=== PATIENT | female | born 2000 | race Caucasian/White ===

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

== ENCOUNTER 2018-02-09 18:39 | Emergency (ER) | payer OTHER, MEDICAID ==
[2018-02-09 19:04] VITALS: BP 122/72
--- NOTE | 2018-02-09 19:18 | EDM.PDOC ---
ED HPI GENERAL MEDICAL PROBLEM - General Chief Complaint: Gastrointestinal Problem Stated Complaint: 18WKS PRAGNANT AND THROWING UP Time Seen by Provider: 02/09/18 19:18 Source of Information: Reports: Patient History Limitations: Reports: No Limitations - History of Present Illness INITIAL COMMENTS - FREE TEXT/NARRATIVE: HISTORY AND PHYSICAL: History of present illness: 17-year-old female presenting in emergency department with chief complaint of nausea and bladder pain. Patient states that she was recently diagnosed with a urinary tract infection. She has been taking antibiotics since but states that her bladder is bothering her so she came to emergency department. She sees Mackenzie Luther as her PCP for her current . She is currently on Augmentin for the bladder infection. She denies any recent fevers. Review of systems: As per history of present illness and below otherwise all systems reviewed and negative. Past medical history: As per history of present illness and as reviewed below otherwise noncontributory. Surgical history: As per history of present illness and as reviewed below otherwise noncontributory. Social history: No reported history of drug or alcohol abuse. Family history: As per history of present illness and as reviewed below otherwise noncontributory. Physical exam: HEENT: Atraumatic, normocephalic, pupils reactive, negative for conjunctival pallor or scleral icterus, mucous membranes moist, throat clear, neck supple, nontender, trachea midline. Lungs: Clear to auscultation, breath sounds equal bilaterally, chest nontender. Heart: S1S2, regular, negative for clicks, rubs, or JVD. Abdomen: Soft, nondistended, nontender. Negative for masses or hepatosplenomegaly. Negative for costovertebral tenderness. Pelvis: Stable nontender. Genitourinary: Deferred. Rectal: Deferred. Extremities: Atraumatic, negative for cords or calf pain. Neurovascular unremarkable. Neuro: Awake, alert, oriented. Cranial nerves II through XII unremarkable. Cerebellum unremarkable. Motor and sensory unremarkable throughout. Exam nonfocal. Diagnostics: CBC, CMP, UA/UC Therapeutics: 1 L normal saline Impression: [Acute cystitis] Plan: Patient felt significantly better after one bag of fluids as well as a DuoNeb. Instructed her to continue taking her antibiotics for urinary tract infection and follow-up with her primary care provider. Definitive disposition and diagnosis as appropriate pending reevaluation and review of above. - Related Data Allergies Allergy/AdvReac Type Severity Reaction Status Date / Time animal dander Allergy Sneezing Verified 02/09/18 19:04 Influenza Virus Vaccines Allergy Cannot Verified 02/09/18 19:04 Remember Home Meds: Home Meds Albuterol [Ventolin HFA] 1 puff INH ASDIRECTED PRN 02/20/14 [History] Albuterol [Proventil Neb Soln] 1 dose INH ASDIRECTED 06/24/14 [History] Amoxicillin/Clavulanate K [Augmentin 500-125 MG] 1 tab PO Q8H 10 Days #30 tab [Rx] Fluticasone/Vilanterol [Breo Ellipta 200-25 MCG Inhalation Kit] 2 puff INH BID 02/06/18 [History] Past Medical History HEENT History: Reports: None 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: , 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 Psychiatric History: Reports: Anxiety, Bipolar, Depression - Infectious Disease History Infectious Disease History: Reports: Chicken Pox, Mumps - Past Surgical History HEENT Surgical History: Reports: Myringotomy w Tube(s), Tonsillectomy Respiratory Surgical History: Reports: None Social & Family History - Family History Family Medical History: Noncontributory - Tobacco Use Smoking Status *Q: Never Smoker - Caffeine Use Caffeine Use: Reports: Coffee, Tea - Recreational Drug Use Recreational Drug Use: No ED ROS GENERAL - Review of Systems Review Of Systems: ROS reveals no pertinent complaints other than HPI. ED EXAM, GENERAL - Physical Exam Exam: See Below Course - Vital Signs Last Recorded V/S: Last Vital Signs Temp 97.6 F 02/09/18 19:02 Pulse 90 02/09/18 19:02 Resp 12 02/09/18 19:02 BP 122/72 02/09/18 19:02 Pulse Ox 96 02/09/18 19:02 - Orders/Labs/Meds Orders: Active Orders 24 hr Category Date Time Status RT Aerosol Therapy [RC] ASDIRECTED Care 02/09/18 20:15 Active CULTURE URINE [RM] Stat Lab 02/09/18 19:32 Ordered UA W/MICROSCOPIC [URIN] Stat Lab 02/09/18 18:53 Ordered Labs: Laboratory Tests 02/09/18 02/09/18 Range/Units 17:29 17:29 WBC 14.15 H (4.0-11.0) K/uL RBC 4.69 (4.30-5.90) M/uL Hgb 11.9 L (12.0-16.0) g/dL Hct 36.1 (36.0-46.0) % MCV 77.0 L (80.0-98.0) fL MCH 25.4 L (27.0-32.0) pg MCHC 33.0 (31.0-37.0) g/dL RDW Std Deviation 48.6 (28.0-62.0) fl RDW Coeff of Negrita 17 H (11.0-15.0) % Plt Count 214 (150-400) K/uL MPV 10.90 (7.40-12.00) fL Neut % (Auto) 73.5 (48.0-80.0) % Lymph % (Auto) 12.7 L (16.0-40.0) % Overton % (Auto) 5.9 (0.0-15.0) % Eos % (Auto) 7.8 H (0.0-7.0) % Baso % (Auto) 0.1 (0.0-1.5) % Neut # (Auto) 10.4 H (1.4-5.7) K/uL Lymph # (Auto) 1.8 (0.6-2.4) K/uL Overton # (Auto) 0.8 (0.0-0.8) K/uL Eos # (Auto) 1.1 H (0.0-0.7) K/uL Baso # (Auto) 0.0 (0.0-0.1) K/uL Nucleated RBC % 0.0 /100WBC Nucleated RBCs # 0 K/uL Sodium 139 (136-145) mmol/L Potassium 3.9 (3.5-5.1) mmol/L Chloride 106 (98-107) mmol/L Carbon Dioxide 23.1 (21.0-32.0) mmol/L BUN 7 (7.0-18.0) mg/dL Creatinine 0.7 (0.6-1.0) mg/dL Est Cr Clr Drug Dosing 125.70 mL/min Estimated GFR (MDRD) > 60.0 ml/min Glucose 82 (74-106) mg/dL Calcium 8.7 (8.5-10.1) mg/dL Total Bilirubin 0.3 (0.2-1.0) mg/dL AST 12 L (15-37) IU/L ALT 16 (14-63) IU/L Alkaline Phosphatase 64 (46-116) U/L Total Protein 6.8 (6.4-8.2) g/dL Albumin 3.1 L (3.4-5.0) g/dL Globulin 3.7 H (2.0-3.5) g/dL Albumin/Globulin Ratio 0.8 L (1.3-2.8) Meds: Medications Discontinued Medications Generic Name Dose Route Start Last Admin Trade Name Freq PRN Reason Stop Dose Admin Albuterol/Ipratropium 3 ml 02/09/18 20:14 02/09/18 20:24 Duoneb 3.0-0.5 Mg/3 Ml NEB 02/09/18 20:15 3 ml ONETIME ONE Administration Sodium Chloride 1,000 mls @ 999 mls/hr 02/09/18 19:25 02/09/18 19:33 Normal Saline IV 02/09/18 20:25 999 mls/hr STAT ONE Administration Departure - Departure Time of Disposition: 21:23 Disposition: Home, Self-Care 01 Condition: Good Clinical Impression: Acute cystitis Qualifiers: Hematuria presence: without hematuria Qualified Code(s): N30.00 - Acute cystitis without hematuria - Discharge Information Referrals: PCP,None [Primary Care Provider] - Forms: ED Department Discharge - My Orders Last 24 Hours: My Active Orders 02/09/18 19:32 CULTURE URINE [RM] Stat 02/09/18 20:15 RT Aerosol Therapy [RC] ASDIRECTED - Assessment/Plan Last 24 Hours: My Active Orders 02/09/18 19:32 CULTURE URINE [RM] Stat 02/09/18 20:15 RT Aerosol Therapy [RC] ASDIRECTED
[2018-02-09] MEDS ORDERED: Sodium Chloride 0.9% 1,000 ML IV ONE (19:25)
[2018-02-09 20:02] LABS: CHLORIDE,CL 106 mmol/L (98-107); SODIUM,NA 139 mmol/L (136-145)
[2018-02-09] MEDS ORDERED: Albuterol/Ipratropium 3.0-0.5 MG/3 ML Neb Soln NEB ONE (20:14)
== END 2018-02-09 21:35 | disposition home or self-care (01) ==
LOC: MW.ED 18:39
DX: N30.00 Acute cystitis without hematuria (principal); Z91.048 Other nonmedicinal substance allergy status
CPT/HCPCS: 36415; 80053; 81001; 85025; 87086; 94640; 96360; 99284; J7040; 99282; J7620-GY

== ENCOUNTER 2018-02-14 17:24 | Emergency (ER) | payer OTHER, MEDICAID ==
--- NOTE | 2018-02-14 17:46 | EDM.PDOC ---
ED HPI GENERAL MEDICAL PROBLEM - General Chief Complaint: Skin Complaint Stated Complaint: POSSIBLE ALERGIC REATION Time Seen by Provider: 02/14/18 17:33 Source of Information: Reports: Patient History Limitations: Reports: No Limitations - History of Present Illness INITIAL COMMENTS - FREE TEXT/NARRATIVE: HISTORY AND PHYSICAL: History of present illness: Patient is a 17-year-old female who presents to the emergency room today with complaints of labial pain and erythema. Patient is currently 19 weeks . 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 On 2017 she was placed on Augmentin for a bladder infection. Yesterday she noticed pain, redness and irritation to the external labia. She also has some pelvic pain and dysuria. She believes it could possibly be a drug allergy to the Augmentin. She had called Mackenzie Diamond and explained her symptoms, they requested she come to the emergency room for evaluation. She denies any fever, chills, chest pain or shortness of breath. Denies any nausea, vomiting, diarrhea or constipation. Denies any vaginal bleeding or discharge. Review of systems: As per history of present illness and below otherwise all systems reviewed and negative. Past medical history: As per history of present illness and as reviewed below otherwise noncontributory. Surgical history: As per history of present illness and as reviewed below otherwise noncontributory. Social history: No reported history of drug or alcohol abuse. Family history: As per history of present illness and as reviewed below otherwise noncontributory. Physical exam: General: Well-developed and well-nourished 17-year-old female. Alert and oriented. Nontoxic appearing acute distress. HEENT: Atraumatic, normocephalic, pupils equal and reactive bilaterally, negative for conjunctival pallor or scleral icterus, mucous membranes moist, throat clear, neck supple, nontender, trachea midline. No drooling or trismus noted. No meningeal signs Lungs: Fine expiratory wheezing to posterior bases bilaterally, breath sounds equal bilaterally, chest nontender. Heart: S1S2, regular rate and rhythm without overt murmur Abdomen: Soft, nondistended, obese, nontender. Negative for masses or hepatosplenomegaly. Negative for costovertebral tenderness. Pelvis: Stable nontender. Genitourinary: Deferred. Rectal: Deferred. Skin: The external genitalia appears to have errythema on the labia majora bilaterally. Intact, warm, dry. No lesions or rashes noted. Extremities: Atraumatic, negative for cords or calf pain. Neurovascular unremarkable. Neuro: Awake, alert, oriented. Cranial nerves II through XII unremarkable. Cerebellum unremarkable. Motor and sensory unremarkable throughout. Exam nonfocal. Notes: Patient has history of asthma. She requests a breathing treatment while waiting for the swab lab tests to return. Patient denies any new lubricants, use of condoms or exposure to any materials in the vagina area. The errythema appears to be similar to a contact dermatitis. UA does show a UTI. Patient had stopped her Augmentin after 2-3 days as she felt that her symptoms were brought by an allergic reaction. Therefore she did not complete the antibiotic treatment. I will place her on Macrobid twice a day and give her some have the PHARMACY MANAGER as an external barrier cream in case there is any fungal component to this contact dermatitis. She states she will see Mackenzie Diamond tomorrow which I encouraged as I would like her to see the area as described above. She voices understanding and is agreeable to plan of care. Denies any further questions or concerns at this time. Diagnostics: UA, [place] Therapeutics: Charbelo Nina Prescription: Happy Hinnie Macrobid BID Impression: Contact Dermatitis UTI Plan: 1. Please take your antibiotic as directed 2. Apply the barrier cream 3-4 times daily. Please avoid any tight clothing. Allowed to be open to air as able. Avoid any hot showers or baths 3. Follow-up with Mackenzie Diamond tomorrow. Return to the ED as needed and as discussed. Definitive disposition and diagnosis as appropriate pending reevaluation and review of above. Duration: Day(s): Location: Reports: Pelvis - Related Data Allergies Allergy/AdvReac Type Severity Reaction Status Date / Time animal dander Allergy Sneezing Verified 02/09/18 19:04 Influenza Virus Vaccines Allergy Cannot Verified 02/09/18 19:04 Remember Home Meds: Home Meds Albuterol [Ventolin HFA] 1 puff INH ASDIRECTED PRN 02/20/14 [History] Albuterol [Proventil Neb Soln] 1 dose INH ASDIRECTED 06/24/14 [History] Amoxicillin/Clavulanate K [Augmentin 500-125 MG] 1 tab PO Q8H 10 Days #30 tab [Rx] Fluticasone/Vilanterol [Breo Ellipta 200-25 MCG Inhalation Kit] 2 puff INH BID 02/06/18 [History] Past Medical History HEENT History: Reports: None Respiratory History: Reports: Asthma 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 ED EXAM, SKIN/RASH Exam: See Below (See dictation) Course - Vital Signs Last Recorded V/S: Last Vital Signs Temp 98.7 F 02/14/18 17:39 Pulse 109 H 02/14/18 17:39 Resp 16 02/14/18 17:39 BP 118/68 02/14/18 17:39 Pulse Ox 95 02/14/18 17:39 - Orders/Labs/Meds Orders: Active Orders 24 hr Category Date Time Status RT Aerosol Therapy [RC] ASDIRECTED Care 02/14/18 18:57 Ordered UA W/MICROSCOPIC [URIN] Stat Lab 02/14/18 17:50 Ordered Labs: Laboratory Tests 02/14/18 02/14/18 Range/Units 17:45 17:50 Urine Color YELLOW Urine Appearance CLEAR Urine pH 6.0 (5.0-8.0) Ur Specific [place] 1.025 (1.001-1.035) Urine Protein NEGATIVE (NEGATIVE) mg/dL Urine Glucose (UA) NEGATIVE (NEGATIVE) mg/dL Urine Ketones NEGATIVE (NEGATIVE) mg/dL Urine Occult Blood NEGATIVE (NEGATIVE) Urine Nitrite NEGATIVE (NEGATIVE) Urine Bilirubin NEGATIVE (NEGATIVE) Urine Urobilinogen 0.2 (<2.0) EU/dL Ur Leukocyte Esterase TRACE (NEGATIVE) Urine RBC 1-2 (0-2/HPF) Urine WBC 2-4 (0-5/HPF) Ur Epithelial Cells FEW (NONE-FEW) Urine Bacteria FEW (NEGATIVE) Urine Mucus LIGHT (NONE-MOD) Anupama species DNA NEGATIVE (NEGATIVE) Gardnerella DNA Probe NEGATIVE (NEGATIVE) Trichomonas DNA Probe NEGATIVE (NEGATIVE) Meds: Medications Discontinued Medications Generic Name Dose Route Start Last Admin Trade Name Jitendra PRN Reason Stop Dose Admin Albuterol/Ipratropium 3 ml 02/14/18 18:57 02/14/18 19:08 Duoneb 3.0-0.5 Mg/3 Ml NEB 02/14/18 18:58 3 ml ONETIME ONE Administration Departure - Departure Time of Disposition: 19:19 Disposition: Home, Self-Care 01 Clinical Impression: Contact dermatitis Qualifiers: Contact dermatitis type: unspecified Contact dermatitis trigger: unspecified trigger Qualified Code(s): L25.9 - Unspecified contact dermatitis, unspecified cause UTI (urinary tract infection) Qualifiers: Urinary tract infection type: site unspecified Hematuria presence: without hematuria Qualified Code(s): N39.0 - Urinary tract infection, site not specified - Discharge Information Instructions: Urinary Tract Infection, Adult, [id number], Contact Dermatitis , [id number] Referrals: PCP,None [Primary Care Provider] - Forms: ED Department Discharge Additional Instructions: The following information is given to patients seen in the emergency department who are being discharged to home. This information is to outline your options for follow-up care. We provide all patients seen in our emergency department with a follow-up referral. The need for follow-up, as well as the timing and circumstances, are variable depending upon the specifics of your emergency department visit. If you don't have a primary care physician on staff, we will provide you with a referral. We always advise you to contact your personal physician following an emergency department visit to inform them of the circumstance of the visit and for follow-up with them and/or the need for any referrals to a consulting specialist. The emergency department will also refer you to a specialist when appropriate. This referral assures that you have the opportunity for follow-up care with a specialist. All of these measure are taken in an effort to provide you with optimal care, which includes your follow-up. Under all circumstances we always encourage you to contact your private physician who remains a resource for coordinating your care. When calling for follow-up care, please make the office aware that this follow-up is from your recent emergency room visit. If for any reason you are refused follow-up, please contact the [facility] Emergency Department at and asked to speak to the emergency department charge nurse. [facility] [address] [place] [id number] 1. Please take your antibiotic as directed 2. Apply the barrier cream 3-4 times daily. Please avoid any tight clothing. Allowed to be open to air as able. Avoid any hot showers or baths 3. Follow-up with Mackenzie Diamond tomorrow. Return to the ED as needed and as discussed. - My Orders Last 24 Hours: My Active Orders 02/14/18 17:50 UA W/MICROSCOPIC [URIN] Stat 02/14/18 18:57 RT Aerosol Therapy [RC] ASDIRECTED - Assessment/Plan Last 24 Hours: My Active Orders 02/14/18 17:50 UA W/MICROSCOPIC [URIN] Stat 02/14/18 18:57 RT Aerosol Therapy [RC] ASDIRECTED
[2018-02-14] MEDS ORDERED: Albuterol/Ipratropium 3.0-0.5 MG/3 ML Neb Soln NEB ONE (18:57)
[2018-02-14 19:43] VITALS: BP 123/66
== END 2018-02-14 19:40 | disposition home or self-care (01) ==
LOC: MW.ED 17:24
DX: O23.42 Unspecified infection of urinary tract in pregnancy, second trimester (principal); O99.89 Other specified diseases and conditions complicating pregnancy, childbirth and the puerperium; L25.9 Unspecified contact dermatitis, unspecified cause; Z79.899 Other long term (current) drug therapy; Z88.7 Allergy status to serum and vaccine; Z3A.19 19 weeks gestation of pregnancy
CPT/HCPCS: 81001; 87480; 87510; 87660; 94640; 99283-25; J7620-GY

== ENCOUNTER 2018-02-19 17:58 | Emergency (ER) | payer OTHER, MEDICAID ==
[2018-02-19] MEDS ORDERED: Albuterol/Ipratropium 3.0-0.5 MG/3 ML Neb Soln NEB ONE (18:09)
--- NOTE | 2018-02-19 18:17 | EDM.PDOC ---
ED HPI GENERAL MEDICAL PROBLEM - General Chief Complaint: Respiratory Problem Stated Complaint: HAVING TROUBLE BREATHING Time Seen by Provider: 02/19/18 18:01 Source of Information: Reports: Patient History Limitations: Reports: No Limitations - History of Present Illness INITIAL COMMENTS - FREE TEXT/NARRATIVE: HISTORY AND PHYSICAL: History of present illness: Patient is a 17-year-old female who presents to the emergency room with complaints of shortness of breath and wheezing 1 week. Patient does have a history of asthma and does use a rescue inhaler and nebulizer treatments to help alleviate her symptoms. Currently is 19 weeks and follows with Mackenzie Luther at the women's health clinic. She states that she has been evaluated previously for her shortness of breath and "usually goes away on its own within a day". Today she has tried to use her nebulizer without much relief. She denies any fever, chills, abdominal pain/cramping, nausea, vomiting , diarrhea or constipation. Denies any vaginal bleeding or dysuria. Has no current OB concerns. Review of systems: As per history of present illness and below otherwise all systems reviewed and negative. Past medical history: As per history of present illness and as reviewed below otherwise noncontributory. Surgical history: As per history of present illness and as reviewed below otherwise noncontributory. Social history: No reported history of drug or alcohol abuse. Family history: As per history of present illness and as reviewed below otherwise noncontributory. Physical exam: General: Well-developed and well-nourished 17-year-old female. Alert and oriented. Nontoxic appearing and in no acute distress. HEENT: Atraumatic, normocephalic, pupils equal and reactive bilaterally, negative for conjunctival pallor or scleral icterus, mucous membranes moist, throat clear, neck supple, nontender, trachea midline. No drooling or trismus noted. No meningeal signs Lungs: Fine expiratory wheezing to the bilateral lung flaherty, breath sounds equal bilaterally, chest nontender. Heart: S1S2, regular rate and rhythm without overt murmur Abdomen: Soft, nondistended, nontender. Negative for masses or hepatosplenomegaly. Negative for costovertebral tenderness. Pelvis: Stable nontender. Genitourinary: Deferred. Rectal: Deferred. Skin: Intact, warm, dry. No lesions or rashes noted. Extremities: Atraumatic, negative for cords or calf pain. Neurovascular unremarkable. Neuro: Awake, alert, oriented. Cranial nerves II through XII unremarkable. Cerebellum unremarkable. Motor and sensory unremarkable throughout. Exam nonfocal. Notes: 182: Mackenzie Luther was contacted regarding this patient. She is well with the patient receiving IM Rocephin and Solu-Medrol while here in the emergency room. She'll receive a prescription for a Medrol Dosepak. Mackenzie Luther will see the patient in clinic area After the breathing treatment the patient still has some fine expiratory wheezing but this has improved. Her oxygen saturation is 96-98% on room air. I did offer her a second DuoNeb, she declines. Patient's significant other is at the bedside. He states they will return if her symptoms worsen. Denies any further questions or concerns at this time. Diagnostics: None Therapeutics: Duo Neb, Solu-Medrol IM, Rocephin IM Prescription: Medrol Dosepak Impression: Asthma Exacerbation Plan: 1. Take your prescription as directed start 02/20/2018. Continue with your inhaler and nebulizers as directed. 2. Tylenol as needed for pain. 3. Follow up with your OBGYN in the next 1-2 days. Return to the ED as needed and as discussed. Definitive disposition and diagnosis as appropriate pending reevaluation and review of above. Onset: Today Duration: Day(s): Location: Reports: Chest - Related Data Allergies Allergy/AdvReac Type Severity Reaction Status Date / Time animal dander Allergy Sneezing Verified 02/19/18 18:09 Influenza Virus Vaccines Allergy Cannot Verified 02/19/18 18:09 Remember Home Meds: Home Meds Albuterol [Ventolin HFA] 1 puff INH ASDIRECTED PRN 02/20/14 [History] Albuterol [Proventil Neb Soln] 1 dose INH ASDIRECTED 06/24/14 [History] Fluticasone/Vilanterol [Breo Ellipta 200-25 MCG Inhalation Kit] 2 puff INH BID 02/06/18 [History] Past Medical History HEENT History: Reports: None Cardiovascular History: Reports: None Respiratory History: Reports: Asthma Gastrointestinal History: Reports: None Genitourinary History: Reports: None 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: , 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 Musculoskeletal History: Reports: None Neurological History: Reports: None Psychiatric History: Reports: Anxiety, Bipolar, Depression Endocrine/Metabolic History: Reports: None Hematologic History: Reports: None Immunologic History: Reports: None Oncologic (Cancer) History: Reports: None Dermatologic History: Reports: None - Infectious Disease History Infectious Disease History: Reports: Chicken Pox, Mumps - Past Surgical History Head Surgeries/Procedures: Reports: None HEENT Surgical History: Reports: Myringotomy w Tube(s), Tonsillectomy Cardiovascular Surgical History: Reports: None Respiratory Surgical History: Reports: None GI Surgical History: Reports: None Female Surgical History: Reports: None Endocrine Surgical History: Reports: None Neurological Surgical History: Reports: None Musculoskeletal Surgical History: Reports: None Oncologic Surgical History: Reports: None Dermatological Surgical History: Reports: None Social & Family History - Family History Family Medical History: Noncontributory - Tobacco Use Smoking Status *Q: Never Smoker Second Hand Smoke Exposure: Yes - Caffeine Use Caffeine Use: Reports: None - Recreational Drug Use Recreational Drug Use: No ED ROS GENERAL - Review of Systems Review Of Systems: ROS reveals no pertinent complaints other than HPI. ED EXAM, GENERAL - Physical Exam Exam: See Below (See dictation) Course - Vital Signs Last Recorded V/S: Last Vital Signs Temp 96.7 F 02/19/18 18:13 Pulse 120 H 02/19/18 18:13 Resp 20 02/19/18 18:13 BP 130/74 02/19/18 18:13 Pulse Ox 96 02/19/18 18:13 - Orders/Labs/Meds Orders: Active Orders 24 hr Category Date Time Status RT Aerosol Therapy [RC] ASDIRECTED Care 02/19/18 18:10 Active Meds: Medications Discontinued Medications Generic Name Dose Route Start Last Admin Trade Name Jitendra PRN Reason Stop Dose Admin Albuterol/Ipratropium 3 ml 02/19/18 18:09 02/19/18 18:23 Duoneb 3.0-0.5 Mg/3 Ml NEB 02/19/18 18:10 3 ml ONETIME ONE Administration Ceftriaxone Sodium 1,000 mg/ 4 mls @ 4 mls/sec 02/19/18 18:28 02/19/18 18:45 Lidocaine HCl IM 02/19/18 18:29 4 mls/sec ONETIME ONE Administration Methylprednisolone Sodium Succinate 125 mg 02/19/18 18:28 02/19/18 18:44 Solu-Medrol IM 02/19/18 18:29 125 mg ONETIME ONE Administration Departure - Departure Time of Disposition: 19:10 Disposition: Home, Self-Care 01 Clinical Impression: Asthma exacerbation Qualifiers: Asthma severity: mild Asthma persistence: intermittent Qualified Code(s): J45.21 - Mild intermittent asthma with (acute) exacerbation - Discharge Information Forms: ED Department Discharge Additional Instructions: The following information is given to patients seen in the emergency department who are being discharged to home. This information is to outline your options for follow-up care. We provide all patients seen in our emergency department with a follow-up referral. The need for follow-up, as well as the timing and circumstances, are variable depending upon the specifics of your emergency department visit. If you don't have a primary care physician on staff, we will provide you with a referral. We always advise you to contact your personal physician following an emergency department visit to inform them of the circumstance of the visit and for follow-up with them and/or the need for any referrals to a consulting specialist. The emergency department will also refer you to a specialist when appropriate. This referral assures that you have the opportunity for follow-up care with a specialist. All of these measure are taken in an effort to provide you with optimal care, which includes your follow-up. Under all circumstances we always encourage you to contact your private physician who remains a resource for coordinating your care. When calling for follow-up care, please make the office aware that this follow-up is from your recent emergency room visit. If for any reason you are refused follow-up, please contact the [facility] Emergency Department at and asked to speak to the emergency department charge nurse. [facility] [address] [place] [id number] 1. Take your prescription as directed start 02/20/2018. Continue with your inhaler and nebulizers as directed. 2. Tylenol as needed for pain. 3. Follow up with your OBGYN in the next 1-2 days. Return to the ED as needed and as discussed. - My Orders Last 24 Hours: My Active Orders 02/19/18 18:10 RT Aerosol Therapy [RC] ASDIRECTED - Assessment/Plan Last 24 Hours: My Active Orders 02/19/18 18:10 RT Aerosol Therapy [RC] ASDIRECTED
[2018-02-19] MEDS ORDERED: cefTRIAXone 1,000 MG in Lidocaine 1% 4 ML IM ONE (18:28)
[2018-02-19] MEDS ORDERED: methylPREDNISolone Sodium Succinate 125 MG/2 ML SDV IM ONE (18:28)
[2018-02-19 19:24] VITALS: BP 138/82
== END 2018-02-19 19:25 | disposition home or self-care (01) ==
LOC: MW.ED 17:58
DX: O99.512 Diseases of the respiratory system complicating pregnancy, second trimester (principal); J45.21 Mild intermittent asthma with (acute) exacerbation; Z3A.19 19 weeks gestation of pregnancy; Z79.51 Long term (current) use of inhaled steroids
CPT/HCPCS: 94640; 96372; 99284; J0696; J2001; J2930; 99283; J7620-GY

== ENCOUNTER 2018-02-19 22:16 | Inpatient (IN) | payer OTHER, MEDICAID ==
[2018-02-19] MEDS ORDERED: methylPREDNISolone Sodium Succinate 125 MG/2 ML SDV IVPUSH ONE (22:38)
[2018-02-19] MEDS ORDERED: Albuterol/Ipratropium 3.0-0.5 MG/3 ML Neb Soln NEB ONE (22:38)
--- NOTE | 2018-02-19 22:43 | EDM.PDOC ---
ED HPI GENERAL MEDICAL PROBLEM - General Chief Complaint: Respiratory Problem Stated Complaint: SHORTNESS OF BREATH Time Seen by Provider: 02/19/18 22:33 - History of Present Illness INITIAL COMMENTS - FREE TEXT/NARRATIVE: HISTORY AND PHYSICAL: History of present illness: Patient is a 17-year-old female is approximately 20 weeks who presents with concern of shortness of breath and asthmatic exacerbation she states she's had 5 visits over last 2 weeks including one earlier today on arrival patient is [id number] shortness of breath saturation on 2 L is 92% but no fever no abdominal pain no vaginal bleeding discharge or other concerns. Review of systems: As per history of present illness and below otherwise all systems reviewed and negative. Past medical history: As per history of present illness and as reviewed below otherwise noncontributory. Surgical history: As per history of present illness and as reviewed below otherwise noncontributory. Social history: No reported history of drug or alcohol abuse. Family history: As per history of present illness and as reviewed below otherwise noncontributory. Physical exam: HEENT: Atraumatic, normocephalic, pupils reactive, negative for conjunctival pallor or scleral icterus, mucous membranes moist, throat clear, neck supple, nontender, trachea midline. Lungs: Diminished rare end expiratory wheezing, breath sounds equal bilaterally , chest nontender. Heart: S1S2, regular, negative for clicks, rubs, or JVD. Abdomen: Soft, nondistended, nontender. Negative for masses or hepatosplenomegaly. Negative for costovertebral tenderness. Pelvis: Stable nontender. Genitourinary: Deferred. Rectal: Deferred. Extremities: Atraumatic, negative for cords or calf pain. Neurovascular unremarkable. Neuro: Awake, alert, oriented. Cranial nerves II through XII unremarkable. Cerebellum unremarkable. Motor and sensory unremarkable throughout. Exam nonfocal. Diagnostics: CBC CMP continuous pulse oximetry Therapeutics: Albuterol ipratropium nebulizer Solu-Medrol 125 mg IV oxygen 2 L per nasal cannula Impression: #1Acute asthmatic exacerbation #2 second trimester intrauterine Definitive disposition and diagnosis as appropriate pending reevaluation and review of above. Chest Pain Score (Numeric/FACES): 8 - Related Data Allergies Allergy/AdvReac Type Severity Reaction Status Date / Time animal dander Allergy Sneezing Verified 02/19/18 18:09 Influenza Virus Vaccines Allergy Cannot Verified 02/19/18 18:09 Remember Home Meds: Home Meds Albuterol [Ventolin HFA] 1 puff INH ASDIRECTED PRN 02/20/14 [History] Albuterol [Proventil Neb Soln] 1 dose INH ASDIRECTED 06/24/14 [History] Fluticasone/Vilanterol [Breo Ellipta 200-25 MCG Inhalation Kit] 2 puff INH BID 02/06/18 [History] Past Medical History HEENT History: Reports: None Cardiovascular History: Reports: None Respiratory History: Reports: Asthma Gastrointestinal History: Reports: None Genitourinary History: Reports: None [employer]ATING [employer] History: Reports: , Spontaneous Musculoskeletal History: Reports: None Neurological History: Reports: None Psychiatric History: Reports: Anxiety, Bipolar, Depression Endocrine/Metabolic History: Reports: None Hematologic History: Reports: None Immunologic History: Reports: None Oncologic (Cancer) History: Reports: None Dermatologic History: Reports: None - Infectious Disease History Infectious Disease History: Reports: Chicken Pox, Mumps - Past Surgical History Head Surgeries/Procedures: Reports: None HEENT Surgical History: Reports: Myringotomy w Tube(s), Tonsillectomy Cardiovascular Surgical History: Reports: None Respiratory Surgical History: Reports: None GI Surgical History: Reports: None Female Surgical History: Reports: None Endocrine Surgical History: Reports: None Neurological Surgical History: Reports: None Musculoskeletal Surgical History: Reports: None Oncologic Surgical History: Reports: None Dermatological Surgical History: Reports: None Social & Family History - Family History Family Medical History: Noncontributory - Tobacco Use Smoking Status *Q: Current Every Day Smoker Years of Tobacco use: 5 Packs/Tins Daily: 0.5 - Caffeine Use Caffeine Use: Reports: None ED ROS GENERAL - Review of Systems Review Of Systems: ROS reveals no pertinent complaints other than HPI. ED EXAM, GENERAL - Physical Exam Exam: See Below (See dictation) Course - Vital Signs Last Recorded V/S: Last Vital Signs Temp 36.3 C 02/19/18 22:26 Pulse 111 H 02/19/18 22:26 Resp BP 130/81 02/19/18 22:26 Pulse Ox - Orders/Labs/Meds Orders: Active Orders 24 hr Category Date Time Status Patient Status [ADT] Stat ADT 02/19/18 22:39 Ordered RT Aerosol Therapy [RC] ASDIRECTED Care 02/19/18 22:39 Ordered CBC WITH AUTO DIFF [HEME] Stat Lab 02/19/18 22:38 Ordered COMPREHENSIVE METABOLIC PN,CMP [CHEM] Stat Lab 02/19/18 22:38 Ordered Albuterol/Ipratropium [DuoNeb 3.0-0.5 MG/3 ML] Med 02/19/18 22:38 Once 3 ml NEB ONETIME ONE Sodium Chloride 0.9% [Normal Saline] 1,000 ml Med 02/19/18 22:45 Ordered IV STAT methylPREDNISolone Sod Succ [Solu-MEDROL] Med 02/19/18 22:38 Once 125 mg IVPUSH ONETIME ONE Departure - Departure Time of Disposition: 22:43 Disposition: Refer to Observation Condition: Good Clinical Impression: Acute asthma, Second trimester - Discharge Information - My Orders Last 24 Hours: My Active Orders 02/19/18 22:38 CBC WITH AUTO DIFF [HEME] Stat COMPREHENSIVE METABOLIC PN,CMP [CHEM] Stat Albuterol/Ipratropium [DuoNeb 3.0-0.5 MG/3 ML] 3 ml NEB ONETIME ONE methylPREDNISolone Sod Succ [Solu-MEDROL] 125 mg IVPUSH ONETIME ONE 02/19/18 22:39 Patient Status [ADT] Stat RT Aerosol Therapy [RC] ASDIRECTED 02/19/18 22:45 Sodium Chloride 0.9% [Normal Saline] 1,000 ml IV STAT - Assessment/Plan Last 24 Hours: My Active Orders 02/19/18 22:38 CBC WITH AUTO DIFF [HEME] Stat COMPREHENSIVE METABOLIC PN,CMP [CHEM] Stat Albuterol/Ipratropium [DuoNeb 3.0-0.5 MG/3 ML] 3 ml NEB ONETIME ONE methylPREDNISolone Sod Succ [Solu-MEDROL] 125 mg IVPUSH ONETIME ONE 02/19/18 22:39 Patient Status [ADT] Stat RT Aerosol Therapy [RC] ASDIRECTED 02/19/18 22:45 Sodium Chloride 0.9% [Normal Saline] 1,000 ml IV STAT
[2018-02-19] MEDS ORDERED: Sodium Chloride 0.9% 1,000 ML IV SCH (22:45)
[2018-02-19 23:20] LABS: CHLORIDE,CL 105 mmol/L (98-107); SODIUM,NA 137 mmol/L (136-145)
[2018-02-20] MEDS ORDERED: Magnesium Sulfate/Water 2 GM in Premix Bag 1 BAG IV ONE (00:24)
[2018-02-20] MEDS ORDERED: Enoxaparin 40 MG/0.4 ML Syringe SUBCUT SCH ×2 (01:00→09:00)
[2018-02-20] MEDS: Budesonide 0.5 MG/2 ML Neb Susp NEB SCH ×3 (01:12→23:01)
[2018-02-20] MEDS ORDERED: Sodium Chloride 0.9% 2.5 ML Syringe FLUSH PRN (01:53)
[2018-02-20] MEDS ORDERED: Sodium Chloride 0.9% 10 ML Syringe FLUSH PRN (01:53)
[2018-02-20] MEDS ORDERED: cefTRIAXone 1,000 MG in Sodium Chloride 0.9% 50 ML IV SCH (02:00)
[2018-02-20] MEDS: Fluticasone Propionate Nasal Spray 16 GM Bottle NASBOTH SCH ×3 (02:25→21:42)
[2018-02-20] MEDS: Albuterol/Ipratropium 3.0-0.5 MG/3 ML Neb Soln NEB PRN ×6 (03:23→23:01)
[2018-02-20] MEDS: methylPREDNISolone Sodium Succinate 125 MG/2 ML SDV IVPUSH SCH ×4 (05:18→21:41)
[2018-02-20 06:51] LABS: CHLORIDE,CL 106 mmol/L (98-107); SODIUM,NA 136 mmol/L (136-145)
--- NOTE | 2018-02-20 09:40 | PCM.SN ---
- Free Text/Narrative Note: [id number]
[2018-02-20] MEDS: Enoxaparin 40 MG/0.4 ML Syringe SUBCUT SCH (09:54)
--- NOTE | 2018-02-20 12:22 | HP ---
DATE OF : 2000 PRIMARY CARE PHYSICIAN: None PCP HISTORY OF PRESENT ILLNESS: The patient is a 17-year-old female who presented to the emergency room because of wheezing and difficulty breathing. Also, the patient reports coughing yellow phlegm. The patient came into the emergency room today, and she had a nebulizer treatment and a steroid shot .She was feeling better and then was discharged home but after she went home and took a shower her wheezing came back , severe and she came to Er. In ER she was hypoxic with O2 sat in the 90 on 4 L o2 and she was wheezing severely. She was seen in emergency room on Sunday last week because of abdominal pain and was found to have a UTI and was given amoxicillin 500 mg p.o. q.8h three times a day, and she took it for 3 days; and on Sunday, her wheezing was worse and came back to the emergency room, and also she had a yeast infection and she came in because of the discomfort from yeast infection. The patient says that she has always been wheezing for the past few years and for the past 3 days her wheezing became worse.. She could not sleep all night Sunday, and she was up vomiting; she was waking up to get out of bed so as to breathe. She has stuffy nose and denies chest pain. Denies sore throat and denies fever. PAST MEDICAL HISTORY: She has asthma since 7- to 8-month-old, and she is allergic to pet dander and cat; and she has at home, a cat and a dog. She was at home only on rescue nebulizer. ALLERGIES: She is allergic to pet dander and influenza virus vaccines. PAST SURGICAL HISTORY: She had tonsillectomy and an adenoidectomy, tubes in both ears. SOCIAL HISTORY: She does not smoke. No alcohol use. No drug use. FAMILY HISTORY: Her father had severe asthma. She also has asthma from her mom's family. She has an uncle with severe asthma. PHYSICAL EXAMINATION: VITAL SIGNS: Vital signs on admission; temperature 97.3, pulse rate 111, blood pressure 130/81, and oxygen saturation was 92% on 3 L of oxygen. GENERAL APPEARANCE: The patient appears very sick. She is very pale. HEENT: She has a nasal congestion and clear liquid coming from her nose. No throat erythema. Head is atraumatic and normocephalic. Pupils are equally reactive to light. NECK: Supple. No thyromegaly. No lymphadenopathy. LUNGS: Decreased breath sounds. Expiratory wheezing, bilateral, throughout the lungs, decreased air entry ABDOMEN: Soft, nontender, . Positive bowel sounds. HEART: S1 and S2. Regular rhythm and rate. No murmurs. EXTREMITIES: Lower extremities, no edema. LABORATORY DATA: Laboratory data on admission: WBC 20.24, hemoglobin 12.8, hematocrit 38.4, and platelet count 252. ABG; pH of 7.42, pCO2 of 29, and pO2 of 60. Sodium 137, potassium 4, chloride 105, CO2 of 21.7, BUN 7, creatinine 0.7, glucose 126, calcium 9.4, phosphorus 2.3, magnesium 2.1. Bilirubin 0.5, AST 11, ALT 18, and alkaline phosphatase 78. Total protein 7.6, albumin 3.3, globulin 4.3. Urinalysis: Urine color is yellow, appearance is cloudy, pH is 6, urine gravity more than 1.03, protein negative, glucose 250, ketones 15, occult blood negative, nitrite negative, bilirubin negative, urobilinogen 0.2, leukocyte esterase negative, urine rbc's between 0 and 1, wbc's between 0 and 2, occasional epithelial cells, occasional bacteria, few mucus seen. IMAGING: Chest x-ray was negative ASSESSMENT: 1. Acute respiratory failure, secondary to asthma. 2. Bronchitis. 3. Nasal congestion. 4. . 5. Morbid obesity. PLAN: We will admit the patient to ICU, and we will peak flow; and the patient received in the emergency room 1 g of Rocephin and 125 mg of Solu-Medrol IV. We will continue the patient with 125 mg of Solu-Medrol IV q.6 hours, budesonide nebulizer treatment 0.5 q.12 hours, formoterol nebulizer treatments 0.4 q.12 hours, and DuoNeb nebulizer treatment q.4 hours p.r.n. for shortness of breath and wheezing. We will consult AICU and peak flow q.6 hours. For DVT prophylaxis, heparin subcu. Also, we will continue the patient with Rocephin 1 g q.24 hours for bronchitis and we will consult OB. The patient had a testing done last night which was normal. ANTOPET / MODL /[id number] MTDMervat
--- NOTE | 2018-02-20 13:03 | CR ---
EXAM DATE: 02/19/18 PATIENT'S AGE: 17 Patient: GIDEON KEE Facility: [place], [place] Site . Site : 2000 Study: XRay Chest [id number]/22/2018 7:45:41 AM Ordering Physician: Mu Duncan Final Report: HISTORY: Hypoxia. TECHNIQUE: One view of the chest. COMPARISON: 09/12/2017. FINDINGS: The cardiac size and pulmonary vasculature are within normal limits. There is no acute lung infiltrate or pulmonary edema. No pneumothorax or pleural effusion. No acute bony abnormality. IMPRESSION: No acute disease. Dictated by Nicola Hebert MD @ 02/20/2018 8:55:59 AM Dictated by: Nicola Hebert MD @ 02/20/2018 08:56:04 (Electronic Signature) Report Signed by Proxy. [facility]ITALMervat
[2018-02-20] MEDS ORDERED: methylPREDNISolone Sodium Succinate 125 MG/2 ML SDV IVPUSH SCH (18:46)
[2018-02-20] MEDS ORDERED: cefTRIAXone 1 GM in Sodium Chloride 0.9% 50 ML IV SCH (20:00)
[2018-02-20] MEDS ORDERED: cefTRIAXone 1 GM in Premix Bag 1 BAG IV SCH ×2 (20:00→21:00)
[2018-02-21] MEDS: Albuterol/Ipratropium 3.0-0.5 MG/3 ML Neb Soln NEB PRN ×4 (04:05→19:58)
[2018-02-21] MEDS: methylPREDNISolone Sodium Succinate 125 MG/2 ML SDV IVPUSH SCH ×2 (04:08→09:07)
[2018-02-21 06:14] LABS: CHLORIDE,CL 107 mmol/L (98-107); SODIUM,NA 140 mmol/L (136-145)
[2018-02-21] MEDS: Fluticasone Propionate Nasal Spray 16 GM Bottle NASBOTH SCH ×2 (08:21→20:43)
[2018-02-21] MEDS: Enoxaparin 40 MG/0.4 ML Syringe SUBCUT SCH (09:08)
[2018-02-21] MEDS: Budesonide 0.5 MG/2 ML Neb Susp NEB SCH ×2 (10:09→20:01)
[2018-02-21] MEDS ORDERED: methylPREDNISolone Sodium Succinate 40 MG/1 ML SDV IVPUSH SCH (14:15)
[2018-02-21] MEDS ORDERED: guaiFENesin 100 MG/5 ML Soln 5 ML UD Cup PO PRN (15:24)
--- NOTE | 2018-02-21 15:27 | PCM.PN ---
- General Info Date of Service: 02/21/18 Subjective Update: Patient wheezing improved , able to wean her off the O2 . Her peak flow today was 260 before treatment and 360 after treatment , her target is 460, still persisting inspiratory wheezing . Solumedrol was tapered yesterday to 60 mg iv q 6 and today I have tapered it to 40 mg iv q 8 h. She has cough productive of yellow phlegm. Started on Robitussin today - Review of Systems General: Reports: No Symptoms HEENT: Reports: No Symptoms Pulmonary: Reports: No Symptoms, Cough, Sputum, Wheezing Cardiovascular: Reports: No Symptoms Gastrointestinal: Reports: No Symptoms, Other () Genitourinary: Reports: No Symptoms Musculoskeletal: Reports: No Symptoms Skin: Reports: No Symptoms Neurological: Reports: No Symptoms Psychiatric: Reports: No Symptoms - Patient Data Vitals - Most Recent: Last Vital Signs Temp 97.6 F 02/21/18 12:00 Pulse 73 02/21/18 12:00 Resp 20 02/21/18 12:00 BP 111/57 L 02/21/18 12:00 Pulse Ox 94 L 02/21/18 12:00 Weight - Most Recent: 242 lb 15.19 oz I&O - Last 24 Hours: Intake & Output 02/21/18 02/21/18 02/21/18 06:59 14:59 22:59 Intake Total 750 480 Output Total 600 525 Balance 150 -45 Lab Results Last 24 Hours: Laboratory Results - last 24 hr 02/20/18 02/21/18 02/21/18 Range/Units 18:17 04:55 04:55 WBC 33.08 H (4.0-11.0) K/uL RBC 4.31 (4.30-5.90) M/uL Hgb 11.0 L (12.0-16.0) g/dL Hct 33.8 L (36.0-46.0) % MCV 78.4 L (80.0-98.0) fL MCH 25.5 L (27.0-32.0) pg MCHC 32.5 (31.0-37.0) g/dL RDW Std Deviation 49.2 (28.0-62.0) fl RDW Coeff of Negrita 17 H (11.0-15.0) % Plt Count 244 (150-400) K/uL MPV 11.40 (7.40-12.00) fL Add Manual Diff YES Neutrophils % (Manual) 90 H (48.0-80.0) % Band Neutrophils % 4 % Lymphocytes % (Manual) 3 L (16.0-40.0) % Monocytes % (Manual) 2 (0.0-15.0) % Eosinophils % (Manual) 1 (0.0-7.0) % Nucleated RBC % 0.0 /100WBC Absolute Seg Neuts 29.8 H (1.4-5.7) Band Neutrophils # 1.3 Lymphocytes # (Manual) 1.0 (0.6-2.4) Monocytes # (Manual) 0.7 (0.0-0.8) Eosinophils # (Manual) 0.3 (0.0-0.7) Nucleated RBCs # 0 K/uL Sodium 140 (136-145) mmol/L Potassium 3.9 (3.5-5.1) mmol/L Chloride 107 (98-107) mmol/L Carbon Dioxide 23.8 (21.0-32.0) mmol/L BUN 10 (7.0-18.0) mg/dL Creatinine 0.7 (0.6-1.0) mg/dL Est Cr Clr Drug Dosing 125.70 mL/min Estimated GFR (MDRD) > 60.0 ml/min Glucose 164 H (74-106) mg/dL Calcium 9.1 (8.5-10.1) mg/dL Total Bilirubin 0.3 (0.2-1.0) mg/dL AST 7 L (15-37) IU/L ALT 13 L (14-63) IU/L Alkaline Phosphatase 53 (46-116) U/L Total Protein 3.8 L (6.4-8.2) g/dL Albumin 2.7 L (3.4-5.0) g/dL Globulin 1.1 L (2.0-3.5) g/dL Albumin/Globulin Ratio 2.5 (1.3-2.8) Urine Opiates Screen NEGATIVE (NEGATIVE) Ur Oxycodone Screen NEGATIVE (NEGATIVE) Urine Methadone Screen NEGATIVE (NEGATIVE) Ur Barbiturates Screen NEGATIVE (NEGATIVE) Ur Phencyclidine Scrn NEGATIVE (NEGATIVE) Ur Amphetamine Screen NEGATIVE (NEGATIVE) U Methamphetamines Scrn NEGATIVE (NEGATIVE) U Benzodiazepines Scrn NEGATIVE (NEGATIVE) U Cocaine Metab Screen NEGATIVE (NEGATIVE) U Marijuana (THC) Screen NEGATIVE (NEGATIVE) David Results Last 24 Hours: Microbiology 02/20/18 02:05 Urine Culture - Preliminary Urine, Voided NO GROWTH AFTER 1 DAY 02/20/18 02:23 Aerobic Blood Culture - Preliminary Blood - Venous - Lab Draw NO GROWTH AFTER 1 DAY Anaerobic Blood Culture - Preliminary NO GROWTH AFTER 1 DAY 02/20/18 02:16 Aerobic Blood Culture - Preliminary Blood - Venous NO GROWTH AFTER 1 DAY Anaerobic Blood Culture - Preliminary NO GROWTH AFTER 1 DAY Med Orders - Current: Current Medications Albuterol/Ipratropium (Duoneb 3.0-0.5 Mg/3 Ml) 3 ml NEB Q4HRRT PRN PRN Reason: Shortness Of Breath/wheezing Last Admin: 02/21/18 09:56 Dose: 3 ml Budesonide (Pulmicort) 0.5 mg NEB BID [facility] Last Admin: 02/21/18 10:09 Dose: 0.5 mg Enoxaparin Sodium (Lovenox) 40 mg SUBCUT Q24H [facility] Last Admin: 02/21/18 09:08 Dose: 40 mg Fluticasone Propionate (Flonase) 0 gm NASBOTH BID [facility] Last Admin: 02/21/18 08:21 Dose: 1 spray Guaifenesin (Robitussin) 200 mg PO QID PRN PRN Reason: Cough Ceftriaxone Sodium/Dextrose 1 (gm/ Premix) 50 mls @ 100 mls/hr IV Q24H [facility] Last Admin: 02/20/18 21:42 Dose: 100 mls/hr Methylprednisolone Sodium Succinate (Solu-Medrol) 40 mg IVPUSH Q8H [facility] Sodium Chloride (Saline Flush) 10 ml FLUSH ASDIRECTED PRN PRN Reason: Keep Vein Open Sodium Chloride (Saline Flush) 2.5 ml FLUSH ASDIRECTED PRN PRN Reason: Keep Vein Open Discontinued Medications Albuterol/Ipratropium (Duoneb 3.0-0.5 Mg/3 Ml) 3 ml NEB ONETIME ONE Stop: 02/19/18 22:39 Last Admin: 02/19/18 23:01 Dose: 3 ml Budesonide (Pulmicort) 0.5 mg NEB BIDRT [facility] Last Admin: 02/20/18 07:01 Dose: 0.5 mg Enoxaparin Sodium (Lovenox) 40 mg SUBCUT Q24H [facility] Last Admin: 02/20/18 01:12 Dose: Not Given Enoxaparin Sodium (Lovenox) 40 mg SUBCUT DAILY [facility] Sodium Chloride (Normal Saline) 1,000 mls @ 125 mls/hr IV STAT [facility] Last Admin: 02/19/18 22:59 Dose: 125 mls/hr Magnesium Sulfate 2 gm/ Premix 50 mls @ 50 mls/hr IV ONETIME ONE Stop: 02/20/18 01:23 Last Admin: 02/20/18 00:51 Dose: 50 mls/hr Ceftriaxone Sodium/Dextrose (Rocephin In Dextrose,Iso-Osm 1 Gm/50 Ml) 100 mls @ 100 mls/hr IV Q24H [facility] Last Admin: 02/20/18 02:41 Dose: Not Given Ceftriaxone Sodium 1 gm/ (Sodium Chloride) 50 mls @ 100 mls/hr IV Q24H [facility] Last Admin: 02/20/18 20:25 Dose: Not Given Methylprednisolone Sodium Succinate (Solu-Medrol) 125 mg IVPUSH ONETIME ONE Stop: 02/19/18 22:39 Last Admin: 02/19/18 23:00 Dose: 125 mg Methylprednisolone Sodium Succinate (Solu-Medrol) 125 mg IVPUSH Q6H [facility] Last Admin: 02/20/18 16:01 Dose: 125 mg Methylprednisolone Sodium Succinate (Solu-Medrol) 60 mg IVPUSH Q6H [facility] Last Admin: 02/20/18 18:52 Dose: Not Given Methylprednisolone Sodium Succinate (Solu-Medrol) 60 mg IVPUSH Q6H [facility] Last Admin: 02/21/18 09:07 Dose: 60 mg Methylprednisolone Sodium Succinate (Solu-Medrol) 40 mg IVPUSH Q8H [facility] Last Admin: 02/21/18 14:21 Dose: Not Given - Exam General: Alert HEENT: Pupils Equal Neck: Supple Lungs: Decreased Breath Sounds, Rhonchi, Wheezing Cardiovascular: Regular Rate, Regular Rhythm GI/Abdominal Exam: Normal Bowel Sounds, Soft, Non-Tender, No Organomegaly Back Exam: Normal Inspection Extremities: Normal Inspection - Problem List & Annotations (1) Severe asthma with acute exacerbation SNOMED Code(s): 370298350, 105718436 Code(s): J45.901 - UNSPECIFIED ASTHMA WITH (ACUTE) EXACERBATION Status: Acute Current Visit: Yes (2) Respiratory failure with hypoxia SNOMED Code(s): 80914094133067823 Code(s): J96.91 - RESPIRATORY FAILURE, UNSPECIFIED WITH HYPOXIA Status: Acute Current Visit: Yes (3) Obesity (BMI 35.0-39.9 without comorbidity) SNOMED Code(s): 303167574, 858627114 Code(s): E66.9 - OBESITY, UNSPECIFIED Status: Acute Current Visit: Yes (4) SNOMED Code(s): 64924581 Code(s): Z34.90 - ENCNTR FOR SUPRVSN OF NORMAL , UNSP, UNSP TRIMESTER Status: Acute Current Visit: Yes - Problem List Review Problem List Initiated/Reviewed/Updated: Yes - My Orders Last 24 Hours: My Active Orders 02/20/18 18:17 DRUG SCREEN, URINE [URCHEM] Urgent 02/20/18 18:45 Communication Order [RC] ROUTINE 02/20/18 18:46 Incentive Spirometry [RT Incentive Spirometry] [RC] Q2HWA 02/20/18 21:00 Budesonide [Pulmicort] 0.5 mg NEB BID cefTRIAXone [Rocephin in Dextrose,Iso-Osm 1 GM/50 ML] 1 gm Premix Bag 1 bag IV Q24H 02/21/18 11:10 Transfer Patient (Change bed) [ADT] Routine 02/21/18 11:13 Discontinue Telemetry Monitoring [Cardiac Monitoring Discontinue] [RC] Click to Edit 02/21/18 15:24 guaiFENesin [Robitussin] 200 mg PO QID PRN 02/21/18 17:00 methylPREDNISolone Sod Succ [Solu-MEDROL] 40 mg IVPUSH Q8H 02/22/18 05:11 CBC WITH AUTO DIFF [HEME] AM COMPREHENSIVE METABOLIC PN,CMP [CHEM] AM 02/23/18 05:11 CBC WITH AUTO DIFF [HEME] AM COMPREHENSIVE METABOLIC PN,CMP [CHEM] AM 02/24/18 05:11 COMPREHENSIVE METABOLIC PN,CMP [CHEM] AM - Assessment Assessment:: patient downgraded to medical floor Asthma improving - solumedrol 40 mg iv q 8 h , duoneb neb treatment , budesonide 0.5 mg neb q 12 h , bronchitis : rocephine 1 gram iv q 24 h , robitussin 200 mg qid prn for cough - fup OB
[2018-02-21] MEDS: methylPREDNISolone Sodium Succinate 40 MG/1 ML SDV IVPUSH SCH (16:01)
[2018-02-21] MEDS ORDERED: Sodium Chloride 0.9% 50 ML ONE (20:31)
[2018-02-21] MEDS: cefTRIAXone 1 GM in Sodium Chloride 0.9% 50 ML IV SCH (20:43)
[2018-02-22 06:01] LABS: CHLORIDE,CL 106 mmol/L (98-107); SODIUM,NA 139 mmol/L (136-145)
[2018-02-22] MEDS: methylPREDNISolone Sodium Succinate 40 MG/1 ML SDV IVPUSH SCH ×2 (08:28)
[2018-02-22] MEDS: Fluticasone Propionate Nasal Spray 16 GM Bottle NASBOTH SCH (08:28)
[2018-02-22] MEDS: Albuterol/Ipratropium 3.0-0.5 MG/3 ML Neb Soln NEB PRN (09:08)
[2018-02-22] MEDS: Budesonide 0.5 MG/2 ML Neb Susp NEB SCH (09:08)
[2018-02-22] MEDS: Enoxaparin 40 MG/0.4 ML Syringe SUBCUT SCH (09:51)
[2018-02-22] MEDS ORDERED: Ferrous Sulfate 325 MG Tab PO SCH (12:00)
[2018-02-22 12:05] VITALS: BP 117/67
--- NOTE | 2018-02-22 12:32 | PCM.DCSUM1 ---
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.She says she is wheezing all the time but for the past week her wheezing worsened Diagnosis: Stroke: No - Discharge Data Discharge Date: 02/22/18 Discharge Disposition: Home, Self-Care 01 Condition: Stable - Discharge Diagnosis/Problem(s) (1) Severe asthma with acute exacerbation SNOMED Code(s): 912782299, [id number] ICD Code: J45.901 - UNSPECIFIED ASTHMA WITH (ACUTE) EXACERBATION Status: Acute Priority: Low (2) Respiratory failure with hypoxia SNOMED Code(s): 68315847863741650 ICD Code: J96.91 - RESPIRATORY FAILURE, UNSPECIFIED WITH HYPOXIA Status: Acute (3) Obesity (BMI 35.0-39.9 without comorbidity) SNOMED Code(s): 823869328, 850683364 ICD Code: E66.9 - OBESITY, UNSPECIFIED Status: Acute (4) SNOMED Code(s): 29558604 ICD Code: Z34.90 - ENCNTR FOR SUPRVSN OF NORMAL , UNSP, UNSP TRIMESTER Status: Acute - Patient Summary/Data Hospital Course: Patient admitted in the hospital with cough productive of yellow phlegm and nasal congestion and hypoxia to 88 and asthma exacerbation severe , using her accessory muscle , admitted initially to ICU. She was treated with budesonide on 125 mg IV every 6 hours,. first day after admission she requiered 8 L of O2 NC to maintainher O 2 above 90% , and she was asked to take a deep breath and had oxygen improved, her steroids were tapered down to 60 mg IV every 6 hours and then 40 mg IV every 8 hours as her symptoms improved. She was treated in the hospital with fluticasone nasal for nasal congestion and also with Rocephin IV every 24 hours and Robitussin cough syrup for bronchitis Her symptoms improved. And she was stable to be discharged home. She was discharged home with clindamycin 300 mg by mouth 3 times a day for another 3 days and also with Robitussin cough syrup, prednisone 20 mg by mouth twice a day for another 4 days and BRIO. She was advised to avoid chemicals,pet dander, and she was recommended to stay home for another few more days and then to return him to work and avoid exposure to chemicals. She was sent home with diagnosis of bronchitis asthma exacerbation with respiratory failure . Also all during her hospital stay she had diarrhea and CDiff was done and was negative and patient was given Imodium and her diarrhea stopped. - Discharge Plan Prescriptions/Med Rec: Clindamycin HCl [Cleocin HCl] 300 mg PO BID #6 capsule Ferrous Sulfate 325 mg PO TIDMEALS 30 Days #90 tablet Fluticasone Propionate [Flonase] 1 gm NASBOTH BID #1 bottle guaiFENesin [Robitussin] 200 mg PO Q6H PRN #1 cup PRN Reason: Cough predniSONE 20 mg PO BID 5 Days #10 tab Home Medications: Home Meds Albuterol [Ventolin HFA] 1 puff INH ASDIRECTED PRN 02/20/14 [History] Albuterol [Proventil Neb Soln] 1 dose INH ASDIRECTED 06/24/14 [History] Fluticasone/Vilanterol [Breo Ellipta 200-25 MCG Inhalation Kit] 2 puff INH BID 02/06/18 [History] Clindamycin HCl [Cleocin HCl] 300 mg PO BID #6 capsule 02/22/18 [Rx] Ferrous Sulfate 325 mg PO TIDMEALS 30 Days #90 tablet 02/22/18 [Rx] Fluticasone Propionate [Flonase] 1 gm NASBOTH BID #1 bottle 02/22/18 [Rx] guaiFENesin [Robitussin] 200 mg PO Q6H PRN #1 cup 02/22/18 [Rx] predniSONE 20 mg PO BID 5 Days #10 tab 02/22/18 [Rx] Patient Handouts: Clindamycin capsules, Fluticasone nasal spray, Iron tablets, capsules, extended-release tablets, Guaifenesin oral solution and syrup, Asthma , Adult, [id number], Prednisone tablets, Asthma Attack Prevention, Adult Forms: Return to Work/Inpatient MWN Referrals: Mg Croft MD [Physician] - 03/01/18 10:30 am (Please call [facility] to reschedule if you are unable to keep this appointment) Mackenzie Diamond CNM [Mid-] - 02/25/18 (Follow-up with Mackenzie Diamond CNM as previously scheduled) - Discharge Summary/Plan Comment DC Time >30 min.: Yes - General Info Date of Service: 02/22/18 Subjective Update: feeling better - Review of Systems General: Reports: No Symptoms HEENT: Reports: No Symptoms Pulmonary: Reports: Cough, Sputum (white -yellow), Wheezing (mild) Cardiovascular: Reports: No Symptoms Gastrointestinal: Reports: No Symptoms Genitourinary: Reports: No Symptoms Musculoskeletal: Reports: No Symptoms Skin: Reports: No Symptoms Neurological: Reports: No Symptoms Psychiatric: Reports: No Symptoms - Patient Data Vitals - Most Recent: Last Vital Signs Temp 98.4 F 02/22/18 12:04 Pulse 73 02/22/18 12:04 Resp 20 02/22/18 12:04 BP 117/67 02/22/18 12:04 Pulse Ox 93 L 02/22/18 12:04 Weight - Most Recent: 237 lb 7.005 oz I&O - Last 24 hours: Intake & Output 02/21/18 02/22/18 02/22/18 22:59 06:59 14:59 Intake Total 1090 800 690 Output Total 875 244 6050 Balance 190 400 -360 Lab Results - Last 24 hrs: Laboratory Results - last 24 hr 02/22/18 02/22/18 Range/Units 05:14 05:14 WBC 26.12 H (4.0-11.0) K/uL RBC 4.25 L (4.30-5.90) M/uL Hgb 10.7 L (12.0-16.0) g/dL Hct 33.7 L (36.0-46.0) % MCV 79.3 L (80.0-98.0) fL MCH 25.2 L (27.0-32.0) pg MCHC 31.8 (31.0-37.0) g/dL RDW Std Deviation 49.8 (28.0-62.0) fl RDW Coeff of Negrita 18 H (11.0-15.0) % Plt Count 223 (150-400) K/uL MPV 10.90 (7.40-12.00) fL Add Manual Diff YES Neutrophils % (Manual) 93 H (48.0-80.0) % Band Neutrophils % 1 % Lymphocytes % (Manual) 3 L (16.0-40.0) % Monocytes % (Manual) 3 (0.0-15.0) % Nucleated RBC % 0.0 /100WBC Absolute Seg Neuts 24.3 H (1.4-5.7) Band Neutrophils # 0.3 Lymphocytes # (Manual) 0.8 (0.6-2.4) Monocytes # (Manual) 0.8 (0.0-0.8) Nucleated RBCs # 0 K/uL Sodium 139 (136-145) mmol/L Potassium 4.4 (3.5-5.1) mmol/L Chloride 106 (98-107) mmol/L Carbon Dioxide 24.3 (21.0-32.0) mmol/L BUN 10 (7.0-18.0) mg/dL Creatinine 0.7 (0.6-1.0) mg/dL Est Cr Clr Drug Dosing 125.70 mL/min Estimated GFR (MDRD) > 60.0 ml/min Glucose 129 H (74-106) mg/dL Calcium 8.9 (8.5-10.1) mg/dL Total Bilirubin 0.2 (0.2-1.0) mg/dL AST 9 L (15-37) IU/L ALT 17 (14-63) IU/L Alkaline Phosphatase 69 (46-116) U/L Total Protein 6.2 L (6.4-8.2) g/dL Albumin 2.8 L (3.4-5.0) g/dL Globulin 3.4 (2.0-3.5) g/dL Albumin/Globulin Ratio 0.8 L (1.3-2.8) LEO Results - Last 24 hrs: Microbiology 02/21/18 16:42 Campylobacter Antigen Assay - Final Stool / Feces NEGATIVE CAMPYLOBACTER AG - Final NEGATIVE FOR SHIGA TOXIN 1 - Final NEGATIVE FOR SHIGA TOXIN 2 02/20/18 02:05 Urine Culture - Final Urine, Voided No Growth 02/20/18 02:23 Aerobic Blood Culture - Preliminary Blood - Venous - Lab Draw NO GROWTH AFTER 2 DAYS Anaerobic Blood Culture - Preliminary NO GROWTH AFTER 2 DAYS 02/20/18 02:16 Aerobic Blood Culture - Preliminary Blood - Venous NO GROWTH AFTER 2 DAYS Anaerobic Blood Culture - Preliminary NO GROWTH AFTER 2 DAYS 02/21/18 16:42 Clostridium difficile Toxin A & B - Final Stool / Feces Negative for C.Diff Toxin/AG 02/21/18 16:42 Stool for WBCs - Final Stool / Feces NEGATIVE FOR WBC'S Med Orders - Current: Current Medications Albuterol/Ipratropium (Duoneb 3.0-0.5 Mg/3 Ml) 3 ml NEB Q4HRRT PRN PRN Reason: Shortness Of Breath/wheezing Last Admin: 02/22/18 09:08 Dose: 3 ml Budesonide (Pulmicort) 0.5 mg NEB BID [facility] Last Admin: 02/22/18 09:08 Dose: 0.5 mg Enoxaparin Sodium (Lovenox) 40 mg SUBCUT Q24H [facility] Last Admin: 02/22/18 09:51 Dose: 40 mg Ferrous Sulfate (Ferrous Sulfate) 325 mg PO TIDMEALS [facility] Fluticasone Propionate (Flonase) 0 gm NASBOTH BID [facility] Last Admin: 02/22/18 08:28 Dose: 1 spray Guaifenesin (Robitussin) 200 mg PO Q6H PRN PRN Reason: Cough Last Admin: 02/21/18 15:50 Dose: 200 mg Ceftriaxone Sodium 1 gm/ (Sodium Chloride) 50 mls @ 100 mls/hr IV Q24H [facility] Last Admin: 02/21/18 20:43 Dose: 100 mls/hr Methylprednisolone Sodium Succinate (Solu-Medrol) 40 mg IVPUSH Q8H [facility] Last Admin: 02/22/18 08:28 Dose: 40 mg Sodium Chloride (Saline Flush) 10 ml FLUSH ASDIRECTED PRN PRN Reason: Keep Vein Open Sodium Chloride (Saline Flush) 2.5 ml FLUSH ASDIRECTED PRN PRN Reason: Keep Vein Open Discontinued Medications Albuterol/Ipratropium (Duoneb 3.0-0.5 Mg/3 Ml) 3 ml NEB ONETIME ONE Stop: 02/19/18 22:39 Last Admin: 02/19/18 23:01 Dose: 3 ml Budesonide (Pulmicort) 0.5 mg NEB BIDRT [facility] Last Admin: 02/20/18 07:01 Dose: 0.5 mg Enoxaparin Sodium (Lovenox) 40 mg SUBCUT Q24H [facility] Last Admin: 02/20/18 01:12 Dose: Not Given Enoxaparin Sodium (Lovenox) 40 mg SUBCUT DAILY [facility] Sodium Chloride (Normal Saline) 1,000 mls @ 125 mls/hr IV STAT [facility] Last Admin: 02/19/18 22:59 Dose: 125 mls/hr Magnesium Sulfate 2 gm/ Premix 50 mls @ 50 mls/hr IV ONETIME ONE Stop: 02/20/18 01:23 Last Admin: 02/20/18 00:51 Dose: 50 mls/hr Ceftriaxone Sodium/Dextrose (Rocephin In Dextrose,Iso-Osm 1 Gm/50 Ml) 100 mls @ 100 mls/hr IV Q24H [facility] Last Admin: 02/20/18 02:41 Dose: Not Given Ceftriaxone Sodium 1 gm/ (Sodium Chloride) 50 mls @ 100 mls/hr IV Q24H [facility] Last Admin: 02/20/18 20:25 Dose: Not Given Ceftriaxone Sodium/Dextrose 1 (gm/ Premix) 50 mls @ 100 mls/hr IV Q24H [facility] Last Admin: 02/20/18 21:42 Dose: 100 mls/hr Sodium Chloride (Normal Saline) Confirm Administered Dose 50 mls @ as directed .ROUTE .STK-MED ONE Stop: 02/21/18 20:32 Last Admin: 02/22/18 02:06 Dose: Not Given Methylprednisolone Sodium Succinate (Solu-Medrol) 125 mg IVPUSH ONETIME ONE Stop: 02/19/18 22:39 Last Admin: 02/19/18 23:00 Dose: 125 mg Methylprednisolone Sodium Succinate (Solu-Medrol) 125 mg IVPUSH Q6H [facility] Last Admin: 02/20/18 16:01 Dose: 125 mg Methylprednisolone Sodium Succinate (Solu-Medrol) 60 mg IVPUSH Q6H [facility] Last Admin: 02/20/18 18:52 Dose: Not Given Methylprednisolone Sodium Succinate (Solu-Medrol) 60 mg IVPUSH Q6H [facility] Last Admin: 02/21/18 09:07 Dose: 60 mg Methylprednisolone Sodium Succinate (Solu-Medrol) 40 mg IVPUSH Q8H [facility] Last Admin: 02/21/18 14:21 Dose: Not Given - Exam General: Reports: Alert, Oriented HEENT: Reports: Pupils Equal, Pupils Reactive Neck: Reports: Supple, Trachea Midline, No JVD Lungs: Reports: Wheezing (mild) Cardiovascular: Reports: Regular Rate, Regular Rhythm, No Murmurs GI/Abdominal Exam: Normal Bowel Sounds, Soft, Non-Tender, No Organomegaly, No Distention Back Exam: Reports: Normal Inspection Extremities: Normal Inspection Skin: Reports: Warm, Dry Wound/Incisions: Reports: Healing Well Neurological: Reports: No New Focal Deficit Psy/Mental Status: Reports: Alert, Normal Affect
[2018-02-22] MEDS: cefTRIAXone 1 GM in Sodium Chloride 0.9% 50 ML IV SCH (13:09)
== END 2018-02-22 14:35 | disposition home or self-care (01) | DRG 202 ==
LOC: MW.ED 22:16 → MW.ICU 22:39
PROVIDERS: ADMIT Internal Medicine; ATTEND Internal Medicine
DX: J45.901 Unspecified asthma with (acute) exacerbation (principal); J96.91 Respiratory failure, unspecified with hypoxia; R19.7 Diarrhea, unspecified; J40 Bronchitis, not specified as acute or chronic; E66.01 Morbid (severe) obesity due to excess calories; J30.81 Allergic rhinitis due to animal (cat) (dog) hair and dander; F41.8 Other specified anxiety disorders; F17.200 Nicotine dependence, unspecified, uncomplicated; Z33.1 Pregnant state, incidental; Z79.899 Other long term (current) drug therapy; Z68.27 Body mass index [BMI] 27.0-27.9, adult; Z88.7 Allergy status to serum and vaccine
CPT/HCPCS: 36415; 36600; 71045; 71045-26; 80053; 80305-QW; 81001; 82803; 83630; 83735; 84100; 85025; 87040; 87046; 87086; 87324; 87899; 94640; 96361; 96374; 99285-25; A9270-GY; J0696; J1650; J2920; J2930; J3475; J7040; J7050; J7620-GY

== ENCOUNTER 2018-07-30 19:34 | Emergency (ER) | payer OTHER, MEDICAID ==
[2018-07-30 19:44] VITALS: BP 144/92
--- NOTE | 2018-07-30 19:47 | EDM.PDOC ---
ED HPI GENERAL MEDICAL PROBLEM - General Chief Complaint: Skin Complaint Stated Complaint: ISSUES IN VAGINAL AREA Time Seen by Provider: 07/30/18 19:38 Source of Information: Reports: Patient History Limitations: Reports: No Limitations - History of Present Illness INITIAL COMMENTS - FREE TEXT/NARRATIVE: HISTORY AND PHYSICAL: History of present illness: Patient is a 18-year-old female who presents to the emergency room with complaints of an abscess to her right labia majora. She states that this morning she felt an area which she thought was "upset". Since that time the area has become more painful and swollen. She did take a warm washcloth and applied it to the area approximately an hour prior to arrival, and had a small amount of blood and pus from the site. She is status post , done by Dr. Scott on 07/13/18. She was seen by him recently and placed on Doxycycline for urinary tract infection. She does have a follow-up appointment with him next week. She denies any fever, chills, chest pain, shortness of breath or cough. Denies any abdominal pain, nausea, vomiting, diarrhea or constipation. She has been eating and drinking appropriately. Review of systems: As per history of present illness and below otherwise all systems reviewed and negative. Past medical history: As per history of present illness and as reviewed below otherwise noncontributory. Surgical history: As per history of present illness and as reviewed below otherwise noncontributory. Social history: See social history for further information Family history: As per history of present illness and as reviewed below otherwise noncontributory. Physical exam: General: Well-developed and well-nourished 18-year-old female. Alert and oriented. Nontoxic appearing and in no acute distress. HEENT: Atraumatic, normocephalic, pupils equal and reactive bilaterally, negative for conjunctival pallor or scleral icterus, mucous membranes moist, TMs normal bilaterally, throat clear, neck supple, nontender, trachea midline. No drooling or trismus noted. No meningeal signs. No hot potato voice noted. Lungs: Clear to auscultation, breath sounds equal bilaterally, chest nontender. Heart: S1S2, regular rate and rhythm without overt murmur Abdomen: Soft, nondistended, nontender. Negative for masses or hepatosplenomegaly. Negative for costovertebral tenderness. Pelvis: Stable nontender. Genitourinary: Deferred. Rectal: Deferred. Skin: Dime sized abscess noted to the right labia majora, tender to palpation. C -section scare noted, no sign of infection noted. Otherwise skin is intact, warm , dry. No lesions or rashes noted. Extremities: Atraumatic, moves all, negative for cords or calf pain. Neurovascular unremarkable. Neuro: Awake, alert, oriented. Cranial nerves II through XII unremarkable. Cerebellum unremarkable. Motor and sensory unremarkable throughout. Exam nonfocal. Notes: Iodine swab used to cleanse prior to lidocaine injection. 1% lidocaine was used to anesthetize the area. Approximately 1cc of purulent drainage from the site. Patient tolerated fair. 1/4 inch iodoform packing was placed. Education was given to the patient. We discussed the need for appropriate follow-up with her primary care provider and/or the SEO COORDINATOR assured he has scheduled. She voices understanding and is agreeable to plan of care. Denies any further questions or concerns at this time. Diagnostics: None Therapeutics: 1% lidocaine, [place] Prescription: None Impression: Skenes Gland Abscess Plan: 1. Keep the area clean and dry. Try to keep the packing in for 24-48 hours. Warm sitz water baths 2-3 x daily. 2. You may continue to take your prescribed pain medication and or Tylenol/ ibuprofen as needed. 3. Please follow-up with Dr Scott and/or Mackenzie Luther in the next 1-2 days. Return to the ED as needed and as discussed. Definitive disposition and diagnosis as appropriate pending reevaluation and review of above. Onset: Today Right Vaginal Pain Score (Numeric/FACES): 10 - Related Data Allergies Allergy/AdvReac Type Severity Reaction Status Date / Time animal dander Allergy Sneezing Verified 07/30/18 19:44 Home Meds: Home Meds Acetaminophen/oxyCODONE [Percocet 325-7.5 MG] 1 tab PO DAILY 07/15/18 [History] Albuterol [Proventil Neb Soln] 1 ampule INH Q6H PRN 07/17/18 [History] Albuterol [Ventolin HFA] 2 puff INH Q4H 07/17/18 [History] Budesonide/Formoterol Fumarate [Symbicort 160-4.5 Mcg Inhaler] 2 puff IH BID [History] Montelukast [Singulair] 10 mg PO BEDTIME 07/17/18 [History] Doxycycline Hyclate 100 mg PO BID 07/30/18 [History] Past Medical History HEENT History: Reports: Impaired Vision Cardiovascular History: Reports: Other (See Below) Other Cardiovascular History: states "had heart problems at " details unknown by patient Respiratory History: Reports: Asthma Gastrointestinal History: Reports: None Genitourinary History: Reports: UTI, Recurrent SEO COORDINATOR History: Reports: , Spontaneous Musculoskeletal History: Reports: None Neurological History: Reports: Head Trauma Psychiatric History: Reports: Anxiety, Bipolar, Depression Endocrine/Metabolic History: Reports: Obesity/BMI 30+ Hematologic History: Reports: None Immunologic History: Reports: None Oncologic (Cancer) History: Reports: None Dermatologic History: Reports: None - Infectious Disease History Infectious Disease History: Reports: Chicken Pox, Measles - Past Surgical History Head Surgeries/Procedures: Reports: None HEENT Surgical History: Reports: Adenoidectomy, Myringotomy w Tube(s), Tonsillectomy Cardiovascular Surgical History: Reports: None Respiratory Surgical History: Reports: None GI Surgical History: Reports: None Female Surgical History: Reports: Section Endocrine Surgical History: Reports: None Neurological Surgical History: Reports: None Musculoskeletal Surgical History: Reports: None Oncologic Surgical History: Reports: None Dermatological Surgical History: Reports: None Social & Family History - Family History Family Medical History: Noncontributory HEENT: Reports: Impaired Vision Cardiac: Reports: Hypertension, [place] Respiratory: Reports: Asthma, Sleep Apnea : Reports: Other (See Below) Other Family History: Mother of patient in current kidney failure. OBGYN: Reports: Musculoskeletal: Reports: Arthritis, Gout, Osteoarthritis Psychiatric: Reports: ADHD, Anxiety, Depression Endocrine/Metabolic: Reports: Obesity/MBI 30+ Oncologic: Reports: Breast, Cervix, Lung - Caffeine Use Caffeine Use: Reports: Coffee ED ROS GENERAL - Review of Systems Review Of Systems: ROS reveals no pertinent complaints other than HPI. ED EXAM, SKIN/RASH Exam: See Below (See dictation) Course - Vital Signs Last Recorded V/S: Last Vital Signs Temp 96.8 F 07/30/18 19:41 Pulse 96 07/30/18 19:41 Resp 20 07/30/18 19:41 BP 144/92 H 07/30/18 19:41 Pulse Ox 97 07/30/18 19:41 - Orders/Labs/Meds Meds: Medications Discontinued Medications Generic Name Dose Route Start Last Admin Trade Name Jitendra PRN Reason Stop Dose Admin Hydrocodone Bitart/Acetaminophen 1 tab 07/30/18 19:50 07/30/18 19:57 [place] 325-5 Mg PO 07/30/18 19:51 1 tab ONETIME ONE Administration Lidocaine HCl 5 ml 07/30/18 19:50 07/30/18 19:57 Xylocaine-Mpf 1% INJECT 07/30/18 19:51 5 ml ONETIME ONE Administration Departure - Departure Time of Disposition: 20:08 Disposition: Home, Self-Care 01 Clinical Impression: Stirling's gland abscess - Discharge Information Instructions: Skin Abscess, [id number] Referrals: Mg Croft MD [Primary Care Provider] - Forms: ED Department Discharge Additional Instructions: The following information is given to patients seen in the emergency department who are being discharged to home. This information is to outline your options for follow-up care. We provide all patients seen in our emergency department with a follow-up referral. The need for follow-up, as well as the timing and circumstances, are variable depending upon the specifics of your emergency department visit. If you don't have a primary care physician on staff, we will provide you with a referral. We always advise you to contact your personal physician following an emergency department visit to inform them of the circumstance of the visit and for follow-up with them and/or the need for any referrals to a consulting specialist. The emergency department will also refer you to a specialist when appropriate. This referral assures that you have the opportunity for follow-up care with a specialist. All of these measure are taken in an effort to provide you with optimal care, which includes your follow-up. Under all circumstances we always encourage you to contact your private physician who remains a resource for coordinating your care. When calling for follow-up care, please make the office aware that this follow-up is from your recent emergency room visit. If for any reason you are refused follow-up, please contact the [facility] Emergency Department at and asked to speak to the emergency department charge nurse. [facility] Primary Care: Women's Health [address] [place] [address] [facility] [address] [place] [address] 1. Keep the area clean and dry. Try to keep the packing in for 24-48 hours. Warm sitz water baths 2-3 x daily. 2. You may continue to take your prescribed antibiotic/pain medication and or Tylenol/ibuprofen as needed. 3. Please follow-up with Dr Scott and/or Mackenzie Luther in the next 1-2 days. Return to the ED as needed and as discussed.
[2018-07-30] MEDS ORDERED: Acetaminophen/HYDROcodone 325-5 MG Tab PO ONE (19:50)
== END 2018-07-30 20:25 | disposition home or self-care (01) ==
LOC: MW.ED 19:34
DX: N34.0 Urethral abscess (principal); J45.909 Unspecified asthma, uncomplicated; F41.9 Anxiety disorder, unspecified; F32.9 Major depressive disorder, single episode, unspecified; Z79.899 Other long term (current) drug therapy
CPT/HCPCS: 99283; A9270

== ENCOUNTER 2019-03-02 14:30 | Emergency (ER) | payer MEDICAID, OTHER ==
--- NOTE | 2019-03-02 14:55 | EDM.PDOC ---
ED HPI GENERAL MEDICAL PROBLEM - General Chief Complaint: Lower Extremity Injury/Pain Stated Complaint: KNEE INJURY Time Seen by Provider: 03/02/19 14:55 Source of Information: Reports: Patient History Limitations: Reports: No Limitations - History of Present Illness INITIAL COMMENTS - FREE TEXT/NARRATIVE: HISTORY AND PHYSICAL: History of present illness: Patient is a 18-year-old female presents to the ED with complaint of right knee pain. She states that about a week ago at work she bent down to clean up from a friend when she felt a sharp pain in her right knee that radiated up her leg. Since then but she is able to walk on it without difficulty. She is not taking anything for pain. She denies other injury and has other complaints at this time. Review of systems: As per history of present illness and below otherwise all systems reviewed and negative. Past medical history: As per history of present illness and as reviewed below otherwise noncontributory. Surgical history: As per history of present illness and as reviewed below otherwise noncontributory. Social history: No reported history of drug or alcohol abuse. Family history: As per history of present illness and as reviewed below otherwise noncontributory. Physical exam: General: Patient sitting comfortably in no acute distress and nontoxic appearing HEENT: Atraumatic, normocephalic, pupils reactive, negative for conjunctival pallor or scleral icterus, mucous membranes moist, throat clear, neck supple, nontender, trachea midline. No meningeal signs. Lungs: Clear to auscultation, breath sounds equal bilaterally, chest nontender. Heart: S1S2, regular, negative for clicks, rubs, or overt murmur. Abdomen: Soft, nondistended, nontender. Negative for masses or hepatosplenomegaly. Negative for costovertebral tenderness. No rigidity, rebound , guarding. Pelvis: Stable nontender. Genitourinary: Deferred. Rectal: Deferred. Extremities: No obvious swelling or deformity of the right knee. No erythema, warmth, and skin is intact. Pain to palpation of medial joint line of the knee. Atraumatic, negative for cords or calf pain. Neurovascular unremarkable. Neuro: Awake, alert, oriented. Cranial nerves II through XII unremarkable. Cerebellum unremarkable. Motor and sensory unremarkable throughout. Exam nonfocal. Notes: Diagnostics: X-ray right knee Therapeutics: [] Prescriptions: Impression: Right knee pain Plan: 1. Ice, elevate, and motrin or tylenol as needed 2. Follow up with orthopedics, please call the number provided to schedule an appointment 3. Return to ED as needed as discussed Definitive disposition and diagnosis as appropriate pending reevaluation and review of above. Right Knee Pain Score (Numeric/FACES): 6 - Related Data Allergies Allergy/AdvReac Type Severity Reaction Status Date / Time animal dander Allergy Sneezing Verified 03/02/19 14:41 Home Meds: Home Meds Albuterol [Proventil Neb Soln] 1 ampule INH Q6H PRN 07/17/18 [History] Albuterol [Ventolin HFA] 2 puff INH Q4H 07/17/18 [History] Budesonide/Formoterol Fumarate [Symbicort 160-4.5 Mcg Inhaler] 2 puff IH BID [History] Montelukast [Singulair] 10 mg PO BEDTIME 07/17/18 [History] Past Medical History HEENT History: Reports: Impaired Vision Cardiovascular History: Reports: Other (See Below) Other Cardiovascular History: states "had heart problems at " details unknown by patient Respiratory History: Reports: Asthma Gastrointestinal History: Reports: None Genitourinary History: Reports: UTI, Recurrent 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 History: Reports: , 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 Musculoskeletal History: Reports: None Neurological History: Reports: Head Trauma Psychiatric History: Reports: Anxiety, Bipolar, Depression Endocrine/Metabolic History: Reports: Obesity/BMI 30+ Hematologic History: Reports: None Immunologic History: Reports: None Oncologic (Cancer) History: Reports: None Dermatologic History: Reports: None - Infectious Disease History Infectious Disease History: Reports: Chicken Pox - Past Surgical History Head Surgeries/Procedures: Reports: None HEENT Surgical History: Reports: Adenoidectomy, Myringotomy w Tube(s), Tonsillectomy Cardiovascular Surgical History: Reports: None Respiratory Surgical History: Reports: None GI Surgical History: Reports: None Female Surgical History: Reports: Section Endocrine Surgical History: Reports: None Neurological Surgical History: Reports: None Musculoskeletal Surgical History: Reports: None Oncologic Surgical History: Reports: None Dermatological Surgical History: Reports: None Social & Family History - Family History Family Medical History: Noncontributory HEENT: Reports: Impaired Vision Cardiac: Reports: Hypertension, [place] Respiratory: Reports: Asthma, Sleep Apnea : Reports: Other (See Below) Other Family History: Mother of patient in current kidney failure. OBGYN: Reports: Musculoskeletal: Reports: Arthritis, Gout, Osteoarthritis Psychiatric: Reports: ADHD, Anxiety, Depression Endocrine/Metabolic: Reports: Obesity/MBI 30+ Oncologic: Reports: Breast, Cervix, Lung - Tobacco Use Smoking Status *Q: Never Smoker - Caffeine Use Caffeine Use: Reports: Coffee - Recreational Drug Use Recreational Drug Use: No Review of Systems - Review of Systems Review Of Systems: ROS reveals no pertinent complaints other than HPI. ED EXAM, GENERAL - Physical Exam Exam: See Below (see Dictation) Course - Vital Signs Last Recorded V/S: Last Vital Signs Temp 96.7 F 03/02/19 14:38 Pulse 90 03/02/19 14:38 Resp 18 03/02/19 14:38 BP 139/64 03/02/19 14:38 Pulse Ox 98 03/02/19 14:38 Departure - Departure Time of Disposition: 15:57 Disposition: Home, Self-Care 01 Condition: Good Clinical Impression: Right knee pain - Discharge Information Referrals: PCP,Unknown [Primary Care Provider] - Forms: ED Department Discharge Additional Instructions: The following information is given to patients seen in the emergency department who are being discharged to home. This information is to outline your options for follow-up care. We provide all patients seen in our emergency department with a follow-up referral. The need for follow-up, as well as the timing and circumstances, are variable depending upon the specifics of your emergency department visit. If you don't have a primary care physician on staff, we will provide you with a referral. We always advise you to contact your personal physician following an emergency department visit to inform them of the circumstance of the visit and for follow-up with them and/or the need for any referrals to a consulting specialist. The emergency department will also refer you to a specialist when appropriate. This referral assures that you have the opportunity for follow-up care with a specialist. All of these measure are taken in an effort to provide you with optimal care, which includes your follow-up. Under all circumstances we always encourage you to contact your private physician who remains a resource for coordinating your care. When calling for follow-up care, please make the office aware that this follow-up is from your recent emergency room visit. If for any reason you are refused follow-up, please contact the [facility] Emergency Department at and asked to speak to the emergency department charge nurse. [facility] Special[facility] - [facility] Professional Building [address] [place] [address], [address] [place] [address] [address] Cummings, Orthopedist [facility] [address] [place] [address] Dr Aguillon - Dr Anthony - Dr Melgar [facility] at [facility] [address] [place] [address] [facility] [address] [place] [address] 1. Ice, elevate, and motrin or tylenol as needed 2. Follow up with orthopedics, please call the number provided to schedule an appointment 3. Return to ED as needed as discussed
--- NOTE | 2019-03-02 15:51 | CR ---
Indication: Injury and pain. Technique: Right knee 3 views Comparison: None Findings: Bones: Alignment is normal. No fractures or bone lesions. Joint spaces: No joint effusion. Joint spaces are well maintained. No degenerative changes. Soft tissues: Unremarkable. Impression: No sign of acute injury. Dictated by Aquilino Robledo MD @ Mar 02 2019 3:47PM Signed by Dr. Aquilino Robledo @ Mar 02 2019 3:49PM
[2019-03-02 16:23] VITALS: BP 111/69
== END 2019-03-02 16:23 | disposition home or self-care (01) ==
LOC: MW.ED 14:30
DX: M25.561 Pain in right knee (principal); E66.9 Obesity, unspecified; Z96.22 Myringotomy tube(s) status; Z98.890 Other specified postprocedural states; Z91.09 Other allergy status, other than to drugs and biological substances
CPT/HCPCS: 73562-26-RT; 73562-RT; 99283-25

== ENCOUNTER 2019-04-07 09:32 | Inpatient (IN) | payer OTHER ==
--- NOTE | 2019-04-07 09:33 | EDM.PDOC ---
ED HPI GENERAL MEDICAL PROBLEM - General Stated Complaint: TROUBLE BREATHING Time Seen by Provider: 04/07/19 09:32 Source of Information: Reports: Patient History Limitations: Reports: No Limitations - History of Present Illness INITIAL COMMENTS - FREE TEXT/NARRATIVE: HISTORY AND PHYSICAL: History of present illness: Patient is a 18-year-old female who presents to the emergency room with complaints of shortness of breath and dyspnea. She states she has a long- standing history of asthma and does take inhalers and nebulizer treatments as needed. Over the past one week she has had increase of shortness of breath, cough and generally feeling unwell. She reports over the past 24 hours she has had "20 breathing treatments". Patient denies any fever, chills, headache, change in vision, syncope or near syncope. Denies any chest pain, back pain, or neck pain. Denies any abdominal pain, nausea, vomiting, diarrhea, constipation or dysuria. Has not noted any blood in urine or stool. Patient has been eating and drinking appropriately. Review of systems: As per history of present illness and below otherwise all systems reviewed and negative. Past medical history: As per history of present illness and as reviewed below otherwise noncontributory. Surgical history: As per history of present illness and as reviewed below otherwise noncontributory. Social history: See social history for further information Family history: As per history of present illness and as reviewed below otherwise noncontributory. Physical exam: General: Well-developed and well-nourished 18-year-old female. Alert and oriented. She is able to speak in full brief sentences due to labored breathing. Nontoxic in appearance. HEENT: Atraumatic, normocephalic, pupils equal and reactive bilaterally, negative for conjunctival pallor or scleral icterus, mucous membranes moist, TMs normal bilaterally, throat clear, neck supple, nontender, trachea midline. No drooling or trismus noted. No meningeal signs. No hot potato voice noted. Lungs: Audible expiratory wheezing. Inspiratory and expiratory wheezing, rhonchi to the left posterior base. breath sounds equal bilaterally, chest nontender. Heart: S1S2, regular rate and rhythm without overt murmur Abdomen: Soft, nondistended, nontender. Negative for masses or hepatosplenomegaly. Negative for costovertebral tenderness. Pelvis: Stable nontender. Skin: Intact, warm, dry. No lesions or rashes noted. Extremities: Atraumatic, moves all extremities per self without difficulty or deficits, negative for cords or calf pain. Neurovascular unremarkable. Neuro: Awake, alert, oriented. Cranial nerves II through XII unremarkable. Cerebellum unremarkable. Motor and sensory unremarkable throughout. Exam nonfocal. Notes: Upon arrival the patient is 78% on room air. She does bump up to 91% on 5 L per nasal cannula per respiratory therapy. Blood cultures have been drawn. We'll start Rocephin. Dr. Velazquez was consulted on this case. Dr. Velazquez came and evaluated the patient while in the ER and will admit the patient for hypoxemia. Patient is aware and agreeable to plan of care. Diagnostics: CBC, CMP, ABG, UA, HCGU, CXR, BC Therapeutics: IV fluids, Solu-Medrol, Rocephin Impression: Hypoxemia Asthma exacerbation Plan: Inpatient admission Definitive disposition and diagnosis as appropriate pending reevaluation and review of above. "BREATHING" Pain Score (Numeric/FACES): 5 - Related Data Allergies Allergy/AdvReac Type Severity Reaction Status Date / Time animal dander Allergy Sneezing Verified 03/02/19 14:41 Home Meds: Home Meds Albuterol [Proventil Neb Soln] 1 ampule INH Q6H PRN 07/17/18 [History] Albuterol [Ventolin HFA] 2 puff INH Q4H 07/17/18 [History] Budesonide/Formoterol Fumarate [Symbicort 160-4.5 Mcg Inhaler] 2 puff IH BID [History] Montelukast [Singulair] 10 mg PO BEDTIME 07/17/18 [History] Past Medical History HEENT History: Reports: Impaired Vision Cardiovascular History: Reports: Other (See Below) Other Cardiovascular History: states "had heart problems at " details unknown by patient Respiratory History: Reports: Asthma Gastrointestinal History: Reports: None Genitourinary History: Reports: UTI, Recurrent 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: , 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 Musculoskeletal History: Reports: None Neurological History: Reports: Head Trauma Psychiatric History: Reports: Anxiety, Bipolar, Depression Endocrine/Metabolic History: Reports: Obesity/BMI 30+ Hematologic History: Reports: None Immunologic History: Reports: None Oncologic (Cancer) History: Reports: None Dermatologic History: Reports: None - Infectious Disease History Infectious Disease History: Reports: Chicken Pox - Past Surgical History Head Surgeries/Procedures: Reports: None HEENT Surgical History: Reports: Adenoidectomy, Myringotomy w Tube(s), Tonsillectomy Cardiovascular Surgical History: Reports: None Respiratory Surgical History: Reports: None GI Surgical History: Reports: None Female Surgical History: Reports: Section Endocrine Surgical History: Reports: None Neurological Surgical History: Reports: None Musculoskeletal Surgical History: Reports: None Oncologic Surgical History: Reports: None Dermatological Surgical History: Reports: None Social & Family History - Family History Family Medical History: Noncontributory HEENT: Reports: Impaired Vision Cardiac: Reports: Hypertension, [place] Respiratory: Reports: Asthma, Sleep Apnea : Reports: Other (See Below) Other Family History: Mother of patient in current kidney failure. OBGYN: Reports: Musculoskeletal: Reports: Arthritis, Gout, Osteoarthritis Psychiatric: Reports: ADHD, Anxiety, Depression Endocrine/Metabolic: Reports: Obesity/MBI 30+ Oncologic: Reports: Breast, Cervix, Lung - Caffeine Use Caffeine Use: Reports: Coffee ED ROS GENERAL - Review of Systems Review Of Systems: ROS reveals no pertinent complaints other than HPI. ED EXAM, GENERAL - Physical Exam Exam: See Below (See dictation) Course - Vital Signs Last Recorded V/S: Last Vital Signs Temp 96.9 F 04/07/19 09:35 Pulse 120 H 04/07/19 10:30 Resp 20 04/07/19 10:30 BP 116/76 04/07/19 10:30 Pulse Ox 92 L 04/07/19 10:30 - Orders/Labs/Meds Orders: Active Orders 24 hr Category Date Time Status Admission Status [Patient Status] [ADT] Stat ADT 04/07/19 11:11 Active EKG Documentation Completion [RC] STAT Care 04/07/19 09:38 Active RT Aerosol Therapy [RC] ASDIRECTED Care 04/07/19 09:46 Active Chest 2V [CR] Stat Exams 04/07/19 09:38 Taken CULTURE BLOOD [BC] Stat Lab 04/07/19 09:48 Received CULTURE BLOOD [BC] Stat Lab 04/07/19 09:54 Received Sodium Chloride 0.9% [Saline Flush] Med 04/07/19 09:39 Active 10 ml FLUSH ASDIRECTED PRN Sodium Chloride 0.9% [Saline Flush] Med 04/07/19 09:39 Active 2.5 ml FLUSH ASDIRECTED PRN Blood Culture x2 Reflex Set [OM.PC] Stat Oth 04/07/19 09:39 Ordered Saline Lock Insert [OM.PC] Stat Ot 04/07/19 09:39 Ordered Medication Orders Sodium Chloride (Saline Flush) 10 ml FLUSH ASDIRECTED PRN PRN Reason: Keep Vein Open Last Admin: 04/07/19 09:49 Dose: 10 ml Sodium Chloride (Saline Flush) 2.5 ml FLUSH ASDIRECTED PRN PRN Reason: Keep Vein Open Last Admin: 04/07/19 09:48 Dose: 2.5 ml Labs: Laboratory Tests 04/07/19 04/07/19 04/07/19 Range/Units 09:37 09:37 09:45 WBC 11.91 H (4.0-11.0) K/uL RBC 5.37 (4.30-5.90) M/uL Hgb 13.0 (12.0-16.0) g/dL Hct 42.1 (36.0-46.0) % MCV 78.4 L (80.0-98.0) fL MCH 24.2 L (27.0-32.0) pg MCHC 30.9 L (31.0-37.0) g/dL RDW Std Deviation 42.5 (28.0-62.0) fl RDW Coeff of Negrita 15 (11.0-15.0) % Plt Count 270 (150-400) K/uL MPV 11.60 (7.40-12.00) fL Neut % (Auto) 75.7 (48.0-80.0) % Lymph % (Auto) 10.5 L (16.0-40.0) % Henderson % (Auto) 5.1 (0.0-15.0) % Eos % (Auto) 8.4 H (0.0-7.0) % Baso % (Auto) 0.3 (0.0-1.5) % Neut # (Auto) 9.0 H (1.4-5.7) K/uL Lymph # (Auto) 1.3 (0.6-2.4) K/uL Henderson # (Auto) 0.6 (0.0-0.8) K/uL Eos # (Auto) 1.0 H (0.0-0.7) K/uL Baso # (Auto) 0.0 (0.0-0.1) K/uL Nucleated RBC % 0.0 /100WBC Nucleated RBCs # 0 K/uL ABG pH 7.40 (7.35-7.45) ABG pCO2 33 L (35-45) mmHG ABG pO2 55 L (75-100) mmHG ABG HCO3 20.5 ABG Total CO2 21 ABG Base Excess -4 Sodium 143 (136-145) mmol/L Potassium 3.8 (3.5-5.1) mmol/L Chloride 106 (98-107) mmol/L Carbon Dioxide 25.0 (21.0-32.0) mmol/L BUN 10 (7.0-18.0) mg/dL Creatinine 0.8 (0.6-1.0) mg/dL Est Cr Clr Drug Dosing 117.23 mL/min Estimated GFR (MDRD) > 60.0 ml/min Glucose 112 H (74-106) mg/dL Calcium 8.8 (8.5-10.1) mg/dL Total Bilirubin 0.7 (0.2-1.0) mg/dL AST 17 (15-37) IU/L ALT 24 (14-63) IU/L Alkaline Phosphatase 88 (46-116) U/L Total Protein 7.9 (6.4-8.2) g/dL Albumin 3.7 (3.4-5.0) g/dL Globulin 4.2 H (2.6-4.0) g/dL Albumin/Globulin Ratio 0.9 (0.9-1.6) Urine Color Urine Appearance Urine pH (5.0-8.0) Ur Specific Bayside (1.001-1.035) Urine Protein (NEGATIVE) mg/dL Urine Glucose (UA) (NEGATIVE) mg/dL Urine Ketones (NEGATIVE) mg/dL Urine Occult Blood (NEGATIVE) Urine Nitrite (NEGATIVE) Urine Bilirubin (NEGATIVE) Urine Urobilinogen (<2.0) EU/dL Ur Leukocyte Esterase (NEGATIVE) Urine RBC (0-2/HPF) Urine WBC (0-5/HPF) Ur Epithelial Cells (NONE-FEW) Urine Bacteria (NEGATIVE) Urine HCG, Qual (NEGATIVE) 04/07/19 04/07/19 Range/Units 10:30 10:30 WBC (4.0-11.0) K/uL RBC (4.30-5.90) M/uL Hgb (12.0-16.0) g/dL Hct (36.0-46.0) % MCV (80.0-98.0) fL MCH (27.0-32.0) pg MCHC (31.0-37.0) g/dL RDW Std Deviation (28.0-62.0) fl RDW Coeff of Negrita (11.0-15.0) % Plt Count (150-400) K/uL MPV (7.40-12.00) fL Neut % (Auto) (48.0-80.0) % Lymph % (Auto) (16.0-40.0) % Henderson % (Auto) (0.0-15.0) % Eos % (Auto) (0.0-7.0) % Baso % (Auto) (0.0-1.5) % Neut # (Auto) (1.4-5.7) K/uL Lymph # (Auto) (0.6-2.4) K/uL Henderson # (Auto) (0.0-0.8) K/uL Eos # (Auto) (0.0-0.7) K/uL Baso # (Auto) (0.0-0.1) K/uL Nucleated RBC % /100WBC Nucleated RBCs # K/uL ABG pH (7.35-7.45) ABG pCO2 (35-45) mmHG ABG pO2 (75-100) mmHG ABG HCO3 ABG Total CO2 ABG Base Excess Sodium (136-145) mmol/L Potassium (3.5-5.1) mmol/L Chloride (98-107) mmol/L Carbon Dioxide (21.0-32.0) mmol/L BUN (7.0-18.0) mg/dL Creatinine (0.6-1.0) mg/dL Est Cr Clr Drug Dosing mL/min Estimated GFR (MDRD) ml/min Glucose (74-106) mg/dL Calcium (8.5-10.1) mg/dL Total Bilirubin (0.2-1.0) mg/dL AST (15-37) IU/L ALT (14-63) IU/L Alkaline Phosphatase (46-116) U/L Total Protein (6.4-8.2) g/dL Albumin (3.4-5.0) g/dL Globulin (2.6-4.0) g/dL Albumin/Globulin Ratio (0.9-1.6) Urine Color YELLOW Urine Appearance SLT CLOUDY Urine pH 5.5 (5.0-8.0) Ur Specific [place] >= 1.030 (1.001-1.035) Urine Protein TRACE H (NEGATIVE) mg/dL Urine Glucose (UA) NEGATIVE (NEGATIVE) mg/dL Urine Ketones NEGATIVE (NEGATIVE) mg/dL Urine Occult Blood LARGE H (NEGATIVE) Urine Nitrite NEGATIVE (NEGATIVE) Urine Bilirubin NEGATIVE (NEGATIVE) Urine Urobilinogen 0.2 (<2.0) EU/dL Ur Leukocyte Esterase NEGATIVE (NEGATIVE) Urine RBC 2-5 (0-2/HPF) Urine WBC 0-2 (0-5/HPF) Ur Epithelial Cells FEW (NONE-FEW) Urine Bacteria 1+ H (NEGATIVE) Urine HCG, Qual NEGATIVE (NEGATIVE) Meds: Medications Generic Name Dose Route Start Last Admin Trade Name Jitendra PRN Reason Stop Dose Admin Sodium Chloride 10 ml 04/07/19 09:39 04/07/19 09:49 Saline Flush FLUSH 10 ml ASDIRECTED PRN Administration Keep Vein Open Sodium Chloride 2.5 ml 04/07/19 09:39 04/07/19 09:48 Saline Flush FLUSH 2.5 ml ASDIRECTED PRN Administration Keep Vein Open Discontinued Medications Generic Name Dose Route Start Last Admin Trade Name Jitendra PRN Reason Stop Dose Admin Albuterol/Ipratropium 3 ml 04/07/19 09:46 04/07/19 09:48 Duoneb 3.0-0.5 Mg/3 Ml NEB 04/07/19 09:47 3 ml ONETIME ONE Administration Sodium Chloride 1,000 mls @ 999 mls/hr 04/07/19 09:38 04/07/19 09:48 Normal Saline IV 04/07/19 10:38 999 mls/hr STAT ONE Administration Ceftriaxone Sodium/Dextrose 1 50 mls @ 100 mls/hr 04/07/19 09:57 04/07/19 10: 09 gm/ Premix IV 04/07/19 10:26 100 mls/hr ONETIME ONE Administration Methylprednisolone Sodium Succinate 125 mg 04/07/19 09:38 04/07/19 09:49 Solu-Medrol IVPUSH 04/07/19 09:39 125 mg ONETIME ONE Administration Departure - Departure Time of Disposition: 11:16 Disposition: Admitted As Inpatient 64 Clinical Impression: Hypoxemia requiring supplemental oxygen Asthma exacerbation Qualifiers: Asthma severity: mild Asthma persistence: intermittent Qualified Code(s): J45.21 - Mild intermittent asthma with (acute) exacerbation - Discharge Information Referrals: PCP,None [Primary Care Provider] - - My Orders Last 24 Hours: My Active Orders 04/07/19 09:38 EKG Documentation Completion [RC] STAT Chest 2V [CR] Stat 04/07/19 09:39 Sodium Chloride 0.9% [Saline Flush] 10 ml FLUSH ASDIRECTED PRN Sodium Chloride 0.9% [Saline Flush] 2.5 ml FLUSH ASDIRECTED PRN Blood Culture x2 Reflex Set [OM.PC] Stat Saline Lock Insert [OM.PC] Stat 04/07/19 09:46 RT Aerosol Therapy [RC] ASDIRECTED 04/07/19 09:48 CULTURE BLOOD [BC] Stat 04/07/19 09:54 CULTURE BLOOD [BC] Stat 04/07/19 11:11 Admission Status [Patient Status] [ADT] Stat - Assessment/Plan Last 24 Hours: My Active Orders 04/07/19 09:38 EKG Documentation Completion [RC] STAT Chest 2V [CR] Stat 04/07/19 09:39 Sodium Chloride 0.9% [Saline Flush] 10 ml FLUSH ASDIRECTED PRN Sodium Chloride 0.9% [Saline Flush] 2.5 ml FLUSH ASDIRECTED PRN Blood Culture x2 Reflex Set [OM.PC] Stat Saline Lock Insert [OM.PC] Stat 04/07/19 09:46 RT Aerosol Therapy [RC] ASDIRECTED 04/07/19 09:48 CULTURE BLOOD [BC] Stat 04/07/19 09:54 CULTURE BLOOD [BC] Stat 04/07/19 11:11 Admission Status [Patient Status] [ADT] Stat
[2019-04-07] MEDS ORDERED: Sodium Chloride 0.9% 1,000 ML IV ONE (09:38)
[2019-04-07] MEDS ORDERED: methylPREDNISolone Sodium Succinate 125 MG/2 ML SDV IVPUSH ONE (09:38)
[2019-04-07] MEDS ORDERED: Sodium Chloride 0.9% 10 ML Syringe FLUSH PRN (09:39)
[2019-04-07] MEDS ORDERED: Albuterol/Ipratropium 3.0-0.5 MG/3 ML Neb Soln NEB ONE (09:46)
[2019-04-07] MEDS: Sodium Chloride 0.9% 2.5 ML Syringe FLUSH PRN ×2 (09:48→16:53)
[2019-04-07] MEDS ORDERED: cefTRIAXone 1 GM in Premix Bag 1 BAG IV ONE (09:57)
[2019-04-07 10:16] LABS: BLOOD UREA NITROGEN,BUN 10 mg/dL (7.0-18.0); CHLORIDE,CL 106 mmol/L (98-107); GLUCOSE RANDOM 112 mg/dL (74-106); POTASSIUM,K 3.8 mmol/L (3.5-5.1); SODIUM,NA 143 mmol/L (136-145)
[2019-04-07] MEDS ORDERED: Magnesium Sulfate/Water 2 GM in Premix Bag 1 BAG IV ONE (11:21)
--- NOTE | 2019-04-07 11:29 | PCM.HP.2 ---
<Tatyana Giraldo M - Last Filed: 04/07/19 13:07> H&P History of Present Illness - General Date of Service: 04/07/19 Admit Problem/Dx: Admission Diagnosis/Problem Admission Diagnosis/Problem Hypoxemia Source of Information: Patient History Limitations: Reports: No Limitations - History of Present Illness Initial Comments - Free Text/Narative: This 18 year old female with pmh of asthma presented to the ED with complaints of shortness of breath and cough. She reports she started feeling ill on Sunday and was progressively worsened since then. She reports using all her inhalers and multiple nebulizers at home with no help with shortness of breath. She reports she has sinus congestion, non productive cough, sore throat and generalized malaise. She denies recent influenza vaccine. She reports significant other felt she was very warm, she was unable to check her temperature. She also report mild headache which started on Sunday along with lightheadedness with standing. She reports she is eating well and drinking well at home. She denies smoking history and no vaping. She denies alcohol use and recreational drug use. She reports prior to this acute illness, asthma was well controlled with inhalers, Albuterol and Symbicort along with intermittent nebulizers and Singulair. In the Ed mild leukocytosis noted, 11,910 with increased lymphocytes and eosinophils. ABG obtained pH 7.4 PCO2 33 and PO2 55. BMP WNL UA revealed blood, + bacteria and 2 WBCs. Influenza swab negative. She was treated with Rocephin, Solumedrol, and Duonebs. She was noted to be hypoxic on 78% on arrival, placed on 5 L NC and improved to 95%. CXR obtained which revealed new subsegmental atelectasis in the mid right lung and possible atelectasis or infiltrate in the retrocardiac left lower lob base. She will be admitted for acute hypoxic respiratory failure, asthma exacerbation and suspected CAP. PCP, Dr Croft. "BREATHING" Pain Score (Numeric/FACES): 5 - Related Data Allergies/Adverse Reactions: Allergies Allergy/AdvReac Type Severity Reaction Status Date / Time animal dander Allergy Sneezing Verified 04/07/19 12:32 Home Medications: Home Meds Albuterol [Proventil Neb Soln] 1 ampule INH Q6H PRN 07/17/18 [History] Albuterol [Ventolin HFA] 2 puff INH Q4H PRN 07/17/18 [History] Budesonide/Formoterol Fumarate [Symbicort 160-4.5 Mcg Inhaler] 2 puff IH BID [History] Montelukast [Singulair] 10 mg PO BEDTIME 07/17/18 [History] Past Medical History HEENT History: Reports: Impaired Vision Cardiovascular History: Reports: Other (See Below). Denies: Afib, Blood Clots/ VTE/DVT Other Cardiovascular History: states "had heart problems at " details unknown by patient Respiratory History: Reports: Asthma Gastrointestinal History: Reports: None Genitourinary History: Reports: UTI, Recurrent [employer]ACH[employer] History: Reports: , Spontaneous Musculoskeletal History: Reports: None Neurological History: Reports: Head Trauma Psychiatric History: Reports: Anxiety, Bipolar, Depression Endocrine/Metabolic History: Reports: Obesity/BMI 30+ Hematologic History: Reports: None Immunologic History: Reports: None Oncologic (Cancer) History: Reports: None Dermatologic History: Reports: None - Infectious Disease History Infectious Disease History: Reports: Chicken Pox - Past Surgical History Head Surgeries/Procedures: Reports: None HEENT Surgical History: Reports: Adenoidectomy, Myringotomy w Tube(s), Tonsillectomy Cardiovascular Surgical History: Reports: None Respiratory Surgical History: Reports: None GI Surgical History: Reports: None Female Surgical History: Reports: Section Endocrine Surgical History: Reports: None Neurological Surgical History: Reports: None Musculoskeletal Surgical History: Reports: None Oncologic Surgical History: Reports: None Dermatological Surgical History: Reports: None Social & Family History - Family History Family Medical History: Noncontributory HEENT: Reports: Impaired Vision Cardiac: Reports: Hypertension, ID Respiratory: Reports: Asthma, Sleep Apnea : Reports: Other (See Below) Other Family History: Mother of patient in current kidney failure. OBGYN: Reports: Musculoskeletal: Reports: Arthritis, Gout, Osteoarthritis Psychiatric: Reports: ADHD, Anxiety, Depression Endocrine/Metabolic: Reports: Obesity/MBI 30+ Oncologic: Reports: Breast, Cervix, Lung - Tobacco Use Smoking Status *Q: Never Smoker (and no vaping history) - Caffeine Use Caffeine Use: Reports: Coffee - Alcohol Use Alcohol Use History: No - Recreational Drug Use Recreational Drug Use: No H&P Review of Systems - Review of Systems: Review Of Systems: See Below General: Reports: Fever, Chills, Malaise, Weakness HEENT: Reports: Headaches, Sinus Congestion, Sore Throat, Vertigo. Denies: Eye Pain, Visual Changes Pulmonary: Reports: Shortness of Breath, Wheezing, Pleuritic Chest Pain, Cough. Denies: Sputum, Hemoptysis Cardiovascular: Reports: Chest Pain (with coughing and mid sternal region) Gastrointestinal: Reports: No Symptoms. Denies: Abdominal Pain, Black Stool, Bloody Stool, Decreased Appetite, Nausea, Vomiting Genitourinary: Reports: No Symptoms. Denies: Dysuria, Frequency, Burning Musculoskeletal: Reports: No Symptoms Skin: Reports: No Symptoms Psychiatric: Reports: No Symptoms. Denies: Anxiety, Agitation Neurological: Reports: No Symptoms Hematologic/Lymphatic: Reports: No Symptoms Immunologic: Reports: No Symptoms Exam - Exam Exam: See Below - Vital Signs Vital Signs: Last Vital Signs Temp 96.9 F 04/07/19 09:35 Pulse 120 H 04/07/19 10:30 Resp 20 04/07/19 10:30 BP 116/76 04/07/19 10:30 Pulse Ox 92 L 04/07/19 10:30 Weight: 113.398 kg - Exam General: Alert, Oriented, Cooperative HEENT: Conjunctiva Clear, Mucosa Moist & Ord Neck: Supple, Trachea Midline, Full Range of Motion (no nuchal rgidity). No: Lymphadenopathy Lungs: Decreased Breath Sounds (very tight sounding, very little air movement auscultated), Wheezing. No: Clear to Auscultation, Stridor Cardiovascular: Regular Rhythm, Tachycardia. No: Systolic Murmur GI/Abdominal Exam: Normal Bowel Sounds, Soft, Non-Tender, Other (obese abdomen) Extremities: Normal Inspection, Normal Range of Motion, Non-Tender, No Pedal Edema Neuro Extensive - Mental Status: Alert, Oriented x3 Psychiatric: Alert, Normal Affect, Normal Mood - Patient Data Lab Results Last 24 hrs: Laboratory Results - last 24 hr 04/07/19 04/07/19 04/07/19 Range/Units 09:37 09:37 09:45 WBC 11.91 H (4.0-11.0) K/uL RBC 5.37 (4.30-5.90) M/uL Hgb 13.0 (12.0-16.0) g/dL Hct 42.1 (36.0-46.0) % MCV 78.4 L (80.0-98.0) fL MCH 24.2 L (27.0-32.0) pg MCHC 30.9 L (31.0-37.0) g/dL RDW Std Deviation 42.5 (28.0-62.0) fl RDW Coeff of Negrita 15 (11.0-15.0) % Plt Count 270 (150-400) K/uL MPV 11.60 (7.40-12.00) fL Neut % (Auto) 75.7 (48.0-80.0) % Lymph % (Auto) 10.5 L (16.0-40.0) % [place] % (Auto) 5.1 (0.0-15.0) % Eos % (Auto) 8.4 H (0.0-7.0) % Baso % (Auto) 0.3 (0.0-1.5) % Neut # (Auto) 9.0 H (1.4-5.7) K/uL Lymph # (Auto) 1.3 (0.6-2.4) K/uL [place] # (Auto) 0.6 (0.0-0.8) K/uL Eos # (Auto) 1.0 H (0.0-0.7) K/uL Baso # (Auto) 0.0 (0.0-0.1) K/uL Nucleated RBC % 0.0 /100WBC Nucleated RBCs # 0 K/uL ABG pH 7.40 (7.35-7.45) ABG pCO2 33 L (35-45) mmHG ABG pO2 55 L (75-100) mmHG ABG HCO3 20.5 ABG Total CO2 21 ABG Base Excess -4 Sodium 143 (136-145) mmol/L Potassium 3.8 (3.5-5.1) mmol/L Chloride 106 (98-107) mmol/L Carbon Dioxide 25.0 (21.0-32.0) mmol/L BUN 10 (7.0-18.0) mg/dL Creatinine 0.8 (0.6-1.0) mg/dL Est Cr Clr Drug Dosing 117.23 mL/min Estimated GFR (MDRD) > 60.0 ml/min Glucose 112 H (74-106) mg/dL Calcium 8.8 (8.5-10.1) mg/dL Total Bilirubin 0.7 (0.2-1.0) mg/dL AST 17 (15-37) IU/L ALT 24 (14-63) IU/L Alkaline Phosphatase 88 (46-116) U/L Total Protein 7.9 (6.4-8.2) g/dL Albumin 3.7 (3.4-5.0) g/dL Globulin 4.2 H (2.6-4.0) g/dL Albumin/Globulin Ratio 0.9 (0.9-1.6) Urine Color Urine Appearance Urine pH (5.0-8.0) Ur Specific [place] (1.001-1.035) Urine Protein (NEGATIVE) mg/dL Urine Glucose (UA) (NEGATIVE) mg/dL Urine Ketones (NEGATIVE) mg/dL Urine Occult Blood (NEGATIVE) Urine Nitrite (NEGATIVE) Urine Bilirubin (NEGATIVE) Urine Urobilinogen (<2.0) EU/dL Ur Leukocyte Esterase (NEGATIVE) Urine RBC (0-2/HPF) Urine WBC (0-5/HPF) Ur Epithelial Cells (NONE-FEW) Urine Bacteria (NEGATIVE) Urine HCG, Qual (NEGATIVE) 04/07/19 04/07/19 Range/Units 10:30 10:30 WBC (4.0-11.0) K/uL RBC (4.30-5.90) M/uL Hgb (12.0-16.0) g/dL Hct (36.0-46.0) % MCV (80.0-98.0) fL MCH (27.0-32.0) pg MCHC (31.0-37.0) g/dL RDW Std Deviation (28.0-62.0) fl RDW Coeff of Negrita (11.0-15.0) % Plt Count (150-400) K/uL MPV (7.40-12.00) fL Neut % (Auto) (48.0-80.0) % Lymph % (Auto) (16.0-40.0) % [place] % (Auto) (0.0-15.0) % Eos % (Auto) (0.0-7.0) % Baso % (Auto) (0.0-1.5) % Neut # (Auto) (1.4-5.7) K/uL Lymph # (Auto) (0.6-2.4) K/uL [place] # (Auto) (0.0-0.8) K/uL Eos # (Auto) (0.0-0.7) K/uL Baso # (Auto) (0.0-0.1) K/uL Nucleated RBC % /100WBC Nucleated RBCs # K/uL ABG pH (7.35-7.45) ABG pCO2 (35-45) mmHG ABG pO2 (75-100) mmHG ABG HCO3 ABG Total CO2 ABG Base Excess Sodium (136-145) mmol/L Potassium (3.5-5.1) mmol/L Chloride (98-107) mmol/L Carbon Dioxide (21.0-32.0) mmol/L BUN (7.0-18.0) mg/dL Creatinine (0.6-1.0) mg/dL Est Cr Clr Drug Dosing mL/min Estimated GFR (MDRD) ml/min Glucose (74-106) mg/dL Calcium (8.5-10.1) mg/dL Total Bilirubin (0.2-1.0) mg/dL AST (15-37) IU/L ALT (14-63) IU/L Alkaline Phosphatase (46-116) U/L Total Protein (6.4-8.2) g/dL Albumin (3.4-5.0) g/dL Globulin (2.6-4.0) g/dL Albumin/Globulin Ratio (0.9-1.6) Urine Color YELLOW Urine Appearance SLT CLOUDY Urine pH 5.5 (5.0-8.0) Ur Specific [place] >= 1.030 (1.001-1.035) Urine Protein TRACE H (NEGATIVE) mg/dL Urine Glucose (UA) NEGATIVE (NEGATIVE) mg/dL Urine Ketones NEGATIVE (NEGATIVE) mg/dL Urine Occult Blood LARGE H (NEGATIVE) Urine Nitrite NEGATIVE (NEGATIVE) Urine Bilirubin NEGATIVE (NEGATIVE) Urine Urobilinogen 0.2 (<2.0) EU/dL Ur Leukocyte Esterase NEGATIVE (NEGATIVE) Urine RBC 2-5 (0-2/HPF) Urine WBC 0-2 (0-5/HPF) Ur Epithelial Cells FEW (NONE-FEW) Urine Bacteria 1+ H (NEGATIVE) Urine HCG, Qual NEGATIVE (NEGATIVE) Result Diagrams: 04/07/19 09:37 04/07/19 09:37 David Results Last 24 hrs: Microbiology 04/07/19 10:05 Influenza Type A Antigen Screen - Final Nasopharyngeal Swab - Nare, Unspecified NEGATIVE INFLUENZA A VIRUS AG REFERENCE RANGE: NEGATIVE Influenza Type B Antigen Screen - Final NEGATIVE INFLUENZA B VIRUS AG REFERENCE RANGE: NEGATIVE - Problem List (1) Acute respiratory failure with hypoxia SNOMED Code(s): 08280334, 095471803 ICD Code: J96.01 - ACUTE RESPIRATORY FAILURE WITH HYPOXIA Status: Acute Current Visit: Yes (2) Community acquired pneumonia SNOMED Code(s): 737629644 ICD Code: J18.9 - PNEUMONIA, UNSPECIFIED ORGANISM Status: Acute Current Visit: Yes (3) Acute asthma SNOMED Code(s): 837051512 ICD Code: J45.909 - UNSPECIFIED ASTHMA, UNCOMPLICATED Status: Acute Current Visit: No (4) Tachycardia SNOMED Code(s): 9838407 ICD Code: R00.0 - TACHYCARDIA, UNSPECIFIED Status: Acute Current Visit: No (5) UTI (urinary tract infection) SNOMED Code(s): 24525799 ICD Code: N39.0 - URINARY TRACT INFECTION, SITE NOT SPECIFIED Status: Acute Current Visit: No Qualifiers: Urinary tract infection type: site unspecified Hematuria presence: without hematuria Qualified Code(s): N39.0 - Urinary tract infection, site not specified Problem List Initiated/Reviewed/Updated: Yes Orders Last 24hrs: Active Orders 24 hr Category Date Time Status Admission Status [Patient Status] [ADT] Stat ADT 04/07/19 11:11 Active EKG Documentation Completion [RC] STAT Care 04/07/19 09:38 Active RT Aerosol Therapy [RC] ASDIRECTED Care 04/07/19 09:46 Active Chest 2V [CR] Stat Exams 04/07/19 09:38 Taken CULTURE BLOOD [BC] Stat Lab 04/07/19 09:48 Received CULTURE BLOOD [BC] Stat Lab 04/07/19 09:54 Received Azithromycin [Zithromax] Med 04/07/19 11:30 Ordered 500 mg PO Q24H Magnesium Sulfate/Water [Magnesium Sulfate in Water Med 04/07/19 11:21 Ordered Premix] 2 gm Premix Bag 1 bag IV ONETIME Sodium Chloride 0.9% [Saline Flush] Med 04/07/19 09:39 Active 10 ml FLUSH ASDIRECTED PRN Sodium Chloride 0.9% [Saline Flush] Med 04/07/19 09:39 Active 2.5 ml FLUSH ASDIRECTED PRN Blood Culture x2 Reflex Set [OM.PC] Stat Oth 04/07/19 09:39 Ordered Saline Lock Insert [OM.PC] Stat Oth 04/07/19 09:39 Ordered Medication Orders Azithromycin (Zithromax) 500 mg PO Q24H ANNMARIE Magnesium Sulfate 2 gm/ Premix 50 mls @ 50 mls/hr IV ONETIME ONE Stop: 04/07/19 12:20 Sodium Chloride (Saline Flush) 10 ml FLUSH ASDIRECTED PRN PRN Reason: Keep Vein Open Last Admin: 04/07/19 09:49 Dose: 10 ml Sodium Chloride (Saline Flush) 2.5 ml FLUSH ASDIRECTED PRN PRN Reason: Keep Vein Open Last Admin: 04/07/19 09:48 Dose: 2.5 ml Assessment/Plan Comment:: This 18 year old female admitted with acute hypoxic respiratory failure, acute asthma exacerbation, CAP and UTI 1. Acute hypoxic respiratory failure: Continue Oxygen, wean as possible to keep 90%. 2. Acute Asthma exacerbation: Duonebs, Solumedrol. Will give Magnesium 2 gm IV now x 1 for asthma exacerbation. Continue Symbicort. Encourage IS. Consult RT for asthma teaching. tachycardia noted, low risk for DVT/PE D dimer negative. 3. Suspected CAP: BC pending, obtain sputum culture if possible. Rocephin given in ED add Azithromycin 500 mg PO daily. Monitor labwork in am. VTE prophylaxis: Ambulation and SCDs Dispo; 3 days pending improvement. - Mortality Measure Prognosis:: Good <Chris Velazquez - Last Filed: 04/07/19 18:12> H&P History of Present Illness - General Admit Problem/Dx: Admission Diagnosis/Problem Admission Diagnosis/Problem Hypoxemia I have seen and examined the patient independently of Juju Giraldo CNP. I have discussed the case with her. I have reviewed and agree with the assessment and plan as outlined very her for this patient. Please see orders. "BREATHING" Pain Score (Numeric/FACES): 5 Mid-Anterior Chest Pain Score (Numeric/FACES): 4 Exam - Vital Signs Vital Signs: Last Vital Signs Temp 36.2 C 04/07/19 16:00 Pulse 111 H 04/07/19 16:00 Resp 28 H 04/07/19 16:00 BP 136/73 04/07/19 16:00 Pulse Ox 88 L 04/07/19 16:00 - Patient Data Lab Results Last 24 hrs: Laboratory Results - last 24 hr 04/07/19 04/07/19 04/07/19 Range/Units 09:31 09:37 09:37 WBC 11.91 H (4.0-11.0) K/uL RBC 5.37 (4.30-5.90) M/uL Hgb 13.0 (12.0-16.0) g/dL Hct 42.1 (36.0-46.0) % MCV 78.4 L (80.0-98.0) fL MCH 24.2 L (27.0-32.0) pg MCHC 30.9 L (31.0-37.0) g/dL RDW Std Deviation 42.5 (28.0-62.0) fl RDW Coeff of Negrita 15 (11.0-15.0) % Plt Count 270 (150-400) K/uL MPV 11.60 (7.40-12.00) fL Neut % (Auto) 75.7 (48.0-80.0) % Lymph % (Auto) 10.5 L (16.0-40.0) % [place] % (Auto) 5.1 (0.0-15.0) % Eos % (Auto) 8.4 H (0.0-7.0) % Baso % (Auto) 0.3 (0.0-1.5) % Neut # (Auto) 9.0 H (1.4-5.7) K/uL Lymph # (Auto) 1.3 (0.6-2.4) K/uL [place] # (Auto) 0.6 (0.0-0.8) K/uL Eos # (Auto) 1.0 H (0.0-0.7) K/uL Baso # (Auto) 0.0 (0.0-0.1) K/uL Nucleated RBC % 0.0 /100WBC Nucleated RBCs # 0 K/uL D-Dimer, Quantitative 0.45 (0.0-0.50) mg/L FEU ABG pH (7.35-7.45) ABG pCO2 (35-45) mmHG ABG pO2 (75-100) mmHG ABG HCO3 ABG Total CO2 ABG Base Excess Sodium 143 (136-145) mmol/L Potassium 3.8 (3.5-5.1) mmol/L Chloride 106 (98-107) mmol/L Carbon Dioxide 25.0 (21.0-32.0) mmol/L BUN 10 (7.0-18.0) mg/dL Creatinine 0.8 (0.6-1.0) mg/dL Est Cr Clr Drug Dosing 117.23 mL/min Estimated GFR (MDRD) > 60.0 ml/min Glucose 112 H (74-106) mg/dL Calcium 8.8 (8.5-10.1) mg/dL Total Bilirubin 0.7 (0.2-1.0) mg/dL AST 17 (15-37) IU/L ALT 24 (14-63) IU/L Alkaline Phosphatase 88 (46-116) U/L Total Protein 7.9 (6.4-8.2) g/dL Albumin 3.7 (3.4-5.0) g/dL Globulin 4.2 H (2.6-4.0) g/dL Albumin/Globulin Ratio 0.9 (0.9-1.6) Urine Color Urine Appearance Urine pH (5.0-8.0) Ur Specific [place] (1.001-1.035) Urine Protein (NEGATIVE) mg/dL Urine Glucose (UA) (NEGATIVE) mg/dL Urine Ketones (NEGATIVE) mg/dL Urine Occult Blood (NEGATIVE) Urine Nitrite (NEGATIVE) Urine Bilirubin (NEGATIVE) Urine Urobilinogen (<2.0) EU/dL Ur Leukocyte Esterase (NEGATIVE) Urine RBC (0-2/HPF) Urine WBC (0-5/HPF) Ur Epithelial Cells (NONE-FEW) Urine Bacteria (NEGATIVE) Urine HCG, Qual (NEGATIVE) 04/07/19 04/07/19 04/07/19 Range/Units 09:45 10:30 10:30 WBC (4.0-11.0) K/uL RBC (4.30-5.90) M/uL Hgb (12.0-16.0) g/dL Hct (36.0-46.0) % MCV (80.0-98.0) fL MCH (27.0-32.0) pg MCHC (31.0-37.0) g/dL RDW Std Deviation (28.0-62.0) fl RDW Coeff of Negrita (11.0-15.0) % Plt Count (150-400) K/uL MPV (7.40-12.00) fL Neut % (Auto) (48.0-80.0) % Lymph % (Auto) (16.0-40.0) % [place] % (Auto) (0.0-15.0) % Eos % (Auto) (0.0-7.0) % Baso % (Auto) (0.0-1.5) % Neut # (Auto) (1.4-5.7) K/uL Lymph # (Auto) (0.6-2.4) K/uL [place] # (Auto) (0.0-0.8) K/uL Eos # (Auto) (0.0-0.7) K/uL Baso # (Auto) (0.0-0.1) K/uL Nucleated RBC % /100WBC Nucleated RBCs # K/uL D-Dimer, Quantitative (0.0-0.50) mg/L FEU ABG pH 7.40 (7.35-7.45) ABG pCO2 33 L (35-45) mmHG ABG pO2 55 L (75-100) mmHG ABG HCO3 20.5 ABG Total CO2 21 ABG Base Excess -4 Sodium (136-145) mmol/L Potassium (3.5-5.1) mmol/L Chloride (98-107) mmol/L Carbon Dioxide (21.0-32.0) mmol/L BUN (7.0-18.0) mg/dL Creatinine (0.6-1.0) mg/dL Est Cr Clr Drug Dosing mL/min Estimated GFR (MDRD) ml/min Glucose (74-106) mg/dL Calcium (8.5-10.1) mg/dL Total Bilirubin (0.2-1.0) mg/dL AST (15-37) IU/L ALT (14-63) IU/L Alkaline Phosphatase (46-116) U/L Total Protein (6.4-8.2) g/dL Albumin (3.4-5.0) g/dL Globulin (2.6-4.0) g/dL Albumin/Globulin Ratio (0.9-1.6) Urine Color YELLOW Urine Appearance SLT CLOUDY Urine pH 5.5 (5.0-8.0) Ur Specific [place] >= 1.030 (1.001-1.035) Urine Protein TRACE H (NEGATIVE) mg/dL Urine Glucose (UA) NEGATIVE (NEGATIVE) mg/dL Urine Ketones NEGATIVE (NEGATIVE) mg/dL Urine Occult Blood LARGE H (NEGATIVE) Urine Nitrite NEGATIVE (NEGATIVE) Urine Bilirubin NEGATIVE (NEGATIVE) Urine Urobilinogen 0.2 (<2.0) EU/dL Ur Leukocyte Esterase NEGATIVE (NEGATIVE) Urine RBC 2-5 (0-2/HPF) Urine WBC 0-2 (0-5/HPF) Ur Epithelial Cells FEW (NONE-FEW) Urine Bacteria 1+ H (NEGATIVE) Urine HCG, Qual NEGATIVE (NEGATIVE) Result Diagrams: 04/07/19 09:37 04/07/19 09:37 David Results Last 24 hrs: Microbiology 04/07/19 10:05 Influenza Type A Antigen Screen - Final Nasopharyngeal Swab - Nare, Unspecified NEGATIVE INFLUENZA A VIRUS AG REFERENCE RANGE: NEGATIVE Influenza Type B Antigen Screen - Final NEGATIVE INFLUENZA B VIRUS AG REFERENCE RANGE: NEGATIVE Orders Last 24hrs: Active Orders 24 hr Category Date Time Status Admission Status [Patient Status] [ADT] Stat ADT 04/07/19 11:11 Active Antiembolic Devices [RC] PER UNIT ROUTINE Care 04/07/19 11:49 Active EKG Documentation Completion [RC] STAT Care 04/07/19 09:38 Active Influenza Vaccine Charge [RC] .DISCHARGE Care 04/07/19 12:18 Active Intake and Output [RC] Q12H Care 04/07/19 11:48 Active May Shower [RC] ASDIRECTED Care 04/07/19 11:48 Active Oxygen Therapy [RC] PRN Care 04/07/19 11:48 Active RT Aerosol Therapy [RC] ASDIRECTED Care 04/07/19 09:46 Active RT Aerosol Therapy [RC] ASDIRECTED Care 04/07/19 11:50 Active Up With Assistance [RC] ASDIRECTED Care 04/07/19 11:48 Active VTE/DVT Education [RC] PER UNIT ROUTINE Care 04/07/19 11:48 Active Vital Signs [RC] Q4H Care 04/07/19 11:48 Active Consult to Respiratory Therapy [Respiratory Care Assess Cons 04/07/19 11:50 Active and Treatment] [CONS] Routine Regular Diet [DIET] Diet 04/07/19 Lunch Active BASIC METABOLIC PANEL,BMP [CHEM] AM Lab 04/08/19 05:11 Ordered CBC WITH AUTO DIFF [HEME] AM Lab 04/08/19 05:11 Ordered CULTURE BLOOD [BC] Stat Lab 04/07/19 09:48 Received CULTURE BLOOD [BC] Stat Lab 04/07/19 09:54 Received CULTURE SPUTUM + SMEAR [RM] Stat Lab 04/07/19 11:48 Ordered CULTURE URINE [RM] Routine Lab 04/07/19 10:30 Received RESPIRATORY PANEL Urgent Lab 04/07/19 10:05 Received Acetaminophen [Tylenol] Med 04/07/19 11:48 Active 650 mg PO Q4H PRN Albuterol [Proventil Neb Soln] Med 04/07/19 11:48 Active 2.5 mg NEB Q2H PRN Albuterol/Ipratropium [DuoNeb 3.0-0.5 MG/3 ML] Med 04/07/19 14:00 Active 3 ml NEB Q4HRRT Azithromycin [Zithromax] Med 04/07/19 11:30 Active 500 mg PO Q24H Budesonide/Formoterol [Symbicort 160-4.5 MCG] Med 04/07/19 21:00 Active 0 gm INH BID Ibuprofen [Motrin] Med 04/07/19 11:48 Active 400 mg PO Q6H PRN Montelukast [Singulair] Med 04/07/19 21:00 Active 10 mg PO BEDTIME Ondansetron [Zofran] Med 04/07/19 11:48 Active 4 mg IVPUSH Q4H PRN Sodium Chloride 0.9% [Saline Flush] Med 04/07/19 09:39 Active 10 ml FLUSH ASDIRECTED PRN Sodium Chloride 0.9% [Saline Flush] Med 04/07/19 09:39 Active 2.5 ml FLUSH ASDIRECTED PRN cefTRIAXone [Rocephin in Dextrose,Iso-Osm 1 GM/50 ML] 1 Med 04/08/19 09:00 Active gm Premix Bag 1 bag IV Q24H methylPREDNISolone Sod Succ [Solu-MEDROL] Med 04/07/19 16:45 Active 125 mg IVPUSH Q6H Blood Culture x2 Reflex Set [OM.PC] Stat Oth 04/07/19 09:39 Ordered Saline Lock Insert [OM.PC] Stat Oth 04/07/19 09:39 Ordered Sequential Compression Device [OM.PC] Per Unit Routine Oth 04/07/19 11:48 Ordered Resuscitation Status Routine Resus Stat 04/07/19 11:48 Ordered Medication Orders Acetaminophen (Tylenol) 650 mg PO Q4H PRN PRN Reason: Pain (mild 1-3) Last Admin: 04/07/19 12:40 Dose: 650 mg Albuterol (Proventil Neb Soln) 2.5 mg NEB Q2H PRN PRN Reason: Shortness Of Breath/wheezing Last Admin: 04/07/19 16:26 Dose: 2.5 mg Albuterol/Ipratropium (Duoneb 3.0-0.5 Mg/3 Ml) 3 ml NEB Q4HRRT [facility] Last Admin: 04/07/19 13:04 Dose: 3 ml Azithromycin (Zithromax) 500 mg PO Q24H [facility] Last Admin: 04/07/19 11:48 Dose: 500 mg Budesonide/Formoterol Fumarate (Symbicort 160-4.5 Mcg) 0 gm INH BID [facility] Ceftriaxone Sodium/Dextrose 1 (gm/ Premix) 50 mls @ 100 mls/hr IV Q24H [facility] Ibuprofen (Motrin) 400 mg PO Q6H PRN PRN Reason: Pain (mild 1-3) Methylprednisolone Sodium Succinate (Solu-Medrol) 125 mg IVPUSH Q6H [facility] Last Admin: 04/07/19 16:53 Dose: 125 mg Montelukast Sodium (Singulair) 10 mg PO BEDTIME [facility] Ondansetron HCl (Zofran) 4 mg IVPUSH Q4H PRN PRN Reason: Nausea Sodium Chloride (Saline Flush) 10 ml FLUSH ASDIRECTED PRN PRN Reason: Keep Vein Open Last Admin: 04/07/19 09:49 Dose: 10 ml Sodium Chloride (Saline Flush) 2.5 ml FLUSH ASDIRECTED PRN PRN Reason: Keep Vein Open Last Admin: 04/07/19 16:53 Dose: 2.5 ml Admin: 04/07/19 09:48 Dose: 2.5 ml
--- NOTE | 2019-04-07 11:37 | CR ---
INDICATION: SOB. TECHNIQUE: PA and lateral. COMPARISON: Portable chest x-ray of 07/16/2018. FINDINGS: Shallow inspiration with new subsegmental atelectasis in the perihilar right lung and possible atelectasis or infiltrate in the retrocardiac left lower lobe base. Mild bronchial wall thickening. No pleural fusion. Heart size and pulmonary vasculature within normal limits. No significant bony abnormality. IMPRESSION: 1. Shallow inspiration with new subsegmental atelectasis in the mid right lung and possible atelectasis or infiltrate in the retrocardiac left lower lobe base. 2. Mild bronchial wall thickening. Dictated by Marin Paul MD @ Apr 07 2019 11:30AM Signed by Dr. Marin Paul @ Apr 07 2019 11:35AM
[2019-04-07] MEDS: Azithromycin 250 MG Tab PO SCH (11:48)
[2019-04-07] MEDS ORDERED: Albuterol 0.083% 2.5 MG/3 ML Neb Soln NEB PRN (11:48)
[2019-04-07] MEDS ORDERED: Ibuprofen 400 MG Tab PO PRN (11:48)
[2019-04-07] MEDS ORDERED: Ondansetron 4 MG/2 ML SDV IVPUSH PRN (11:48)
[2019-04-07] MEDS: Acetaminophen 325 MG Tab PO PRN ×2 (12:40→20:31)
[2019-04-07] MEDS ORDERED: FLU Vacc QS2019-20(6MOS+)/PF 60 MCG/0.5 ML SYRINGE IM ONE (12:45)
[2019-04-07] MEDS: Albuterol/Ipratropium 3.0-0.5 MG/3 ML Neb Soln NEB SCH ×3 (13:04→21:22)
[2019-04-07] MEDS ORDERED: methylPREDNISolone Sodium Succinate 125 MG/2 ML SDV IVPUSH SCH (15:00)
[2019-04-07] MEDS: methylPREDNISolone Sodium Succinate 125 MG/2 ML SDV IVPUSH SCH ×2 (16:53→22:17)
[2019-04-07] MEDS: Montelukast 10 MG Tab PO SCH (20:08)
[2019-04-07] MEDS: Budesonide/Formoterol 160-4.5 MCG/Puff 6 GM Inhaler INH SCH (21:21)
[2019-04-08] MEDS: Albuterol/Ipratropium 3.0-0.5 MG/3 ML Neb Soln NEB SCH ×6 (01:58→21:04)
[2019-04-08] MEDS: methylPREDNISolone Sodium Succinate 125 MG/2 ML SDV IVPUSH SCH ×4 (03:48→21:55)
[2019-04-08 07:02] LABS: BLOOD UREA NITROGEN,BUN 11 mg/dL (7.0-18.0); CARBON DIOXIDE,CO2 22.8 mmol/L (21.0-32.0); CHLORIDE,CL 105 mmol/L (98-107); GLUCOSE RANDOM 152 mg/dL (74-106); SODIUM,NA 140 mmol/L (136-145)
--- NOTE | 2019-04-08 08:09 | PCM.PN ---
<Tatyana Giraldo M - Last Filed: 04/08/19 09:38> - General Info Date of Service: 04/08/19 Admission Dx/Problem (Free Text): Admission Diagnosis/Problem Admission Diagnosis/Problem Acute hypoxic respiratory failure, asthma exacerbation and CAP Subjective Update: Feeling improved this morning, still requiring oxygen. Reports breathing is easier, she is able to ambulate to bathroom and back to bed without oxygen and not have significant shortness of breath like yesterday.Cough more productive today. No chest pain. Sinus congestion improving. Functional Status: Reports: Pain Controlled, Tolerating Diet, Ambulating, Urinating - Review of Systems General: Reports: Malaise HEENT: Reports: Sinus Congestion. Denies: Sore Throat Pulmonary: Reports: Shortness of Breath (imprpoving), Cough, Sputum, Wheezing Cardiovascular: Denies: Chest Pain Gastrointestinal: Reports: No Symptoms. Denies: Abdominal Pain, Nausea, Vomiting Genitourinary: Reports: No Symptoms. Denies: Dysuria, Frequency, Burning Skin: Reports: No Symptoms Neurological: Reports: No Symptoms Psychiatric: Reports: No Symptoms - Patient Data Vitals - Most Recent: Last Vital Signs Temp 98.4 F 04/08/19 03:46 Pulse 96 04/08/19 03:46 Resp 19 04/08/19 03:46 BP 135/67 04/08/19 03:46 Pulse Ox 93 L 04/08/19 03:46 Weight - Most Recent: 113.398 kg I&O - Last 24 Hours: Intake & Output 04/07/19 04/08/19 04/08/19 22:59 06:59 14:59 Intake Total 250 830 Output Total 500 350 Balance -250 480 Lab Results Last 24 Hours: Laboratory Results - last 24 hr 04/07/19 04/07/19 04/07/19 Range/Units 09:31 09:37 09:37 WBC 11.91 H (4.0-11.0) K/uL RBC 5.37 (4.30-5.90) M/uL Hgb 13.0 (12.0-16.0) g/dL Hct 42.1 (36.0-46.0) % MCV 78.4 L (80.0-98.0) fL MCH 24.2 L (27.0-32.0) pg MCHC 30.9 L (31.0-37.0) g/dL RDW Std Deviation 42.5 (28.0-62.0) fl RDW Coeff of Negrita 15 (11.0-15.0) % Plt Count 270 (150-400) K/uL MPV 11.60 (7.40-12.00) fL Neut % (Auto) 75.7 (48.0-80.0) % Lymph % (Auto) 10.5 L (16.0-40.0) % [place] % (Auto) 5.1 (0.0-15.0) % Eos % (Auto) 8.4 H (0.0-7.0) % Baso % (Auto) 0.3 (0.0-1.5) % Neut # (Auto) 9.0 H (1.4-5.7) K/uL Lymph # (Auto) 1.3 (0.6-2.4) K/uL [place] # (Auto) 0.6 (0.0-0.8) K/uL Eos # (Auto) 1.0 H (0.0-0.7) K/uL Baso # (Auto) 0.0 (0.0-0.1) K/uL Nucleated RBC % 0.0 /100WBC Nucleated RBCs # 0 K/uL D-Dimer, Quantitative 0.45 (0.0-0.50) mg/L FEU ABG pH (7.35-7.45) ABG pCO2 (35-45) mmHG ABG pO2 (75-100) mmHG ABG HCO3 ABG Total CO2 ABG Base Excess Sodium 143 (136-145) mmol/L Potassium 3.8 (3.5-5.1) mmol/L Chloride 106 (98-107) mmol/L Carbon Dioxide 25.0 (21.0-32.0) mmol/L BUN 10 (7.0-18.0) mg/dL Creatinine 0.8 (0.6-1.0) mg/dL Est Cr Clr Drug Dosing 117.23 mL/min Estimated GFR (MDRD) > 60.0 ml/min Glucose 112 H (74-106) mg/dL Calcium 8.8 (8.5-10.1) mg/dL Total Bilirubin 0.7 (0.2-1.0) mg/dL AST 17 (15-37) IU/L ALT 24 (14-63) IU/L Alkaline Phosphatase 88 (46-116) U/L Total Protein 7.9 (6.4-8.2) g/dL Albumin 3.7 (3.4-5.0) g/dL Globulin 4.2 H (2.6-4.0) g/dL Albumin/Globulin Ratio 0.9 (0.9-1.6) Urine Color Urine Appearance Urine pH (5.0-8.0) Ur Specific [place] (1.001-1.035) Urine Protein (NEGATIVE) mg/dL Urine Glucose (UA) (NEGATIVE) mg/dL Urine Ketones (NEGATIVE) mg/dL Urine Occult Blood (NEGATIVE) Urine Nitrite (NEGATIVE) Urine Bilirubin (NEGATIVE) Urine Urobilinogen (<2.0) EU/dL Ur Leukocyte Esterase (NEGATIVE) Urine RBC (0-2/HPF) Urine WBC (0-5/HPF) Ur Epithelial Cells (NONE-FEW) Urine Bacteria (NEGATIVE) Urine HCG, Qual (NEGATIVE) 04/07/19 04/07/19 04/07/19 Range/Units 09:45 10:30 10:30 WBC (4.0-11.0) K/uL RBC (4.30-5.90) M/uL Hgb (12.0-16.0) g/dL Hct (36.0-46.0) % MCV (80.0-98.0) fL MCH (27.0-32.0) pg MCHC (31.0-37.0) g/dL RDW Std Deviation (28.0-62.0) fl RDW Coeff of Negrita (11.0-15.0) % Plt Count (150-400) K/uL MPV (7.40-12.00) fL Neut % (Auto) (48.0-80.0) % Lymph % (Auto) (16.0-40.0) % [place] % (Auto) (0.0-15.0) % Eos % (Auto) (0.0-7.0) % Baso % (Auto) (0.0-1.5) % Neut # (Auto) (1.4-5.7) K/uL Lymph # (Auto) (0.6-2.4) K/uL [place] # (Auto) (0.0-0.8) K/uL Eos # (Auto) (0.0-0.7) K/uL Baso # (Auto) (0.0-0.1) K/uL Nucleated RBC % /100WBC Nucleated RBCs # K/uL D-Dimer, Quantitative (0.0-0.50) mg/L FEU ABG pH 7.40 (7.35-7.45) ABG pCO2 33 L (35-45) mmHG ABG pO2 55 L (75-100) mmHG ABG HCO3 20.5 ABG Total CO2 21 ABG Base Excess -4 Sodium (136-145) mmol/L Potassium (3.5-5.1) mmol/L Chloride (98-107) mmol/L Carbon Dioxide (21.0-32.0) mmol/L BUN (7.0-18.0) mg/dL Creatinine (0.6-1.0) mg/dL Est Cr Clr Drug Dosing mL/min Estimated GFR (MDRD) ml/min Glucose (74-106) mg/dL Calcium (8.5-10.1) mg/dL Total Bilirubin (0.2-1.0) mg/dL AST (15-37) IU/L ALT (14-63) IU/L Alkaline Phosphatase (46-116) U/L Total Protein (6.4-8.2) g/dL Albumin (3.4-5.0) g/dL Globulin (2.6-4.0) g/dL Albumin/Globulin Ratio (0.9-1.6) Urine Color YELLOW Urine Appearance SLT CLOUDY Urine pH 5.5 (5.0-8.0) Ur Specific [place] >= 1.030 (1.001-1.035) Urine Protein TRACE H (NEGATIVE) mg/dL Urine Glucose (UA) NEGATIVE (NEGATIVE) mg/dL Urine Ketones NEGATIVE (NEGATIVE) mg/dL Urine Occult Blood LARGE H (NEGATIVE) Urine Nitrite NEGATIVE (NEGATIVE) Urine Bilirubin NEGATIVE (NEGATIVE) Urine Urobilinogen 0.2 (<2.0) EU/dL Ur Leukocyte Esterase NEGATIVE (NEGATIVE) Urine RBC 2-5 (0-2/HPF) Urine WBC 0-2 (0-5/HPF) Ur Epithelial Cells FEW (NONE-FEW) Urine Bacteria 1+ H (NEGATIVE) Urine HCG, Qual NEGATIVE (NEGATIVE) 04/08/19 04/08/19 Range/Units 06:28 06:28 WBC 26.08 H (4.0-11.0) K/uL RBC 5.18 (4.30-5.90) M/uL Hgb 12.3 (12.0-16.0) g/dL Hct 40.4 (36.0-46.0) % MCV 78.0 L (80.0-98.0) fL MCH 23.7 L (27.0-32.0) pg MCHC 30.4 L (31.0-37.0) g/dL RDW Std Deviation 42.2 (28.0-62.0) fl RDW Coeff of Negrita 15 (11.0-15.0) % Plt Count 276 (150-400) K/uL MPV 11.10 (7.40-12.00) fL Neut % (Auto) 96.0 H (48.0-80.0) % Lymph % (Auto) 3.0 L (16.0-40.0) % [place] % (Auto) 1.0 (0.0-15.0) % Eos % (Auto) 0.0 (0.0-7.0) % Baso % (Auto) 0.0 (0.0-1.5) % Neut # (Auto) 25.0 H (1.4-5.7) K/uL Lymph # (Auto) 0.8 (0.6-2.4) K/uL [place] # (Auto) 0.3 (0.0-0.8) K/uL Eos # (Auto) 0.0 (0.0-0.7) K/uL Baso # (Auto) 0.0 (0.0-0.1) K/uL Nucleated RBC % 0.0 /100WBC Nucleated RBCs # 0 K/uL D-Dimer, Quantitative (0.0-0.50) mg/L FEU ABG pH (7.35-7.45) ABG pCO2 (35-45) mmHG ABG pO2 (75-100) mmHG ABG HCO3 ABG Total CO2 ABG Base Excess Sodium 140 (136-145) mmol/L Potassium 4.0 (3.5-5.1) mmol/L Chloride 105 (98-107) mmol/L Carbon Dioxide 22.8 (21.0-32.0) mmol/L BUN 11 (7.0-18.0) mg/dL Creatinine 0.8 (0.6-1.0) mg/dL Est Cr Clr Drug Dosing 115.19 mL/min Estimated GFR (MDRD) > 60.0 ml/min Glucose 152 H (74-106) mg/dL Calcium 9.1 (8.5-10.1) mg/dL Total Bilirubin (0.2-1.0) mg/dL AST (15-37) IU/L ALT (14-63) IU/L Alkaline Phosphatase (46-116) U/L Total Protein (6.4-8.2) g/dL Albumin (3.4-5.0) g/dL Globulin (2.6-4.0) g/dL Albumin/Globulin Ratio (0.9-1.6) Urine Color Urine Appearance Urine pH (5.0-8.0) Ur Specific [place] (1.001-1.035) Urine Protein (NEGATIVE) mg/dL Urine Glucose (UA) (NEGATIVE) mg/dL Urine Ketones (NEGATIVE) mg/dL Urine Occult Blood (NEGATIVE) Urine Nitrite (NEGATIVE) Urine Bilirubin (NEGATIVE) Urine Urobilinogen (<2.0) EU/dL Ur Leukocyte Esterase (NEGATIVE) Urine RBC (0-2/HPF) Urine WBC (0-5/HPF) Ur Epithelial Cells (NONE-FEW) Urine Bacteria (NEGATIVE) Urine HCG, Qual (NEGATIVE) David Results Last 24 Hours: Microbiology 04/07/19 18:10 Gram Stain - Preliminary Sputum - Expectorated 04/07/19 10:05 Influenza Type A Antigen Screen - Final Nasopharyngeal Swab - Nare, Unspecified NEGATIVE INFLUENZA A VIRUS AG REFERENCE RANGE: NEGATIVE Influenza Type B Antigen Screen - Final NEGATIVE INFLUENZA B VIRUS AG REFERENCE RANGE: NEGATIVE Med Orders - Current: Current Medications Acetaminophen (Tylenol) 650 mg PO Q4H PRN PRN Reason: Pain (mild 1-3) Last Admin: 04/07/19 20:31 Dose: 650 mg Albuterol (Proventil Neb Soln) 2.5 mg NEB Q2H PRN PRN Reason: Shortness Of Breath/wheezing Last Admin: 04/07/19 16:26 Dose: 2.5 mg Albuterol/Ipratropium (Duoneb 3.0-0.5 Mg/3 Ml) 3 ml NEB Q4HRRT COUNTS INCLUDE 234 BEDS AT THE [facility] Last Admin: 04/08/19 06:11 Dose: 3 ml Azithromycin (Zithromax) 500 mg PO Q24H COUNTS INCLUDE 234 BEDS AT THE [facility] Last Admin: 04/07/19 11:48 Dose: 500 mg Budesonide/Formoterol Fumarate (Symbicort 160-4.5 Mcg) 0 gm INH BID COUNTS INCLUDE 234 BEDS AT THE [facility] Last Admin: 04/07/19 21:21 Dose: 2 puff Ceftriaxone Sodium/Dextrose 1 (gm/ Premix) 50 mls @ 100 mls/hr IV Q24H COUNTS INCLUDE 234 BEDS AT THE [facility] Ibuprofen (Motrin) 400 mg PO Q6H PRN PRN Reason: Pain (mild 1-3) Methylprednisolone Sodium Succinate (Solu-Medrol) 125 mg IVPUSH Q6H COUNTS INCLUDE 234 BEDS AT THE [facility] Last Admin: 04/08/19 03:48 Dose: 125 mg Montelukast Sodium (Singulair) 10 mg PO BEDTIME COUNTS INCLUDE 234 BEDS AT THE [facility] Last Admin: 04/07/19 20:08 Dose: 10 mg Ondansetron HCl (Zofran) 4 mg IVPUSH Q4H PRN PRN Reason: Nausea Sodium Chloride (Saline Flush) 10 ml FLUSH ASDIRECTED PRN PRN Reason: Keep Vein Open Last Admin: 04/07/19 09:49 Dose: 10 ml Sodium Chloride (Saline Flush) 2.5 ml FLUSH ASDIRECTED PRN PRN Reason: Keep Vein Open Last Admin: 04/07/19 16:53 Dose: 2.5 ml Discontinued Medications Albuterol/Ipratropium (Duoneb 3.0-0.5 Mg/3 Ml) 3 ml NEB ONETIME ONE Stop: 04/07/19 09:47 Last Admin: 04/07/19 09:48 Dose: 3 ml Sodium Chloride (Normal Saline) 1,000 mls @ 999 mls/hr IV STAT ONE Stop: 04/07/19 10:38 Last Admin: 04/07/19 09:48 Dose: 999 mls/hr Ceftriaxone Sodium/Dextrose 1 (gm/ Premix) 50 mls @ 100 mls/hr IV ONETIME ONE Stop: 04/07/19 10:26 Last Admin: 04/07/19 10:09 Dose: 100 mls/hr Magnesium Sulfate 2 gm/ Premix 50 mls @ 50 mls/hr IV ONETIME ONE Stop: 04/07/19 12:20 Last Admin: 04/07/19 11:48 Dose: 50 mls/hr Influenza Virus Vaccine (Pharmacy To Dose - Influenza Vaccine) 1 each IM ONETIME ONE Stop: 04/07/19 12:19 Influenza Virus Vaccine (Fluzone Quad [id number] Syringe) 60 mcg IM .ONCE ONE Stop: 04/07/19 12:46 Methylprednisolone Sodium Succinate (Solu-Medrol) 125 mg IVPUSH ONETIME ONE Stop: 04/07/19 09:39 Last Admin: 04/07/19 09:49 Dose: 125 mg Methylprednisolone Sodium Succinate (Solu-Medrol) 125 mg IVPUSH Q6H ANNMARIE Last Admin: 04/07/19 16:42 Dose: Not Given - Exam Quality Assessment: Supplemental Oxygen General: Alert, Oriented, Cooperative, No Acute Distress Neck: Supple Lungs: Decreased Breath Sounds, Rhonchi, Wheezing Cardiovascular: Regular Rate, Regular Rhythm GI/Abdominal Exam: Normal Bowel Sounds, Soft, Non-Tender Extremities: Normal Inspection, Normal Range of Motion, Non-Tender, No Pedal Edema Neurological: No New Focal Deficit Psy/Mental Status: Alert, Normal Affect, Normal Mood - Problem List & Annotations (1) Acute respiratory failure with hypoxia SNOMED Code(s): 28582234, 658296403 Code(s): J96.01 - ACUTE RESPIRATORY FAILURE WITH HYPOXIA Status: Acute Current Visit: Yes (2) Community acquired pneumonia SNOMED Code(s): 901375364 Code(s): J18.9 - PNEUMONIA, UNSPECIFIED ORGANISM Status: Acute Current Visit: Yes (3) Acute asthma SNOMED Code(s): 871170842 Code(s): J45.909 - UNSPECIFIED ASTHMA, UNCOMPLICATED Status: Acute Current Visit: No (4) Tachycardia SNOMED Code(s): 3471119 Code(s): R00.0 - TACHYCARDIA, UNSPECIFIED Status: Acute Current Visit: No (5) UTI (urinary tract infection) SNOMED Code(s): 24788895 Code(s): N39.0 - URINARY TRACT INFECTION, SITE NOT SPECIFIED Status: Acute Current Visit: No Qualifiers: Urinary tract infection type: site unspecified Hematuria presence: without hematuria Qualified Code(s): N39.0 - Urinary tract infection, site not specified - Problem List Review Problem List Initiated/Reviewed/Updated: Yes - My Orders Last 24 Hours: My Active Orders 04/07/19 10:05 RESPIRATORY PANEL Urgent 04/07/19 10:30 CULTURE URINE [RM] Routine 04/07/19 11:30 Azithromycin [Zithromax] 500 mg PO Q24H 04/07/19 11:48 Intake and Output [RC] Q12H May Shower [RC] ASDIRECTED Oxygen Therapy [RC] PRN Up With Assistance [RC] ASDIRECTED VTE/DVT Education [RC] PER UNIT ROUTINE Vital Signs [RC] Q4H Acetaminophen [Tylenol] 650 mg PO Q4H PRN Albuterol [Proventil Neb Soln] 2.5 mg NEB Q2H PRN Ibuprofen [Motrin] 400 mg PO Q6H PRN Ondansetron [Zofran] 4 mg IVPUSH Q4H PRN Sequential Compression Device [OM.PC] Per Unit Routine Resuscitation Status Routine 04/07/19 11:49 Antiembolic Devices [RC] PER UNIT ROUTINE 04/07/19 11:50 RT Aerosol Therapy [RC] ASDIRECTED Consult to Respiratory Therapy [Respiratory Care Assess and Treatment] [CONS] Routine 04/07/19 14:00 Albuterol/Ipratropium [DuoNeb 3.0-0.5 MG/3 ML] 3 ml NEB Q4HRRT 04/07/19 16:45 methylPREDNISolone Sod Succ [Solu-MEDROL] 125 mg IVPUSH Q6H 04/07/19 18:10 CULTURE SPUTUM + SMEAR [RM] Stat 04/07/19 21:00 Budesonide/Formoterol [Symbicort 160-4.5 MCG] 0 gm INH BID Montelukast [Singulair] 10 mg PO BEDTIME 04/07/19 Lunch Regular Diet [DIET] 04/08/19 09:00 cefTRIAXone [Rocephin in Dextrose,Iso-Osm 1 GM/50 ML] 1 gm Premix Bag 1 bag IV Q24H - Plan Plan:: This 18 year old female admitted with acute hypoxic respiratory failure, acute asthma exacerbation, CAP and UTI 1. Acute hypoxic respiratory failure: Continues to require 5 l NC, attempt weaning as possible. Encourage IS 2. Acute Asthma exacerbation: Slow improvement. More air movement in lungs today. Continue Duonebs, Solumedrol. Continue Symbicort. Encourage IS. Consult RT for asthma teaching. 3. Suspected CAP: Improving, BC and sputum culture pending. Continue Rocephin and Azithromycin. Monitor labwork in am. leukocytosis elevated, likely secondary to steroids. Monitor. 4. UTI: Continue Rocephin as above, UC pending. VTE prophylaxis: Ambulation and SCDs Dispo; 3 days pending improvement. <Chris Velazquez - Last Filed: 04/08/19 11:25> - General Info Admission Dx/Problem (Free Text): I have seen and examined the patient independently of Juju Giraldo CNP. I have discussed the case with her. I have reviewed and agree with the assessment and plan as outlined very her for this patient. Please see orders. - Patient Data Vitals - Most Recent: Last Vital Signs Temp 36.7 C 04/08/19 08:00 Pulse 92 04/08/19 08:00 Resp 20 04/08/19 08:00 BP 98/49 L 04/08/19 08:00 Pulse Ox 95 04/08/19 08:00 I&O - Last 24 Hours: Intake & Output 04/07/19 04/08/19 04/08/19 22:59 06:59 14:59 Intake Total 250 830 50 Output Total 500 350 Balance -250 480 50 Lab Results Last 24 Hours: Laboratory Results - last 24 hr 04/07/19 04/08/19 04/08/19 Range/Units 09:31 06:28 06:28 WBC 26.08 H (4.0-11.0) K/uL RBC 5.18 (4.30-5.90) M/uL Hgb 12.3 (12.0-16.0) g/dL Hct 40.4 (36.0-46.0) % MCV 78.0 L (80.0-98.0) fL MCH 23.7 L (27.0-32.0) pg MCHC 30.4 L (31.0-37.0) g/dL RDW Std Deviation 42.2 (28.0-62.0) fl RDW Coeff of Negrita 15 (11.0-15.0) % Plt Count 276 (150-400) K/uL MPV 11.10 (7.40-12.00) fL Neut % (Auto) 96.0 H (48.0-80.0) % Lymph % (Auto) 3.0 L (16.0-40.0) % [place] % (Auto) 1.0 (0.0-15.0) % Eos % (Auto) 0.0 (0.0-7.0) % Baso % (Auto) 0.0 (0.0-1.5) % Neut # (Auto) 25.0 H (1.4-5.7) K/uL Lymph # (Auto) 0.8 (0.6-2.4) K/uL [place] # (Auto) 0.3 (0.0-0.8) K/uL Eos # (Auto) 0.0 (0.0-0.7) K/uL Baso # (Auto) 0.0 (0.0-0.1) K/uL Nucleated RBC % 0.0 /100WBC Nucleated RBCs # 0 K/uL D-Dimer, Quantitative 0.45 (0.0-0.50) mg/L FEU Sodium 140 (136-145) mmol/L Potassium 4.0 (3.5-5.1) mmol/L Chloride 105 (98-107) mmol/L Carbon Dioxide 22.8 (21.0-32.0) mmol/L BUN 11 (7.0-18.0) mg/dL Creatinine 0.8 (0.6-1.0) mg/dL Est Cr Clr Drug Dosing 115.19 mL/min Estimated GFR (MDRD) > 60.0 ml/min Glucose 152 H (74-106) mg/dL Calcium 9.1 (8.5-10.1) mg/dL David Results Last 24 Hours: Microbiology 04/07/19 09:54 Aerobic Blood Culture - Preliminary Blood - Venous - Lab Draw NO GROWTH AFTER 1 DAY Anaerobic Blood Culture - Preliminary NO GROWTH AFTER 1 DAY 04/07/19 09:48 Aerobic Blood Culture - Preliminary Blood - Venous NO GROWTH AFTER 1 DAY Anaerobic Blood Culture - Preliminary NO GROWTH AFTER 1 DAY 04/07/19 18:10 Gram Stain - Preliminary Sputum - Expectorated 04/07/19 10:05 Influenza Type A Antigen Screen - Final Nasopharyngeal Swab - Nare, Unspecified NEGATIVE INFLUENZA A VIRUS AG REFERENCE RANGE: NEGATIVE Influenza Type B Antigen Screen - Final NEGATIVE INFLUENZA B VIRUS AG REFERENCE RANGE: NEGATIVE Med Orders - Current: Current Medications Acetaminophen (Tylenol) 650 mg PO Q4H PRN PRN Reason: Pain (mild 1-3) Last Admin: 04/07/19 20:31 Dose: 650 mg Albuterol (Proventil Neb Soln) 2.5 mg NEB Q2H PRN PRN Reason: Shortness Of Breath/wheezing Last Admin: 04/07/19 16:26 Dose: 2.5 mg Albuterol/Ipratropium (Duoneb 3.0-0.5 Mg/3 Ml) 3 ml NEB Q4HRRT COUNTS INCLUDE 234 BEDS AT THE [facility] Last Admin: 04/08/19 09:28 Dose: 3 ml Azithromycin (Zithromax) 500 mg PO Q24H COUNTS INCLUDE 234 BEDS AT [facility] Last Admin: 04/08/19 10:51 Dose: 500 mg Budesonide/Formoterol Fumarate (Symbicort 160-4.5 Mcg) 0 gm INH BID COUNTS INCLUDE 234 BEDS AT [facility] Last Admin: 04/08/19 09:28 Dose: 2 puff Fluticasone Propionate (Flonase) 0 gm NASBOTH DAILY COUNTS INCLUDE 234 BEDS AT [facility] Last Admin: 04/08/19 10:49 Dose: 1 spray Ceftriaxone Sodium/Dextrose 1 (gm/ Premix) 50 mls @ 100 mls/hr IV Q24H COUNTS INCLUDE 234 BEDS AT [facility] Last Admin: 04/08/19 09:04 Dose: 100 mls/hr Ibuprofen (Motrin) 400 mg PO Q6H PRN PRN Reason: Pain (mild 1-3) Methylprednisolone Sodium Succinate (Solu-Medrol) 125 mg IVPUSH Q6H COUNTS INCLUDE 234 BEDS AT [facility] Last Admin: 04/08/19 10:52 Dose: 125 mg Montelukast Sodium (Singulair) 10 mg PO BEDTIME COUNTS INCLUDE 234 BEDS AT THE [facility] Last Admin: 04/07/19 20:08 Dose: 10 mg Ondansetron HCl (Zofran) 4 mg IVPUSH Q4H PRN PRN Reason: Nausea Sodium Chloride (Saline Flush) 10 ml FLUSH ASDIRECTED PRN PRN Reason: Keep Vein Open Last Admin: 04/07/19 09:49 Dose: 10 ml Sodium Chloride (Saline Flush) 2.5 ml FLUSH ASDIRECTED PRN PRN Reason: Keep Vein Open Last Admin: 04/07/19 16:53 Dose: 2.5 ml Discontinued Medications Albuterol/Ipratropium (Duoneb 3.0-0.5 Mg/3 Ml) 3 ml NEB ONETIME ONE Stop: 04/07/19 09:47 Last Admin: 04/07/19 09:48 Dose: 3 ml Sodium Chloride (Normal Saline) 1,000 mls @ 999 mls/hr IV STAT ONE Stop: 04/07/19 10:38 Last Admin: 04/07/19 09:48 Dose: 999 mls/hr Ceftriaxone Sodium/Dextrose 1 (gm/ Premix) 50 mls @ 100 mls/hr IV ONETIME ONE Stop: 04/07/19 10:26 Last Admin: 04/07/19 10:09 Dose: 100 mls/hr Magnesium Sulfate 2 gm/ Premix 50 mls @ 50 mls/hr IV ONETIME ONE Stop: 04/07/19 12:20 Last Admin: 04/07/19 11:48 Dose: 50 mls/hr Influenza Virus Vaccine (Pharmacy To Dose - Influenza Vaccine) 1 each IM ONETIME ONE Stop: 04/07/19 12:19 Influenza Virus Vaccine (Fluzone Quad Syringe) 60 mcg IM .ONCE ONE Stop: 04/07/19 12:46 Methylprednisolone Sodium Succinate (Solu-Medrol) 125 mg IVPUSH ONETIME ONE Stop: 04/07/19 09:39 Last Admin: 04/07/19 09:49 Dose: 125 mg Methylprednisolone Sodium Succinate (Solu-Medrol) 125 mg IVPUSH Q6H ANNMARIE Last Admin: 04/07/19 16:42 Dose: Not Given - My Orders Last 24 Hours: My Active Orders 04/07/19 12:18 Influenza Vaccine Charge [RC] .DISCHARGE
[2019-04-08] MEDS: cefTRIAXone 1 GM in Premix Bag 1 BAG IV SCH (09:04)
[2019-04-08] MEDS: Budesonide/Formoterol 160-4.5 MCG/Puff 6 GM Inhaler INH SCH ×2 (09:28→21:04)
[2019-04-08] MEDS: Fluticasone Propionate Nasal Spray 16 GM Bottle NASBOTH SCH (10:49)
[2019-04-08] MEDS: Azithromycin 250 MG Tab PO SCH (10:51)
[2019-04-08] MEDS: Montelukast 10 MG Tab PO SCH (19:59)
[2019-04-09] MEDS: Albuterol/Ipratropium 3.0-0.5 MG/3 ML Neb Soln NEB SCH ×6 (01:57→21:20)
[2019-04-09] MEDS: methylPREDNISolone Sodium Succinate 125 MG/2 ML SDV IVPUSH SCH ×2 (04:04→15:50)
[2019-04-09 06:26] LABS: BLOOD UREA NITROGEN,BUN 14 mg/dL (7.0-18.0); CHLORIDE,CL 107 mmol/L (98-107); GLUCOSE RANDOM 155 mg/dL (74-106); POTASSIUM,K 4.6 mmol/L (3.5-5.1); SODIUM,NA 142 mmol/L (136-145)
[2019-04-09] MEDS: cefTRIAXone 1 GM in Premix Bag 1 BAG IV SCH (08:00)
[2019-04-09] MEDS: Fluticasone Propionate Nasal Spray 16 GM Bottle NASBOTH SCH (08:07)
--- NOTE | 2019-04-09 09:11 | PCM.PN ---
- General Info Date of Service: 04/09/19 Admission Dx/Problem (Free Text): Acute Asthma exacerbation Subjective Update: Feeling much improved overnight. Has been able to wean to 1 l NC. SOB is much better, no more productive cough. Feels wheezing is less. No chest pain. No other concerns. Functional Status: Reports: Pain Controlled, Tolerating Diet, Ambulating, Urinating - Review of Systems General: Reports: Malaise HEENT: Reports: No Symptoms. Denies: Headaches, Sore Throat, Visual Changes Pulmonary: Reports: Cough, Wheezing (much improved). Denies: Shortness of Breath, Sputum Cardiovascular: Reports: No Symptoms. Denies: Chest Pain Gastrointestinal: Reports: No Symptoms. Denies: Abdominal Pain, Nausea, Vomiting Musculoskeletal: Reports: No Symptoms Skin: Reports: No Symptoms Neurological: Reports: No Symptoms Psychiatric: Reports: No Symptoms - Patient Data Vitals - Most Recent: Last Vital Signs Temp 97.1 F 04/09/19 08:00 Pulse 69 04/09/19 08:00 Resp 22 H 04/09/19 08:00 BP 119/61 04/09/19 08:00 Pulse Ox 94 L 04/09/19 08:00 Weight - Most Recent: 113.398 kg I&O - Last 24 Hours: Intake & Output 04/08/19 04/09/19 04/09/19 22:59 06:59 14:59 Intake Total 840 1440 50 Output Total 400 500 Balance 440 940 50 Lab Results Last 24 Hours: Laboratory Results - last 24 hr 04/09/19 04/09/19 Range/Units 05:45 05:45 WBC 29.37 H (4.0-11.0) K/uL RBC 4.88 (4.30-5.90) M/uL Hgb 11.6 L (12.0-16.0) g/dL Hct 38.2 (36.0-46.0) % MCV 78.3 L (80.0-98.0) fL MCH 23.8 L (27.0-32.0) pg MCHC 30.4 L (31.0-37.0) g/dL RDW Std Deviation 43.1 (28.0-62.0) fl RDW Coeff of Negrita 15 (11.0-15.0) % Plt Count 295 (150-400) K/uL MPV 11.50 (7.40-12.00) fL Add Manual Diff YES Neutrophils % (Manual) 89 H (48.0-80.0) % Band Neutrophils % 8 % Lymphocytes % (Manual) 2 L (16.0-40.0) % Monocytes % (Manual) 1 (0.0-15.0) % Nucleated RBC % 0.0 /100WBC Absolute Seg Neuts 26.1 H (1.4-5.7) Band Neutrophils # 2.3 Lymphocytes # (Manual) 0.6 (0.6-2.4) Monocytes # (Manual) 0.3 (0.0-0.8) Nucleated RBCs # 0 K/uL Sodium 142 (136-145) mmol/L Potassium 4.6 (3.5-5.1) mmol/L Chloride 107 (98-107) mmol/L Carbon Dioxide 25.0 (21.0-32.0) mmol/L BUN 14 (7.0-18.0) mg/dL Creatinine 0.8 (0.6-1.0) mg/dL Est Cr Clr Drug Dosing 115.19 mL/min Estimated GFR (MDRD) > 60.0 ml/min Glucose 155 H (74-106) mg/dL Calcium 8.8 (8.5-10.1) mg/dL David Results Last 24 Hours: Microbiology 04/07/19 10:30 Urine Culture - Final Urine, Clean Catch MIXED LUCIA >100,000 CFU/ML 04/07/19 09:54 Aerobic Blood Culture - Preliminary Blood - Venous - Lab Draw NO GROWTH AFTER 1 DAY Anaerobic Blood Culture - Preliminary NO GROWTH AFTER 1 DAY 04/07/19 09:48 Aerobic Blood Culture - Preliminary Blood - Venous NO GROWTH AFTER 1 DAY Anaerobic Blood Culture - Preliminary NO GROWTH AFTER 1 DAY Med Orders - Current: Current Medications Acetaminophen (Tylenol) 650 mg PO Q4H PRN PRN Reason: Pain (mild 1-3) Last Admin: 04/07/19 20:31 Dose: 650 mg Albuterol (Proventil Neb Soln) 2.5 mg NEB Q2H PRN PRN Reason: Shortness Of Breath/wheezing Last Admin: 04/07/19 16:26 Dose: 2.5 mg Albuterol/Ipratropium (Duoneb 3.0-0.5 Mg/3 Ml) 3 ml NEB Q4HRRT [facility] Last Admin: 04/09/19 06:04 Dose: 3 ml Azithromycin (Zithromax) 500 mg PO Q24H [facility] Last Admin: 04/08/19 10:51 Dose: 500 mg Budesonide/Formoterol Fumarate (Symbicort 160-4.5 Mcg) 0 gm INH BID [facility] Last Admin: 04/08/19 21:04 Dose: 2 puff Fluticasone Propionate (Flonase) 0 gm NASBOTH DAILY [facility] Last Admin: 04/09/19 08:07 Dose: 1 spray Ceftriaxone Sodium/Dextrose 1 (gm/ Premix) 50 mls @ 100 mls/hr IV Q24H [facility] Last Admin: 04/09/19 08:00 Dose: 100 mls/hr Ibuprofen (Motrin) 400 mg PO Q6H PRN PRN Reason: Pain (mild 1-3) Methylprednisolone Sodium Succinate (Solu-Medrol) 125 mg IVPUSH Q6H [facility] Last Admin: 04/09/19 04:04 Dose: 125 mg Montelukast Sodium (Singulair) 10 mg PO BEDTIME [facility] Last Admin: 04/08/19 19:59 Dose: 10 mg Ondansetron HCl (Zofran) 4 mg IVPUSH Q4H PRN PRN Reason: Nausea Sodium Chloride (Saline Flush) 10 ml FLUSH ASDIRECTED PRN PRN Reason: Keep Vein Open Last Admin: 04/07/19 09:49 Dose: 10 ml Sodium Chloride (Saline Flush) 2.5 ml FLUSH ASDIRECTED PRN PRN Reason: Keep Vein Open Last Admin: 04/07/19 16:53 Dose: 2.5 ml Discontinued Medications Albuterol/Ipratropium (Duoneb 3.0-0.5 Mg/3 Ml) 3 ml NEB ONETIME ONE Stop: 04/07/19 09:47 Last Admin: 04/07/19 09:48 Dose: 3 ml Sodium Chloride (Normal Saline) 1,000 mls @ 999 mls/hr IV STAT ONE Stop: 04/07/19 10:38 Last Admin: 04/07/19 09:48 Dose: 999 mls/hr Ceftriaxone Sodium/Dextrose 1 (gm/ Premix) 50 mls @ 100 mls/hr IV ONETIME ONE Stop: 04/07/19 10:26 Last Admin: 04/07/19 10:09 Dose: 100 mls/hr Magnesium Sulfate 2 gm/ Premix 50 mls @ 50 mls/hr IV ONETIME ONE Stop: 04/07/19 12:20 Last Admin: 04/07/19 11:48 Dose: 50 mls/hr Influenza Virus Vaccine (Pharmacy To Dose - Influenza Vaccine) 1 each IM ONETIME ONE Stop: 04/07/19 12:19 Influenza Virus Vaccine (Fluzone Quad Syringe) 60 mcg IM .ONCE ONE Stop: 04/07/19 12:46 Methylprednisolone Sodium Succinate (Solu-Medrol) 125 mg IVPUSH ONETIME ONE Stop: 04/07/19 09:39 Last Admin: 04/07/19 09:49 Dose: 125 mg Methylprednisolone Sodium Succinate (Solu-Medrol) 125 mg IVPUSH Q6H [facility] Last Admin: 04/07/19 16:42 Dose: Not Given - Exam General: Alert, Oriented, Cooperative, No Acute Distress Lungs: Normal Respiratory Effort, Wheezing (much improved, scant insp and exp wheezing.). No: Crackles, Rhonchi Cardiovascular: Regular Rate, Regular Rhythm Extremities: Normal Inspection, Normal Range of Motion, Non-Tender, No Pedal Edema Neurological: No New Focal Deficit Psy/Mental Status: Alert, Normal Affect, Normal Mood - Problem List & Annotations (1) Acute respiratory failure with hypoxia SNOMED Code(s): 46368018, 453468111 Code(s): J96.01 - ACUTE RESPIRATORY FAILURE WITH HYPOXIA Status: Acute Current Visit: Yes (2) Community acquired pneumonia SNOMED Code(s): 092830440 Code(s): J18.9 - PNEUMONIA, UNSPECIFIED ORGANISM Status: Acute Current Visit: Yes (3) Acute asthma SNOMED Code(s): 775727996 Code(s): J45.909 - UNSPECIFIED ASTHMA, UNCOMPLICATED Status: Acute Current Visit: No (4) Tachycardia SNOMED Code(s): 8837086 Code(s): R00.0 - TACHYCARDIA, UNSPECIFIED Status: Acute Current Visit: No (5) UTI (urinary tract infection) SNOMED Code(s): 60150467 Code(s): N39.0 - URINARY TRACT INFECTION, SITE NOT SPECIFIED Status: Acute Current Visit: No Qualifiers: Urinary tract infection type: site unspecified Hematuria presence: without hematuria Qualified Code(s): N39.0 - Urinary tract infection, site not specified - Problem List Review Problem List Initiated/Reviewed/Updated: Yes - My Orders Last 24 Hours: My Active Orders 04/08/19 09:00 cefTRIAXone [Rocephin in Dextrose,Iso-Osm 1 GM/50 ML] 1 gm Premix Bag 1 bag IV Q24H 04/08/19 09:45 Fluticasone Propionate [Flonase] See Dose Instructions NASBOTH DAILY 04/10/19 05:11 BMP [BASIC METABOLIC PANEL,BMP] [CHEM] AM CBC WITH AUTO DIFF [HEME] AM 04/11/19 05:11 BMP [BASIC METABOLIC PANEL,BMP] [CHEM] AM CBC WITH AUTO DIFF [HEME] AM - Plan Plan:: This 18 year old female admitted with acute hypoxic respiratory failure, acute asthma exacerbation, CAP and UTI 1. Acute hypoxic respiratory failure: Weaned to 1 L NC, encouraged to ambulate and use IS 2. Acute Asthma exacerbation: Nice improvement overnight. Lung sounds much improved today. Continue Duonebs, Decrease Solumedrol to BID. Continue Symbicort. Encourage IS. Consult RT for asthma teaching. 3. Suspected CAP: Improving, BC negative x 2 days and sputum culture pending. Continue Rocephin and Azithromycin. Monitor labwork in am. leukocytosis elevated , likely secondary to steroids. Monitor. 4. UTI: Continue Rocephin as above, UC mixed lucia >100,000 VTE prophylaxis: Ambulation and SCDs Dispo; possible DC tomorrow if improvement continues.
[2019-04-09] MEDS: Budesonide/Formoterol 160-4.5 MCG/Puff 6 GM Inhaler INH SCH ×2 (09:23→21:21)
[2019-04-09] MEDS: Azithromycin 250 MG Tab PO SCH (11:18)
[2019-04-09] MEDS: Montelukast 10 MG Tab PO SCH (20:39)
[2019-04-10] MEDS: Albuterol/Ipratropium 3.0-0.5 MG/3 ML Neb Soln NEB SCH ×3 (01:21→09:47)
[2019-04-10] MEDS: methylPREDNISolone Sodium Succinate 125 MG/2 ML SDV IVPUSH SCH (03:27)
[2019-04-10 05:51] LABS: BLOOD UREA NITROGEN,BUN 14 mg/dL (7.0-18.0); CARBON DIOXIDE,CO2 25.5 mmol/L (21.0-32.0); CHLORIDE,CL 106 mmol/L (98-107); GLUCOSE RANDOM 141 mg/dL (74-106); POTASSIUM,K 4.2 mmol/L (3.5-5.1); SODIUM,NA 140 mmol/L (136-145)
[2019-04-10] MEDS: cefTRIAXone 1 GM in Premix Bag 1 BAG IV SCH (08:36)
[2019-04-10] MEDS: Fluticasone Propionate Nasal Spray 16 GM Bottle NASBOTH SCH (08:42)
--- NOTE | 2019-04-10 09:24 | PCM.DCSUM1 ---
Discharge Summary - Hospital Course Brief History: This 18 year old female with pmh of asthma presented to the ED with complaints of shortness of breath and cough. She reports she started feeling ill on Sunday and was progressively worsened since then. She reports using all her inhalers and multiple nebulizers at home with no help with shortness of breath. She reports she has sinus congestion, non productive cough , sore throat and generalized malaise. She denies recent influenza vaccine. She reports significant other felt she was very warm, she was unable to check her temperature. She also report mild headache which started on Sunday along with lightheadedness with standing. She reports she is eating well and drinking well at home. She denies smoking history and no vaping. She denies alcohol use and recreational drug use. She reports prior to this acute illness, asthma was well controlled with inhalers, Albuterol and Symbicort along with intermittent nebulizers and Singulair. In the Ed mild leukocytosis noted, 11,910 with increased lymphocytes and eosinophils. ABG obtained pH 7.4 PCO2 33 and PO2 55. BMP WNL UA revealed blood, + bacteria and 2 WBCs. Influenza swab negative. She was treated with Rocephin, Solumedrol, and Duonebs. She was noted to be hypoxic on 78% on arrival, placed on 5 L NC and improved to 95%. CXR obtained which revealed new subsegmental atelectasis in the mid right lung and possible atelectasis or infiltrate in the retrocardiac left lower lob base. She will be admitted for acute hypoxic respiratory failure, asthma exacerbation and suspected CAP. PCP, Dr Croft. - Discharge Data Discharge Date: 04/10/19 Discharge Disposition: Home, Self-Care 01 Condition: Stable - Referral to Home Health Primary Care Physician: PCP None - Discharge Diagnosis/Problem(s) (1) Acute respiratory failure with hypoxia SNOMED Code(s): 83920029, 329430296 ICD Code: J96.01 - ACUTE RESPIRATORY FAILURE WITH HYPOXIA Status: Acute Current Visit: Yes (2) Community acquired pneumonia SNOMED Code(s): 645001301 ICD Code: J18.9 - PNEUMONIA, UNSPECIFIED ORGANISM Status: Acute Current Visit: Yes (3) Acute asthma SNOMED Code(s): 153467854 ICD Code: J45.909 - UNSPECIFIED ASTHMA, UNCOMPLICATED Status: Acute Current Visit: No (4) Tachycardia SNOMED Code(s): 4297416 ICD Code: R00.0 - TACHYCARDIA, UNSPECIFIED Status: Acute Current Visit: No (5) UTI (urinary tract infection) SNOMED Code(s): 47978526 ICD Code: N39.0 - URINARY TRACT INFECTION, SITE NOT SPECIFIED Status: Acute Current Visit: No Qualifiers: Urinary tract infection type: site unspecified Hematuria presence: without hematuria Qualified Code(s): N39.0 - Urinary tract infection, site not specified (6) Asthma SNOMED Code(s): 096464015 ICD Code: J45.909 - UNSPECIFIED ASTHMA, UNCOMPLICATED Status: Acute Current Visit: Yes Qualifiers: Asthma severity: moderate Asthma persistence: persistent - Patient Summary/Data Consults: Consultations 04/07/19 11:50 Consult to Respiratory Therapy [Respiratory Care Assess and Treatment] [CONS] Routine - Patient Instructions Diet: Regular Diet as Tolerated Activity: No Strenuous Activities, Rest and Relax Today Driving: Do Not Drive (today) Showering/Bathing: May Shower Notify Provider of: Fever, Increased Pain, Swelling and Redness, Drainage, Nausea and/or Vomiting Other/Special Instructions: Follow up with outpatient pulmonary function testing with respiratory therapy. Results will be sent to Dr Croft. - Discharge Plan *PRESCRIPTION DRUG MONITORING PROGRAM REVIEWED*: Not Applicable *COPY OF PRESCRIPTION DRUG MONITORING REPORT IN PATIENT LAZARO: Not Applicable Prescriptions/Med Rec: Azithromycin [Zithromax] 500 mg PO Q24H #8 tablet predniSONE 10 mg PO .TAPER #30 tab Home Medications: Home Meds Albuterol [Proventil Neb Soln] 1 ampule INH Q6H PRN 07/17/18 [History] Albuterol [Ventolin HFA] 2 puff INH Q4H PRN 07/17/18 [History] Budesonide/Formoterol Fumarate [Symbicort 160-4.5 Mcg Inhaler] 2 puff IH BID [History] Montelukast [Singulair] 10 mg PO BEDTIME 07/17/18 [History] Azithromycin [Zithromax] 500 mg PO Q24H #8 tablet 04/10/19 [Rx] Fluticasone Propionate [Flonase] 1 spray NASBOTH DAILY #1 bottle 04/10/19 [Rx] predniSONE 10 mg PO .TAPER #30 tab 04/10/19 [Rx] Oxygen Therapy Mode: Room Air Patient Handouts: Asthma, Adult, Hypoxemia, Enterovirus D68, Adult, Azithromycin tablets Referrals: Mg Croft MD [Physician] - 04/22/19 10:30 am - Discharge Summary/Plan Comment DC Time >30 min.: No Discharge Summary/Plan Comment: Admitting Diagnoses: Acute hypoxic respiratory failure Acute Asthma exacerbation CAP UTI Discharge Diagnoses: Acute hypoxic respiratory failure Acute Asthma exacerbation CAP UTI Positive rhinovirus Other PMH Allergies Samantha was admitted secondary to acute hypoxic respiratory failure due to acute asthmas exacerbation. She was treated with aggressive steroid and Duoneb treatments. She slowly and steadily improved. Initially she was hypoxic on RA in the 70s, she then was placed on oxygen NC and increased to mid 90s. She remained on oxygen for 2 days and then was able to be weaned off. Solumedrol was weaned yesterday to q12 hr and she continued to improved. Leukocytosis is noted, but like related to high dose steroid use. Today it has decreased to 24, 000 with decrease in Solumedrol dosing. She is eager to go home today. She is feeling much improved. BC remained negative, viral panel showed Rhinovirus. She will be discharged home today to continue home dosing of Symbicort, albuterol rescue inhaler as well as Azithromycin 500 mg x 4 more days and Prednisone taper. She is to follow up with Respiratory therapy for PFTs as outpatient and to see Dr Croft in 1-2 weeks to insure she has improved well. She was given asthma education from Respiratory therapy. She is to return to ED or clinic if concerns should arise. - General Info Date of Service: 04/10/19 Admission Dx/Problem (Free Text: Acute Asthma exacerbation Subjective Update: Doing well this morning. No concerns. No chest pain or SOB. Functional Status: Reports: Pain Controlled, Tolerating Diet, Ambulating, Urinating - Review of Systems HEENT: Reports: No Symptoms Pulmonary: Reports: No Symptoms. Denies: Shortness of Breath, Cough, Sputum Cardiovascular: Reports: No Symptoms. Denies: Chest Pain Gastrointestinal: Reports: No Symptoms. Denies: Abdominal Pain, Nausea, Vomiting Genitourinary: Reports: No Symptoms Musculoskeletal: Reports: No Symptoms Skin: Reports: No Symptoms Neurological: Reports: No Symptoms Psychiatric: Reports: No Symptoms - Patient Data Vitals - Most Recent: Last Vital Signs Temp 97.3 F 04/10/19 07:16 Pulse 64 04/10/19 07:16 Resp 18 04/10/19 07:16 BP 115/62 04/10/19 07:16 Pulse Ox 92 L 04/10/19 07:16 Weight - Most Recent: 113.398 kg I&O - Last 24 hours: Intake & Output 04/09/19 04/10/19 04/10/19 22:59 06:59 14:59 Intake Total 600 400 Output Total 950 650 Balance -350 -250 Lab Results - Last 24 hrs: Laboratory Results - last 24 hr 04/07/19 04/10/19 04/10/19 Range/Units 10:05 05:15 05:15 WBC 24.89 H (4.0-11.0) K/uL RBC 4.79 (4.30-5.90) M/uL Hgb 11.4 L (12.0-16.0) g/dL Hct 37.4 (36.0-46.0) % MCV 78.1 L (80.0-98.0) fL MCH 23.8 L (27.0-32.0) pg MCHC 30.5 L (31.0-37.0) g/dL RDW Std Deviation 43.2 (28.0-62.0) fl RDW Coeff of Negrita 15 (11.0-15.0) % Plt Count 313 (150-400) K/uL MPV 11.10 (7.40-12.00) fL Add Manual Diff YES Neutrophils % (Manual) 94 H (48.0-80.0) % Lymphocytes % (Manual) 5 L (16.0-40.0) % Monocytes % (Manual) 1 (0.0-15.0) % Nucleated RBC % 0.0 /100WBC Absolute Seg Neuts 23.4 H (1.4-5.7) Lymphocytes # (Manual) 1.2 (0.6-2.4) Monocytes # (Manual) 0.2 (0.0-0.8) Nucleated RBCs # 0 K/uL Sodium 140 (136-145) mmol/L Potassium 4.2 (3.5-5.1) mmol/L Chloride 106 (98-107) mmol/L Carbon Dioxide 25.5 (21.0-32.0) mmol/L BUN 14 (7.0-18.0) mg/dL Creatinine 0.9 (0.6-1.0) mg/dL Est Cr Clr Drug Dosing 102.39 mL/min Estimated GFR (MDRD) > 60.0 ml/min Glucose 141 H (74-106) mg/dL Calcium 8.6 (8.5-10.1) mg/dL Adenovirus (PCR) Not Detected (Not Detected) B. pertussis DNA (PCR) Not Detected (Not Detected) B.parapertussis DNA PCR Not Detected (Not Detected) C. pneumoniae DNA (PCR) Not Detected (Not Detected) Coronavirus (PCR) Not Detected (Not Detected) Human Metapneumovir PCR Not Detected (Not Detected) Influenza A (RT-PCR) Not Detected (Not Detected) Influenza B (RT-PCR) Not Detected (Not Detected) M. pneumoniae (PCR) Not Detected (Not Detected) Parainfluen 1,2,3,4 PCR Not Detected (Not Detected) RSV (PCR) Not Detected (Not Detected) Entero/Rhino (PCR) Detected H (Not Detected) LEO Results - Last 24 hrs: Microbiology 04/07/19 18:10 Gram Stain - Final Sputum - Expectorated 04/07/19 09:54 Aerobic Blood Culture - Preliminary Blood - Venous - Lab Draw NO GROWTH AFTER 2 DAYS Anaerobic Blood Culture - Preliminary NO GROWTH AFTER 2 DAYS 04/07/19 09:48 Aerobic Blood Culture - Preliminary Blood - Venous NO GROWTH AFTER 2 DAYS Anaerobic Blood Culture - Preliminary NO GROWTH AFTER 2 DAYS 04/07/19 10:30 Urine Culture - Final Urine, Clean Catch MIXED JUAN C >100,000 CFU/ML Med Orders - Current: Current Medications Acetaminophen (Tylenol) 650 mg PO Q4H PRN PRN Reason: Pain (mild 1-3) Last Admin: 04/07/19 20:31 Dose: 650 mg Albuterol (Proventil Neb Soln) 2.5 mg NEB Q2H PRN PRN Reason: Shortness Of Breath/wheezing Last Admin: 04/07/19 16:26 Dose: 2.5 mg Albuterol/Ipratropium (Duoneb 3.0-0.5 Mg/3 Ml) 3 ml NEB Q4HRRT [facility] Last Admin: 04/10/19 05:44 Dose: 3 ml Azithromycin (Zithromax) 500 mg PO Q24H [facility] Last Admin: 04/09/19 11:18 Dose: 500 mg Budesonide/Formoterol Fumarate (Symbicort 160-4.5 Mcg) 0 gm INH BID [facility] Last Admin: 04/09/19 21:21 Dose: 2 puff Fluticasone Propionate (Flonase) 0 gm NASBOTH DAILY [facility] Last Admin: 04/10/19 08:42 Dose: 1 spray Ceftriaxone Sodium/Dextrose 1 (gm/ Premix) 50 mls @ 100 mls/hr IV Q24H [facility] Last Admin: 04/10/19 08:36 Dose: 100 mls/hr Ibuprofen (Motrin) 400 mg PO Q6H PRN PRN Reason: Pain (mild 1-3) Methylprednisolone Sodium Succinate (Solu-Medrol) 125 mg IVPUSH Q12H [facility] Last Admin: 04/10/19 03:27 Dose: 125 mg Montelukast Sodium (Singulair) 10 mg PO BEDTIME [facility] Last Admin: 04/09/19 20:39 Dose: 10 mg Ondansetron HCl (Zofran) 4 mg IVPUSH Q4H PRN PRN Reason: Nausea Sodium Chloride (Saline Flush) 10 ml FLUSH ASDIRECTED PRN PRN Reason: Keep Vein Open Last Admin: 04/07/19 09:49 Dose: 10 ml Sodium Chloride (Saline Flush) 2.5 ml FLUSH ASDIRECTED PRN PRN Reason: Keep Vein Open Last Admin: 04/07/19 16:53 Dose: 2.5 ml Discontinued Medications Albuterol/Ipratropium (Duoneb 3.0-0.5 Mg/3 Ml) 3 ml NEB ONETIME ONE Stop: 04/07/19 09:47 Last Admin: 04/07/19 09:48 Dose: 3 ml Sodium Chloride (Normal Saline) 1,000 mls @ 999 mls/hr IV STAT ONE Stop: 04/07/19 10:38 Last Admin: 04/07/19 09:48 Dose: 999 mls/hr Ceftriaxone Sodium/Dextrose 1 (gm/ Premix) 50 mls @ 100 mls/hr IV ONETIME ONE Stop: 04/07/19 10:26 Last Admin: 04/07/19 10:09 Dose: 100 mls/hr Magnesium Sulfate 2 gm/ Premix 50 mls @ 50 mls/hr IV ONETIME ONE Stop: 04/07/19 12:20 Last Admin: 04/07/19 11:48 Dose: 50 mls/hr Influenza Virus Vaccine (Pharmacy To Dose - Influenza Vaccine) 1 each IM ONETIME ONE Stop: 04/07/19 12:19 Influenza Virus Vaccine (Fluzone Quad [id number] Syringe) 60 mcg IM .ONCE ONE Stop: 04/07/19 12:46 Methylprednisolone Sodium Succinate (Solu-Medrol) 125 mg IVPUSH ONETIME ONE Stop: 04/07/19 09:39 Last Admin: 04/07/19 09:49 Dose: 125 mg Methylprednisolone Sodium Succinate (Solu-Medrol) 125 mg IVPUSH Q6H [facility] Last Admin: 04/07/19 16:42 Dose: Not Given Methylprednisolone Sodium Succinate (Solu-Medrol) 125 mg IVPUSH Q6H [facility] Last Admin: 04/09/19 04:04 Dose: 125 mg - Exam General: Reports: Alert, Oriented Neck: Reports: Supple Lungs: Reports: Clear to Auscultation, Normal Respiratory Effort Cardiovascular: Reports: Regular Rate, Regular Rhythm Neurological: Reports: No New Focal Deficit Psy/Mental Status: Reports: Alert, Normal Affect, Normal Mood
[2019-04-10] MEDS: Budesonide/Formoterol 160-4.5 MCG/Puff 6 GM Inhaler INH SCH (09:47)
[2019-04-10] MEDS: Azithromycin 250 MG Tab PO SCH (10:48)
[2019-04-10 11:23] VITALS: BP 120/59; PULSE 83
[2019-04-10] MEDS ORDERED: FLU Vacc QS2019-20(6MOS+)/PF 60 MCG/0.5 ML SYRINGE IM ONE (11:30)
== END 2019-04-10 12:14 | disposition home or self-care (01) | DRG 193 ==
LOC: MW.ED 09:32 → MW.MS 11:34
PROVIDERS: ADMIT Internal Medicine; ATTEND Internal Medicine
DX: J18.9 Pneumonia, unspecified organism (principal); J96.01 Acute respiratory failure with hypoxia; N39.0 Urinary tract infection, site not specified; J45.41 Moderate persistent asthma with (acute) exacerbation; J98.11 Atelectasis; R00.0 Tachycardia, unspecified; B97.89 Other viral agents as the cause of diseases classified elsewhere; H54.7 Unspecified visual loss; F41.9 Anxiety disorder, unspecified; F31.9 Bipolar disorder, unspecified; E66.9 Obesity, unspecified; G47.30 Sleep apnea, unspecified; M19.90 Unspecified osteoarthritis, unspecified site; M10.9 Gout, unspecified; F90.9 Attention-deficit hyperactivity disorder, unspecified type; Z68.37 Body mass index [BMI] 37.0-37.9, adult; I25.2 Old myocardial infarction; Z88.8 Allergy status to other drugs, medicaments and biological substances; Z90.89 Acquired absence of other organs; Z23 Encounter for immunization; Z79.899 Other long term (current) drug therapy
CPT/HCPCS: 36415; 36600; 71046; 71046-26; 80048; 80053; 81001; 81025; 82803; 85025; 85379; 87040; 87070; 87086; 87205; 87486; 87581; 87632; 87798; 87804; 90686; 93005; 94640; 96365; 96375; 99285-25; A9270-GY; J0696; J2930; J3475; J7040; J7620-GY

== ENCOUNTER 2019-05-31 11:25 | Emergency (ER) | payer SELFPAY ==
[2019-05-31 11:35] VITALS: BP 149/101; PULSE 96
[2019-05-31] MEDS ORDERED: Bacitracin Oint 1 GM U/D Packet TOP ONE (11:43)
[2019-05-31] MEDS ORDERED: Lidocaine/EPINEPHrine/Tetracaine Soln 1 ML TOP ONE (11:43)
[2019-05-31] MEDS ORDERED: Acetaminophen 500 MG Tab PO ONE (11:48)
--- NOTE | 2019-05-31 11:48 | EDM.PDOC ---
ED HPI GENERAL MEDICAL PROBLEM - General Chief Complaint: Head Injury Stated Complaint: HEAD INJURY Time Seen by Provider: 05/31/19 11:34 - History of Present Illness INITIAL COMMENTS - FREE TEXT/NARRATIVE: HISTORY AND PHYSICAL: History of present illness: The patient is a 19-year-old female who is up-to-date on tetanus and she received it about a year ago when she was and presents with complaints of laceration and pain to the back of her head after she slipped and fell this morning. She says it was slippery and icy and she fell hitting the back of her head but she did not pass out or black out. She has no neck or back pain no other associated trauma and complains only of pain at the area of the laceration and the head. She's had no nausea or vomiting and has had no systemic complaints prior to these events. Please see below for addendum note Review of systems: As per history of present illness and below otherwise all systems reviewed and negative. Past medical history: As per history of present illness and as reviewed below otherwise noncontributory. Surgical history: As per history of present illness and as reviewed below otherwise noncontributory. Social history: No reported history of drug or alcohol abuse. Family history: As per history of present illness and as reviewed below otherwise noncontributory. Physical exam: General: Well-developed well-nourished overweight female who is nontoxic and well ambulated into the ED. She is tearful but cooperative on exam. Vital signs are noted by me HEENT: Atraumatic without any scalp defects deformities or soft tissue swelling with the exception of the occipital area midline where there is a 2.5 cm laceration extending to the subcutaneous tissue was some minimal soft tissue surrounding no active bleeding, there are no palpable bony deformities in this region, there are no midline step-offs in his defects of the cervical spine, normocephalic, pupils reactive, negative for conjunctival pallor or scleral icterus, mucous membranes moist, throat clear, neck supple, nontender, trachea midline. TMs are normal bilaterally Lungs: Clear to auscultation, breath sounds equal bilaterally, chest nontender. Heart: S1S2, regular rate and rhythm no overt murmurs Abdomen: Soft, nondistended, nontender. NABS Pelvis: Stable nontender. Genitourinary: Deferred. Rectal: Deferred. Extremities: Atraumatic, range of motion without defects or deformities. Neurovascular unremarkable. Neuro: Awake, alert, oriented. Cranial nerves II through XII unremarkable. Cerebellum unremarkable. Motor and sensory unremarkable throughout. Exam nonfocal. Diagnostics CT scan of the head [facility] Therapeutics: Wound cleansing by nursing, LET to wound, staple repair and bacitracin Zofran Tylenol Procedure note: After LET was placed by nursing and allowed to anesthetize the area the wound was reexamined and a total number of #4 gildardo were placed without complication. The patient tolerated the procedure well and skin edges were reapproximated. Bacitracin was applied by nursing and there were no complications As I was going into place the gildardo the patient was having vomiting of some clear and light green fluid. I will proceed to give her a dose of Zofran ODT and do a CAT scan of her head at this point. She is unsure of her last period and says that they are regular so we will get a urine test Impression: Fall with closed head injury, scalp laceration, mild concussion symptoms Definitive disposition and diagnosis as appropriate pending reevaluation and review of above. Head Pain Score (Numeric/FACES): 9 - Related Data Allergies Allergy/AdvReac Type Severity Reaction Status Date / Time animal dander Allergy Sneezing Verified 05/31/19 11:30 Home Meds: Home Meds . 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 Musculoskeletal History: Reports: None Neurological History: Reports: Head Trauma Psychiatric History: Reports: Anxiety, Bipolar, Depression Endocrine/Metabolic History: Reports: Obesity/BMI 30+ Hematologic History: Reports: None Immunologic History: Reports: None Oncologic (Cancer) History: Reports: None Dermatologic History: Reports: None - Infectious Disease History Infectious Disease History: Reports: Chicken Pox - Past Surgical History Head Surgeries/Procedures: Reports: None HEENT Surgical History: Reports: Adenoidectomy, Myringotomy w Tube(s), Tonsillectomy Cardiovascular Surgical History: Reports: None Respiratory Surgical History: Reports: None GI Surgical History: Reports: None Female Surgical History: Reports: Section Endocrine Surgical History: Reports: None Neurological Surgical History: Reports: None Musculoskeletal Surgical History: Reports: None Oncologic Surgical History: Reports: None Dermatological Surgical History: Reports: None Social & Family History - Family History Family Medical History: Noncontributory HEENT: Reports: Impaired Vision Cardiac: Reports: Hypertension, [place] Respiratory: Reports: Asthma, Sleep Apnea : Reports: Other (See Below) Other Family History: Mother of patient in current kidney failure. OBGYN: Reports: Musculoskeletal: Reports: Arthritis, Gout, Osteoarthritis Psychiatric: Reports: ADHD, Anxiety, Depression Endocrine/Metabolic: Reports: Obesity/MBI 30+ Oncologic: Reports: Breast, Cervix, Lung - Tobacco Use Smoking Status *Q: Never Smoker Second Hand Smoke Exposure: No - Caffeine Use Caffeine Use: Reports: None - Recreational Drug Use Recreational Drug Use: No ED ROS GENERAL - Review of Systems Review Of Systems: Comprehensive ROS is negative, except as noted in HPI. ED EXAM, HEAD INJURY - Physical Exam Exam: See Below (see dictation) Course - Vital Signs Last Recorded V/S: Last Vital Signs Temp 36.5 C 05/31/19 11:30 Pulse 96 05/31/19 11:30 Resp 20 05/31/19 11:30 BP 149/101 H 05/31/19 11:30 Pulse Ox 96 05/31/19 11:30 - Orders/Labs/Meds Labs: Laboratory Tests 05/31/19 Range/Units 12:13 Urine HCG, Qual NEGATIVE (NEGATIVE) Meds: Medications Discontinued Medications Generic Name Dose Route Start Last Admin Trade Name Jitendra PRN Reason Stop Dose Admin Acetaminophen 1,000 mg 05/31/19 11:48 05/31/19 11:51 Tylenol Extra Strength PO 05/31/19 11:49 1,000 mg ONETIME ONE Administration Bacitracin 1 dose 05/31/19 11:43 05/31/19 11:53 Bacitracin Oint 1 Gm TOP 05/31/19 11:44 1 dose ONETIME ONE Administration Lidocaine/Tetracaine 1 ml 05/31/19 11:43 05/31/19 11:53 Let Soln TOP 05/31/19 11:44 1 ml ONETIME ONE Administration Ondansetron HCl 4 mg 05/31/19 12:10 11/30/19 12:19 Zofran Odt PO 05/31/19 12:11 4 mg ONETIME ONE Administration Departure - Departure Time of Disposition: 14:26 Disposition: Home, Self-Care 01 Condition: Good Clinical Impression: Concussion injury of brain Closed head injury Qualifiers: Encounter type: initial encounter Qualified Code(s): S09.90XA - Unspecified injury of head, initial encounter Scalp laceration Qualifiers: Encounter type: initial encounter Qualified Code(s): S01.01XA - Laceration without foreign body of scalp, initial encounter - Discharge Information Referrals: Mg Croft MD [Primary Care Provider] - Forms: ED Department Discharge Additional Instructions: The following information is given to patients seen in the emergency department who are being discharged to home. This information is to outline your options for follow-up care. We provide all patients seen in our emergency department with a follow-up referral. The need for follow-up, as well as the timing and circumstances, are variable depending upon the specifics of your emergency department visit. If you don't have a primary care physician on staff, we will provide you with a referral. We always advise you to contact your personal physician following an emergency department visit to inform them of the circumstance of the visit and for follow-up with them and/or the need for any referrals to a consulting specialist. The emergency department will also refer you to a specialist when appropriate. This referral assures that you have the opportunity for followup care with a specialist. All of these measure are taken in an effort to provide you with optimal care, which includes your followup. Under all circumstances we always encourage you to contact your private physician who remains a resource for coordinating your care. When calling for followup care, please make the office aware that this follow-up is from your recent emergency room visit. If for any reason you are refused follow-up, please contact the [facility] emergency department at and ask to speak to the emergency department charge nurse. [facility] Primary care- Internal Medicine and Family [address] [address] Keep wound clean and dry for the next 24 hours and then cleanse with mild soap and water pat dry and apply bacitracin. [place] need to be removed in 10 days here in the emergency department and you can check and to have those done at the appropriate time. Also use [id number] Tylenol and ibuprofen for pain management and expect aches and pains from the fall. Return to ER as needed and as discussed and follow-up with your provider or one of hours for reevaluation and further care as needed. Use the Zofran you have been given for any nausea or vomiting.
[2019-05-31] MEDS ORDERED: Ondansetron 4 MG Tab.DIS PO ONE (12:10)
--- NOTE | 2019-05-31 14:21 | CT ---
INDICATION: Trauma, head injury. TECHNIQUE: CT head without contrast. COMPARISON: None. FINDINGS: CSF spaces: Within normal limits for age. Brain parenchyma and extra-axial spaces: The pérez-white differentiation is normal. No sign of mass, hemorrhage, or midline shift. No extra-axial fluid collection. Skull base and calvarium: The visualized paranasal sinuses and mastoid air cells demonstrate no acute or significant findings. The visualized orbits are grossly unremarkable. No skull fractures. Left occipital scalp laceration present. IMPRESSION: Left occipital scalp laceration. No fracture or intracranial hemorrhage. Please note that all CT scans at this facility use dose modulation, iterative reconstruction, and/or weight-based dosing when appropriate to reduce radiation dose to as low as reasonably achievable. Dictated by Aquilino Robledo MD @ May 31 2019 2:15PM Signed by Dr. Aquilino Robledo @ May 31 2019 2:19PM
== END 2019-05-31 14:40 | disposition home or self-care (01) ==
LOC: MW.ED 11:25
DX: S06.0X0A Concussion without loss of consciousness, initial encounter (principal); S01.01XA Laceration without foreign body of scalp, initial encounter; J45.909 Unspecified asthma, uncomplicated; E66.9 Obesity, unspecified; Z68.41 Body mass index [BMI] 40.0-44.9, adult; Z91.048 Other nonmedicinal substance allergy status; W00.0XXA Fall on same level due to ice and snow, initial encounter
CPT/HCPCS: 12001; 70450; 81025; 99284; A9270

== ENCOUNTER 2019-06-10 15:27 | Emergency (ER) | payer SELFPAY ==
[2019-06-10 16:09] VITALS: BP 116/67; PULSE 84
== END 2019-06-10 16:07 | disposition left against medical advice (07) ==
LOC: MW.ED 15:27
DX: Z53.21 Procedure and treatment not carried out due to patient leaving prior to being seen by health care provider (principal)
CPT/HCPCS: 99281

== ENCOUNTER 2019-07-19 19:01 | Emergency (ER) | payer SELFPAY ==
[2019-07-19] MEDS ORDERED: Albuterol/Ipratropium 3.0-0.5 MG/3 ML Neb Soln NEB ONE ×2 (19:31→20:38)
[2019-07-19] MEDS ORDERED: predniSONE 20 MG Tab PO ONE (19:32)
--- NOTE | 2019-07-19 19:37 | EDM.PDOC ---
ED HPI GENERAL MEDICAL PROBLEM - General Chief Complaint: Respiratory Problem Stated Complaint: ASTHMA ACTING OUT Time Seen by Provider: 07/19/19 19:37 Source of Information: Reports: Patient, Family History Limitations: Reports: No Limitations - History of Present Illness INITIAL COMMENTS - FREE TEXT/NARRATIVE: HISTORY OF PRESENT ILLNESS: Patient is a 19-year-old female with history of asthma who reports 2-week history of worsening dyspnea, chest tightness and wheezing despite use of home nebulizers and inhalers. She is not currently on any steroids. Is any prior intubations, but has had prior admissions for her asthma. Reports tactile fever, cough, congestion and generalized myalgias. Denies any rash. No neck stiffness. Denies any retrosternal chest pain. Has had episodes of posttussive emesis and a few episodes of nonbloody diarrhea. States the current episodes feels typical of her usual asthma exacerbations. REVIEW OF SYSTEMS: Other than the symptoms associated with the present events, the following is reported with regard to recent health: General: (+) tactile fever. HENT: (+) congestion. Respiratory: (+) cough. (-) hemoptysis Cardiovascular: (-) retrosternal chest pain. GI: (-) abdominal pain. : (-) urinary complaints. Musculoskeletal: (+) generalized myalgias Psychiatric: history of depression, denies SI/HI Neurological: (-) localized weakness. Skin: (-) rash PAST MEDICAL HISTORY: reviewed as per nursing notes SOCIAL HISTORY: reviewed as per nursing notes, MEDICATIONS: Per nurse's note ALLERGIES: Per nurse's note, reviewed by me PHYSICAL EXAMINATION: GENERALIZED APPEARANCE: well developed, well nourished in mild respiratory distress VITAL SIGNS: Per nurse's note, reviewed by me SKIN: Warm, dry; (-) cyanosis; (-) rash. HEAD: (-) scalp swelling, (-) tenderness. EYES: (-) conjunctival pallor, (-) scleral icterus. ENMT: (-) stridor; mucous membranes moist. NECK: (-) tenderness, (-) stiffness, CHEST AND RESPIRATORY: (-) rales, (-) rhonchi, (+) expiratory wheezes bilaterally; breath sounds equal bilaterally. HEART AND CARDIOVASCULAR: (-) irregularity; (-) murmur, (-) gallop. ABDOMEN AND GI: Soft; (-) tenderness, (-) guarding, (-) rebound, (-) palpable masses, EXTREMITIES: (-) deformity, (-) edema. NEURO AND PSYCH: Mental status as above. Cranial nerves grossly intact; strength symmetric. gait steady DIAGNOSTICS: CXR and labs reviewed EMERGENCY DEPARTMENT COURSE AND TREATMENT: Patient's condition improved during Emergency Department evaluation. Only with slight transient end expiratory wheezing on repeat examination. Pt reports she feels significantly improved and does not feel she requires any further treatment at this time. On reevaluation pulse ox of 95% HR 99. PLAN AND FOLLOW-UP: Patient received written and verbal instructions regarding this condition. Follow up to be arranged by patient with pcp in 1-2 days for further evaluation. To return immediately with any new or worsening symptoms. Given discharge precautions. Patient expressed verbal understanding. Neck Pain Score (Numeric/FACES): 6 - Related Data Allergies Allergy/AdvReac Type Severity Reaction Status Date / Time animal dander Allergy Sneezing Verified 07/19/19 19:11 Home Meds: Home Meds Montelukast [Singulair] 10 mg PO DAILY 06/10/19 [History] predniSONE [Prednisone] 50 mg PO DAILY #5 tablet 07/19/19 [Rx] Past Medical History HEENT History: Reports: Impaired Vision Cardiovascular History: Reports: Other (See Below) Other Cardiovascular History: states "had heart problems at " details unknown by patient Respiratory History: Reports: Asthma Gastrointestinal History: Reports: None Genitourinary History: Reports: UTI, Recurrent [employer]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: , 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 Musculoskeletal History: Reports: None Neurological History: Reports: Head Trauma Psychiatric History: Reports: Anxiety, Bipolar, Depression Endocrine/Metabolic History: Reports: Obesity/BMI 30+ Hematologic History: Reports: None Immunologic History: Reports: None Oncologic (Cancer) History: Reports: None Dermatologic History: Reports: None - Infectious Disease History Infectious Disease History: Reports: Chicken Pox - Past Surgical History Head Surgeries/Procedures: Reports: None HEENT Surgical History: Reports: Adenoidectomy, Myringotomy w Tube(s), Tonsillectomy Cardiovascular Surgical History: Reports: None Respiratory Surgical History: Reports: None GI Surgical History: Reports: None Female Surgical History: Reports: Section Endocrine Surgical History: Reports: None Neurological Surgical History: Reports: None Musculoskeletal Surgical History: Reports: None Oncologic Surgical History: Reports: None Dermatological Surgical History: Reports: None Social & Family History - Family History Family Medical History: Noncontributory HEENT: Reports: Impaired Vision Cardiac: Reports: Hypertension, [place] Respiratory: Reports: Asthma, Sleep Apnea : Reports: Other (See Below) Other Family History: Mother of patient in current kidney failure. OBGYN: Reports: Musculoskeletal: Reports: Arthritis, Gout, Osteoarthritis Psychiatric: Reports: ADHD, Anxiety, Depression Endocrine/Metabolic: Reports: Obesity/MBI 30+ Oncologic: Reports: Breast, Cervix, Lung - Caffeine Use Caffeine Use: Reports: None ED ROS GENERAL - Review of Systems Review Of Systems: See Below (see dictation) ED EXAM, GENERAL - Physical Exam Exam: See Below (see dictation) Course - Vital Signs Last Recorded V/S: Last Vital Signs Temp 98.2 F 07/19/19 19:09 Pulse 112 H 07/19/19 19:09 Resp 20 07/19/19 19:09 BP 133/94 H 07/19/19 19:09 Pulse Ox 93 L 07/19/19 19:09 - Orders/Labs/Meds Orders: Active Orders 24 hr Category Date Time Status RT Aerosol Therapy [RC] ASDIRECTED Care 07/19/19 19:32 Active RT Aerosol Therapy [RC] ASDIRECTED Care 07/19/19 20:38 Active Vital Signs [RC] PER UNIT ROUTINE Care 07/19/19 21:45 Active Labs: Laboratory Tests 07/19/19 Range/Units 20:50 Urine HCG, Qual NEGATIVE (NEGATIVE) Meds: Medications Discontinued Medications Generic Name Dose Route Start Last Admin Trade Name Jitendra PRN Reason Stop Dose Admin Albuterol/Ipratropium 3 ml 07/19/19 19:31 07/19/19 19:51 Duoneb 3.0-0.5 Mg/3 Ml NEB 07/19/19 19:32 3 ml ONETIME ONE Administration Albuterol/Ipratropium 3 ml 07/19/19 20:38 07/19/19 20:47 Duoneb 3.0-0.5 Mg/3 Ml NEB 07/19/19 20:39 3 ml ONETIME ONE Administration Prednisone 60 mg 07/19/19 19:32 07/19/19 19:53 Prednisone PO 07/19/19 19:33 60 mg ONETIME ONE Administration Departure - Departure Time of Disposition: 21:43 Disposition: Home, Self-Care 01 Condition: Good Clinical Impression: Asthma attack Qualifiers: Asthma severity: mild Asthma persistence: intermittent Qualified Code(s): J45.21 - Mild intermittent asthma with (acute) exacerbation - Discharge Information *PRESCRIPTION DRUG MONITORING PROGRAM REVIEWED*: Not Applicable *COPY OF PRESCRIPTION DRUG MONITORING REPORT IN PATIENT LAZARO: Not Applicable Prescriptions: predniSONE [Prednisone] 50 mg PO DAILY #5 tablet Instructions: Asthma, Adult Referrals: Mg Croft MD [Primary Care Provider] - 2 Days Forms: ED Department Discharge Additional Instructions: The following information is given to patients seen in the emergency department who are being discharged to home. This information is to outline your options for follow-up care. We provide all patients seen in our emergency department with a follow-up referral. The need for follow-up, as well as the timing and circumstances, are variable depending upon the specifics of your emergency department visit. If you don't have a primary care physician on staff, we will provide you with a referral. We always advise you to contact your personal physician following an emergency department visit to inform them of the circumstance of the visit and for follow-up with them and/or the need for any referrals to a consulting specialist. The emergency department will also refer you to a specialist when appropriate. This referral assures that you have the opportunity for follow-up care with a specialist. All of these measure are taken in an effort to provide you with optimal care, which includes your follow-up. Under all circumstances we always encourage you to contact your private physician who remains a resource for coordinating your care. When calling for follow-up care, please make the office aware that this follow-up is from your recent emergency room visit. If for any reason you are refused follow-up, please contact the [facility] Emergency Department at and asked to speak to the emergency department charge nurse. Sepsis Event Note - Evaluation Sepsis Screening Result: No Definite Risk - Focused Exam Vital Signs: Vital Signs Temp Pulse Resp BP Pulse Ox 07/19/19 19:09 98.2 F 112 H 20 133/94 H 93 L Date Exam was Performed: 07/19/19 Time Exam was Performed: 21:50 - My Orders Last 24 Hours: My Active Orders 07/19/19 19:32 RT Aerosol Therapy [RC] ASDIRECTED 07/19/19 20:38 RT Aerosol Therapy [RC] ASDIRECTED 07/19/19 21:45 Vital Signs [RC] PER UNIT ROUTINE - Assessment/Plan Last 24 Hours: My Active Orders 07/19/19 19:32 RT Aerosol Therapy [RC] ASDIRECTED 07/19/19 20:38 RT Aerosol Therapy [RC] ASDIRECTED 07/19/19 21:45 Vital Signs [RC] PER UNIT ROUTINE
--- NOTE | 2019-07-19 21:35 | CR ---
HISTORY: Chest pain COMPARISON: Chest two views from 04/07/2019 FINDINGS: A portable semi-erect AP view of the chest was obtained at 21 19 hours. The previously seen mild platelike atelectasis in the right midlung has completely resolved. The lungs are now clear. The heart remains normal in size. The mediastinum is normal in appearance. The osseous structures are normal in appearance for the patient`s age. IMPRESSION: Normal portable chest single view. Dictated by Lonnie Vela MD @ Jul 19 2019 9:32PM Signed by Dr. Lonnie Vela @ Jul 19 2019 9:34PM
[2019-07-19 21:57] VITALS: BP 136/79; PULSE 99
== END 2019-07-19 22:00 | disposition home or self-care (01) ==
LOC: MW.ED 19:01
DX: J45.21 Mild intermittent asthma with (acute) exacerbation (principal); E66.9 Obesity, unspecified; Z91.09 Other allergy status, other than to drugs and biological substances; Z96.22 Myringotomy tube(s) status; Z98.890 Other specified postprocedural states
CPT/HCPCS: 71045; 81025; 87804; 94640; 99285; A9270; 99283; J7620-GY

== ENCOUNTER 2019-08-04 23:37 | Observation (INO) | payer MEDICAID ==
[2019-08-04] MEDS ORDERED: methylPREDNISolone Sodium Succinate 125 MG/2 ML SDV IVPUSH ONE (23:55)
[2019-08-04] MEDS ORDERED: Sodium Chloride 0.9% 2.5 ML Syringe FLUSH PRN (23:55)
[2019-08-04] MEDS ORDERED: Sodium Chloride 0.9% 1,000 ML IV ONE (23:55)
[2019-08-04] MEDS ORDERED: Sodium Chloride 0.9% 10 ML Syringe FLUSH PRN (23:55)
[2019-08-04] MEDS ORDERED: Albuterol/Ipratropium 3.0-0.5 MG/3 ML Neb Soln ONE (23:57)
--- NOTE | 2019-08-04 23:58 | EDM.PDOC ---
ED HPI GENERAL MEDICAL PROBLEM - General Chief Complaint: Respiratory Problem Stated Complaint: ASTHMA ATTACK Time Seen by Provider: 08/04/19 23:51 - History of Present Illness INITIAL COMMENTS - FREE TEXT/NARRATIVE: HISTORY AND PHYSICAL: History of present illness: Patient is a 19-year-old female who follows at [facility] [place] and has a known history of asthma and has had frequent visits to our ED for asthma attacks presents with same. She says she has been dealing with her asthma over the last 2 weeks with progressive increasing shortness of breath and coughing but she has not seen her provider in the clinic. She has been giving herself numerous treatments at home and trying to push hydration. She got her influenza shot this year and has had a cough and runny nose but she thought that was due to her asthma. She has no abdominal pain vomiting or diarrhea and denies as she is finishing her menstrual cycle. She has no sore throat or ear pain and only slight nasal drainage but no sinus pressure. She is here because she does not feel like she has been able to control this at home. According to the computer the patient's last admission here was in April and her last ED visit was just a few weeks ago on July 19 with similar presenting problem and work-up. She improved while in the ED and was discharged home. It does not appear that the patient has followed up in the clinic with her provider Dr. Croft since that time. She Does deny smoking and drug use to me. She does use Singulair daily and albuterol as needed Review of systems: As per history of present illness and below otherwise all systems reviewed and negative. Past medical history: As per history of present illness and as reviewed below otherwise noncontributory. Surgical history: As per history of present illness and as reviewed below otherwise noncontributory. Social history: No reported history of drug or alcohol abuse. Family history: As per history of present illness and as reviewed below otherwise noncontributory. Physical exam: Well-developed well-nourished overweight female who is seen without breathlessness hoarse or muffled voice. Vital signs are noted by me. She is currently finishing her treatment HEENT: Atraumatic, normocephalic, pupils reactive, negative for conjunctival pallor or scleral icterus, mucous membranes moist, throat clear, neck supple, nontender, trachea midline. Lungs: Worse breath sounds bilaterally with rhonchi and wheezing throughout all lung flaherty but decent air exchange and no work of breathing breath sounds equal bilaterally, chest nontender. Heart: S1S2, regular, negative for clicks, rubs, or JVD. Abdomen: Soft, nondistended, nontender. Negative for masses or hepatosplenomegaly. Negative for costovertebral tenderness. Pelvis: Stable nontender. Genitourinary: Deferred. Rectal: Deferred. Extremities: Atraumatic, negative for cords or calf pain. Neurovascular unremarkable. Neuro: Awake, alert, oriented. Cranial nerves II through XII unremarkable. Cerebellum unremarkable. Motor and sensory unremarkable throughout. Exam nonfocal. Diagnostics: Chest x-ray CBC CMP influenza UA UCG Therapeutics: IV fluids oxygen therapy DuoNeb Solu-Medrol levaquin I evaluated the patient after she finished her first DuoNeb and her O2 sat on room air is still 90%. We will place her on oxygen therapy and continue with treatments and monitoring. Urine test results are noted by me and the patient is currently finishing her period which would explain some of those findings. She has no urinary complaints 0111: Discussed with Dr. Ray as well as all testing results were discussed with the patient. He agrees with observation admission and would like me to give a dose of Levaquin for the WBC count. Impression: asthma exacerbation with hypoxia Definitive disposition and diagnosis as appropriate pending reevaluation and review of above. chest Pain Score (Numeric/FACES): 8 headache Pain Score (Numeric/FACES): 9 - Related Data Allergies Allergy/AdvReac Type Severity Reaction Status Date / Time animal dander Allergy Sneezing Verified 08/04/19 23:44 Home Meds: Home Meds Montelukast [Singulair] 10 mg PO DAILY 06/10/19 [History] predniSONE [Prednisone] 50 mg PO DAILY #5 tablet 07/19/19 [Rx] Albuterol [Proventil Neb Soln] 1 ampule INH Q4HR PRN 08/04/19 [History] Past Medical History HEENT History: Reports: Impaired Vision Cardiovascular History: Reports: Other (See Below) Other Cardiovascular History: states "had heart problems at " details unknown by patient Respiratory History: Reports: Asthma Gastrointestinal History: Reports: None Genitourinary History: Reports: UTI, Recurrent 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: , Spontaneous Musculoskeletal History: Reports: None Neurological History: Reports: Head Trauma Psychiatric History: Reports: Anxiety, Bipolar, Depression Endocrine/Metabolic History: Reports: Obesity/BMI 30+ Hematologic History: Reports: None Immunologic History: Reports: None Oncologic (Cancer) History: Reports: None Dermatologic History: Reports: None - Infectious Disease History Infectious Disease History: Reports: Chicken Pox - Past Surgical History Head Surgeries/Procedures: Reports: None HEENT Surgical History: Reports: Adenoidectomy, Myringotomy w Tube(s), Tonsillectomy Cardiovascular Surgical History: Reports: None Respiratory Surgical History: Reports: None GI Surgical History: Reports: None Female Surgical History: Reports: Section Endocrine Surgical History: Reports: None Neurological Surgical History: Reports: None Musculoskeletal Surgical History: Reports: None Oncologic Surgical History: Reports: None Dermatological Surgical History: Reports: None Social & Family History - Family History Family Medical History: Noncontributory HEENT: Reports: Impaired Vision Cardiac: Reports: Hypertension, DC Respiratory: Reports: Asthma, Sleep Apnea : Reports: Other (See Below) Other Family History: Mother of patient in current kidney failure. OBGYN: Reports: Musculoskeletal: Reports: Arthritis, Gout, Osteoarthritis Psychiatric: Reports: ADHD, Anxiety, Depression Endocrine/Metabolic: Reports: Obesity/MBI 30+ Oncologic: Reports: Breast, Cervix, Lung - Tobacco Use Smoking Status *Q: Never Smoker Second Hand Smoke Exposure: No - Caffeine Use Caffeine Use: Reports: Coffee - Recreational Drug Use Recreational Drug Use: No ED ROS GENERAL - Review of Systems Review Of Systems: Comprehensive ROS is negative, except as noted in HPI. ED EXAM, GENERAL - Physical Exam Exam: See Below (See dictation) Course - Vital Signs Last Recorded V/S: Last Vital Signs Temp 36.4 C 08/05/19 01:13 Pulse 96 08/05/19 01:13 Resp 20 08/05/19 01:13 BP 103/62 08/05/19 01:13 Pulse Ox 96 08/05/19 01:13 - Orders/Labs/Meds Orders: Active Orders 24 hr Category Date Time Status Patient Status [ADT] Stat ADT 08/05/19 01:11 Active Cardiac Monitoring [RC] . DIRECTED Care 08/04/19 23:54 Active Oxygen Therapy, ED [RC] ASDIRECTED Care 08/04/19 23:54 Active Pulse Oximetry [RC] ASDIRECTED Care 08/04/19 23:54 Active RT Aerosol Therapy [RC] ASDIRECTED Care 08/05/19 00:08 Active RT Aerosol Therapy [RC] ASDIRECTED Care 08/05/19 00:26 Active Levofloxacin/Dextrose 5%-Water [Levaquin in D5W 750 MG/ Med 08/05/19 01:13 Active 150 ML] 750 mg Premix Bag 1 bag IV ONETIME Sodium Chloride 0.9% [Normal Saline] 1,000 ml Med 08/05/19 01:10 Active IV STAT Sodium Chloride 0.9% [Saline Flush] Med 08/04/19 23:55 Active 10 ml FLUSH ASDIRECTED PRN Sodium Chloride 0.9% [Saline Flush] Med 08/04/19 23:55 Active 2.5 ml FLUSH ASDIRECTED PRN Saline Lock Insert [OM.PC] Stat Oth 08/04/19 23:54 Ordered Medication Orders Sodium Chloride (Normal Saline) 1,000 mls @ 999 mls/hr IV STAT ONE Stop: 08/05/19 02:10 Last Admin: 08/05/19 01:15 Dose: 999 mls/hr Levofloxacin/Dextrose 750 mg/ (Premix) 150 mls @ 100 mls/hr IV ONETIME ONE Stop: 08/05/19 02:42 Sodium Chloride (Saline Flush) 10 ml FLUSH ASDIRECTED PRN PRN Reason: Keep Vein Open Sodium Chloride (Saline Flush) 2.5 ml FLUSH ASDIRECTED PRN PRN Reason: Keep Vein Open Labs: Laboratory Tests 08/05/19 08/05/19 08/05/19 Range/Units 00:00 00:00 00:00 WBC 16.70 H (4.0-11.0) K/uL RBC 5.21 (4.30-5.90) M/uL Hgb 12.2 (12.0-16.0) g/dL Hct 39.2 (36.0-46.0) % MCV 75.2 L (80.0-98.0) fL MCH 23.4 L (27.0-32.0) pg MCHC 31.1 (31.0-37.0) g/dL RDW Std Deviation 44.3 (28.0-62.0) fl RDW Coeff of Negrita 16 H (11.0-15.0) % Plt Count 281 (150-400) K/uL MPV 10.70 (7.40-12.00) fL Neut % (Auto) 69.9 (48.0-80.0) % Lymph % (Auto) 13.4 L (16.0-40.0) % Ripley % (Auto) 3.9 (0.0-15.0) % Eos % (Auto) 12.6 H (0.0-7.0) % Baso % (Auto) 0.2 (0.0-1.5) % Neut # (Auto) 11.7 H (1.4-5.7) K/uL Lymph # (Auto) 2.2 (0.6-2.4) K/uL Ripley # (Auto) 0.7 (0.0-0.8) K/uL Eos # (Auto) 2.1 H (0.0-0.7) K/uL Baso # (Auto) 0.0 (0.0-0.1) K/uL Nucleated RBC % 0.0 /100WBC Nucleated RBCs # 0 K/uL Sodium (136-145) mmol/L Potassium (3.5-5.1) mmol/L Chloride (98-107) mmol/L Carbon Dioxide (21.0-32.0) mmol/L BUN (7.0-18.0) mg/dL Creatinine (0.6-1.0) mg/dL Est Cr Clr Drug Dosing mL/min Estimated GFR (MDRD) ml/min Glucose (74-106) mg/dL Calcium (8.5-10.1) mg/dL Total Bilirubin (0.2-1.0) mg/dL AST (15-37) IU/L ALT (14-63) IU/L Alkaline Phosphatase (46-116) U/L Total Protein (6.4-8.2) g/dL Albumin (3.4-5.0) g/dL Globulin (2.6-4.0) g/dL Albumin/Globulin Ratio (0.9-1.6) Urine Color YELLOW Urine Appearance CLEAR Urine pH 5.5 (5.0-8.0) Ur Specific Burchard >= 1.030 (1.001-1.035) Urine Protein >=300 H (NEGATIVE) mg/dL Urine Glucose (UA) NEGATIVE (NEGATIVE) mg/dL Urine Ketones NEGATIVE (NEGATIVE) mg/dL Urine Occult Blood LARGE H (NEGATIVE) Urine Nitrite NEGATIVE (NEGATIVE) Urine Bilirubin NEGATIVE (NEGATIVE) Urine Urobilinogen 0.2 (<2.0) EU/dL Ur Leukocyte Esterase NEGATIVE (NEGATIVE) Urine RBC 30-35 (0-2/HPF) Urine WBC 0-1 (0-5/HPF) Ur Epithelial Cells MODERATE (NONE-FEW) Urine Bacteria RARE (NEGATIVE) Urine HCG, Qual NEGATIVE (NEGATIVE) 08/05/19 Range/Units 00:00 WBC (4.0-11.0) K/uL RBC (4.30-5.90) M/uL Hgb (12.0-16.0) g/dL Hct (36.0-46.0) % MCV (80.0-98.0) fL MCH (27.0-32.0) pg MCHC (31.0-37.0) g/dL RDW Std Deviation (28.0-62.0) fl RDW Coeff of Negrita (11.0-15.0) % Plt Count (150-400) K/uL MPV (7.40-12.00) fL Neut % (Auto) (48.0-80.0) % Lymph % (Auto) (16.0-40.0) % Ripley % (Auto) (0.0-15.0) % Eos % (Auto) (0.0-7.0) % Baso % (Auto) (0.0-1.5) % Neut # (Auto) (1.4-5.7) K/uL Lymph # (Auto) (0.6-2.4) K/uL Ripley # (Auto) (0.0-0.8) K/uL Eos # (Auto) (0.0-0.7) K/uL Baso # (Auto) (0.0-0.1) K/uL Nucleated RBC % /100WBC Nucleated RBCs # K/uL Sodium 143 (136-145) mmol/L Potassium 3.6 (3.5-5.1) mmol/L Chloride 107 (98-107) mmol/L Carbon Dioxide 26.5 (21.0-32.0) mmol/L BUN 11 (7.0-18.0) mg/dL Creatinine 0.8 (0.6-1.0) mg/dL Est Cr Clr Drug Dosing 112.21 mL/min Estimated GFR (MDRD) > 60.0 ml/min Glucose 117 H (74-106) mg/dL Calcium 8.6 (8.5-10.1) mg/dL Total Bilirubin 0.7 (0.2-1.0) mg/dL AST 17 (15-37) IU/L ALT 28 (14-63) IU/L Alkaline Phosphatase 84 (46-116) U/L Total Protein 7.2 (6.4-8.2) g/dL Albumin 3.7 (3.4-5.0) g/dL Globulin 3.5 (2.6-4.0) g/dL Albumin/Globulin Ratio 1.1 (0.9-1.6) Urine Color Urine Appearance Urine pH (5.0-8.0) Ur Specific Burchard (1.001-1.035) Urine Protein (NEGATIVE) mg/dL Urine Glucose (UA) (NEGATIVE) mg/dL Urine Ketones (NEGATIVE) mg/dL Urine Occult Blood (NEGATIVE) Urine Nitrite (NEGATIVE) Urine Bilirubin (NEGATIVE) Urine Urobilinogen (<2.0) EU/dL Ur Leukocyte Esterase (NEGATIVE) Urine RBC (0-2/HPF) Urine WBC (0-5/HPF) Ur Epithelial Cells (NONE-FEW) Urine Bacteria (NEGATIVE) Urine HCG, Qual (NEGATIVE) Meds: Medications Generic Name Dose Route Start Last Admin Trade Name Freq PRN Reason Stop Dose Admin Sodium Chloride 1,000 mls @ 999 mls/hr 08/05/19 01:10 08/05/19 01:15 Normal Saline IV 08/05/19 02:10 999 mls/hr STAT ONE Administration Levofloxacin/Dextrose 750 mg/ 150 mls @ 100 mls/hr 08/05/19 01:13 Premix IV 08/05/19 02:42 ONETIME ONE Sodium Chloride 10 ml 08/04/19 23:55 Saline Flush FLUSH ASDIRECTED PRN Keep Vein Open Sodium Chloride 2.5 ml 08/04/19 23:55 Saline Flush FLUSH ASDIRECTED PRN Keep Vein Open Discontinued Medications Generic Name Dose Route Start Last Admin Trade Name Freq PRN Reason Stop Dose Admin Albuterol/Ipratropium Confirm 08/04/19 23:57 08/05/19 00:08 Duoneb 3.0-0.5 Mg/3 Ml Administered 08/04/19 23:58 Not Given Dose 3 ml .ROUTE .STK-MED ONE Albuterol/Ipratropium 3 ml 08/05/19 00:08 08/05/19 00:09 Duoneb 3.0-0.5 Mg/3 Ml NEB 08/05/19 00:09 3 ml ONETIME ONE Administration Albuterol/Ipratropium 3 ml 08/05/19 00:26 08/05/19 00:29 Duoneb 3.0-0.5 Mg/3 Ml NEB 08/05/19 00:27 3 ml ONETIME ONE Administration Sodium Chloride 1,000 mls @ 999 mls/hr 08/04/19 23:55 08/05/19 00:06 Normal Saline IV 08/05/19 00:55 999 mls/hr STAT ONE Administration Sodium Chloride 1,000 mls @ 999 mls/hr 08/04/19 23:56 08/05/19 01:14 Normal Saline IV 08/05/19 00:56 Not Given STAT ONE Methylprednisolone Sodium Succinate 125 mg 08/04/19 23:55 08/05/19 00:07 Solu-Medrol IVPUSH 08/04/19 23:56 125 mg ONETIME ONE Administration Departure - Departure Time of Disposition: 01:17 Disposition: Refer to Observation Condition: Fair Clinical Impression: Asthma exacerbation Qualifiers: Asthma severity: mild Asthma persistence: intermittent Qualified Code(s): J45.21 - Mild intermittent asthma with (acute) exacerbation - Discharge Information Referrals: Mg Croft MD [Primary Care Provider] - Forms: ED Department Discharge Sepsis Event Note - Evaluation Sepsis Screening Result: No Definite Risk - Focused Exam Vital Signs: Vital Signs Temp Pulse Resp BP Pulse Ox 08/05/19 01:13 36.4 C 96 20 103/62 96 08/05/19 00:29 101 H 21 H 97 08/04/19 23:40 36.1 C 133 H 22 H 130/85 88 L Date Exam was Performed: 08/05/19 Time Exam was Performed: 01:17 - My Orders Last 24 Hours: My Active Orders 08/04/19 23:54 Cardiac Monitoring [RC] . DIRECTED Oxygen Therapy, ED [RC] ASDIRECTED Pulse Oximetry [RC] ASDIRECTED Saline Lock Insert [OM.PC] Stat 08/04/19 23:55 Sodium Chloride 0.9% [Saline Flush] 10 ml FLUSH ASDIRECTED PRN Sodium Chloride 0.9% [Saline Flush] 2.5 ml FLUSH ASDIRECTED PRN 08/05/19 00:08 RT Aerosol Therapy [RC] ASDIRECTED 08/05/19 00:26 RT Aerosol Therapy [RC] ASDIRECTED 08/05/19 01:10 Sodium Chloride 0.9% [Normal Saline] 1,000 ml IV STAT 08/05/19 01:11 Patient Status [ADT] Stat 08/05/19 01:13 Levofloxacin/Dextrose 5%-Water [Levaquin in D5W 750 MG/150 ML] 750 mg Premix Bag 1 bag IV ONETIME - Assessment/Plan Last 24 Hours: My Active Orders 08/04/19 23:54 Cardiac Monitoring [RC] . DIRECTED Oxygen Therapy, ED [RC] ASDIRECTED Pulse Oximetry [RC] ASDIRECTED Saline Lock Insert [OM.PC] Stat 08/04/19 23:55 Sodium Chloride 0.9% [Saline Flush] 10 ml FLUSH ASDIRECTED PRN Sodium Chloride 0.9% [Saline Flush] 2.5 ml FLUSH ASDIRECTED PRN 08/05/19 00:08 RT Aerosol Therapy [RC] ASDIRECTED 08/05/19 00:26 RT Aerosol Therapy [RC] ASDIRECTED 08/05/19 01:10 Sodium Chloride 0.9% [Normal Saline] 1,000 ml IV STAT 08/05/19 01:11 Patient Status [ADT] Stat 08/05/19 01:13 Levofloxacin/Dextrose 5%-Water [Levaquin in D5W 750 MG/150 ML] 750 mg Premix Bag 1 bag IV ONETIME
[2019-08-05] MEDS ORDERED: Albuterol/Ipratropium 3.0-0.5 MG/3 ML Neb Soln NEB ONE ×2 (00:08→00:26)
[2019-08-05] MEDS: Sodium Chloride 0.9% 1,000 ML IV ONE ×2 (00:16→01:14)
[2019-08-05 00:38] LABS: BLOOD UREA NITROGEN,BUN 11 mg/dL (7.0-18.0); CARBON DIOXIDE,CO2 26.5 mmol/L (21.0-32.0); CHLORIDE,CL 107 mmol/L (98-107); GLUCOSE RANDOM 117 mg/dL (74-106); POTASSIUM,K 3.6 mmol/L (3.5-5.1); SODIUM,NA 143 mmol/L (136-145)
--- NOTE | 2019-08-05 01:04 | CR ---
INDICATION: shortness of breath TECHNIQUE: Chest radiograph 2 views COMPARISON: 07/19/2019 FINDINGS: Moderate degradation of image quality noted due to body habitus. Mediastinum: The mediastinum is normal in appearance. The heart silhouette is normal in size and morphology. Lung: Both lungs are unremarkable in appearance. The apices are obscured by hair artifacts. No sign of pleural effusion seen. No pneumothorax is identified. Bone and Soft tissue: Unremarkable for age. IMPRESSION: 1. No acute cardiopulmonary disease is seen. Dictated by: Jan Prather MD @ 08/05/2019 01:02:39 (Electronically Signed)
[2019-08-05] MEDS ORDERED: Sodium Chloride 0.9% 1,000 ML IV ONE (01:10)
[2019-08-05] MEDS ORDERED: Levofloxacin/Dextrose 5%-Water 750 MG in Premix Bag 1 BAG IV ONE (01:13)
[2019-08-05] MEDS: Albuterol 0.083% 2.5 MG/3 ML Neb Soln NEB SCH ×2 (05:52→11:19)
[2019-08-05 07:04] LABS: BLOOD UREA NITROGEN,BUN 12 mg/dL (7.0-18.0); CARBON DIOXIDE,CO2 23.1 mmol/L (21.0-32.0); CHLORIDE,CL 108 mmol/L (98-107); GLUCOSE RANDOM 153 mg/dL (74-106); POTASSIUM,K 4.4 mmol/L (3.5-5.1); SODIUM,NA 142 mmol/L (136-145)
[2019-08-05] MEDS: methylPREDNISolone Sodium Succinate 125 MG/2 ML SDV IVPUSH SCH ×3 (08:45→23:43)
--- NOTE | 2019-08-05 11:45 | PCM.HP.2 ---
H&P History of Present Illness - General Date of Service: 08/05/19 Admit Problem/Dx: Admission Diagnosis/Problem Admission Diagnosis/Problem Asthma in adult Source of Information: Patient, Old Records History Limitations: Reports: No Limitations - History of Present Illness Initial Comments - Free Text/Narative: This 19 year old female with pmh of asthma, which is not controlled as outpatient presented to the ED with complaints of progressive shortness of breath at home. She reports over the last 2 weeks progressively increasing shortness of breath and coughing. She has been using nebulizer treatments at home and trying to push hydration, with little relief. She reports non productive cough and runny nose but she thought that was due to her asthma. Denies abdominal pain vomiting or diarrhea. She has no sore throat or ear pain and only slight nasal drainage but no sinus pressure. She is here because she does not feel like she has been able to control this at home. She was recently admitted in July for asthma exacerbation. She reports he is unable to afford maintenance inhalers at this time and has been without for several weeks. She reports she did get her influenza vaccine this year. She reports she does have cats in the home, which she knows she is allergic to. We did discuss using Singulair, which she can not afford or at least Claritin. In the ED leukocytosis noted, no recently steroids per patient, eosinphils elevated at 12.6%. CXR negative. She was treated with Duonebs, Solumedrol and LEvaquin in the ED. Admitted for asthma exacerbation. PCP, Dr Croft chest Pain Score (Numeric/FACES): 8 headache Pain Score (Numeric/FACES): 0 - Related Data Allergies/Adverse Reactions: Allergies Allergy/AdvReac Type Severity Reaction Status Date / Time animal dander Allergy Sneezing Verified 08/05/19 04:34 Home Medications: Home Meds Montelukast [Singulair] 10 mg PO BEDTIME 06/10/19 [History] Albuterol [Proventil Neb Soln] 1 ampule INH Q4HR PRN 08/04/19 [History] Past Medical History HEENT History: Reports: Impaired Vision Cardiovascular History: Reports: Other (See Below) Other Cardiovascular History: states "had heart problems at " details unknown by patient Respiratory History: Reports: Asthma Gastrointestinal History: Reports: None Genitourinary History: Reports: UTI, Recurrent 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: , 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 Musculoskeletal History: Reports: None Neurological History: Reports: Head Trauma Psychiatric History: Reports: Anxiety, Bipolar, Depression Endocrine/Metabolic History: Reports: Obesity/BMI 30+ Hematologic History: Reports: None Immunologic History: Reports: None Oncologic (Cancer) History: Reports: None Dermatologic History: Reports: None - Infectious Disease History Infectious Disease History: Reports: Chicken Pox - Past Surgical History Head Surgeries/Procedures: Reports: None HEENT Surgical History: Reports: Adenoidectomy, Myringotomy w Tube(s), Tonsillectomy Cardiovascular Surgical History: Reports: None Respiratory Surgical History: Reports: None GI Surgical History: Reports: None Female Surgical History: Reports: Section Endocrine Surgical History: Reports: None Neurological Surgical History: Reports: None Musculoskeletal Surgical History: Reports: None Oncologic Surgical History: Reports: None Dermatological Surgical History: Reports: None Social & Family History - Family History Family Medical History: Noncontributory HEENT: Reports: Impaired Vision Cardiac: Reports: Hypertension, NM Respiratory: Reports: Asthma, Sleep Apnea : Reports: Other (See Below) Other Family History: Mother of patient in current kidney failure. OBGYN: Reports: Musculoskeletal: Reports: Arthritis, Gout, Osteoarthritis Psychiatric: Reports: ADHD, Anxiety, Depression Endocrine/Metabolic: Reports: Obesity/MBI 30+ Oncologic: Reports: Breast, Cervix, Lung - Tobacco Use Smoking Status *Q: Never Smoker Second Hand Smoke Exposure: No - Caffeine Use Caffeine Use: Reports: Coffee, Soda - Recreational Drug Use Recreational Drug Use: No H&P Review of Systems - Review of Systems: Review Of Systems: See Below General: Reports: Fatigue. Denies: Fever, Chills, Malaise, Weakness HEENT: Reports: Sinus Congestion. Denies: Headaches Pulmonary: Reports: Shortness of Breath, Wheezing, Cough. Denies: Sputum, Hemoptysis Cardiovascular: Reports: No Symptoms. Denies: Chest Pain, Lightheadedness Gastrointestinal: Reports: No Symptoms. Denies: Abdominal Pain, Black Stool, Bloody Stool, Nausea, Vomiting Genitourinary: Reports: No Symptoms. Denies: Dysuria, Frequency, Burning Musculoskeletal: Reports: No Symptoms Skin: Reports: No Symptoms Psychiatric: Reports: No Symptoms Neurological: Reports: No Symptoms Hematologic/Lymphatic: Reports: No Symptoms Immunologic: Reports: No Symptoms Exam - Exam Exam: See Below - Vital Signs Vital Signs: Last Vital Signs Temp 97.8 F 08/05/19 07:13 Pulse 84 08/05/19 07:13 Resp 16 08/05/19 07:13 BP 133/57 L 08/05/19 07:13 Pulse Ox 93 L 08/05/19 07:49 Weight: 138.754 kg - Exam Quality Assessment: Supplemental Oxygen General: Alert, Oriented, Cooperative HEENT: Conjunctiva Clear, Nares Patent, Pupils Equal Lungs: Normal Respiratory Effort, Decreased Breath Sounds, Rhonchi, Wheezing Cardiovascular: Regular Rate, Regular Rhythm, Normal S1, Normal S2 GI/Abdominal Exam: Normal Bowel Sounds, Soft, Non-Tender Extremities: Normal Inspection, Normal Range of Motion, Non-Tender, No Pedal Edema Neuro Extensive - Mental Status: Alert, Oriented x3 Neuro Extensive - Motor, Sensory, Reflexes: CN II-XII Intact Psychiatric: Alert, Normal Affect, Normal Mood - Patient Data Lab Results Last 24 hrs: Laboratory Results - last 24 hr 08/05/19 08/05/19 08/05/19 Range/Units 00:00 00:00 00:00 WBC 16.70 H (4.0-11.0) K/uL RBC 5.21 (4.30-5.90) M/uL Hgb 12.2 (12.0-16.0) g/dL Hct 39.2 (36.0-46.0) % MCV 75.2 L (80.0-98.0) fL MCH 23.4 L (27.0-32.0) pg MCHC 31.1 (31.0-37.0) g/dL RDW Std Deviation 44.3 (28.0-62.0) fl RDW Coeff of Negrita 16 H (11.0-15.0) % Plt Count 281 (150-400) K/uL MPV 10.70 (7.40-12.00) fL Neut % (Auto) 69.9 (48.0-80.0) % Lymph % (Auto) 13.4 L (16.0-40.0) % [place] % (Auto) 3.9 (0.0-15.0) % Eos % (Auto) 12.6 H (0.0-7.0) % Baso % (Auto) 0.2 (0.0-1.5) % Neut # (Auto) 11.7 H (1.4-5.7) K/uL Lymph # (Auto) 2.2 (0.6-2.4) K/uL [place] # (Auto) 0.7 (0.0-0.8) K/uL Eos # (Auto) 2.1 H (0.0-0.7) K/uL Baso # (Auto) 0.0 (0.0-0.1) K/uL Nucleated RBC % 0.0 /100WBC Nucleated RBCs # 0 K/uL Sodium (136-145) mmol/L Potassium (3.5-5.1) mmol/L Chloride (98-107) mmol/L Carbon Dioxide (21.0-32.0) mmol/L BUN (7.0-18.0) mg/dL Creatinine (0.6-1.0) mg/dL Est Cr Clr Drug Dosing mL/min Estimated GFR (MDRD) ml/min Glucose (74-106) mg/dL Calcium (8.5-10.1) mg/dL Total Bilirubin (0.2-1.0) mg/dL AST (15-37) IU/L ALT (14-63) IU/L Alkaline Phosphatase (46-116) U/L Total Protein (6.4-8.2) g/dL Albumin (3.4-5.0) g/dL Globulin (2.6-4.0) g/dL Albumin/Globulin Ratio (0.9-1.6) Urine Color YELLOW Urine Appearance CLEAR Urine pH 5.5 (5.0-8.0) Ur Specific [place] >= 1.030 (1.001-1.035) Urine Protein >=300 H (NEGATIVE) mg/dL Urine Glucose (UA) NEGATIVE (NEGATIVE) mg/dL Urine Ketones NEGATIVE (NEGATIVE) mg/dL Urine Occult Blood LARGE H (NEGATIVE) Urine Nitrite NEGATIVE (NEGATIVE) Urine Bilirubin NEGATIVE (NEGATIVE) Urine Urobilinogen 0.2 (<2.0) EU/dL Ur Leukocyte Esterase NEGATIVE (NEGATIVE) Urine RBC 30-35 (0-2/HPF) Urine WBC 0-1 (0-5/HPF) Ur Epithelial Cells MODERATE (NONE-FEW) Urine Bacteria RARE (NEGATIVE) Urine HCG, Qual NEGATIVE (NEGATIVE) 08/05/19 08/05/19 08/05/19 Range/Units 00:00 06:29 06:29 WBC 15.15 H (4.0-11.0) K/uL RBC 5.21 (4.30-5.90) M/uL Hgb 12.1 (12.0-16.0) g/dL Hct 39.3 (36.0-46.0) % MCV 75.4 L (80.0-98.0) fL MCH 23.2 L (27.0-32.0) pg MCHC 30.8 L (31.0-37.0) g/dL RDW Std Deviation 44.8 (28.0-62.0) fl RDW Coeff of Negrita 16 H (11.0-15.0) % Plt Count 265 (150-400) K/uL MPV 10.40 (7.40-12.00) fL Neut % (Auto) 95.6 H (48.0-80.0) % Lymph % (Auto) 3.8 L (16.0-40.0) % [place] % (Auto) 0.2 (0.0-15.0) % Eos % (Auto) 0.3 (0.0-7.0) % Baso % (Auto) 0.1 (0.0-1.5) % Neut # (Auto) 14.5 H (1.4-5.7) K/uL Lymph # (Auto) 0.6 (0.6-2.4) K/uL [place] # (Auto) 0.0 (0.0-0.8) K/uL Eos # (Auto) 0.0 (0.0-0.7) K/uL Baso # (Auto) 0.0 (0.0-0.1) K/uL Nucleated RBC % 0.0 /100WBC Nucleated RBCs # 0 K/uL Sodium 143 142 (136-145) mmol/L Potassium 3.6 4.4 (3.5-5.1) mmol/L Chloride 107 108 H (98-107) mmol/L Carbon Dioxide 26.5 23.1 (21.0-32.0) mmol/L BUN 11 12 (7.0-18.0) mg/dL Creatinine 0.8 0.8 (0.6-1.0) mg/dL Est Cr Clr Drug Dosing 112.21 112.21 mL/min Estimated GFR (MDRD) > 60.0 > 60.0 ml/min Glucose 117 H 153 H (74-106) mg/dL Calcium 8.6 8.9 (8.5-10.1) mg/dL Total Bilirubin 0.7 (0.2-1.0) mg/dL AST 17 (15-37) IU/L ALT 28 (14-63) IU/L Alkaline Phosphatase 84 (46-116) U/L Total Protein 7.2 (6.4-8.2) g/dL Albumin 3.7 (3.4-5.0) g/dL Globulin 3.5 (2.6-4.0) g/dL Albumin/Globulin Ratio 1.1 (0.9-1.6) Urine Color Urine Appearance Urine pH (5.0-8.0) Ur Specific [place] (1.001-1.035) Urine Protein (NEGATIVE) mg/dL Urine Glucose (UA) (NEGATIVE) mg/dL Urine Ketones (NEGATIVE) mg/dL Urine Occult Blood (NEGATIVE) Urine Nitrite (NEGATIVE) Urine Bilirubin (NEGATIVE) Urine Urobilinogen (<2.0) EU/dL Ur Leukocyte Esterase (NEGATIVE) Urine RBC (0-2/HPF) Urine WBC (0-5/HPF) Ur Epithelial Cells (NONE-FEW) Urine Bacteria (NEGATIVE) Urine HCG, Qual (NEGATIVE) Result Diagrams: 08/05/19 06:29 08/05/19 06:29 David Results Last 24 hrs: Microbiology 08/05/19 00:32 Influenza Type A Antigen Screen - Final Nasopharyngeal Swab NEGATIVE INFLUENZA A VIRUS AG REFERENCE RANGE: NEGATIVE Influenza Type B Antigen Screen - Final NEGATIVE INFLUENZA B VIRUS AG REFERENCE RANGE: NEGATIVE Sepsis Event Note - Evaluation Sepsis Screening Result: No Definite Risk - Focused Exam Vital Signs: Vital Signs Temp Pulse Resp BP Pulse Ox Pulse Ox 08/05/19 07:49 93 L 08/05/19 07:13 97.8 F 84 16 133/57 L 92 L 08/05/19 04:08 96.8 F 92 22 H 118/69 94 L 08/05/19 03:32 97.2 F 94 20 106/72 95 08/05/19 01:13 97.6 F 96 20 103/62 96 08/05/19 00:29 101 H 21 H 97 08/04/19 23:40 97 F 133 H 22 H 130/85 88 L Date Exam was Performed: 08/05/19 Time Exam was Performed: 11:53 - Problem List (1) Asthma exacerbation SNOMED Code(s): 083427872 ICD Code: J45.901 - UNSPECIFIED ASTHMA WITH (ACUTE) EXACERBATION Status: Acute Current Visit: Yes Qualifiers: Asthma severity: mild Asthma persistence: persistent Qualified Code(s): J45.31 - Mild persistent asthma with (acute) exacerbation (2) Obesity (BMI 35.0-39.9 without comorbidity) SNOMED Code(s): 556280285, 292871415 ICD Code: E66.9 - OBESITY, UNSPECIFIED Status: Chronic Current Visit: No Problem List Initiated/Reviewed/Updated: Yes Orders Last 24hrs: Active Orders 24 hr Category Date Time Status Patient Status [ADT] Stat ADT 08/05/19 01:11 Active Antiembolic Devices [RC] PER UNIT ROUTINE Care 08/05/19 03:53 Active Cardiac Monitoring [RC] . DIRECTED Care 08/04/19 23:54 Active Oxygen Therapy [RC] PRN Care 08/05/19 03:43 Active RT Aerosol Therapy [RC] ASDIRECTED Care 08/05/19 03:41 Active RT Aerosol Therapy [RC] ASDIRECTED Care 08/05/19 11:22 Active Up ad Kinsey [RC] ASDIRECTED Care 08/05/19 03:43 Active VTE/DVT Education [RC] PER UNIT ROUTINE Care 08/05/19 03:43 Active Vital Signs [RC] Q4H Care 08/05/19 03:43 Active Regular Diet [DIET] Diet 08/05/19 Breakfast Active Albuterol/Ipratropium [DuoNeb 3.0-0.5 MG/3 ML] Med 08/05/19 14:00 Active 3 ml NEB Q4HRRT Sodium Chloride 0.9% [Saline Flush] Med 08/04/19 23:55 Active 10 ml FLUSH ASDIRECTED PRN Sodium Chloride 0.9% [Saline Flush] Med 08/04/19 23:55 Active 2.5 ml FLUSH ASDIRECTED PRN methylPREDNISolone Sod Succ [Solu-MEDROL] Med 08/05/19 08:00 Active 125 mg IVPUSH Q8H Saline Lock Insert [OM.PC] Stat Oth 08/04/19 23:54 Ordered Sequential Compression Device [OM.PC] Per Unit Routine Oth 08/05/19 03:44 Ordered Resuscitation Status Routine Resus Stat 08/05/19 03:43 Ordered Medication Orders Albuterol/Ipratropium (Duoneb 3.0-0.5 Mg/3 Ml) 3 ml NEB Q4HRRT ANNMARIE Methylprednisolone Sodium Succinate (Solu-Medrol) 125 mg IVPUSH Q8H ANNMARIE Last Admin: 08/05/19 08:45 Dose: 125 mg Sodium Chloride (Saline Flush) 10 ml FLUSH ASDIRECTED PRN PRN Reason: Keep Vein Open Sodium Chloride (Saline Flush) 2.5 ml FLUSH ASDIRECTED PRN PRN Reason: Keep Vein Open Assessment/Plan Comment:: This 19 year old female admitted with asthma exacerbation 1. Acute asthma exacerbation: Continue Nebulizers, increase to every 4 hours scheduled. Continue Solumedrol today. RT for asthma education. Add Singulair and Claritin daily. Discussed importance ot maintenance inhaler, will recommend Katie[facility] to go home as this has coupon to obtain free for 1 year. This will help during her time of no insurance currently and inability to afford medications. ALso discussed pets in the home as this may be contributing to her poor asthma control. Continue Levaquin for now. Monitor in am. attempt to wean off oxygen as able. VTE prophylaxis: SCDs and ambulation. Dispo: 1-2 days - Mortality Measure Prognosis:: Good
[2019-08-05] MEDS: Loratadine 10 MG Tab PO SCH (12:10)
[2019-08-05] MEDS: Albuterol/Ipratropium 3.0-0.5 MG/3 ML Neb Soln NEB SCH ×3 (13:19→21:22)
[2019-08-05] MEDS ORDERED: Montelukast 10 MG Tab PO SCH (21:00)
[2019-08-06] MEDS ORDERED: Levofloxacin/Dextrose 5%-Water 750 MG in Premix Bag 1 BAG IV SCH (00:30)
[2019-08-06] MEDS: Albuterol/Ipratropium 3.0-0.5 MG/3 ML Neb Soln NEB SCH ×3 (02:25→09:35)
[2019-08-06 06:32] LABS: BLOOD UREA NITROGEN,BUN 12 mg/dL (7.0-18.0); CARBON DIOXIDE,CO2 24.6 mmol/L (21.0-32.0); CHLORIDE,CL 107 mmol/L (98-107); GLUCOSE RANDOM 168 mg/dL (74-106); POTASSIUM,K 4.7 mmol/L (3.5-5.1); SODIUM,NA 141 mmol/L (136-145)
[2019-08-06] MEDS: Loratadine 10 MG Tab PO SCH (08:13)
[2019-08-06] MEDS: methylPREDNISolone Sodium Succinate 125 MG/2 ML SDV IVPUSH SCH (08:46)
--- NOTE | 2019-08-06 08:55 | PCM.PN ---
- General Info Date of Service: 08/06/19 Subjective Update: Patient reports she is feeling better, denies trouble breathing but still requiring 2L of oxygen. Afebrile. Eating and drinking without issue. - Review of Systems General: Reports: No Symptoms HEENT: Reports: No Symptoms Pulmonary: Reports: No Symptoms Cardiovascular: Reports: No Symptoms Gastrointestinal: Reports: No Symptoms Genitourinary: Reports: No Symptoms Musculoskeletal: Reports: No Symptoms Skin: Reports: No Symptoms Neurological: Reports: No Symptoms Psychiatric: Reports: No Symptoms - Patient Data Vitals - Most Recent: Last Vital Signs Temp 98 F 08/06/19 07:16 Pulse 76 08/06/19 07:16 Resp 18 08/06/19 07:16 BP 120/60 08/06/19 07:16 Pulse Ox 91 L 08/06/19 07:16 Weight - Most Recent: 138.754 kg I&O - Last 24 Hours: Intake & Output 08/05/19 08/06/19 08/06/19 22:59 06:59 14:59 Intake Total 800 950 Output Total 900 650 Balance -100 300 Lab Results Last 24 Hours: Laboratory Results - last 24 hr 08/06/19 08/06/19 Range/Units 05:56 05:56 WBC 26.64 H (4.0-11.0) K/uL RBC 5.04 (4.30-5.90) M/uL Hgb 11.8 L (12.0-16.0) g/dL Hct 37.9 (36.0-46.0) % MCV 75.2 L (80.0-98.0) fL MCH 23.4 L (27.0-32.0) pg MCHC 31.1 (31.0-37.0) g/dL RDW Std Deviation 45.6 (28.0-62.0) fl RDW Coeff of Negrita 17 H (11.0-15.0) % Plt Count 280 (150-400) K/uL MPV 10.80 (7.40-12.00) fL Neut % (Auto) 95.1 H (48.0-80.0) % Lymph % (Auto) 3.3 L (16.0-40.0) % [place] % (Auto) 1.6 (0.0-15.0) % Eos % (Auto) 0.0 (0.0-7.0) % Baso % (Auto) 0.0 (0.0-1.5) % Neut # (Auto) 25.3 H (1.4-5.7) K/uL Lymph # (Auto) 0.9 (0.6-2.4) K/uL [place] # (Auto) 0.4 (0.0-0.8) K/uL Eos # (Auto) 0.0 (0.0-0.7) K/uL Baso # (Auto) 0.0 (0.0-0.1) K/uL Nucleated RBC % 0.0 /100WBC Nucleated RBCs # 0 K/uL Sodium 141 (136-145) mmol/L Potassium 4.7 (3.5-5.1) mmol/L Chloride 107 (98-107) mmol/L Carbon Dioxide 24.6 (21.0-32.0) mmol/L BUN 12 (7.0-18.0) mg/dL Creatinine 0.8 (0.6-1.0) mg/dL Est Cr Clr Drug Dosing 112.21 mL/min Estimated GFR (MDRD) > 60.0 ml/min Glucose 168 H (74-106) mg/dL Calcium 9.1 (8.5-10.1) mg/dL Med Orders - Current: Current Medications Albuterol/Ipratropium (Duoneb 3.0-0.5 Mg/3 Ml) 3 ml NEB Q4HRRT [facility] Last Admin: 08/06/19 05:19 Dose: 3 ml Levofloxacin/Dextrose 750 mg/ (Premix) 150 mls @ 100 mls/hr IV Q24H [facility] Last Admin: 08/06/19 00:00 Dose: 100 mls/hr Loratadine (Claritin) 10 mg PO DAILY [facility] Last Admin: 08/06/19 08:13 Dose: 10 mg Methylprednisolone Sodium Succinate (Solu-Medrol) 125 mg IVPUSH Q8H [facility] Last Admin: 08/06/19 08:46 Dose: 125 mg Montelukast Sodium (Singulair) 10 mg PO BEDTIME [facility] Last Admin: 08/05/19 20:28 Dose: 10 mg Sodium Chloride (Saline Flush) 10 ml FLUSH ASDIRECTED PRN PRN Reason: Keep Vein Open Sodium Chloride (Saline Flush) 2.5 ml FLUSH ASDIRECTED PRN PRN Reason: Keep Vein Open Discontinued Medications Albuterol (Proventil Neb Soln) 2.5 mg NEB Q6HRRT [facility] Last Admin: 08/05/19 11:19 Dose: 2.5 mg Albuterol/Ipratropium (Duoneb 3.0-0.5 Mg/3 Ml) Confirm Administered Dose 3 ml .ROUTE .STK-MED ONE Stop: 08/04/19 23:58 Last Admin: 08/05/19 00:08 Dose: Not Given Albuterol/Ipratropium (Duoneb 3.0-0.5 Mg/3 Ml) 3 ml NEB ONETIME ONE Stop: 08/05/19 00:09 Last Admin: 08/05/19 00:09 Dose: 3 ml Albuterol/Ipratropium (Duoneb 3.0-0.5 Mg/3 Ml) 3 ml NEB ONETIME ONE Stop: 08/05/19 00:27 Last Admin: 08/05/19 00:29 Dose: 3 ml Sodium Chloride (Normal Saline) 1,000 mls @ 999 mls/hr IV STAT ONE Stop: 08/05/19 00:55 Last Admin: 08/05/19 00:06 Dose: 999 mls/hr Sodium Chloride (Normal Saline) 1,000 mls @ 999 mls/hr IV STAT ONE Stop: 08/05/19 00:56 Last Admin: 08/05/19 01:14 Dose: Not Given Sodium Chloride (Normal Saline) 1,000 mls @ 999 mls/hr IV STAT ONE Stop: 08/05/19 02:10 Last Admin: 08/05/19 01:15 Dose: 999 mls/hr Levofloxacin/Dextrose 750 mg/ (Premix) 150 mls @ 100 mls/hr IV ONETIME ONE Stop: 08/05/19 02:42 Last Admin: 08/05/19 01:20 Dose: 100 mls/hr Methylprednisolone Sodium Succinate (Solu-Medrol) 125 mg IVPUSH ONETIME ONE Stop: 08/04/19 23:56 Last Admin: 08/05/19 00:07 Dose: 125 mg - Exam Quality Assessment: Supplemental Oxygen General: Alert, Oriented, Cooperative Lungs: Clear to Auscultation, Normal Respiratory Effort Cardiovascular: Regular Rate, Regular Rhythm GI/Abdominal Exam: Normal Bowel Sounds, Soft, Non-Tender, No Distention Extremities: No Pedal Edema Skin: Warm, Dry, Intact Neurological: No New Focal Deficit Psy/Mental Status: Alert, Normal Affect, Normal Mood Sepsis Event Note - Evaluation Sepsis Screening Result: No Definite Risk - Focused Exam Vital Signs: Vital Signs Temp Pulse Resp BP Pulse Ox 08/06/19 07:16 98 F 76 18 120/60 91 L 08/06/19 03:42 98 F 95 20 129/64 92 L 08/05/19 23:42 97.6 F 91 20 135/63 92 L Date Exam was Performed: 08/06/19 Time Exam was Performed: 08:52 - Problem List Review Problem List Initiated/Reviewed/Updated: Yes - Plan Plan:: This 19 year old female admitted with asthma exacerbation 1. Acute asthma exacerbation: Still requiring 2L of oxygen. Continue duonebs scheduled q4. Continue Solumedrol. RT for asthma education. Continue Singular and Claritin. Will go home with coupon for Breo inhaler. Continue Levaquin for now. attempt to wean off oxygen as able. VTE prophylaxis: SCDs and ambulation. Dispo: 1-2 days
[2019-08-06 11:05] VITALS: BP 135/88; PULSE 110
--- NOTE | 2019-08-06 11:51 | PCM.DCSUM1 ---
<Emelina Harvey - Last Filed: 08/06/19 12:34> Discharge Summary - Hospital Course HPI Initial Comments: Admission Date: 08/05/19 Discharge Date: 08/06/19 Admission Diagnosis: 1. Acute hypoxic respiratory failure secondary to asthma exacerbation Discharge Diagnosis: 1. Acute hypoxic respiratory failure secondary to asthma exacerbation- resolved Procedures: None Consults: None Hospital Course: The patient is a 19 year old female with pmh of uncontrolled asthma requiring multiple admissions and ER visits. Presented to the ER with worsening shortness of breath.In the ED leukocytosis noted, no recently steroids per patient, eosinophils elevated at 12.6%. CXR negative. She was treated with Duonebs, Solumedrol and Levaquin in the ED. Admitted to the medical floor, continued on duonebs, solumedrol, IV Levaquin. Started on Claritin and continued on Montelukast. Respiratory therapy provided education on asthma and provided patient with coupon for free Breo for a year as patient has been unable to avoid medications in the past. She as able to be wean off her oxygen and was satting at her baseline oxygen saturation. SHe was requesting discharge home. Disposition: Home Discharge Condition: vitals stable, tolerating oral diet, ambulating without difficulty, symptom improvement Discharge Instructions: regular diet as tolerated, activity as tolerated, take medications as prescribed. Symptoms to report to physician include fever/chills , chest pain, shortness of breath, abdominal pain, erythema, drainage/discharge , or not improving as expected. Discharge Medications: Montelukast [Singulair] 10 mg PO BEDTIME Albuterol [Proventil Neb Soln] 1 ampule INH Q4HR PRN Fluticasone/Vilanterol [Breo Ellipta 100-25 MCG Inhalation Kit] 1 each IH DAILY Levofloxacin [Levaquin] 500 mg PO DAILY 4 Days Loratadine [Claritin] 10 mg PO DAILY predniSONE [Prednisone] 40 mg PO DAILY 4 Days Follow-up: Dr. Croft 08/15/19 - Discharge Data Discharge Date: 08/06/19 Discharge Disposition: Home, Self-Care 01 Condition: Fair - Referral to Home Health Primary Care Physician: Mg Croft MD - Patient Summary/Data Consults: Consultations 08/05/19 11:56 Consult to Respiratory Therapy [Respiratory Care Assess and Treatment] [CONS] Routine - Patient Instructions Diet: Usual Diet as Tolerated Activity: As Tolerated Showering/Bathing: May Shower Notify Provider of: Fever, Increased Pain, Swelling and Redness, Drainage, Nausea and/or Vomiting Other/Special Instructions: Additional symptoms include chest pain, shortness of breath, or abdominal pain. - Discharge Plan *PRESCRIPTION DRUG MONITORING PROGRAM REVIEWED*: No *COPY OF PRESCRIPTION DRUG MONITORING REPORT IN PATIENT LAZARO: No Prescriptions/Med Rec: Fluticasone/Vilanterol [Breo Ellipta 100-25 MCG Inhalation Kit] 1 each IH DAILY 30 Days #1 aer.pow.ba Levofloxacin [Levaquin] 500 mg PO DAILY 4 Days #4 tablet Loratadine [Claritin] 10 mg PO DAILY 30 Days #30 tablet predniSONE [Prednisone] 40 mg PO DAILY 4 Days #8 tablet Home Medications: Home Meds Montelukast [Singulair] 10 mg PO BEDTIME 06/10/19 [History] Albuterol [Proventil Neb Soln] 1 ampule INH Q4HR PRN 08/04/19 [History] Fluticasone/Vilanterol [Breo Ellipta 100-25 MCG Inhalation Kit] 1 each IH DAILY 30 Days #1 aer.pow.ba 08/06/19 [Rx] Levofloxacin [Levaquin] 500 mg PO DAILY 4 Days #4 tablet 08/06/19 [Rx] Loratadine [Claritin] 10 mg PO DAILY 30 Days #30 tablet 08/06/19 [Rx] predniSONE [Prednisone] 40 mg PO DAILY 4 Days #8 tablet 08/06/19 [Rx] Patient Handouts: Fluticasone; Vilanterol inhalation powder, Asthma, Adult, [id number], Levofloxacin tablets, Prednisone tablets, Loratadine capsules or tablets Referrals: [facility] [Outside] Mg Croft MD [Primary Care Provider] - 08/15/19 9:00 am - Discharge Summary/Plan Comment DC Time >30 min.: No - Patient Data Vitals - Most Recent: Last Vital Signs Temp 97.5 F 08/06/19 10:58 Pulse 110 H 08/06/19 10:58 Resp 18 08/06/19 10:58 BP 135/88 08/06/19 10:58 Pulse Ox 88 L 08/06/19 10:58 Weight - Most Recent: 138.754 kg I&O - Last 24 hours: Intake & Output 08/05/19 08/06/19 08/06/19 22:59 06:59 14:59 Intake Total 800 950 Output Total 900 650 Balance -100 300 Lab Results - Last 24 hrs: Laboratory Results - last 24 hr 08/06/19 08/06/19 Range/Units 05:56 05:56 WBC 26.64 H (4.0-11.0) K/uL RBC 5.04 (4.30-5.90) M/uL Hgb 11.8 L (12.0-16.0) g/dL Hct 37.9 (36.0-46.0) % MCV 75.2 L (80.0-98.0) fL MCH 23.4 L (27.0-32.0) pg MCHC 31.1 (31.0-37.0) g/dL RDW Std Deviation 45.6 (28.0-62.0) fl RDW Coeff of Negrita 17 H (11.0-15.0) % Plt Count 280 (150-400) K/uL MPV 10.80 (7.40-12.00) fL Neut % (Auto) 95.1 H (48.0-80.0) % Lymph % (Auto) 3.3 L (16.0-40.0) % Buchanan % (Auto) 1.6 (0.0-15.0) % Eos % (Auto) 0.0 (0.0-7.0) % Baso % (Auto) 0.0 (0.0-1.5) % Neut # (Auto) 25.3 H (1.4-5.7) K/uL Lymph # (Auto) 0.9 (0.6-2.4) K/uL Buchanan # (Auto) 0.4 (0.0-0.8) K/uL Eos # (Auto) 0.0 (0.0-0.7) K/uL Baso # (Auto) 0.0 (0.0-0.1) K/uL Nucleated RBC % 0.0 /100WBC Nucleated RBCs # 0 K/uL Sodium 141 (136-145) mmol/L Potassium 4.7 (3.5-5.1) mmol/L Chloride 107 (98-107) mmol/L Carbon Dioxide 24.6 (21.0-32.0) mmol/L BUN 12 (7.0-18.0) mg/dL Creatinine 0.8 (0.6-1.0) mg/dL Est Cr Clr Drug Dosing 112.21 mL/min Estimated GFR (MDRD) > 60.0 ml/min Glucose 168 H (74-106) mg/dL Calcium 9.1 (8.5-10.1) mg/dL Med Orders - Current: Current Medications Albuterol/Ipratropium (Duoneb 3.0-0.5 Mg/3 Ml) 3 ml NEB Q4HRRT [facility] Last Admin: 08/06/19 09:35 Dose: 3 ml Levofloxacin/Dextrose 750 mg/ (Premix) 150 mls @ 100 mls/hr IV Q24H [facility] Last Admin: 08/06/19 00:00 Dose: 100 mls/hr Loratadine (Claritin) 10 mg PO DAILY [facility] Last Admin: 08/06/19 08:13 Dose: 10 mg Methylprednisolone Sodium Succinate (Solu-Medrol) 125 mg IVPUSH Q8H [facility] Last Admin: 08/06/19 08:46 Dose: 125 mg Montelukast Sodium (Singulair) 10 mg PO BEDTIME [facility] Last Admin: 08/05/19 20:28 Dose: 10 mg Sodium Chloride (Saline Flush) 10 ml FLUSH ASDIRECTED PRN PRN Reason: Keep Vein Open Sodium Chloride (Saline Flush) 2.5 ml FLUSH ASDIRECTED PRN PRN Reason: Keep Vein Open Discontinued Medications Albuterol (Proventil Neb Soln) 2.5 mg NEB Q6HRRT [facility] Last Admin: 08/05/19 11:19 Dose: 2.5 mg Albuterol/Ipratropium (Duoneb 3.0-0.5 Mg/3 Ml) Confirm Administered Dose 3 ml .ROUTE .STK-MED ONE Stop: 08/04/19 23:58 Last Admin: 08/05/19 00:08 Dose: Not Given Albuterol/Ipratropium (Duoneb 3.0-0.5 Mg/3 Ml) 3 ml NEB ONETIME ONE Stop: 08/05/19 00:09 Last Admin: 08/05/19 00:09 Dose: 3 ml Albuterol/Ipratropium (Duoneb 3.0-0.5 Mg/3 Ml) 3 ml NEB ONETIME ONE Stop: 08/05/19 00:27 Last Admin: 08/05/19 00:29 Dose: 3 ml Sodium Chloride (Normal Saline) 1,000 mls @ 999 mls/hr IV STAT ONE Stop: 08/05/19 00:55 Last Admin: 08/05/19 00:06 Dose: 999 mls/hr Sodium Chloride (Normal Saline) 1,000 mls @ 999 mls/hr IV STAT ONE Stop: 08/05/19 00:56 Last Admin: 08/05/19 01:14 Dose: Not Given Sodium Chloride (Normal Saline) 1,000 mls @ 999 mls/hr IV STAT ONE Stop: 08/05/19 02:10 Last Admin: 08/05/19 01:15 Dose: 999 mls/hr Levofloxacin/Dextrose 750 mg/ (Premix) 150 mls @ 100 mls/hr IV ONETIME ONE Stop: 08/05/19 02:42 Last Admin: 08/05/19 01:20 Dose: 100 mls/hr Methylprednisolone Sodium Succinate (Solu-Medrol) 125 mg IVPUSH ONETIME ONE Stop: 08/04/19 23:56 Last Admin: 08/05/19 00:07 Dose: 125 mg <Tyson Ray - Last Filed: 08/06/19 18:07> Discharge Summary - Referral to Home Health Primary Care Physician: Mg Croft MD - Patient Summary/Data Consults: Consultations 08/05/19 11:56 Consult to Respiratory Therapy [Respiratory Care Assess and Treatment] [CONS] Routine - Patient Data Vitals - Most Recent: Last Vital Signs Temp 36.4 C 08/06/19 10:58 Pulse 110 H 08/06/19 10:58 Resp 18 08/06/19 10:58 BP 135/88 08/06/19 10:58 Pulse Ox 88 L 08/06/19 10:58 I&O - Last 24 hours: Intake & Output 08/06/19 08/06/19 08/06/19 06:59 14:59 22:59 Intake Total 950 Output Total 650 Balance 300 Lab Results - Last 24 hrs: Laboratory Results - last 24 hr 08/06/19 08/06/19 Range/Units 05:56 05:56 WBC 26.64 H (4.0-11.0) K/uL RBC 5.04 (4.30-5.90) M/uL Hgb 11.8 L (12.0-16.0) g/dL Hct 37.9 (36.0-46.0) % MCV 75.2 L (80.0-98.0) fL MCH 23.4 L (27.0-32.0) pg MCHC 31.1 (31.0-37.0) g/dL RDW Std Deviation 45.6 (28.0-62.0) fl RDW Coeff of Negrita 17 H (11.0-15.0) % Plt Count 280 (150-400) K/uL MPV 10.80 (7.40-12.00) fL Neut % (Auto) 95.1 H (48.0-80.0) % Lymph % (Auto) 3.3 L (16.0-40.0) % Buchanan % (Auto) 1.6 (0.0-15.0) % Eos % (Auto) 0.0 (0.0-7.0) % Baso % (Auto) 0.0 (0.0-1.5) % Neut # (Auto) 25.3 H (1.4-5.7) K/uL Lymph # (Auto) 0.9 (0.6-2.4) K/uL Buchanan # (Auto) 0.4 (0.0-0.8) K/uL Eos # (Auto) 0.0 (0.0-0.7) K/uL Baso # (Auto) 0.0 (0.0-0.1) K/uL Nucleated RBC % 0.0 /100WBC Nucleated RBCs # 0 K/uL Sodium 141 (136-145) mmol/L Potassium 4.7 (3.5-5.1) mmol/L Chloride 107 (98-107) mmol/L Carbon Dioxide 24.6 (21.0-32.0) mmol/L BUN 12 (7.0-18.0) mg/dL Creatinine 0.8 (0.6-1.0) mg/dL Est Cr Clr Drug Dosing 112.21 mL/min Estimated GFR (MDRD) > 60.0 ml/min Glucose 168 H (74-106) mg/dL Calcium 9.1 (8.5-10.1) mg/dL Med Orders - Current: Current Medications Discontinued Medications Albuterol (Proventil Neb Soln) 2.5 mg NEB Q6HRRT [facility] Last Admin: 08/05/19 11:19 Dose: 2.5 mg Albuterol/Ipratropium (Duoneb 3.0-0.5 Mg/3 Ml) Confirm Administered Dose 3 ml .ROUTE .STK-MED ONE Stop: 08/04/19 23:58 Last Admin: 08/05/19 00:08 Dose: Not Given Albuterol/Ipratropium (Duoneb 3.0-0.5 Mg/3 Ml) 3 ml NEB ONETIME ONE Stop: 08/05/19 00:09 Last Admin: 08/05/19 00:09 Dose: 3 ml Albuterol/Ipratropium (Duoneb 3.0-0.5 Mg/3 Ml) 3 ml NEB ONETIME ONE Stop: 08/05/19 00:27 Last Admin: 08/05/19 00:29 Dose: 3 ml Albuterol/Ipratropium (Duoneb 3.0-0.5 Mg/3 Ml) 3 ml NEB Q4HRRT [facility] Last Admin: 08/06/19 09:35 Dose: 3 ml Sodium Chloride (Normal Saline) 1,000 mls @ 999 mls/hr IV STAT ONE Stop: 08/05/19 00:55 Last Admin: 08/05/19 00:06 Dose: 999 mls/hr Sodium Chloride (Normal Saline) 1,000 mls @ 999 mls/hr IV STAT ONE Stop: 08/05/19 00:56 Last Admin: 08/05/19 01:14 Dose: Not Given Sodium Chloride (Normal Saline) 1,000 mls @ 999 mls/hr IV STAT ONE Stop: 08/05/19 02:10 Last Admin: 08/05/19 01:15 Dose: 999 mls/hr Levofloxacin/Dextrose 750 mg/ (Premix) 150 mls @ 100 mls/hr IV ONETIME ONE Stop: 08/05/19 02:42 Last Admin: 08/05/19 01:20 Dose: 100 mls/hr Levofloxacin/Dextrose 750 mg/ (Premix) 150 mls @ 100 mls/hr IV Q24H [facility] Last Admin: 08/06/19 00:00 Dose: 100 mls/hr Loratadine (Claritin) 10 mg PO DAILY [facility] Last Admin: 08/06/19 08:13 Dose: 10 mg Methylprednisolone Sodium Succinate (Solu-Medrol) 125 mg IVPUSH ONETIME ONE Stop: 08/04/19 23:56 Last Admin: 08/05/19 00:07 Dose: 125 mg Methylprednisolone Sodium Succinate (Solu-Medrol) 125 mg IVPUSH Q8H [facility] Last Admin: 08/06/19 08:46 Dose: 125 mg Montelukast Sodium (Singulair) 10 mg PO BEDTIME [facility] Last Admin: 08/05/19 20:28 Dose: 10 mg Sodium Chloride (Saline Flush) 10 ml FLUSH ASDIRECTED PRN PRN Reason: Keep Vein Open Sodium Chloride (Saline Flush) 2.5 ml FLUSH ASDIRECTED PRN PRN Reason: Keep Vein Open - Free Text/Narrative Note: I have seen and evaluated the patient with the resident. I have discussed findings and treatment plan with the resident. I agree with the assessment and plan in the following note.
== END 2019-08-06 11:30 | disposition home or self-care (01) ==
LOC: MW.ED 23:37 → MW.MS 08-05 01:11
PROVIDERS: ADMIT Internal Medicine; ATTEND Internal Medicine
DX: J45.31 Mild persistent asthma with (acute) exacerbation (principal); J96.01 Acute respiratory failure with hypoxia; E66.9 Obesity, unspecified; Z91.048 Other nonmedicinal substance allergy status; Z79.899 Other long term (current) drug therapy; Z68.42 Body mass index [BMI] 45.0-49.9, adult
CPT/HCPCS: 36415; 71046; 80048; 80053; 81001; 81025; 85025; 87804; 94640; 96361; 96365; 96366; 96375; 99285; A9270; J1956; J2930; J7030; 96376; G0378; J7620-GY

== ENCOUNTER 2019-08-27 20:53 | Inpatient (IN) | payer MEDICAID, OTHER ==
[2019-08-27] MEDS ORDERED: Albuterol/Ipratropium 3.0-0.5 MG/3 ML Neb Soln ONE (20:55)
[2019-08-27] MEDS ORDERED: Albuterol/Ipratropium 3.0-0.5 MG/3 ML Neb Soln NEB ONE ×3 (20:56→21:57)
[2019-08-27] MEDS ORDERED: methylPREDNISolone Sodium Succinate 2 GM Vial IV ONE (20:57)
[2019-08-27] MEDS ORDERED: methylPREDNISolone Sod Succ 2 GM in Sodium Chloride 0.9% 100 ML IV ONE (21:00)
[2019-08-27] MEDS ORDERED: methylPREDNISolone Sodium Succinate 125 MG/2 ML SDV IVPUSH STA (21:03)
[2019-08-27] MEDS ORDERED: methylPREDNISolone Sodium Succinate 125 MG/2 ML SDV IVPUSH ONE (21:15)
--- NOTE | 2019-08-27 21:38 | EDM.PDOC ---
ED HPI GENERAL MEDICAL PROBLEM - General Chief Complaint: Respiratory Problem Stated Complaint: ASTHMA ATTACK Time Seen by Provider: 08/27/19 21:00 Source of Information: Reports: Patient History Limitations: Reports: No Limitations - History of Present Illness INITIAL COMMENTS - FREE TEXT/NARRATIVE: Patient 18-year-old female with past medical history of asthma presenting with chief complaint of shortness of breath and asthma exacerbation. Patient states the symptoms been ongoing for the past 1 month however they worsen over the last 2 days. Patient reports using her inhaler numerous times a day without much relief. Patient denies any fevers, chills, cough. Symptoms are similar to prior asthma exacerbation. Patient reports prior admission for asthma exacerbation but never has had intubation. Pmhx: Per HPI Pshx: None Family Hx: noncontributory Smoking history? no Etoh use? none Drug use? none In addition to that documented in the HPI above, the additional ROS was obtained : Constitutional: Denies fevers or chills Eyes: Denies vision changes ENMT: Denies sore throat CV: Denies chest pain Resp: Per HPI GI: Denies vomiting or diarrhea : Denies painful urination MSK: Denies recent trauma Skin: Denies new rashes Neuro: Denies new numbness or tingling or weakness Endocrine: Denies unexpected weight loss Heme: Denies bleeding disorders I have reviewed the triage vital signs Const: Well nourished, well developed, appears stated age Eyes: PERRL, no conjunctival injection HENT: NCAT, Neck supple without meningismus CV: RRR, Warm, well-perfused extremities RESP: Diffuse bilateral wheezes mild respiratory distress GI: soft, non-tender, non-distended, no masses MSK: No gross deformities appreciated Skin: Warm, dry. 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 Sensation and motor function of extremities grossly intact. Psych: Appropriate mood and affect Assessment and plan: Patient 18-year-old female presenting with asthma exacerbation. Patient received several rounds of duo nebs including Solu-Medrol without much improvement in her status. Patient is still hypoxic when removed from supplemental oxygen however her respiratory rate has improved and is less dyspneic at this time. Patient does not require BiPAP or intubation. Patient is maintaining a more normal mental status. Given patient's only mild response and duration of symptoms she will require observation in the hospital. Basic labs will be checked including chest x-ray however I doubt these will alter the course of patient's management as I believe all the symptoms are related to asthma exacerbation. Patient will additionally be given 2 g magnesium to help with her symptoms. This case was discussed with Dr. Ray over the phone who agreed to keep the patient for observation. - Related Data Allergies Allergy/AdvReac Type Severity Reaction Status Date / Time animal dander Allergy Sneezing Verified 08/05/19 04:34 Home Meds: Home Meds Montelukast [Singulair] 10 mg PO BEDTIME 06/10/19 [History] Albuterol [Proventil Neb Soln] 1 ampule INH Q4HR PRN 08/04/19 [History] Fluticasone/Vilanterol [Breo Ellipta 100-25 MCG Inhalation Kit] 1 each IH DAILY 30 Days #1 aer.pow.ba 08/06/19 [Rx] Levofloxacin [Levaquin] 500 mg PO DAILY 4 Days #4 tablet 08/06/19 [Rx] Loratadine [Claritin] 10 mg PO DAILY 30 Days #30 tablet 08/06/19 [Rx] predniSONE [Prednisone] 40 mg PO DAILY 4 Days #8 tablet 08/06/19 [Rx] Past Medical History HEENT History: Reports: Impaired Vision Cardiovascular History: Reports: Other (See Below) Other Cardiovascular History: states "had heart problems at " details unknown by patient Respiratory History: Reports: Asthma Gastrointestinal History: Reports: None Genitourinary History: Reports: UTI, Recurrent NIGHT TIME NANNY History: Reports: , Spontaneous Musculoskeletal History: Reports: None Neurological History: Reports: Head Trauma Psychiatric History: Reports: Anxiety, Bipolar, Depression Endocrine/Metabolic History: Reports: Obesity/BMI 30+ Hematologic History: Reports: None Immunologic History: Reports: None Oncologic (Cancer) History: Reports: None Dermatologic History: Reports: None - Infectious Disease History Infectious Disease History: Reports: Chicken Pox - Past Surgical History Head Surgeries/Procedures: Reports: None HEENT Surgical History: Reports: Adenoidectomy, Myringotomy w Tube(s), Tonsillectomy Cardiovascular Surgical History: Reports: None Respiratory Surgical History: Reports: None GI Surgical History: Reports: None Female Surgical History: Reports: Section Endocrine Surgical History: Reports: None Neurological Surgical History: Reports: None Musculoskeletal Surgical History: Reports: None Oncologic Surgical History: Reports: None Dermatological Surgical History: Reports: None Social & Family History - Family History Family Medical History: Noncontributory HEENT: Reports: Impaired Vision Cardiac: Reports: Hypertension, [place] Respiratory: Reports: Asthma, Sleep Apnea : Reports: Other (See Below) Other Family History: Mother of patient in current kidney failure. OBGYN: Reports: Musculoskeletal: Reports: Arthritis, Gout, Osteoarthritis Psychiatric: Reports: ADHD, Anxiety, Depression Endocrine/Metabolic: Reports: Obesity/MBI 30+ Oncologic: Reports: Breast, Cervix, Lung - Tobacco Use Smoking Status *Q: Never Smoker - Caffeine Use Caffeine Use: Reports: Coffee, Soda - Recreational Drug Use Recreational Drug Use: No ED ROS GENERAL - Review of Systems Review Of Systems: See Below ED EXAM, GENERAL - Physical Exam Exam: See Below Course - Vital Signs Last Recorded V/S: Last Vital Signs Temp 36.6 C 08/27/19 21:02 Pulse 115 H 08/27/19 22:59 Resp 24 H 08/27/19 22:59 BP 117/81 08/27/19 22:59 Pulse Ox 88 L 08/27/19 22:59 - Orders/Labs/Meds Orders: Active Orders 24 hr Category Date Time Status Admission Status [Patient Status] [ADT] Stat ADT 08/27/19 23:38 Active RT Aerosol Therapy [RC] ASDIRECTED Care 08/27/19 20:56 Active RT Aerosol Therapy [RC] ASDIRECTED Care 08/27/19 21:23 Active RT Aerosol Therapy [RC] ASDIRECTED Care 08/27/19 21:57 Active Chest 2V [CR] Stat Exams 08/27/19 23:34 Taken BASIC METABOLIC PANEL,BMP [CHEM] Stat Lab 08/27/19 23:34 Ordered CBC WITH AUTO DIFF [HEME] Stat Lab 08/27/19 23:34 Ordered Magnesium Sulfate/Water [Magnesium Sulfate in Water Med 08/27/19 23:45 Active Premix] 2 gm Premix Bag 1 bag IV ONETIME Medication Orders Magnesium Sulfate 2 gm/ Premix 50 mls @ 50 mls/hr IV ONETIME ONE Stop: 08/28/19 00:44 Meds: Medications Generic Name Dose Route Start Last Admin Trade Name Freq PRN Reason Stop Dose Admin Magnesium Sulfate 2 gm/ Premix 50 mls @ 50 mls/hr 08/27/19 23:45 IV 08/28/19 00:44 ONETIME ONE Discontinued Medications Generic Name Dose Route Start Last Admin Trade Name Jitendra PRN Reason Stop Dose Admin Albuterol/Ipratropium 3 ml 08/27/19 20:56 08/27/19 20:55 Duoneb 3.0-0.5 Mg/3 Ml NEB 08/27/19 20:57 3 ml ONETIME ONE Administration Albuterol/Ipratropium Confirm 08/27/19 20:55 08/27/19 21:02 Duoneb 3.0-0.5 Mg/3 Ml Administered 08/27/19 20:56 Not Given Dose 3 ml .ROUTE .STK-MED ONE Albuterol/Ipratropium 3 ml 08/27/19 21:23 08/27/19 21:24 Duoneb 3.0-0.5 Mg/3 Ml NEB 08/27/19 21:24 3 ml ONETIME ONE Administration Albuterol/Ipratropium 3 ml 08/27/19 21:57 08/27/19 22:16 Duoneb 3.0-0.5 Mg/3 Ml NEB 08/27/19 21:58 3 ml ONETIME ONE Administration Methylprednisolone Sodium Succinate 125 mg 08/27/19 21:15 08/27/19 21:24 Solu-Medrol IVPUSH 08/27/19 21:16 125 mg ONETIME ONE Administration Methylprednisolone Sodium Succinate 125 mg 08/27/19 21:03 08/27/19 21:26 Solu-Medrol IVPUSH 08/27/19 21:04 Not Given DAILY STA Departure - Departure Time of Disposition: 23:51 Disposition: Refer to Observation Clinical Impression: Asthma with status asthmaticus - Discharge Information Forms: ED Department Discharge Sepsis Event Note - Evaluation Sepsis Screening Result: No Definite Risk - Focused Exam Vital Signs: Vital Signs Temp Pulse Resp BP Pulse Ox 08/27/19 22:59 115 H 24 H 117/81 88 L 08/27/19 22:00 122 H 25 H 95 08/27/19 21:02 36.6 C 129 H 26 H 121/76 88 L Date Exam was Performed: 08/27/19 Time Exam was Performed: 23:49 - My Orders Last 24 Hours: My Active Orders 08/27/19 20:56 RT Aerosol Therapy [RC] ASDIRECTED 08/27/19 21:23 RT Aerosol Therapy [RC] ASDIRECTED 08/27/19 21:57 RT Aerosol Therapy [RC] ASDIRECTED 08/27/19 23:34 Chest 2V [CR] Stat BASIC METABOLIC PANEL,BMP [CHEM] Stat CBC WITH AUTO DIFF [HEME] Stat 08/27/19 23:38 Admission Status [Patient Status] [ADT] Stat 08/27/19 23:45 Magnesium Sulfate/Water [Magnesium Sulfate in Water Premix] 2 gm Premix Bag 1 bag IV ONETIME - Assessment/Plan Last 24 Hours: My Active Orders 08/27/19 20:56 RT Aerosol Therapy [RC] ASDIRECTED 08/27/19 21:23 RT Aerosol Therapy [RC] ASDIRECTED 08/27/19 21:57 RT Aerosol Therapy [RC] ASDIRECTED 08/27/19 23:34 Chest 2V [CR] Stat BASIC METABOLIC PANEL,BMP [CHEM] Stat CBC WITH AUTO DIFF [HEME] Stat 08/27/19 23:38 Admission Status [Patient Status] [ADT] Stat 08/27/19 23:45 Magnesium Sulfate/Water [Magnesium Sulfate in Water Premix] 2 gm Premix Bag 1 bag IV ONETIME
[2019-08-27] MEDS ORDERED: Magnesium Sulfate (4.06 MEQ/ML) 5 GM/10 ML SDV IV ONE (23:33)
[2019-08-27] MEDS ORDERED: Magnesium Sulfate/Water 2 GM in Premix Bag 1 BAG IV ONE (23:45)
--- NOTE | 2019-08-27 23:54 | CR ---
INDICATION: Asthma exacerbation COMPARISON: None TECHNIQUE: Frontal and lateral views of the chest FINDINGS: The lungs are clear. There is no pleural effusion or pneumothorax. The cardiomediastinal silhouette is normal. The osseous structures are unremarkable. IMPRESSION: No acute intrathoracic process. Dictated by Edison Cohen MD @ Aug 27 2019 11:52PM Signed by Dr. Edison Cohen @ Aug 27 2019 11:52PM
[2019-08-28] MEDS ORDERED: Albuterol/Ipratropium 3.0-0.5 MG/3 ML Neb Soln NEB ONE (00:09)
[2019-08-28 00:12] LABS: BLOOD UREA NITROGEN,BUN 13 mg/dL (7.0-18.0); CARBON DIOXIDE,CO2 23.4 mmol/L (21.0-32.0); CHLORIDE,CL 106 mmol/L (98-107); GLUCOSE RANDOM 128 mg/dL (74-106); POTASSIUM,K 4.2 mmol/L (3.5-5.1); SODIUM,NA 142 mmol/L (136-145)
[2019-08-28] MEDS: methylPREDNISolone Sodium Succinate 125 MG/2 ML SDV IVPUSH SCH ×3 (04:23→21:36)
[2019-08-28] MEDS: Albuterol 0.083% 2.5 MG/3 ML Neb Soln NEB SCH ×2 (06:07→14:47)
[2019-08-28 07:04] LABS: BLOOD UREA NITROGEN,BUN 13 mg/dL (7.0-18.0); CARBON DIOXIDE,CO2 23.1 mmol/L (21.0-32.0); CHLORIDE,CL 105 mmol/L (98-107); GLUCOSE RANDOM 255 mg/dL (74-106); POTASSIUM,K 4.1 mmol/L (3.5-5.1); SODIUM,NA 140 mmol/L (136-145)
--- NOTE | 2019-08-28 08:01 | PCM.HP.2 ---
H&P History of Present Illness - General Date of Service: 08/28/19 Admit Problem/Dx: Admission Diagnosis/Problem Admission Diagnosis/Problem Asthma attack Source of Information: Patient History Limitations: Reports: No Limitations - History of Present Illness Initial Comments - Free Text/Narative: This 19 year old female with poorly controlled asthma presented to the ED with complaints of asthma attack. She states she has been short of breath since a few days after leaving the hospital early August for same admit. She reports she was unable to get LABA/ICS inhaler due to no insurance and coupon was only taking a few dollars off. She reports over the weekend she had severe asthma attack, where she became incontinent of bowel and bladder, she remained alert no seizure activity. Once nebulizer was started she improved, but did not seek medical treatment. She denies fevers or chills, No chest pain. No productive cough, but tight cough. No abdominal pain or dysuria. In the ED leukocytosis noted at 20,000. BMP WNL. She was treated with Duonebs, Solumedrol and oxygen in the ED, she was noted to be hypoxic on arrival. She will be admitted for hypoxic respiratory failure and acute asthma exacerbation - Related Data Allergies/Adverse Reactions: Allergies Allergy/AdvReac Type Severity Reaction Status Date / Time animal dander Allergy Sneezing Verified 08/28/19 04:46 Home Medications: Home Meds Montelukast [Singulair] 10 mg PO BEDTIME 06/10/19 [History] Albuterol [Proventil Neb Soln] 1 ampule INH Q4HR PRN 08/04/19 [History] Loratadine [Claritin] 10 mg PO DAILY 30 Days #30 tablet 08/06/19 [Rx] Past Medical History HEENT History: Reports: Impaired Vision Cardiovascular History: Reports: Other (See Below) Other Cardiovascular History: states "had heart problems at " details unknown by patient Respiratory History: Reports: Asthma Gastrointestinal History: Reports: None Genitourinary History: Reports: UTI, Recurrent BARN HAND History: Reports: , Spontaneous Musculoskeletal History: Reports: None Neurological History: Reports: Head Trauma Psychiatric History: Reports: Anxiety, Bipolar, Depression Endocrine/Metabolic History: Reports: Obesity/BMI 30+ Hematologic History: Reports: None Immunologic History: Reports: None Oncologic (Cancer) History: Reports: None Dermatologic History: Reports: None - Infectious Disease History Infectious Disease History: Reports: Chicken Pox - Past Surgical History Head Surgeries/Procedures: Reports: None HEENT Surgical History: Reports: Adenoidectomy, Myringotomy w Tube(s), Tonsillectomy Cardiovascular Surgical History: Reports: None Respiratory Surgical History: Reports: None GI Surgical History: Reports: None Female Surgical History: Reports: Section Endocrine Surgical History: Reports: None Neurological Surgical History: Reports: None Musculoskeletal Surgical History: Reports: None Oncologic Surgical History: Reports: None Dermatological Surgical History: Reports: None Social & Family History - Family History Family Medical History: Noncontributory HEENT: Reports: Impaired Vision Cardiac: Reports: Hypertension, [place] Respiratory: Reports: Asthma, Sleep Apnea : Reports: Other (See Below) Other Family History: Mother of patient in current kidney failure. OBGYN: Reports: Musculoskeletal: Reports: Arthritis, Gout, Osteoarthritis Psychiatric: Reports: ADHD, Anxiety, Depression Endocrine/Metabolic: Reports: Obesity/MBI 30+ Oncologic: Reports: Breast, Cervix, Lung - Tobacco Use Smoking Status *Q: Never Smoker - Caffeine Use Caffeine Use: Reports: Coffee, Energy Drinks, Soda - Recreational Drug Use Recreational Drug Use: No H&P Review of Systems - Review of Systems: Review Of Systems: See Below General: Reports: No Symptoms, Malaise, Fatigue. Denies: Fever, Chills HEENT: Reports: No Symptoms. Denies: Headaches, Sinus Congestion Pulmonary: Reports: Shortness of Breath, Wheezing, Cough. Denies: Sputum, Hemoptysis Cardiovascular: Reports: No Symptoms. Denies: Chest Pain, Palpitations Gastrointestinal: Reports: No Symptoms. Denies: Abdominal Pain, Black Stool, Bloody Stool, Nausea, Vomiting Genitourinary: Reports: No Symptoms. Denies: Dysuria, Frequency, Burning Neurological: Reports: No Symptoms Hematologic/Lymphatic: Reports: No Symptoms Immunologic: Reports: No Symptoms Exam - Exam Exam: See Below - Vital Signs Vital Signs: Last Vital Signs Temp 98.1 F 08/28/19 07:57 Pulse 100 08/28/19 07:57 Resp 24 H 08/28/19 07:57 BP 129/67 08/28/19 07:57 Pulse Ox 92 L 08/28/19 07:57 Weight: 135.7 kg - Exam General: Alert, Oriented, Cooperative Neck: Supple, Trachea Midline Lungs: Decreased Breath Sounds, Wheezing. No: Normal Respiratory Effort ( dyspnea noted) Cardiovascular: Regular Rate, Regular Rhythm GI/Abdominal Exam: Normal Bowel Sounds, Non-Tender Extremities: Normal Inspection, Normal Range of Motion, Non-Tender, No Pedal Edema Psychiatric: Alert, Normal Affect, Normal Mood - Patient Data Lab Results Last 24 hrs: Laboratory Results - last 24 hr 08/27/19 08/27/19 08/28/19 Range/Units 23:48 23:48 06:22 WBC 20.32 H 14.11 H (4.0-11.0) K/uL RBC 5.51 5.31 (4.30-5.90) M/uL Hgb 12.8 12.3 (12.0-16.0) g/dL Hct 41.5 40.1 (36.0-46.0) % MCV 75.3 L 75.5 L (80.0-98.0) fL MCH 23.2 L 23.2 L (27.0-32.0) pg MCHC 30.8 L 30.7 L (31.0-37.0) g/dL RDW Std Deviation 46.7 46.6 (28.0-62.0) fl RDW Coeff of Negrita 17 H 17 H (11.0-15.0) % Plt Count 320 330 (150-400) K/uL MPV 10.20 10.60 (7.40-12.00) fL Neut % (Auto) 90.0 H 96.1 H (48.0-80.0) % Lymph % (Auto) 4.2 L 3.3 L (16.0-40.0) % [place] % (Auto) 1.2 0.4 (0.0-15.0) % Eos % (Auto) 4.5 0.1 (0.0-7.0) % Baso % (Auto) 0.1 0.1 (0.0-1.5) % Neut # (Auto) 18.3 H 13.6 H (1.4-5.7) K/uL Lymph # (Auto) 0.9 0.5 L (0.6-2.4) K/uL [place] # (Auto) 0.2 0.1 (0.0-0.8) K/uL Eos # (Auto) 0.9 H 0.0 (0.0-0.7) K/uL Baso # (Auto) 0.0 0.0 (0.0-0.1) K/uL Nucleated RBC % 0.0 0.0 /100WBC Nucleated RBCs # 0 0 K/uL Sodium 142 (136-145) mmol/L Potassium 4.2 (3.5-5.1) mmol/L Chloride 106 (98-107) mmol/L Carbon Dioxide 23.4 (21.0-32.0) mmol/L BUN 13 (7.0-18.0) mg/dL Creatinine 0.8 (0.6-1.0) mg/dL Est Cr Clr Drug Dosing TNP Estimated GFR (MDRD) > 60.0 ml/min Glucose 128 H (74-106) mg/dL Calcium 9.4 (8.5-10.1) mg/dL 08/28/19 Range/Units 06:22 WBC (4.0-11.0) K/uL RBC (4.30-5.90) M/uL Hgb (12.0-16.0) g/dL Hct (36.0-46.0) % MCV (80.0-98.0) fL MCH (27.0-32.0) pg MCHC (31.0-37.0) g/dL RDW Std Deviation (28.0-62.0) fl RDW Coeff of Negrita (11.0-15.0) % Plt Count (150-400) K/uL MPV (7.40-12.00) fL Neut % (Auto) (48.0-80.0) % Lymph % (Auto) (16.0-40.0) % [place] % (Auto) (0.0-15.0) % Eos % (Auto) (0.0-7.0) % Baso % (Auto) (0.0-1.5) % Neut # (Auto) (1.4-5.7) K/uL Lymph # (Auto) (0.6-2.4) K/uL [place] # (Auto) (0.0-0.8) K/uL Eos # (Auto) (0.0-0.7) K/uL Baso # (Auto) (0.0-0.1) K/uL Nucleated RBC % /100WBC Nucleated RBCs # K/uL Sodium 140 (136-145) mmol/L Potassium 4.1 (3.5-5.1) mmol/L Chloride 105 (98-107) mmol/L Carbon Dioxide 23.1 (21.0-32.0) mmol/L BUN 13 (7.0-18.0) mg/dL Creatinine 1.0 (0.6-1.0) mg/dL Est Cr Clr Drug Dosing 89.77 Estimated GFR (MDRD) > 60.0 ml/min Glucose 255 H (74-106) mg/dL Calcium 9.4 (8.5-10.1) mg/dL Result Diagrams: 08/28/19 06:22 08/28/19 06:22 Sepsis Event Note - Evaluation Sepsis Screening Result: No Definite Risk - Focused Exam Vital Signs: Vital Signs Temp Pulse Resp BP Pulse Ox Pulse Ox 08/28/19 07:57 98.1 F 100 24 H 129/67 92 L 08/28/19 04:29 97.5 F 118 H 24 H 130/70 93 L 08/28/19 01:00 97.2 F 116 H 22 H 118/74 90 L 90 L 08/27/19 23:54 97.6 F 112 H 24 H 115/83 93 L 08/27/19 22:59 115 H 24 H 117/81 88 L 08/27/19 22:00 122 H 25 H 95 08/27/19 21:02 98 F 129 H 26 H 121/76 88 L Date Exam was Performed: 08/28/19 Time Exam was Performed: 11:30 - Problem List (1) Asthma with status asthmaticus SNOMED Code(s): 286850656 ICD Code: J45.902 - UNSPECIFIED ASTHMA WITH STATUS ASTHMATICUS Status: Acute Current Visit: Yes Qualifiers: Asthma severity: severe Asthma persistence: persistent Qualified Code(s) : J45.52 - Severe persistent asthma with status asthmaticus (2) Acute respiratory failure with hypoxia SNOMED Code(s): 05465049, 395997782 ICD Code: J96.01 - ACUTE RESPIRATORY FAILURE WITH HYPOXIA Status: Acute Current Visit: No Problem List Initiated/Reviewed/Updated: Yes Orders Last 24hrs: Active Orders 24 hr Category Date Time Status Admission Status [Patient Status] [ADT] Stat ADT 08/27/19 23:38 Active Antiembolic Devices [RC] PER UNIT ROUTINE Care 08/28/19 01:11 Active Oxygen Therapy [RC] PRN Care 08/28/19 01:10 Active RT Aerosol Therapy [RC] ASDIRECTED Care 08/27/19 20:56 Active RT Aerosol Therapy [RC] ASDIRECTED Care 08/27/19 21:23 Active RT Aerosol Therapy [RC] ASDIRECTED Care 08/27/19 21:57 Active RT Aerosol Therapy [RC] ASDIRECTED Care 08/28/19 00:09 Active RT Aerosol Therapy [RC] ASDIRECTED Care 08/28/19 01:11 Active RT Aerosol Therapy [RC] ASDIRECTED Care 08/28/19 07:59 Ordered RT Post Treatment Assessment [RC] Click to Edit Care 08/28/19 08:00 Ordered RT Pre-Treatment Assessment [RC] Click to Edit Care 08/28/19 08:00 Ordered VTE/DVT Education [RC] PER UNIT ROUTINE Care 08/28/19 01:10 Active Vital Signs [RC] Q4H Care 08/28/19 01:10 Active Regular Diet [DIET] Diet 08/28/19 Breakfast Active Albuterol [Proventil Neb Soln] Med 08/28/19 06:00 Active 2.5 mg NEB Q6HRRT Albuterol/Ipratropium [DuoNeb 3.0-0.5 MG/3 ML] Med 08/28/19 10:00 Ordered 3 ml NEB Q4HRRT Fluticasone/Salmeterol [Advair Diskus 250-50] Med 08/28/19 09:00 Ordered 1 puff INH BID Loratadine [Claritin] Med 08/28/19 09:00 Ordered 10 mg PO DAILY Montelukast [Singulair] Med 08/28/19 21:00 Ordered 10 mg PO BEDTIME methylPREDNISolone Sod Succ [Solu-MEDROL] Med 08/28/19 05:00 Active 125 mg IVPUSH Q8H Sequential Compression Device [OM.PC] Per Unit Routine Oth 08/28/19 01:10 Ordered Resuscitation Status Routine Resus Stat 08/28/19 01:10 Ordered Medication Orders Albuterol (Proventil Neb Soln) 2.5 mg NEB Q6HRRT [facility] Last Admin: 08/28/19 06:07 Dose: 2.5 mg Albuterol/Ipratropium (Duoneb 3.0-0.5 Mg/3 Ml) 3 ml NEB Q4HRRT [facility] Loratadine (Claritin) 10 mg PO DAILY [facility] Methylprednisolone Sodium Succinate (Solu-Medrol) 125 mg IVPUSH Q8H [facility] Last Admin: 08/28/19 04:23 Dose: 125 mg Montelukast Sodium (Singulair) 10 mg PO BEDTIME [facility] Fluticasone/Salmeterol (Advair Diskus 250-50) 1 puff INH BID [facility] Assessment/Plan Comment:: This 19 year old female admitted with acute hypoxic respiratory failure and acute asthma exacerbation 1. Acute hypoxic respiratory failure and asthma exacerbation - Continue oxygen therapy, wean as possible to RA. Keep sats 90% or higher - Continue Solumedrol 125 mg Q6hr IV - Duonebs Q4hr and pRN - Consult respiratory care - Discussed at length the need to remove triggers from her home, including pets. Mother at bedside reports they are working on this. - Also discussed the need to follow through with medicaid financial help to be able to afford inhalers, as she remains severe asthmatic with recurrent admission due to suboptimal management at home. - No sepsis or infection noted. - Start Advair now. - Continue Loratidine and Singulair Diet: Regular VTE prophylaxis: SCDs Consults: Respiratory CODE Status: Full Disposition: Will make inpatient due to high oxygen requirements and likely greater than 2 midnight stay. - Mortality Measure Prognosis:: Good
[2019-08-28] MEDS: Albuterol/Ipratropium 3.0-0.5 MG/3 ML Neb Soln NEB SCH ×4 (09:11→21:10)
[2019-08-28] MEDS: Fluticasone/Salmeterol 250-50 MCG Inhalation Powder 14/Diskus INH SCH ×2 (09:11→21:10)
[2019-08-28] MEDS: Loratadine 10 MG Tab PO SCH (09:37)
[2019-08-28] MEDS: Insulin Aspart 100 Units/ML 3 ML Pen SUBCUT SCH ×2 (13:42→18:03)
[2019-08-28] MEDS: Montelukast 10 MG Tab PO SCH (21:36)
[2019-08-29] MEDS: Albuterol/Ipratropium 3.0-0.5 MG/3 ML Neb Soln NEB SCH ×6 (02:45→21:41)
[2019-08-29] MEDS: methylPREDNISolone Sodium Succinate 125 MG/2 ML SDV IVPUSH SCH ×2 (05:59→17:16)
[2019-08-29 06:01] LABS: BLOOD UREA NITROGEN,BUN 14 mg/dL (7.0-18.0); CARBON DIOXIDE,CO2 24.1 mmol/L (21.0-32.0); CHLORIDE,CL 107 mmol/L (98-107); GLUCOSE RANDOM 153 mg/dL (74-106); POTASSIUM,K 4.5 mmol/L (3.5-5.1); SODIUM,NA 143 mmol/L (136-145)
--- NOTE | 2019-08-29 08:04 | PCM.PN ---
- General Info Date of Service: 08/29/19 Admission Dx/Problem (Free Text): Admission Diagnosis/Problem Admission Diagnosis/Problem Asthma attack Subjective Update: feeling improved today, continues to have mild cough, but this is definitely better. Wheezing has improved as well. Still needing high amounts of oxygen. Functional Status: Reports: Pain Controlled, Tolerating Diet, Ambulating, Urinating - Review of Systems General: Reports: No Symptoms. Denies: Weakness, Fatigue HEENT: Reports: No Symptoms. Denies: Headaches, Sore Throat Pulmonary: Reports: Shortness of Breath (improving), Cough, Wheezing (much improved.). Denies: Sputum, Hemoptysis Cardiovascular: Reports: No Symptoms. Denies: Chest Pain Gastrointestinal: Reports: No Symptoms. Denies: Abdominal Pain, Nausea, Vomiting Genitourinary: Reports: No Symptoms Musculoskeletal: Reports: No Symptoms Skin: Reports: No Symptoms Neurological: Reports: No Symptoms Psychiatric: Reports: No Symptoms - Patient Data Vitals - Most Recent: Last Vital Signs Temp 98.4 F 08/29/19 06:53 Pulse 75 08/29/19 06:53 Resp 20 08/29/19 06:53 BP 115/55 L 08/29/19 06:53 Pulse Ox 96 08/29/19 06:53 Weight - Most Recent: 135.7 kg I&O - Last 24 Hours: Intake & Output 08/28/19 08/29/19 08/29/19 22:59 06:59 14:59 Intake Total 900 700 Output Total 550 500 Balance 350 200 Lab Results Last 24 Hours: Laboratory Results - last 24 hr 08/28/19 08/28/19 08/28/19 Range/Units 16:28 19:45 21:03 WBC (4.0-11.0) K/uL RBC (4.30-5.90) M/uL Hgb (12.0-16.0) g/dL Hct (36.0-46.0) % MCV (80.0-98.0) fL MCH (27.0-32.0) pg MCHC (31.0-37.0) g/dL RDW Std Deviation (28.0-62.0) fl RDW Coeff of Negrita (11.0-15.0) % Plt Count (150-400) K/uL MPV (7.40-12.00) fL Neut % (Auto) (48.0-80.0) % Lymph % (Auto) (16.0-40.0) % [place] % (Auto) (0.0-15.0) % Eos % (Auto) (0.0-7.0) % Baso % (Auto) (0.0-1.5) % Neut # (Auto) (1.4-5.7) K/uL Lymph # (Auto) (0.6-2.4) K/uL [place] # (Auto) (0.0-0.8) K/uL Eos # (Auto) (0.0-0.7) K/uL Baso # (Auto) (0.0-0.1) K/uL Nucleated RBC % /100WBC Nucleated RBCs # K/uL Sodium (136-145) mmol/L Potassium (3.5-5.1) mmol/L Chloride (98-107) mmol/L Carbon Dioxide (21.0-32.0) mmol/L BUN (7.0-18.0) mg/dL Creatinine (0.6-1.0) mg/dL Est Cr Clr Drug Dosing mL/min Estimated GFR (MDRD) ml/min Glucose (74-106) mg/dL POC Glucose 130 H 350 H (60-110) mg/dL Calcium (8.5-10.1) mg/dL Urine Color YELLOW Urine Appearance SLT CLOUDY Urine pH 6.0 (5.0-8.0) Ur Specific [place] >= 1.030 (1.001-1.035) Urine Protein NEGATIVE (NEGATIVE) mg/dL Urine Glucose (UA) 250 H (NEGATIVE) mg/dL Urine Ketones NEGATIVE (NEGATIVE) mg/dL Urine Occult Blood NEGATIVE (NEGATIVE) Urine Nitrite NEGATIVE (NEGATIVE) Urine Bilirubin NEGATIVE (NEGATIVE) Urine Urobilinogen 1.0 (<2.0) EU/dL Ur Leukocyte Esterase NEGATIVE (NEGATIVE) 08/29/19 08/29/19 08/29/19 Range/Units 05:27 05:27 06:12 WBC 27.28 H (4.0-11.0) K/uL RBC 5.13 (4.30-5.90) M/uL Hgb 11.6 L (12.0-16.0) g/dL Hct 38.7 (36.0-46.0) % MCV 75.4 L (80.0-98.0) fL MCH 22.6 L (27.0-32.0) pg MCHC 30.0 L (31.0-37.0) g/dL RDW Std Deviation 47.2 (28.0-62.0) fl RDW Coeff of Negrita 17 H (11.0-15.0) % Plt Count 342 (150-400) K/uL MPV 10.40 (7.40-12.00) fL Neut % (Auto) 94.4 H (48.0-80.0) % Lymph % (Auto) 3.4 L (16.0-40.0) % [place] % (Auto) 2.2 (0.0-15.0) % Eos % (Auto) 0.0 (0.0-7.0) % Baso % (Auto) 0.0 (0.0-1.5) % Neut # (Auto) 25.7 H (1.4-5.7) K/uL Lymph # (Auto) 0.9 (0.6-2.4) K/uL [place] # (Auto) 0.6 (0.0-0.8) K/uL Eos # (Auto) 0.0 (0.0-0.7) K/uL Baso # (Auto) 0.0 (0.0-0.1) K/uL Nucleated RBC % 0.0 /100WBC Nucleated RBCs # 0 K/uL Sodium 143 (136-145) mmol/L Potassium 4.5 (3.5-5.1) mmol/L Chloride 107 (98-107) mmol/L Carbon Dioxide 24.1 (21.0-32.0) mmol/L BUN 14 (7.0-18.0) mg/dL Creatinine 0.7 (0.6-1.0) mg/dL Est Cr Clr Drug Dosing 128.24 mL/min Estimated GFR (MDRD) > 60.0 ml/min Glucose 153 H (74-106) mg/dL POC Glucose 156 H (60-110) mg/dL Calcium 9.2 (8.5-10.1) mg/dL Urine Color Urine Appearance Urine pH (5.0-8.0) Ur Specific [place] (1.001-1.035) Urine Protein (NEGATIVE) mg/dL Urine Glucose (UA) (NEGATIVE) mg/dL Urine Ketones (NEGATIVE) mg/dL Urine Occult Blood (NEGATIVE) Urine Nitrite (NEGATIVE) Urine Bilirubin (NEGATIVE) Urine Urobilinogen (<2.0) EU/dL Ur Leukocyte Esterase (NEGATIVE) Med Orders - Current: Current Medications Albuterol/Ipratropium (Duoneb 3.0-0.5 Mg/3 Ml) 3 ml NEB Q4HRRT [facility] Last Admin: 08/29/19 06:20 Dose: 3 ml Insulin Aspart (Novolog) 0 unit SUBCUT TIDAC [facility]; Protocol Last Admin: 08/28/19 18:03 Dose: Not Given Loratadine (Claritin) 10 mg PO DAILY [facility] Last Admin: 08/28/19 09:37 Dose: 10 mg Methylprednisolone Sodium Succinate (Solu-Medrol) 125 mg IVPUSH Q8H [facility] Last Admin: 08/29/19 05:59 Dose: 125 mg Montelukast Sodium (Singulair) 10 mg PO BEDTIME [facility] Last Admin: 08/28/19 21:36 Dose: 10 mg Fluticasone/Salmeterol (Advair Diskus 250-50) 1 puff INH BID [facility] Last Admin: 08/28/19 21:10 Dose: 1 inhalation Discontinued Medications Albuterol (Proventil Neb Soln) 2.5 mg NEB Q6HRRT [facility] Last Admin: 08/28/19 14:47 Dose: Not Given Albuterol/Ipratropium (Duoneb 3.0-0.5 Mg/3 Ml) 3 ml NEB ONETIME ONE Stop: 08/27/19 20:57 Last Admin: 08/27/19 20:55 Dose: 3 ml Albuterol/Ipratropium (Duoneb 3.0-0.5 Mg/3 Ml) Confirm Administered Dose 3 ml .ROUTE .STK-MED ONE Stop: 08/27/19 20:56 Last Admin: 08/27/19 21:02 Dose: Not Given Albuterol/Ipratropium (Duoneb 3.0-0.5 Mg/3 Ml) 3 ml NEB ONETIME ONE Stop: 08/27/19 21:24 Last Admin: 08/27/19 21:24 Dose: 3 ml Albuterol/Ipratropium (Duoneb 3.0-0.5 Mg/3 Ml) 3 ml NEB ONETIME ONE Stop: 08/27/19 21:58 Last Admin: 08/27/19 22:16 Dose: 3 ml Albuterol/Ipratropium (Duoneb 3.0-0.5 Mg/3 Ml) 3 ml NEB ONETIME ONE Stop: 08/28/19 00:10 Last Admin: 08/28/19 00:18 Dose: 3 ml Magnesium Sulfate 2 gm/ Premix 50 mls @ 50 mls/hr IV ONETIME ONE Stop: 08/28/19 00:44 Last Admin: 08/27/19 23:55 Dose: 50 mls/hr Methylprednisolone Sodium Succinate (Solu-Medrol) 125 mg IVPUSH ONETIME ONE Stop: 08/27/19 21:16 Last Admin: 08/27/19 21:24 Dose: 125 mg Methylprednisolone Sodium Succinate (Solu-Medrol) 125 mg IVPUSH DAILY [facility] Stop: 08/27/19 21:04 Last Admin: 08/27/19 21:26 Dose: Not Given - Exam Quality Assessment: Supplemental Oxygen, DVT Prophylaxis General: Alert, Oriented Neck: Supple Lungs: Normal Respiratory Effort, Decreased Breath Sounds. No: Wheezing Cardiovascular: Regular Rate, Regular Rhythm GI/Abdominal Exam: Normal Bowel Sounds, Soft, Non-Tender Back Exam: Normal Inspection Extremities: Normal Inspection, Normal Range of Motion, Non-Tender, No Pedal Edema Psy/Mental Status: Alert, Normal Affect, Normal Mood Sepsis Event Note - Evaluation Sepsis Screening Result: No Definite Risk - Focused Exam Vital Signs: Vital Signs Temp Pulse Resp BP Pulse Ox 08/29/19 06:53 98.4 F 75 20 115/55 L 96 08/29/19 04:31 98.2 F 79 21 H 102/60 92 L 08/29/19 00:17 97.6 F 99 18 117/54 L 94 L Date Exam was Performed: 08/29/19 Time Exam was Performed: 09:02 - Problem List & Annotations (1) Asthma with status asthmaticus SNOMED Code(s): 650802890 Code(s): J45.902 - UNSPECIFIED ASTHMA WITH STATUS ASTHMATICUS Status: Acute Current Visit: Yes Qualifiers: Asthma severity: severe Asthma persistence: persistent Qualified Code(s) : J45.52 - Severe persistent asthma with status asthmaticus (2) Acute respiratory failure with hypoxia SNOMED Code(s): 01207290, 976039640 Code(s): J96.01 - ACUTE RESPIRATORY FAILURE WITH HYPOXIA Status: Acute Current Visit: No - Problem List Review Problem List Initiated/Reviewed/Updated: Yes - My Orders Last 24 Hours: My Active Orders 08/28/19 07:59 RT Aerosol Therapy [RC] ASDIRECTED 08/28/19 08:00 RT Post Treatment Assessment [RC] Click to Edit RT Pre-Treatment Assessment [RC] Click to Edit 08/28/19 09:00 Fluticasone/Salmeterol [Advair Diskus 250-50] 1 puff INH BID Loratadine [Claritin] 10 mg PO DAILY 08/28/19 10:00 Albuterol/Ipratropium [DuoNeb 3.0-0.5 MG/3 ML] 3 ml NEB Q4HRRT 08/28/19 10:27 Patient Status [ADT] Stat 08/28/19 12:33 Blood Glucose Check, Bedside [RC] TIDAC 08/28/19 12:34 Insulin Aspart [NovoLOG] See Protocol SUBCUT TIDAC 08/28/19 21:00 Montelukast [Singulair] 10 mg PO BEDTIME 08/30/19 05:11 BMP [BASIC METABOLIC PANEL,BMP] [CHEM] AM CBC WITH AUTO DIFF [HEME] AM 08/31/19 05:11 BMP [BASIC METABOLIC PANEL,BMP] [CHEM] AM CBC WITH AUTO DIFF [HEME] AM - Plan Plan:: This 19 year old female admitted with acute hypoxic respiratory failure and acute asthma exacerbation 1. Acute hypoxic respiratory failure and asthma exacerbation - Continue oxygen therapy, wean as possible to RA. Keep sats 90% or higher - Decrease to Q12h Solumedrol 125 mg - Duonebs Q4hr and PRN - Consult respiratory care - Discussed at length the need to remove triggers from her home, including pets. Mother at bedside reports they are working on this. - Also discussed the need to follow through with medicaid financial help to be able to afford inhalers, as she remains severe asthmatic with recurrent admission due to suboptimal management at home. - No sepsis or infection noted. - Start Advair now. - Continue Loratidine and Singulair Diet: Regular VTE prophylaxis: SCDs Consults: Respiratory CODE Status: Full Disposition: Will make inpatient due to high oxygen requirements and likely greater than 2 midnight stay.
[2019-08-29] MEDS: Fluticasone/Salmeterol 250-50 MCG Inhalation Powder 14/Diskus INH SCH ×2 (08:29→21:41)
[2019-08-29] MEDS: Insulin Aspart 100 Units/ML 3 ML Pen SUBCUT SCH ×3 (08:36→17:23)
[2019-08-29] MEDS: Loratadine 10 MG Tab PO SCH (08:40)
[2019-08-29] MEDS ORDERED: Ondansetron 4 MG/2 ML SDV IVPUSH PRN (09:13)
[2019-08-29] MEDS ORDERED: Acetaminophen 325 MG Tab PO PRN (09:13)
[2019-08-29] MEDS: Montelukast 10 MG Tab PO SCH (20:25)
[2019-08-30] MEDS: Albuterol/Ipratropium 3.0-0.5 MG/3 ML Neb Soln NEB SCH ×3 (02:04→10:02)
[2019-08-30] MEDS: methylPREDNISolone Sodium Succinate 125 MG/2 ML SDV IVPUSH SCH (06:07)
[2019-08-30 07:18] LABS: BLOOD UREA NITROGEN,BUN 14 mg/dL (7.0-18.0); CARBON DIOXIDE,CO2 25.7 mmol/L (21.0-32.0); CHLORIDE,CL 106 mmol/L (98-107); GLUCOSE RANDOM 121 mg/dL (74-106); POTASSIUM,K 4.1 mmol/L (3.5-5.1); SODIUM,NA 143 mmol/L (136-145)
[2019-08-30] MEDS: Insulin Aspart 100 Units/ML 3 ML Pen SUBCUT SCH ×2 (07:18→12:40)
[2019-08-30 07:47] VITALS: BP 105/57; PULSE 72
[2019-08-30] MEDS: Fluticasone/Salmeterol 250-50 MCG Inhalation Powder 14/Diskus INH SCH (08:45)
[2019-08-30] MEDS: Loratadine 10 MG Tab PO SCH (09:43)
--- NOTE | 2019-08-30 11:48 | PCM.DCSUM1 ---
<John Menezes - Last Filed: 08/30/19 12:25> Discharge Summary - Hospital Course Free Text/Narrative:: 19 y/o female with history of asthma who presented to the ER complaining of worsening shortness of breath. Admitted for acute asthma exacerbation. Started on steroids and administered multiple nebulizer treatments. She required nasal cannula oxygenation between 3-5 L/min. Claritin and Singulair were started. As well as Advair since apparently she did not fill her previous script due to cost. She was able to be weaned off oxygen. At time of discharge, breathing room air with oxygen saturation in the mid 90's. She was provided with an Advair inhaler and prescribed prednisone, Advair, Albuterol, Claritin and Singulair. Advised to follow-up with her PCP for further management. - Discharge Data Discharge Date: 08/30/19 Discharge Disposition: Home, Self-Care 01 Condition: Good - Referral to Home Health Primary Care Physician: Gee Valentin MD - Patient Instructions Diet: Regular Diet as Tolerated Activity: As Tolerated Notify Provider of: Fever, Increased Pain, Swelling and Redness, Nausea and/or Vomiting - Discharge Plan *PRESCRIPTION DRUG MONITORING PROGRAM REVIEWED*: Not Applicable *COPY OF PRESCRIPTION DRUG MONITORING REPORT IN PATIENT LAZARO: Not Applicable Prescriptions/Med Rec: Albuterol Sulfate [Proventil Hfa] 6.7 gm IH Q4H PRN #1 hfa.aer.ad PRN Reason: Wheezing Fluticasone/Salmeterol [Advair 250-50] 1 puff INH BID #1 diskus Loratadine [Claritin] 10 mg PO DAILY 30 Days #30 tablet Montelukast [Singulair] 10 mg PO BEDTIME 30 Days #30 tablet predniSONE 20 mg PO DAILY #5 tab Home Medications: Home Meds Montelukast [Singulair] 10 mg PO BEDTIME 06/10/19 [History] Albuterol [Proventil Neb Soln] 1 ampule INH Q4HR PRN 08/04/19 [History] Loratadine [Claritin] 10 mg PO DAILY 30 Days #30 tablet 08/06/19 [Rx] Albuterol Sulfate [Proventil Hfa] 6.7 gm IH Q4H PRN #1 hfa.aer.ad 08/30/19 [Rx] Fluticasone/Salmeterol [Advair 250-50] 1 puff INH BID #1 diskus 08/30/19 [Rx] Loratadine [Claritin] 10 mg PO DAILY 30 Days #30 tablet 08/30/19 [Rx] Montelukast [Singulair] 10 mg PO BEDTIME 30 Days #30 tablet 08/30/19 [Rx] predniSONE 20 mg PO DAILY #5 tab 08/30/19 [Rx] Patient Handouts: Albuterol inhalation aerosol, Asthma, Adult, [id number], Prednisone tablets, Loratadine capsules or tablets, Asthma Attack Prevention, Adult, Fluticasone; Salmeterol inhalation aerosol Referrals: Mg Croft MD [Physician] - 09/02/19 7:30 am - Discharge Summary/Plan Comment DC Time >30 min.: No - Patient Data Vitals - Most Recent: Last Vital Signs Temp 37.0 C 08/30/19 07:46 Pulse 72 08/30/19 07:46 Resp 18 08/30/19 07:46 BP 105/57 L 08/30/19 07:46 Pulse Ox 95 08/30/19 09:00 Weight - Most Recent: 135.7 kg I&O - Last 24 hours: Intake & Output 08/29/19 08/30/19 08/30/19 22:59 06:59 14:59 Intake Total 360 900 Output Total 750 350 Balance -390 550 Lab Results - Last 24 hrs: Laboratory Results - last 24 hr 08/29/19 08/29/19 08/30/19 Range/Units 16:49 20:56 06:13 WBC (4.0-11.0) K/uL RBC (4.30-5.90) M/uL Hgb (12.0-16.0) g/dL Hct (36.0-46.0) % MCV (80.0-98.0) fL MCH (27.0-32.0) pg MCHC (31.0-37.0) g/dL RDW Std Deviation (28.0-62.0) fl RDW Coeff of Negrita (11.0-15.0) % Plt Count (150-400) K/uL MPV (7.40-12.00) fL Neut % (Auto) (48.0-80.0) % Lymph % (Auto) (16.0-40.0) % [place] % (Auto) (0.0-15.0) % Eos % (Auto) (0.0-7.0) % Baso % (Auto) (0.0-1.5) % Neut # (Auto) (1.4-5.7) K/uL Lymph # (Auto) (0.6-2.4) K/uL [place] # (Auto) (0.0-0.8) K/uL Eos # (Auto) (0.0-0.7) K/uL Baso # (Auto) (0.0-0.1) K/uL Nucleated RBC % /100WBC Nucleated RBCs # K/uL Sodium (136-145) mmol/L Potassium (3.5-5.1) mmol/L Chloride (98-107) mmol/L Carbon Dioxide (21.0-32.0) mmol/L BUN (7.0-18.0) mg/dL Creatinine (0.6-1.0) mg/dL Est Cr Clr Drug Dosing mL/min Estimated GFR (MDRD) ml/min Glucose (74-106) mg/dL POC Glucose 286 H 226 H 127 H (60-110) mg/dL Calcium (8.5-10.1) mg/dL 08/30/19 08/30/19 08/30/19 Range/Units 06:29 06:29 11:40 WBC 24.49 H (4.0-11.0) K/uL RBC 5.18 (4.30-5.90) M/uL Hgb 11.9 L (12.0-16.0) g/dL Hct 39.6 (36.0-46.0) % MCV 76.4 L (80.0-98.0) fL MCH 23.0 L (27.0-32.0) pg MCHC 30.1 L (31.0-37.0) g/dL RDW Std Deviation 47.9 (28.0-62.0) fl RDW Coeff of Negrita 17 H (11.0-15.0) % Plt Count 368 (150-400) K/uL MPV 10.50 (7.40-12.00) fL Neut % (Auto) 86.0 H (48.0-80.0) % Lymph % (Auto) 7.8 L (16.0-40.0) % [place] % (Auto) 6.2 (0.0-15.0) % Eos % (Auto) 0.0 (0.0-7.0) % Baso % (Auto) 0.0 (0.0-1.5) % Neut # (Auto) 21.0 H (1.4-5.7) K/uL Lymph # (Auto) 1.9 (0.6-2.4) K/uL [place] # (Auto) 1.5 H (0.0-0.8) K/uL Eos # (Auto) 0.0 (0.0-0.7) K/uL Baso # (Auto) 0.0 (0.0-0.1) K/uL Nucleated RBC % 0.0 /100WBC Nucleated RBCs # 0 K/uL Sodium 143 (136-145) mmol/L Potassium 4.1 (3.5-5.1) mmol/L Chloride 106 (98-107) mmol/L Carbon Dioxide 25.7 (21.0-32.0) mmol/L BUN 14 (7.0-18.0) mg/dL Creatinine 0.7 (0.6-1.0) mg/dL Est Cr Clr Drug Dosing 128.24 mL/min Estimated GFR (MDRD) > 60.0 ml/min Glucose 121 H (74-106) mg/dL POC Glucose 199 H (60-110) mg/dL Calcium 8.9 (8.5-10.1) mg/dL Med Orders - Current: Current Medications Acetaminophen (Tylenol) 650 mg PO Q4H PRN PRN Reason: Pain Albuterol/Ipratropium (Duoneb 3.0-0.5 Mg/3 Ml) 3 ml NEB Q4HRRT [facility] Last Admin: 08/30/19 10:02 Dose: 3 ml Insulin Aspart (Novolog) 0 unit SUBCUT TIDAC [facility]; Protocol Last Admin: 08/30/19 07:18 Dose: Not Given Loratadine (Claritin) 10 mg PO DAILY [facility] Last Admin: 08/30/19 09:43 Dose: 10 mg Methylprednisolone Sodium Succinate (Solu-Medrol) 125 mg IVPUSH Q12H [facility] Last Admin: 08/30/19 06:07 Dose: 125 mg Montelukast Sodium (Singulair) 10 mg PO BEDTIME [facility] Last Admin: 08/29/19 20:25 Dose: 10 mg Ondansetron HCl (Zofran) 4 mg IVPUSH Q4H PRN PRN Reason: Nausea Fluticasone/Salmeterol (Advair Diskus 250-50) 1 puff INH BID [facility] Last Admin: 08/30/19 08:45 Dose: 1 inhalation Discontinued Medications Albuterol (Proventil Neb Soln) 2.5 mg NEB Q6HRRT [facility] Last Admin: 08/28/19 14:47 Dose: Not Given Albuterol/Ipratropium (Duoneb 3.0-0.5 Mg/3 Ml) 3 ml NEB ONETIME ONE Stop: 08/27/19 20:57 Last Admin: 08/27/19 20:55 Dose: 3 ml Albuterol/Ipratropium (Duoneb 3.0-0.5 Mg/3 Ml) Confirm Administered Dose 3 ml .ROUTE .STK-MED ONE Stop: 08/27/19 20:56 Last Admin: 08/27/19 21:02 Dose: Not Given Albuterol/Ipratropium (Duoneb 3.0-0.5 Mg/3 Ml) 3 ml NEB ONETIME ONE Stop: 08/27/19 21:24 Last Admin: 08/27/19 21:24 Dose: 3 ml Albuterol/Ipratropium (Duoneb 3.0-0.5 Mg/3 Ml) 3 ml NEB ONETIME ONE Stop: 08/27/19 21:58 Last Admin: 08/27/19 22:16 Dose: 3 ml Albuterol/Ipratropium (Duoneb 3.0-0.5 Mg/3 Ml) 3 ml NEB ONETIME ONE Stop: 08/28/19 00:10 Last Admin: 08/28/19 00:18 Dose: 3 ml Magnesium Sulfate 2 gm/ Premix 50 mls @ 50 mls/hr IV ONETIME ONE Stop: 08/28/19 00:44 Last Admin: 08/27/19 23:55 Dose: 50 mls/hr Methylprednisolone Sodium Succinate (Solu-Medrol) 125 mg IVPUSH ONETIME ONE Stop: 08/27/19 21:16 Last Admin: 08/27/19 21:24 Dose: 125 mg Methylprednisolone Sodium Succinate (Solu-Medrol) 125 mg IVPUSH DAILY STA Stop: 08/27/19 21:04 Last Admin: 08/27/19 21:26 Dose: Not Given Methylprednisolone Sodium Succinate (Solu-Medrol) 125 mg IVPUSH Q8H [facility] Last Admin: 08/29/19 05:59 Dose: 125 mg <CoryTyson Fuentes - Last Filed: 08/30/19 13:21> Discharge Summary - Referral to Home Health Primary Care Physician: Gee Valentin MD - Patient Data Vitals - Most Recent: Last Vital Signs Temp 37.0 C 08/30/19 07:46 Pulse 72 08/30/19 07:46 Resp 18 08/30/19 07:46 BP 105/57 L 08/30/19 07:46 Pulse Ox 95 08/30/19 09:00 I&O - Last 24 hours: Intake & Output 08/29/19 08/30/19 08/30/19 22:59 06:59 14:59 Intake Total 360 900 360 Output Total 750 350 800 Balance -390 550 -440 Lab Results - Last 24 hrs: Laboratory Results - last 24 hr 08/29/19 08/29/19 08/30/19 Range/Units 16:49 20:56 06:13 WBC (4.0-11.0) K/uL RBC (4.30-5.90) M/uL Hgb (12.0-16.0) g/dL Hct (36.0-46.0) % MCV (80.0-98.0) fL MCH (27.0-32.0) pg MCHC (31.0-37.0) g/dL RDW Std Deviation (28.0-62.0) fl RDW Coeff of Negrita (11.0-15.0) % Plt Count (150-400) K/uL MPV (7.40-12.00) fL Neut % (Auto) (48.0-80.0) % Lymph % (Auto) (16.0-40.0) % [place] % (Auto) (0.0-15.0) % Eos % (Auto) (0.0-7.0) % Baso % (Auto) (0.0-1.5) % Neut # (Auto) (1.4-5.7) K/uL Lymph # (Auto) (0.6-2.4) K/uL [place] # (Auto) (0.0-0.8) K/uL Eos # (Auto) (0.0-0.7) K/uL Baso # (Auto) (0.0-0.1) K/uL Nucleated RBC % /100WBC Nucleated RBCs # K/uL Sodium (136-145) mmol/L Potassium (3.5-5.1) mmol/L Chloride (98-107) mmol/L Carbon Dioxide (21.0-32.0) mmol/L BUN (7.0-18.0) mg/dL Creatinine (0.6-1.0) mg/dL Est Cr Clr Drug Dosing mL/min Estimated GFR (MDRD) ml/min Glucose (74-106) mg/dL POC Glucose 286 H 226 H 127 H (60-110) mg/dL Calcium (8.5-10.1) mg/dL 08/30/19 08/30/19 08/30/19 Range/Units 06:29 06:29 11:40 WBC 24.49 H (4.0-11.0) K/uL RBC 5.18 (4.30-5.90) M/uL Hgb 11.9 L (12.0-16.0) g/dL Hct 39.6 (36.0-46.0) % MCV 76.4 L (80.0-98.0) fL MCH 23.0 L (27.0-32.0) pg MCHC 30.1 L (31.0-37.0) g/dL RDW Std Deviation 47.9 (28.0-62.0) fl RDW Coeff of Negrita 17 H (11.0-15.0) % Plt Count 368 (150-400) K/uL MPV 10.50 (7.40-12.00) fL Neut % (Auto) 86.0 H (48.0-80.0) % Lymph % (Auto) 7.8 L (16.0-40.0) % [place] % (Auto) 6.2 (0.0-15.0) % Eos % (Auto) 0.0 (0.0-7.0) % Baso % (Auto) 0.0 (0.0-1.5) % Neut # (Auto) 21.0 H (1.4-5.7) K/uL Lymph # (Auto) 1.9 (0.6-2.4) K/uL [place] # (Auto) 1.5 H (0.0-0.8) K/uL Eos # (Auto) 0.0 (0.0-0.7) K/uL Baso # (Auto) 0.0 (0.0-0.1) K/uL Nucleated RBC % 0.0 /100WBC Nucleated RBCs # 0 K/uL Sodium 143 (136-145) mmol/L Potassium 4.1 (3.5-5.1) mmol/L Chloride 106 (98-107) mmol/L Carbon Dioxide 25.7 (21.0-32.0) mmol/L BUN 14 (7.0-18.0) mg/dL Creatinine 0.7 (0.6-1.0) mg/dL Est Cr Clr Drug Dosing 128.24 mL/min Estimated GFR (MDRD) > 60.0 ml/min Glucose 121 H (74-106) mg/dL POC Glucose 199 H (60-110) mg/dL Calcium 8.9 (8.5-10.1) mg/dL Med Orders - Current: Current Medications Discontinued Medications Acetaminophen (Tylenol) 650 mg PO Q4H PRN PRN Reason: Pain Albuterol (Proventil Neb Soln) 2.5 mg NEB Q6HRRT [facility] Last Admin: 08/28/19 14:47 Dose: Not Given Albuterol/Ipratropium (Duoneb 3.0-0.5 Mg/3 Ml) 3 ml NEB ONETIME ONE Stop: 08/27/19 20:57 Last Admin: 08/27/19 20:55 Dose: 3 ml Albuterol/Ipratropium (Duoneb 3.0-0.5 Mg/3 Ml) Confirm Administered Dose 3 ml .ROUTE .STK-MED ONE Stop: 08/27/19 20:56 Last Admin: 08/27/19 21:02 Dose: Not Given Albuterol/Ipratropium (Duoneb 3.0-0.5 Mg/3 Ml) 3 ml NEB ONETIME ONE Stop: 08/27/19 21:24 Last Admin: 08/27/19 21:24 Dose: 3 ml Albuterol/Ipratropium (Duoneb 3.0-0.5 Mg/3 Ml) 3 ml NEB ONETIME ONE Stop: 08/27/19 21:58 Last Admin: 08/27/19 22:16 Dose: 3 ml Albuterol/Ipratropium (Duoneb 3.0-0.5 Mg/3 Ml) 3 ml NEB ONETIME ONE Stop: 08/28/19 00:10 Last Admin: 08/28/19 00:18 Dose: 3 ml Albuterol/Ipratropium (Duoneb 3.0-0.5 Mg/3 Ml) 3 ml NEB Q4HRRT [facility] Last Admin: 08/30/19 10:02 Dose: 3 ml Magnesium Sulfate 2 gm/ Premix 50 mls @ 50 mls/hr IV ONETIME ONE Stop: 08/28/19 00:44 Last Admin: 08/27/19 23:55 Dose: 50 mls/hr Insulin Aspart (Novolog) 0 unit SUBCUT TIDAC [facility]; Protocol Last Admin: 08/30/19 12:40 Dose: Not Given Loratadine (Claritin) 10 mg PO DAILY [facility] Last Admin: 08/30/19 09:43 Dose: 10 mg Methylprednisolone Sodium Succinate (Solu-Medrol) 125 mg IVPUSH ONETIME ONE Stop: 08/27/19 21:16 Last Admin: 08/27/19 21:24 Dose: 125 mg Methylprednisolone Sodium Succinate (Solu-Medrol) 125 mg IVPUSH DAILY [facility] Stop: 08/27/19 21:04 Last Admin: 08/27/19 21:26 Dose: Not Given Methylprednisolone Sodium Succinate (Solu-Medrol) 125 mg IVPUSH Q8H [facility] Last Admin: 08/29/19 05:59 Dose: 125 mg Methylprednisolone Sodium Succinate (Solu-Medrol) 125 mg IVPUSH Q12H [facility] Last Admin: 08/30/19 06:07 Dose: 125 mg Montelukast Sodium (Singulair) 10 mg PO BEDTIME [facility] Last Admin: 08/29/19 20:25 Dose: 10 mg Ondansetron HCl (Zofran) 4 mg IVPUSH Q4H PRN PRN Reason: Nausea Fluticasone/Salmeterol (Advair Diskus 250-50) 1 puff INH BID [facility] Last Admin: 08/30/19 08:45 Dose: 1 inhalation - Free Text/Narrative Note: I have seen and examined the patient with the resident. I have discussed the findings and treatment plan with the resident. I agree with the assessment and plan as outlined in the following note.
== END 2019-08-30 12:35 | disposition home or self-care (01) | DRG 189 ==
LOC: MW.ED 20:53 → MW.MS 23:38 → OBSVTOIN 08-28 10:27
PROVIDERS: ADMIT Internal Medicine; ATTEND Internal Medicine
DX: J96.01 Acute respiratory failure with hypoxia (principal); J45.52 Severe persistent asthma with status asthmaticus; Z68.42 Body mass index [BMI] 45.0-49.9, adult; E66.9 Obesity, unspecified; F41.8 Other specified anxiety disorders; F31.9 Bipolar disorder, unspecified; G47.00 Insomnia, unspecified; F90.9 Attention-deficit hyperactivity disorder, unspecified type; Z85.3 Personal history of malignant neoplasm of breast; Z85.41 Personal history of malignant neoplasm of cervix uteri; Z85.118 Personal history of other malignant neoplasm of bronchus and lung; Z79.899 Other long term (current) drug therapy; Z90.89 Acquired absence of other organs
CPT/HCPCS: 36415; 71046; 71046-26; 80048; 81003; 82962; 85025; 94640; 96374; 96375; 96376; 99283; 99285-25; A9270-GY; G0378; J1815-GY; J2930; J3475; J7620-GY

== ENCOUNTER 2019-10-05 14:27 | Emergency (ER) | payer MEDICAID ==
--- NOTE | 2019-10-05 15:07 | EDM.PDOC ---
ED HPI GENERAL MEDICAL PROBLEM - General Chief Complaint: EATING DISORDER PSYCHOLOGIST Problem Stated Complaint: BLEEDING/CRAMPING 5 WKS Time Seen by Provider: 10/05/19 14:29 Source of Information: Reports: Patient History Limitations: Reports: No Limitations - History of Present Illness INITIAL COMMENTS - FREE TEXT/NARRATIVE: HISTORY AND PHYSICAL: History of present illness: Patient is a 19-year-old female who presents to the ED today with concern of vaginal bleeding and cramping in early . Patient states that 2 days ago she had her first positive test and took 3 tests that were all positive. Patient states that this morning she started having some cramping and approximately 1-2 hours ago started having some vaginal bleeding which she states feels equivalent to a menstrual cycle. Patient states she is also having lower abdominal cramping which also feels like a menstrual cycle. Patient states that she has only used one medium sized pad today since the onset of bleeding. Patient denies any other symptoms or concerns. Patient denies fever, chills, chest pain, shortness of breath, or cough. Denies headache, neck stiff ness, change in vision, syncope, or near syncope. Denies nausea, vomiting, diarrhea, constipation, or dysuria. Has not noted any blood in urine or stool. Patient has been eating and drinking appropriately. Review of systems: As per history of present illness and below otherwise all systems reviewed and negative. Past medical history: As per history of present illness and as reviewed below otherwise noncontributory. Surgical history: As per history of present illness and as reviewed below otherwise noncontributory. Social history: See social history for further information Family history: As per history of present illness and as reviewed below otherwise noncontributory. Physical exam: General: Patient is alert, oriented, and in no acute distress. Patient sitting comfortably on exam table. HEENT: Atraumatic, normocephalic, pupils equal and reactive bilaterally, negative for conjunctival pallor or scleral icterus, mucous membranes moist, TMs normal bilaterally, throat clear, neck supple, nontender, trachea midline. No drooling or trismus noted. No meningeal signs. No hot potato voice noted. Lungs: Clear to auscultation, breath sounds equal bilaterally, chest nontender. Heart: S1S2, regular rate and rhythm without overt murmur Abdomen: Exam of abdomen limited due to body habitus. Otherwise, Soft, nondistended, nontender. Negative for masses or hepatosplenomegaly. Negative for costovertebral tenderness. Pelvis: Stable nontender. Genitourinary: Deferred. Rectal: Deferred. Skin: Intact, warm, dry. No lesions or rashes noted. Extremities: Atraumatic, negative for cords or calf pain. Neurovascular unremarkable. Neuro: Awake, alert, oriented. Cranial nerves II through XII unremarkable. Cerebellum unremarkable. Motor and sensory unremarkable throughout. Exam nonfocal. Notes: Patient does have 3+ tests that she brought along with her to the ED today that I personally saw and confirmed. I did call and speak to Dr. Scott and thoroughly discussed patient's case. Dr. Zavaleta would like her to call tomorrow morning to establish a follow-up appointment with him. Discussed importance for follow-up with Dr. Scott Voices understanding and is agreeable to plan of care. Denies any further questions or concerns at this time. Diagnostics: CBC, CMP, Blood/RH, UA, Uhcg, hcg quant Therapeutics: None Prescription: None Impression: Abnormal vaginal bleeding Plan: 1. Please start and/or continue to take your vitamin with folic acid once daily. 2. Pelvic rest until cleared by your OBGYN (no tampons, sex, etc...) 3. Tylenol as needed for pain management. This is safe to use in . 4. Follow up with your EATING DISORDER PSYCHOLOGIST as discussed. Return to the ED as needed and as discussed. Definitive disposition and diagnosis as appropriate pending reevaluation and review of above. Bilateral Lower Abdomen Pain Score (Numeric/FACES): 9 - Related Data Allergies Allergy/AdvReac Type Severity Reaction Status Date / Time animal dander Allergy Sneezing Verified 10/05/19 14:39 Home Meds: Home Meds Albuterol [Proventil Neb Soln] 1 ampule INH Q4HR PRN 08/04/19 [History] Albuterol Sulfate [Proventil Hfa] 6.7 gm IH Q4H PRN #1 hfa.aer.ad 08/30/19 [Rx] Fluticasone/Salmeterol [Advair 250-50] 1 puff INH BID #1 diskus 08/30/19 [Rx] Loratadine [Claritin] 10 mg PO DAILY 30 Days #30 tablet 08/30/19 [Rx] Montelukast [Singulair] 10 mg PO BEDTIME 30 Days #30 tablet 08/30/19 [Rx] Past Medical History HEENT History: Reports: Impaired Vision Cardiovascular History: Reports: Other (See Below) Other Cardiovascular History: states "had heart problems at " details unknown by patient Respiratory History: Reports: Asthma Gastrointestinal History: Reports: None Genitourinary History: Reports: UTI, Recurrent EATING DISORDER PSYCHOLOGIST History: Reports: , Spontaneous Musculoskeletal History: Reports: None Neurological History: Reports: Head Trauma Psychiatric History: Reports: Anxiety, Bipolar, Depression Endocrine/Metabolic History: Reports: Obesity/BMI 30+ Hematologic History: Reports: None Immunologic History: Reports: None Oncologic (Cancer) History: Reports: None Dermatologic History: Reports: None - Infectious Disease History Infectious Disease History: Reports: Chicken Pox - Past Surgical History Head Surgeries/Procedures: Reports: None HEENT Surgical History: Reports: Adenoidectomy, Myringotomy w Tube(s), Tonsillectomy Cardiovascular Surgical History: Reports: None Respiratory Surgical History: Reports: None GI Surgical History: Reports: None Female Surgical History: Reports: Section Endocrine Surgical History: Reports: None Neurological Surgical History: Reports: None Musculoskeletal Surgical History: Reports: None Oncologic Surgical History: Reports: None Dermatological Surgical History: Reports: None Social & Family History - Family History Family Medical History: Noncontributory HEENT: Reports: Impaired Vision Cardiac: Reports: Hypertension, [place] Respiratory: Reports: Asthma, Sleep Apnea : Reports: Other (See Below) Other Family History: Mother of patient in current kidney failure. OBGYN: Reports: Musculoskeletal: Reports: Arthritis, Gout, Osteoarthritis Psychiatric: Reports: ADHD, Anxiety, Depression Endocrine/Metabolic: Reports: Obesity/MBI 30+ Oncologic: Reports: Breast, Cervix, Lung - Tobacco Use Smoking Status *Q: Never Smoker Second Hand Smoke Exposure: No - Caffeine Use Caffeine Use: Reports: Coffee, Energy Drinks, Soda - Recreational Drug Use Recreational Drug Use: Yes Drug Use in Last 12 Months: Yes Recreational Drug Type: Reports: Marijuana/Hashish ED ROS GENERAL - Review of Systems Review Of Systems: Comprehensive ROS is negative, except as noted in HPI. ED EXAM, GENERAL - Physical Exam Exam: See Below (see dictation) Course - Vital Signs Last Recorded V/S: Last Vital Signs Temp 97.3 F 10/05/19 14:37 Pulse 113 H 10/05/19 14:37 Resp 18 10/05/19 14:37 BP 112/78 10/05/19 14:37 Pulse Ox 96 10/05/19 14:37 - Orders/Labs/Meds Orders: Active Orders 24 hr Category Date Time Status UA RFX LEO AND CULT IF INDIC [URIN] Stat Lab 10/05/19 14:29 Ordered Labs: Laboratory Tests 10/05/19 10/05/19 10/05/19 Range/Units 14:40 15:17 15:17 WBC 12.90 H (4.0-11.0) K/uL RBC 5.32 (4.30-5.90) M/uL Hgb 12.0 (12.0-16.0) g/dL Hct 39.8 (36.0-46.0) % MCV 74.8 L (80.0-98.0) fL MCH 22.6 L (27.0-32.0) pg MCHC 30.2 L (31.0-37.0) g/dL RDW Std Deviation 45.1 (28.0-62.0) fl RDW Coeff of Negrita 17 H (11.0-15.0) % Plt Count 280 (150-400) K/uL MPV 10.50 (7.40-12.00) fL Neut % (Auto) 77.7 (48.0-80.0) % Lymph % (Auto) 10.5 L (16.0-40.0) % Castro % (Auto) 5.4 (0.0-15.0) % Eos % (Auto) 6.2 (0.0-7.0) % Baso % (Auto) 0.2 (0.0-1.5) % Neut # (Auto) 10.0 H (1.4-5.7) K/uL Lymph # (Auto) 1.4 (0.6-2.4) K/uL Castro # (Auto) 0.7 (0.0-0.8) K/uL Eos # (Auto) 0.8 H (0.0-0.7) K/uL Baso # (Auto) 0.0 (0.0-0.1) K/uL Nucleated RBC % 0.0 /100WBC Nucleated RBCs # 0 K/uL Sodium 142 (136-145) mmol/L Potassium 4.6 (3.5-5.1) mmol/L Chloride 108 H (98-107) mmol/L Carbon Dioxide 27.0 (21.0-32.0) mmol/L BUN 7 (7.0-18.0) mg/dL Creatinine 0.9 (0.6-1.0) mg/dL Est Cr Clr Drug Dosing 99.74 mL/min Estimated GFR (MDRD) > 60.0 ml/min Glucose 126 H (74-106) mg/dL Calcium 8.8 (8.5-10.1) mg/dL Total Bilirubin 0.5 (0.2-1.0) mg/dL AST 25 (15-37) IU/L ALT 34 (14-63) IU/L Alkaline Phosphatase 80 (46-116) U/L Total Protein 6.7 (6.4-8.2) g/dL Albumin 3.4 (3.4-5.0) g/dL Globulin 3.3 (2.6-4.0) g/dL Albumin/Globulin Ratio 1.0 (0.9-1.6) HCG, Quant 7.0 mIU/mL Urine HCG, Qual NEGATIVE (NEGATIVE) Blood Type 10/05/19 Range/Units 15:17 WBC (4.0-11.0) K/uL RBC (4.30-5.90) M/uL Hgb (12.0-16.0) g/dL Hct (36.0-46.0) % MCV (80.0-98.0) fL MCH (27.0-32.0) pg MCHC (31.0-37.0) g/dL RDW Std Deviation (28.0-62.0) fl RDW Coeff of Negrita (11.0-15.0) % Plt Count (150-400) K/uL MPV (7.40-12.00) fL Neut % (Auto) (48.0-80.0) % Lymph % (Auto) (16.0-40.0) % Castro % (Auto) (0.0-15.0) % Eos % (Auto) (0.0-7.0) % Baso % (Auto) (0.0-1.5) % Neut # (Auto) (1.4-5.7) K/uL Lymph # (Auto) (0.6-2.4) K/uL Castro # (Auto) (0.0-0.8) K/uL Eos # (Auto) (0.0-0.7) K/uL Baso # (Auto) (0.0-0.1) K/uL Nucleated RBC % /100WBC Nucleated RBCs # K/uL Sodium (136-145) mmol/L Potassium (3.5-5.1) mmol/L Chloride (98-107) mmol/L Carbon Dioxide (21.0-32.0) mmol/L BUN (7.0-18.0) mg/dL Creatinine (0.6-1.0) mg/dL Est Cr Clr Drug Dosing mL/min Estimated GFR (MDRD) ml/min Glucose (74-106) mg/dL Calcium (8.5-10.1) mg/dL Total Bilirubin (0.2-1.0) mg/dL AST (15-37) IU/L ALT (14-63) IU/L Alkaline Phosphatase (46-116) U/L Total Protein (6.4-8.2) g/dL Albumin (3.4-5.0) g/dL Globulin (2.6-4.0) g/dL Albumin/Globulin Ratio (0.9-1.6) HCG, Quant mIU/mL Urine HCG, Qual (NEGATIVE) Blood Type O POSITIVE Departure - Departure Time of Disposition: 16:21 Disposition: Home, Self-Care 01 Clinical Impression: Abnormal vaginal bleeding - Discharge Information Referrals: Mg Croft MD [Primary Care Provider] - Forms: ED Department Discharge Additional Instructions: The following information is given to patients seen in the emergency department who are being discharged to home. This information is to outline your options for follow-up care. We provide all patients seen in our emergency department with a follow-up referral. The need for follow-up, as well as the timing and circumstances, are variable depending upon the specifics of your emergency department visit. If you don't have a primary care physician on staff, we will provide you with a referral. We always advise you to contact your personal physician following an emergency department visit to inform them of the circumstance of the visit and for follow-up with them and/or the need for any referrals to a consulting specialist. The emergency department will also refer you to a specialist when appropriate. This referral assures that you have the opportunity for follow-up care with a specialist. All of these measure are taken in an effort to provide you with optimal care, which includes your follow-up. Under all circumstances we always encourage you to contact your private physician who remains a resource for coordinating your care. When calling for follow-up care, please make the office aware that this follow-up is from your recent emergency room visit. If for any reason you are refused follow-up, please contact the [facility] Emergency Department at and asked to speak to the emergency department charge nurse. [facility]. Dr. Scott [address] [place] [address] [facility] [address] [place] [address] 1. Please start and/or continue to take your vitamin with folic acid once daily. 2. Pelvic rest until cleared by your OBGYN (no tampons, sex, etc...) 3. Tylenol as needed for pain management. This is safe to use in . 4. Follow up with your EATING DISORDER PSYCHOLOGIST as discussed. Return to the ED as needed and as discussed. Sepsis Event Note - Evaluation Sepsis Screening Result: No Definite Risk - Focused Exam Vital Signs: Vital Signs Temp Pulse Resp BP Pulse Ox 10/05/19 14:37 97.3 F 113 H 18 112/78 96 Date Exam was Performed: 10/05/19 Time Exam was Performed: 16:20 - My Orders Last 24 Hours: My Active Orders 10/05/19 14:29 UA RFX LEO AND CULT IF INDIC [URIN] Stat - Assessment/Plan Last 24 Hours: My Active Orders 10/05/19 14:29 UA RFX LEO AND CULT IF INDIC [URIN] Stat
[2019-10-05 15:49] LABS: BLOOD UREA NITROGEN,BUN 7 mg/dL (7.0-18.0); CHLORIDE,CL 108 mmol/L (98-107); GLUCOSE RANDOM 126 mg/dL (74-106); POTASSIUM,K 4.6 mmol/L (3.5-5.1); SODIUM,NA 142 mmol/L (136-145)
[2019-10-05 16:43] VITALS: BP 133/82; PULSE 100
== END 2019-10-05 16:38 | disposition home or self-care (01) ==
LOC: MW.ED 14:27
DX: N93.9 Abnormal uterine and vaginal bleeding, unspecified (principal); J45.909 Unspecified asthma, uncomplicated; E66.9 Obesity, unspecified; Z68.38 Body mass index [BMI] 38.0-38.9, adult; Z91.09 Other allergy status, other than to drugs and biological substances; Z79.899 Other long term (current) drug therapy
CPT/HCPCS: 36415; 80053; 81001; 81025; 84702; 85025; 86900; 86901; 99283; 99284

== ENCOUNTER 2020-01-10 06:56 | Emergency (ER) | payer SELFPAY ==
[2020-01-10] MEDS ORDERED: Sodium Chloride 0.9% 2.5 ML Syringe FLUSH PRN ×2 (07:28)
[2020-01-10] MEDS ORDERED: Sodium Chloride 0.9% 10 ML Syringe FLUSH PRN (07:28)
[2020-01-10] MEDS ORDERED: Ondansetron 4 MG/2 ML SDV IVPUSH ONE (07:28)
[2020-01-10] MEDS ORDERED: Ketorolac 30 MG/ML SDV IVPUSH ONE (07:28)
[2020-01-10] MEDS ORDERED: Famotidine 20 MG/2 ML SDV IVPUSH ONE (07:30)
--- NOTE | 2020-01-10 07:34 | EDM.PDOC ---
ED HPI GENERAL MEDICAL PROBLEM - General Chief Complaint: Chest Pain Stated Complaint: SHORTNESS OF BREATH Time Seen by Provider: 01/10/20 07:02 - History of Present Illness INITIAL COMMENTS - FREE TEXT/NARRATIVE: History of present illness: Patient presents with right upper quadrant pain that radiates into her upper back near her right shoulder. She has been nauseous with that she has not vomited she says she is had this before but not been seen by Dr. Damico she woke up with the pain it is sharp in nature she denies any actual chest pain per se the pain is in her right upper quadrant and radiating through and around the lower ribs. Fever she has not vomited no diarrhea moving seems to make it worse being still makes it better Review of systems: As per history of present illness and below otherwise all systems reviewed and negative. Past medical history: As per history of present illness and as reviewed below otherwise noncontributory. Surgical history: As per history of present illness and as reviewed below otherwise noncontributory. Social history: No reported history of drug or alcohol abuse. Family history: As per history of present illness and as reviewed below otherwise noncontributory. Physical exam: HEENT: Atraumatic, normocephalic, pupils reactive, negative for conjunctival pallor or scleral icterus, mucous membranes moist, throat clear, neck supple, nontender, trachea midline. Lungs: Clear to auscultation, breath sounds equal bilaterally, chest nontender. Heart: S1S2, regular, negative for clicks, rubs, or JVD. Abdomen: Soft, nondistended, there is right upper quadrant tenderness with a positive Martel sign. Negative for masses or hepatosplenomegaly. Negative for costovertebral tenderness. Pelvis: Stable nontender. Genitourinary: Deferred. Rectal: Deferred. Extremities: Atraumatic, negative for cords or calf pain. Neurovascular unremarkable. Neuro: Awake, alert, oriented. Cranial nerves II through XII unremarkable. Cerebellum unremarkable. Motor and sensory unremarkable throughout. Exam nonfocal. Diagnostics: [] Therapeutics: [] Impression: Right upper quadrant pain [] Plan: Patient be given medication she will be reassessed after lab studies are completed. [] Definitive disposition and diagnosis as appropriate pending reevaluation and review of above. chest Pain Score (Numeric/FACES): 10 - Related Data Allergies Allergy/AdvReac Type Severity Reaction Status Date / Time animal dander Allergy Sneezing Verified 01/10/20 07:02 Home Meds: Home Meds Albuterol [Proventil Neb Soln] 1 ampule INH Q4HR PRN 08/04/19 [History] Albuterol Sulfate [Proventil Hfa] 6.7 gm IH Q4H PRN #1 hfa.aer.ad 08/30/19 [Rx] Fluticasone/Salmeterol [Advair 250-50] 1 puff INH BID #1 diskus 08/30/19 [Rx] Loratadine [Claritin] 10 mg PO DAILY 30 Days #30 tablet 08/30/19 [Rx] Montelukast [Singulair] 10 mg PO BEDTIME 30 Days #30 tablet 08/30/19 [Rx] Past Medical History HEENT History: Reports: Impaired Vision Cardiovascular History: Reports: Other (See Below) Other Cardiovascular History: states "had heart problems at " details unknown by patient Respiratory History: Reports: Asthma Gastrointestinal History: Reports: None Genitourinary History: Reports: UTI, Recurrent PRESS READER History: 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: , 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 Musculoskeletal History: Reports: None Neurological History: Reports: Head Trauma Psychiatric History: Reports: Anxiety, Bipolar, Depression Endocrine/Metabolic History: Reports: Obesity/BMI 30+ Hematologic History: Reports: None Immunologic History: Reports: None Oncologic (Cancer) History: Reports: None Dermatologic History: Reports: None - Infectious Disease History Infectious Disease History: Reports: None - Past Surgical History Head Surgeries/Procedures: Reports: None HEENT Surgical History: Reports: Adenoidectomy, Myringotomy w Tube(s), Tonsillectomy Cardiovascular Surgical History: Reports: None Respiratory Surgical History: Reports: None GI Surgical History: Reports: None Female Surgical History: Reports: Section Endocrine Surgical History: Reports: None Neurological Surgical History: Reports: None Musculoskeletal Surgical History: Reports: None Oncologic Surgical History: Reports: None Dermatological Surgical History: Reports: None Social & Family History - Family History Family Medical History: Noncontributory HEENT: Reports: Impaired Vision Cardiac: Reports: Hypertension, [place] Respiratory: Reports: Asthma, Sleep Apnea : Reports: Other (See Below) Other Family History: Mother of patient in current kidney failure. OBGYN: Reports: Musculoskeletal: Reports: Arthritis, Gout, Osteoarthritis Psychiatric: Reports: ADHD, Anxiety, Depression Endocrine/Metabolic: Reports: Obesity/MBI 30+ Oncologic: Reports: Breast, Cervix, Lung - Tobacco Use Smoking Status *Q: Never Smoker - Caffeine Use Caffeine Use: Reports: Coffee, Energy Drinks, Soda - Recreational Drug Use Recreational Drug Use: No ED ROS GENERAL - Review of Systems Review Of Systems: See Below ED EXAM, GENERAL - Physical Exam Exam: See Below EKG INTERPRETATION EKG Interpretation Comments: Normal sinus rhythm rate of 84 bpm no ischemic changes normal axis read and interpreted by me. Course - Vital Signs Text/Narrative:: Patient is incidentally . An ultrasound of her abdomen did not reveal any occult pathology the gallbladder looks within normal limits there is no evidence of cholecystitis no evidence of ectopic her abdominal exam is soft she is going to be discharged home follow-up with OB and primary care retu rn to the ED if your pain worsens. Last Recorded V/S: Last Vital Signs Temp 36.2 C 01/10/20 07:03 Pulse 74 01/10/20 08:37 Resp 16 01/10/20 08:37 BP 113/55 L 01/10/20 08:37 Pulse Ox 97 01/10/20 08:37 - Orders/Labs/Meds Orders: Active Orders 24 hr Category Date Time Status Sodium Chloride 0.9% [Saline Flush] Med 01/10/20 07:28 Active 10 ml FLUSH ASDIRECTED PRN Sodium Chloride 0.9% [Saline Flush] Med 01/10/20 07:28 Active 2.5 ml FLUSH ASDIRECTED PRN Sodium Chloride 0.9% [Saline Flush] Med 01/10/20 07:28 Active 2.5 ml FLUSH ASDIRECTED PRN Saline Lock Insert [OM.PC] Stat Oth 01/10/20 07:28 Ordered Medication Orders Sodium Chloride (Saline Flush) 10 ml FLUSH ASDIRECTED PRN PRN Reason: Keep Vein Open Last Admin: 01/10/20 08:02 Dose: 10 ml Documented by: [id number] Sodium Chloride (Saline Flush) 2.5 ml FLUSH ASDIRECTED PRN PRN Reason: Keep Vein Open Last Admin: 01/10/20 08:01 Dose: 2.5 ml Documented by: [email or web address] Sodium Chloride (Saline Flush) 2.5 ml FLUSH ASDIRECTED PRN PRN Reason: Keep Vein Open Last Admin: 01/10/20 08:02 Dose: 2.5 ml Documented by: [id number] Labs: Laboratory Tests 01/10/20 01/10/20 01/10/20 Range/Units 07:25 07:25 07:25 WBC 14.57 H (4.0-11.0) K/uL RBC 5.46 (4.30-5.90) M/uL Hgb 12.1 (12.0-16.0) g/dL Hct 39.7 (36.0-46.0) % MCV 72.7 L (80.0-98.0) fL MCH 22.2 L (27.0-32.0) pg MCHC 30.5 L (31.0-37.0) g/dL RDW Std Deviation 45.0 (28.0-62.0) fl RDW Coeff of [place]gr[place] 17 H (11.0-15.0) % Plt Count 305 (150-400) K/uL MPV 10.50 (7.40-12.00) fL Neut % (Auto) 72.6 (48.0-80.0) % Lymph % (Auto) 15.5 L (16.0-40.0) % [place] % (Auto) 4.3 (0.0-15.0) % Eos % (Auto) 7.4 H (0.0-7.0) % Baso % (Auto) 0.2 (0.0-1.5) % Neut # (Auto) 10.6 H (1.4-5.7) K/uL Lymph # (Auto) 2.3 (0.6-2.4) K/uL [place] # (Auto) 0.6 (0.0-0.8) K/uL Eos # (Auto) 1.1 H (0.0-0.7) K/uL Baso # (Auto) 0.0 (0.0-0.1) K/uL Nucleated RBC % 0.0 /100WBC Nucleated RBCs # 0 K/uL Sodium 139 (136-145) mmol/L Potassium 3.7 (3.5-5.1) mmol/L Chloride 105 (98-107) mmol/L Carbon Dioxide 22.8 (21.0-32.0) mmol/L BUN 10 (7.0-18.0) mg/dL Creatinine 0.9 (0.6-1.0) mg/dL Est Cr Clr Drug Dosing 92.56 mL/min Estimated GFR (MDRD) > 60.0 ml/min Glucose 112 H (74-106) mg/dL Calcium 8.8 (8.5-10.1) mg/dL Total Bilirubin 0.5 (0.2-1.0) mg/dL AST 36 (15-37) IU/L ALT 34 (14-63) IU/L Alkaline Phosphatase 114 (46-116) U/L Total Protein 7.0 (6.4-8.2) g/dL Albumin 3.7 (3.4-5.0) g/dL Globulin 3.3 (2.6-4.0) g/dL Albumin/Globulin Ratio 1.1 (0.9-1.6) Lipase 79 (73-393) U/L HCG, Quant 83.0 mIU/mL Urine Color Urine Appearance Urine pH (5.0-8.0) Ur Specific [place] (1.001-1.035) Urine Protein (NEGATIVE) mg/dL Urine Glucose (UA) (NEGATIVE) mg/dL Urine Ketones (NEGATIVE) mg/dL Urine Occult Blood (NEGATIVE) Urine Nitrite (NEGATIVE) Urine Bilirubin (NEGATIVE) Urine Urobilinogen (<2.0) EU/dL Ur Leukocyte Esterase (NEGATIVE) Urine RBC (0-2/HPF) Urine WBC (0-5/HPF) Ur Epithelial Cells (NONE-FEW) Urine Bacteria (NEGATIVE) Urine Mucus (NONE-MOD) Urine HCG, Qual (NEGATIVE) 01/10/20 01/10/20 Range/Units 07:40 07:40 WBC (4.0-11.0) K/uL RBC (4.30-5.90) M/uL Hgb (12.0-16.0) g/dL Hct (36.0-46.0) % MCV (80.0-98.0) fL MCH (27.0-32.0) pg MCHC (31.0-37.0) g/dL RDW Std Deviation (28.0-62.0) fl RDW Coeff of [place] (11.0-15.0) % Plt Count (150-400) K/uL MPV (7.40-12.00) fL Neut % (Auto) (48.0-80.0) % Lymph % (Auto) (16.0-40.0) % [place] % (Auto) (0.0-15.0) % Eos % (Auto) (0.0-7.0) % Baso % (Auto) (0.0-1.5) % Neut # (Auto) (1.4-5.7) K/uL Lymph # (Auto) (0.6-2.4) K/uL [place] # (Auto) (0.0-0.8) K/uL Eos # (Auto) (0.0-0.7) K/uL Baso # (Auto) (0.0-0.1) K/uL Nucleated RBC % /100WBC Nucleated RBCs # K/uL Sodium (136-145) mmol/L Potassium (3.5-5.1) mmol/L Chloride (98-107) mmol/L Carbon Dioxide (21.0-32.0) mmol/L BUN (7.0-18.0) mg/dL Creatinine (0.6-1.0) mg/dL Est Cr Clr Drug Dosing mL/min Estimated GFR (MDRD) ml/min Glucose (74-106) mg/dL Calcium (8.5-10.1) mg/dL Total Bilirubin (0.2-1.0) mg/dL AST (15-37) IU/L ALT (14-63) IU/L Alkaline Phosphatase (46-116) U/L Total Protein (6.4-8.2) g/dL Albumin (3.4-5.0) g/dL Globulin (2.6-4.0) g/dL Albumin/Globulin Ratio (0.9-1.6) Lipase (73-393) U/L HCG, Quant mIU/mL Urine Color YELLOW Urine Appearance CLEAR Urine pH 5.5 (5.0-8.0) Ur Specific [place] >= 1.030 (1.001-1.035) Urine Protein NEGATIVE (NEGATIVE) mg/dL Urine Glucose (UA) NEGATIVE (NEGATIVE) mg/dL Urine Ketones NEGATIVE (NEGATIVE) mg/dL Urine Occult Blood NEGATIVE (NEGATIVE) Urine Nitrite NEGATIVE (NEGATIVE) Urine Bilirubin NEGATIVE (NEGATIVE) Urine Urobilinogen 0.2 (<2.0) EU/dL Ur Leukocyte Esterase NEGATIVE (NEGATIVE) Urine RBC 0-2 (0-2/HPF) Urine WBC 0-3 (0-5/HPF) Ur Epithelial Cells FEW (NONE-FEW) Urine Bacteria FEW (NEGATIVE) Urine Mucus LIGHT (NONE-MOD) Urine HCG, Qual POSITIVE (NEGATIVE) Meds: Medications Generic Name Dose Route Start Last Admin Trade Name Freq PRN Reason Stop Dose Admin Sodium Chloride 10 ml 01/10/20 07:28 01/10/20 08:02 Saline Flush FLUSH 10 ml ASDIRECTED PRN Administration Keep Vein Open Sodium Chloride 2.5 ml 01/10/20 07:28 01/10/20 08:01 Saline Flush FLUSH 2.5 ml ASDIRECTED PRN Administration Keep Vein Open Sodium Chloride 2.5 ml 01/10/20 07:28 01/10/20 08:02 Saline Flush FLUSH 2.5 ml ASDIRECTED PRN Administration Keep Vein Open Discontinued Medications Generic Name Dose Route Start Last Admin Trade Name Freq PRN Reason Stop Dose Admin Famotidine 20 mg 01/10/20 07:30 01/10/20 08:01 Pepcid IVPUSH 01/10/20 07:31 20 mg ONETIME ONE Administration Ketorolac Tromethamine 30 mg 01/10/20 07:28 01/10/20 08:01 Toradol IVPUSH 01/10/20 07:29 30 mg ONETIME ONE Administration Ondansetron HCl 4 mg 01/10/20 07:28 01/10/20 08:01 Zofran IVPUSH 01/10/20 07:29 4 mg ONETIME ONE Administration Departure - Departure Time of Disposition: 12:00 Disposition: Home, Self-Care 01 Preliminary Cause of *Q: Sepsis & Multi System Organ Failure Condition: Good Clinical Impression: Abdominal pain Qualifiers: Weeks of gestation: less than 8 weeks Qualified Code(s): Z3A.01 - Less than 8 weeks gestation of - Discharge Information *PRESCRIPTION DRUG MONITORING PROGRAM REVIEWED*: Not Applicable *COPY OF PRESCRIPTION DRUG MONITORING REPORT IN PATIENT LAZARO: Not Applicable Instructions: Care, First Trimester of Referrals: Mg Croft MD [Primary Care Provider] - Forms: ED Department Discharge Additional Instructions: The following information is given to patients seen in the emergency department who are being discharged to home. This information is to outline your options for follow-up care. We provide all patients seen in our emergency department with a follow-up referral. The need for follow-up, as well as the timing and circumstances, are variable depending upon the specifics of your emergency department visit. If you don't have a primary care physician on staff, we will provide you with a referral. We always advise you to contact your personal physician following an emergency department visit to inform them of the circumstance of the visit and for follow-up with them and/or the need for any referrals to a consulting specialist. The emergency department will also refer you to a specialist when appropriate. This referral assures that you have the opportunity for follow-up care with a specialist. All of these measure are taken in an effort to provide you with optimal care, which includes your follow-up. Under all circumstances we always encourage you to contact your private physician who remains a resource for coordinating your care. When calling for follow-up care, please make the office aware that this follow-up is from your recent emergency room visit. If for any reason you are refused follow-up, please contact the [facility] Emergency Department at and asked to speak to the emergency department charge nurse. [facility] [address] [place] [id number] [facility] [address] [place] [id number] Sepsis Event Note (ED) - Evaluation Sepsis Screening Result: No Definite Risk - Focused Exam Vital Signs: Vital Signs Temp Pulse Resp BP Pulse Ox 01/10/20 08:37 74 16 113/55 L 97 01/10/20 07:03 36.2 C 81 22 H 132/62 93 L - My Orders Last 24 Hours: My Active Orders 01/10/20 07:28 Sodium Chloride 0.9% [Saline Flush] 10 ml FLUSH ASDIRECTED PRN Sodium Chloride 0.9% [Saline Flush] 2.5 ml FLUSH ASDIRECTED PRN Sodium Chloride 0.9% [Saline Flush] 2.5 ml FLUSH ASDIRECTED PRN Saline Lock Insert [OM.PC] Stat - Assessment/Plan Last 24 Hours: My Active Orders 01/10/20 07:28 Sodium Chloride 0.9% [Saline Flush] 10 ml FLUSH ASDIRECTED PRN Sodium Chloride 0.9% [Saline Flush] 2.5 ml FLUSH ASDIRECTED PRN Sodium Chloride 0.9% [Saline Flush] 2.5 ml FLUSH ASDIRECTED PRN Saline Lock Insert [OM.PC] Stat
[2020-01-10 07:53] LABS: BLOOD UREA NITROGEN,BUN 10 mg/dL (7.0-18.0); CARBON DIOXIDE,CO2 22.8 mmol/L (21.0-32.0); CHLORIDE,CL 105 mmol/L (98-107); GLUCOSE RANDOM 112 mg/dL (74-106); LIPASE 79 U/L (73-393); POTASSIUM,K 3.7 mmol/L (3.5-5.1); SODIUM,NA 139 mmol/L (136-145)
[2020-01-10 08:37] VITALS: BP 113/55; PULSE 74
--- NOTE | 2020-01-10 10:07 | US ---
Abdominal ultrasound: Multiple real-time images were obtained. Comparison: No prior abdominal imaging is available. Findings: Liver is somewhat echogenic most likely representing fatty infiltration. Kidneys show no hydronephrosis or mass. Right kidney length is 10.7 cm and left kidney length is 11.0 cm. Visualized portions of the pancreas shows no discrete abnormality. Gallbladder contains no calcified gallstones. No gallbladder wall thickening or biliary duct dilatation is seen. Spleen size is normal. Aorta shows no aneurysm. Impression: 1. Probable fatty infiltration within the liver. 2. No additional abnormality is identified on abdominal ultrasound. Diagnostic code #2 This report was dictated in MDT
--- NOTE | 2020-01-10 11:36 | US ---
1st trimester obstetrical ultrasound: Multiple real-time images were obtained transabdominally. No intrauterine gestational sac is seen. Endometrial thickness is 1.8 cm. Right ovary shows a cyst with small amount of debris measuring 2.8 cm. Left ovary shows a simple 1.5 cm cyst. No free fluid is seen. No adnexal abnormalities are appreciated. Impression: 1. No intrauterine gestational sac. 2. Small cyst within both ovaries. Note: If patient has positive test, findings could represent miscarriage, too early to visualize and nonvisualized ectopic . Diagnostic code #3 This report was dictated in MDT
== END 2020-01-10 12:31 | disposition home or self-care (01) ==
LOC: MW.ED 06:56
DX: O99.89 Other specified diseases and conditions complicating pregnancy, childbirth and the puerperium (principal); R10.11 Right upper quadrant pain; O99.511 Diseases of the respiratory system complicating pregnancy, first trimester; J45.909 Unspecified asthma, uncomplicated; O99.211 Obesity complicating pregnancy, first trimester; Z68.42 Body mass index [BMI] 45.0-49.9, adult; Z91.048 Other nonmedicinal substance allergy status; Z79.899 Other long term (current) drug therapy; Z3A.01 Less than 8 weeks gestation of pregnancy
CPT/HCPCS: 36415; 76700; 76801; 80053; 81001; 81025; 83690; 84702; 85025; 93005; 96374; 96375; 99284; J1885; J2405; S0028; 99283; J3490

== ENCOUNTER 2020-02-24 13:56 | Emergency (ER) | payer SELFPAY ==
[2020-02-24] MEDS ORDERED: Dexamethasone 4 MG Tab PO ONE (14:37)
--- NOTE | 2020-02-24 14:40 | EDM.PDOC ---
ED HPI GENERAL MEDICAL PROBLEM - General Chief Complaint: Asthma Stated Complaint: ASTHMA ACTING UP Time Seen by Provider: 02/24/20 14:02 - History of Present Illness INITIAL COMMENTS - FREE TEXT/NARRATIVE: History of present illness: Patient presents with increased asthma symptoms over the past several weeks she is and she states that being causes her asthma to flareup. She denies any cough fever chills she recently saw her regular doctor and was tested for COVID and this was negative she denies any chest pain no ankle swelling no nausea vomiting or other complaints. She is using multiple breathing treatments a day she has an albuterol nebulizer and is been using it she has not been on a steroid. Review of systems: As per history of present illness and below otherwise all systems reviewed and negative. Past medical history: As per history of present illness and as reviewed below otherwise noncontributory. Surgical history: As per history of present illness and as reviewed below otherwise noncontributory. Social history: No reported history of drug or alcohol abuse. Family history: As per history of present illness and as reviewed below otherwise noncontributory. Physical exam: Vital signs; within normal limits afebrile 97% on room air HEENT: Atraumatic, normocephalic, pupils reactive, negative for conjunctival pallor or scleral icterus, mucous membranes moist, throat clear, neck supple, nontender, trachea midline. Lungs: Mild scattered wheezing, breath sounds equal bilaterally, chest nontender. No respiratory distress Heart: S1S2, regular, negative for clicks, rubs, or JVD. Abdomen: Soft, nondistended, nontender. Negative for masses or hepatosplenomegaly. Negative for costovertebral tenderness. Pelvis: Stable nontender. Genitourinary: Deferred. Rectal: Deferred. Extremities: Atraumatic, negative for cords or calf pain. Neurovascular unremarkable. Neuro: Awake, alert, oriented. Cranial nerves II through XII unremarkable. Cerebellum unremarkable. Motor and sensory unremarkable throughout. Exam nonfocal. Diagnostics: [] Therapeutics: [] Impression: Asthma [] Plan: Patient be started on a steroid follow-up with primary care [] Definitive disposition and diagnosis as appropriate pending reevaluation and review of above. chest Pain Score (Numeric/FACES): 3 - Related Data Allergies Allergy/AdvReac Type Severity Reaction Status Date / Time animal dander Allergy Sneezing Verified 02/24/20 14:14 Home Meds: Home Meds Albuterol [Proventil Neb Soln] 1 ampule INH Q4HR PRN 08/04/19 [History] Albuterol Sulfate [Proventil Hfa] 6.7 gm IH Q4H PRN #1 hfa.aer.ad 08/30/19 [Rx] Fluticasone/Salmeterol [Advair 250-50] 1 puff INH BID #1 diskus 08/30/19 [Rx] Loratadine [Claritin] 10 mg PO DAILY 30 Days #30 tablet 08/30/19 [Rx] Montelukast [Singulair] 10 mg PO BEDTIME 30 Days #30 tablet 08/30/19 [Rx] predniSONE 60 mg PO WITHBREAKFAST 5 Days #15 tab 02/24/20 [Rx] Past Medical History HEENT History: Reports: Impaired Vision Cardiovascular History: Reports: Other (See Below) Other Cardiovascular History: states "had heart problems at " details unknown by patient Respiratory History: Reports: Asthma Gastrointestinal History: Reports: None Genitourinary History: Reports: UTI, Recurrent 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: , 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 Musculoskeletal History: Reports: None Neurological History: Reports: Head Trauma Psychiatric History: Reports: Anxiety, Bipolar, Depression Endocrine/Metabolic History: Reports: Obesity/BMI 30+ Hematologic History: Reports: None Immunologic History: Reports: None Oncologic (Cancer) History: Reports: None Dermatologic History: Reports: None - Infectious Disease History Infectious Disease History: Reports: Chicken Pox - Past Surgical History Head Surgeries/Procedures: Reports: None HEENT Surgical History: Reports: Adenoidectomy, Myringotomy w Tube(s), Tonsillectomy Cardiovascular Surgical History: Reports: None Respiratory Surgical History: Reports: None GI Surgical History: Reports: None Female Surgical History: Reports: Section Other Female Surgeries/Procedures: Endocrine Surgical History: Reports: None Neurological Surgical History: Reports: None Musculoskeletal Surgical History: Reports: None Oncologic Surgical History: Reports: None Dermatological Surgical History: Reports: None Social & Family History - Family History Family Medical History: Noncontributory HEENT: Reports: Impaired Vision Cardiac: Reports: Hypertension, [place] Respiratory: Reports: Asthma, Sleep Apnea : Reports: Other (See Below) Other Family History: Mother of patient in current kidney failure. OBGYN: Reports: Musculoskeletal: Reports: Arthritis, Gout, Osteoarthritis Psychiatric: Reports: ADHD, Anxiety, Depression Endocrine/Metabolic: Reports: Obesity/MBI 30+ Oncologic: Reports: Breast, Cervix, Lung - Caffeine Use Caffeine Use: Reports: Coffee, Energy Drinks, Soda ED ROS GENERAL - Review of Systems Review Of Systems: See Below ED EXAM, GENERAL - Physical Exam Exam: See Below Course - Vital Signs Text/Narrative:: Patient is stable she will be discharged home she has plenty of medication for her nebulizer and easy access to primary care and we will start her on a 5-day burst of prednisone return to the ED for worsening shortness of breath. Last Recorded V/S: Last Vital Signs Temp 36.2 C 02/24/20 14:11 Pulse 109 H 02/24/20 14:11 Resp 18 02/24/20 14:11 BP 146/80 H 02/24/20 14:11 Pulse Ox 95 02/24/20 14:11 Departure - Departure Time of Disposition: 14:30 Disposition: Home, Self-Care 01 Condition: Good Clinical Impression: Asthma - Discharge Information *PRESCRIPTION DRUG MONITORING PROGRAM REVIEWED*: Not Applicable *COPY OF PRESCRIPTION DRUG MONITORING REPORT IN PATIENT LAZARO: Not Applicable Instructions: Asthma, Adult Referrals: Mg Croft MD [Primary Care Provider] - Additional Instructions: The following information is given to patients seen in the emergency department who are being discharged to home. This information is to outline your options for follow-up care. We provide all patients seen in our emergency department with a follow-up referral. The need for follow-up, as well as the timing and circumstances, are variable depending upon the specifics of your emergency department visit. If you don't have a primary care physician on staff, we will provide you with a referral. We always advise you to contact your personal physician following an emergency department visit to inform them of the circumstance of the visit and for follow-up with them and/or the need for any referrals to a consulting specialist. The emergency department will also refer you to a specialist when appropriate. This referral assures that you have the opportunity for follow-up care with a specialist. All of these measure are taken in an effort to provide you with optimal care, which includes your follow-up. Under all circumstances we always encourage you to contact your private physician who remains a resource for coordinating your care. When calling for follow-up care, please make the office aware that this follow-up is from your recent emergency room visit. If for any reason you are refused follow-up, please contact the [facility] Emergency Department at and asked to speak to the emergency department charge nurse. Follow-up with your primary reproductive healthcare assistant. Sepsis Event Note (ED) - Evaluation Sepsis Screening Result: No Definite Risk - Focused Exam Vital Signs: Vital Signs Temp Pulse Resp BP Pulse Ox 02/24/20 14:11 36.2 C 109 H 18 146/80 H 95
[2020-02-24 14:47] VITALS: BP 134/75; PULSE 118
== END 2020-02-24 14:50 | disposition home or self-care (01) ==
LOC: MW.ED 13:56
DX: O99.511 Diseases of the respiratory system complicating pregnancy, first trimester (principal); J45.909 Unspecified asthma, uncomplicated; O99.211 Obesity complicating pregnancy, first trimester; Z3A.10 10 weeks gestation of pregnancy; Z91.09 Other allergy status, other than to drugs and biological substances
CPT/HCPCS: 99284; J8540; 99282

== ENCOUNTER 2020-04-15 14:07 | Emergency (ER) | payer SELFPAY ==
[2020-04-15] MEDS ORDERED: Dexamethasone 4 MG Tab PO STA (14:34)
[2020-04-15] MEDS ORDERED: Albuterol/Ipratropium 3.0-0.5 MG/3 ML Neb Soln NEB ONE ×2 (14:36)
--- NOTE | 2020-04-15 14:41 | EDM.PDOC ---
ED HPI GENERAL MEDICAL PROBLEM - General Chief Complaint: Asthma Stated Complaint: SICK Time Seen by Provider: 04/15/20 14:27 - History of Present Illness INITIAL COMMENTS - FREE TEXT/NARRATIVE: History of present illness: Patient presents with increased asthma symptoms over the past 2 days she has not been able to refill her medications due to finances. She normally has an inhaler at home. She denies any cough fever or congestion she simply having increased asthma symptoms she states this happens when she is she is approximately 4-1/2 months at this time she has been using her mother's inhaler Review of systems: As per history of present illness and below otherwise all systems reviewed and negative. Past medical history: As per history of present illness and as reviewed below otherwise noncont ributory. Surgical history: As per history of present illness and as reviewed below otherwise noncontributory. Social history: No reported history of drug or alcohol abuse. Family history: As per history of present illness and as reviewed below otherwise noncontributory. Physical exam: HEENT: Atraumatic, normocephalic, pupils reactive, negative for conjunctival pallor or scleral icterus, mucous membranes moist, throat clear, neck supple, nontender, trachea midline. Lungs: Clear to auscultation, breath sounds equal bilaterally, chest nontender. Heart: S1S2, regular, negative for clicks, rubs, or JVD. Abdomen: Soft, nondistended, nontender. Negative for masses or hepatosplenomegaly. Negative for costovertebral tenderness. Pelvis: Stable nontender. Genitourinary: Deferred. Rectal: Deferred. Extremities: Atraumatic, negative for cords or calf pain. Neurovascular unremarkable. Neuro: Awake, alert, oriented. Cranial nerves II through XII unremarkable. Cerebellum unremarkable. Motor and sensory unremarkable throughout. Exam nonfocal. Diagnostics: [] Therapeutics: [] Impression: Asthma [] Plan: DuoNeb steroids reassess [] Definitive disposition and diagnosis as appropriate pending reevaluation and review of above. - Related Data Allergies Allergy/AdvReac Type Severity Reaction Status Date / Time animal dander Allergy Sneezing Verified 04/15/20 14:38 Home Meds: Home Meds Albuterol [Proventil Neb Soln] 1 ampule INH Q4HR PRN 08/04/19 [History] Albuterol Sulfate [Proventil Hfa] 6.7 gm IH Q4H PRN #1 hfa.aer.ad 08/30/19 [Rx] Loratadine [Claritin] 10 mg PO DAILY 30 Days #30 tablet 08/30/19 [Rx] Montelukast [Singulair] 10 mg PO BEDTIME 30 Days #30 tablet 08/30/19 [Rx] Albuterol Sulfate [Albuterol Sulfate Hfa] 8.5 gm IH Q4HR #1 hfa.aer.ad 04/15/20 [Rx] Past Medical History HEENT History: Reports: Impaired Vision Cardiovascular History: Reports: Other (See Below) Other Cardiovascular History: states "had heart problems at " details unknown by patient Respiratory History: Reports: Asthma Gastrointestinal History: Reports: None Genitourinary History: Reports: UTI, Recurrent 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: , Spontaneous Musculoskeletal History: Reports: None Neurological History: Reports: Head Trauma Psychiatric History: Reports: Anxiety, Bipolar, Depression Endocrine/Metabolic History: Reports: Obesity/BMI 30+ Hematologic History: Reports: None Immunologic History: Reports: None Oncologic (Cancer) History: Reports: None Dermatologic History: Reports: None - Infectious Disease History Infectious Disease History: Reports: Chicken Pox - Past Surgical History Head Surgeries/Procedures: Reports: None HEENT Surgical History: Reports: Adenoidectomy, Myringotomy w Tube(s), Tonsillectomy Cardiovascular Surgical History: Reports: None Respiratory Surgical History: Reports: None GI Surgical History: Reports: None Female Surgical History: Reports: Section Other Female Surgeries/Procedures: Endocrine Surgical History: Reports: None Neurological Surgical History: Reports: None Musculoskeletal Surgical History: Reports: None Oncologic Surgical History: Reports: None Dermatological Surgical History: Reports: None Social & Family History - Family History Family Medical History: Noncontributory HEENT: Reports: Impaired Vision Cardiac: Reports: Hypertension, [place] Respiratory: Reports: Asthma, Sleep Apnea : Reports: Other (See Below) Other Family History: Mother of patient in current kidney failure. OBGYN: Reports: Musculoskeletal: Reports: Arthritis, Gout, Osteoarthritis Psychiatric: Reports: ADHD, Anxiety, Depression Endocrine/Metabolic: Reports: Obesity/MBI 30+ Oncologic: Reports: Breast, Cervix, Lung - Caffeine Use Caffeine Use: Reports: Coffee, Energy Drinks, Soda ED ROS GENERAL - Review of Systems Review Of Systems: See Below ED EXAM, GENERAL - Physical Exam Exam: See Below Course - Vital Signs Text/Narrative:: Patient is improved after Decadron and neb. She states she is unable to purchase her medications until tomorrow I will dispense an albuterol inhaler to her I also wrote 1 as a prescription for her. She is to follow-up with her primary care doctor Last Recorded V/S: Last Vital Signs Temp 36.1 C 04/15/20 14:30 Pulse 106 H 04/15/20 15:00 Resp 20 04/15/20 15:00 BP 127/49 L 04/15/20 15:00 Pulse Ox 96 04/15/20 15:00 - Orders/Labs/Meds Orders: Active Orders 24 hr Category Date Time Status RT Aerosol Therapy [RC] ASDIRECTED Care 04/15/20 14:36 Active RT Aerosol Therapy [RC] ASDIRECTED Care 04/15/20 14:36 Active Meds: Medications Discontinued Medications Generic Name Dose Route Start Last Admin Trade Name Jitendra PRN Reason Stop Dose Admin Albuterol/Ipratropium 3 ml 04/15/20 14:36 04/15/20 14:50 Duoneb 3.0-0.5 Mg/3 Ml NEB 04/15/20 14:37 3 ml ONETIME ONE Administration Albuterol/Ipratropium 3 ml 04/15/20 14:36 04/15/20 15:00 Duoneb 3.0-0.5 Mg/3 Ml NEB 04/15/20 14:37 Not Given ONETIME ONE Dexamethasone 8 mg 04/15/20 14:34 04/15/20 14:47 Dexamethasone PO 04/15/20 14:35 8 mg NOW STA Administration Departure - Departure Time of Disposition: 15:05 Disposition: Home, Self-Care 01 Condition: Good Clinical Impression: Asthma exacerbation - Discharge Information *PRESCRIPTION DRUG MONITORING PROGRAM REVIEWED*: Not Applicable *COPY OF PRESCRIPTION DRUG MONITORING REPORT IN PATIENT LAZARO: Not Applicable Prescriptions: Albuterol Sulfate [Albuterol Sulfate Hfa] 8.5 gm IH Q4HR #1 hfa.aer.ad Instructions: Asthma, Adult Referrals: Mg Croft MD [Primary Care Provider] - Forms: ED Department Discharge Additional Instructions: The following information is given to patients seen in the emergency department who are being discharged to home. This information is to outline your options for follow-up care. We provide all patients seen in our emergency department with a follow-up referral. The need for follow-up, as well as the timing and circumstances, are variable depending upon the specifics of your emergency department visit. If you don't have a primary care physician on staff, we will provide you with a referral. We always advise you to contact your personal physician following an emergency department visit to inform them of the circumstance of the visit and for follow-up with them and/or the need for any referrals to a consulting specialist. The emergency department will also refer you to a specialist when appropriate. This referral assures that you have the opportunity for follow-up care with a specialist. All of these measure are taken in an effort to provide you with optimal care, which includes your follow-up. Under all circumstances we always encourage you to contact your private physician who remains a resource for coordinating your care. When calling for follow-up care, please make the office aware that this follow-up is from your recent emergency room visit. If for any reason you are refused follow-up, please contact the [facility] Emergency Department at and asked to speak to the emergency department charge nurse. Sepsis Event Note (ED) - Evaluation Sepsis Screening Result: No Definite Risk - Focused Exam Vital Signs: Vital Signs Temp Pulse Resp BP Pulse Ox 04/15/20 15:00 106 H 20 127/49 L 96 04/15/20 14:30 36.1 C 87 22 H 119/61 96 - My Orders Last 24 Hours: My Active Orders 04/15/20 14:36 RT Aerosol Therapy [RC] ASDIRECTED RT Aerosol Therapy [RC] ASDIRECTED - Assessment/Plan Last 24 Hours: My Active Orders 04/15/20 14:36 RT Aerosol Therapy [RC] ASDIRECTED RT Aerosol Therapy [RC] ASDIRECTED
[2020-04-15] MEDS ORDERED: Albuterol 8 GM Inhaler INH ONE ×3 (15:04→15:12)
[2020-04-15] MEDS ORDERED: Albuterol HFA 18 Gm Inhaler ONE (15:14)
[2020-04-15 15:29] VITALS: BP 110/53; PULSE 95
== END 2020-04-15 15:19 | disposition home or self-care (01) ==
LOC: MW.ED 14:07
DX: J45.901 Unspecified asthma with (acute) exacerbation (principal); E66.9 Obesity, unspecified; Z68.41 Body mass index [BMI] 40.0-44.9, adult; Z91.048 Other nonmedicinal substance allergy status
CPT/HCPCS: 94640; 99284; J8540; 99282; J3535-GY; J7620-GY

== ENCOUNTER 2020-04-24 02:01 | Emergency (ER) | payer SELFPAY ==
[2020-04-24] MEDS ORDERED: Albuterol/Ipratropium 3.0-0.5 MG/3 ML Neb Soln NEB ONE (02:06)
[2020-04-24] MEDS ORDERED: Albuterol/Ipratropium 3.0-0.5 MG/3 ML Neb Soln ONE (02:06)
[2020-04-24] MEDS ORDERED: predniSONE 20 MG Tab PO ONE (02:10)
--- NOTE | 2020-04-24 02:10 | EDM.PDOC ---
ED HPI GENERAL MEDICAL PROBLEM - General Stated Complaint: ASTHMA ATTACK Time Seen by Provider: 04/24/20 02:05 Source of Information: Reports: Patient, EMS History Limitations: Reports: No Limitations - History of Present Illness INITIAL COMMENTS - FREE TEXT/NARRATIVE: 20-year-old female [place] 5 months, A2 presents feeling shortness of breath over the last 20 minutes. She ran out of her albuterol neb 0.083%. EMS in the field administered 1 breathing treatment with improvement of her symptoms. She denies fever, chills, chest pain, cough, vaginal bleeding, abdominal pain, pelvic cramping, LOF. He has been admitted previously for asthma but never intubated. ROS: A 10-point review of systems, other than pertinent positives and negatives as stated per HPI, is otherwise negative Past medical history: No additional pertinent history Past Surgical history: No additional pertinent history Social history: No additional pertinent history Family history: No additional pertinent history PHYSICAL EXAM General: AOx4, GCS = 15, mild respiratory distress HEENT: dry mucous membrane Neck: supple, no meningismus, no Kernig or Brudzinski Cardiac: S1S2 RRR Respiratory: Mild respiratory distress, expiratory wheezing bilaterally Abdomen: Soft, nontender, no rebound or guarding, nondistended, no pulsatile mass. Back: nontender Musculoskeletal: NVI distally, no deformity Neuro: No focal deficits, CN 2 - 12 WNL. - Related Data Allergies Allergy/AdvReac Type Severity Reaction Status Date / Time animal dander Allergy Sneezing Verified 04/15/20 14:38 Home Meds: Home Meds Albuterol [Proventil Neb Soln] 1 ampule INH Q4HR PRN 08/04/19 [History] Albuterol Sulfate [Proventil Hfa] 6.7 gm IH Q4H PRN #1 hfa.aer.ad 08/30/19 [Rx] Loratadine [Claritin] 10 mg PO DAILY 30 Days #30 tablet 08/30/19 [Rx] Montelukast [Singulair] 10 mg PO BEDTIME 30 Days #30 tablet 08/30/19 [Rx] Albuterol Sulfate [Albuterol Sulfate Hfa] 8.5 gm IH Q4HR #1 hfa.aer.ad 04/15/20 [Rx] Albuterol [Proventil Neb Soln] 2.5 mg .XX Q6H PRN #30 neb 04/24/20 [Rx] predniSONE [Prednisone] 50 mg PO DAILY #5 tablet 04/24/20 [Rx] Past Medical History - Past Health History Medical/Surgical History: Denies Medical/Surgical History HEENT History: Reports: Impaired Vision Cardiovascular History: Reports: Other (See Below) Other Cardiovascular History: states "had heart problems at " details unknown by patient Respiratory History: Reports: Asthma Gastrointestinal History: Reports: None Genitourinary History: Reports: UTI, Recurrent 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 History: Reports: , Spontaneous Musculoskeletal History: Reports: None Neurological History: Reports: Head Trauma Psychiatric History: Reports: Anxiety, Bipolar, Depression Endocrine/Metabolic History: Reports: Obesity/BMI 30+ Hematologic History: Reports: None Immunologic History: Reports: None Oncologic (Cancer) History: Reports: None Dermatologic History: Reports: None - Infectious Disease History Infectious Disease History: Reports: Chicken Pox - Past Surgical History Head Surgeries/Procedures: Reports: None HEENT Surgical History: Reports: Adenoidectomy, Myringotomy w Tube(s), Tonsillectomy Cardiovascular Surgical History: Reports: None Respiratory Surgical History: Reports: None GI Surgical History: Reports: None Female Surgical History: Reports: Section Other Female Surgeries/Procedures: Endocrine Surgical History: Reports: None Neurological Surgical History: Reports: None Musculoskeletal Surgical History: Reports: None Oncologic Surgical History: Reports: None Dermatological Surgical History: Reports: None Social & Family History - Family History Family Medical History: Noncontributory HEENT: Reports: Impaired Vision Cardiac: Reports: Hypertension, [place] Respiratory: Reports: Asthma, Sleep Apnea : Reports: Other (See Below) Other Family History: Mother of patient in current kidney failure. OBGYN: Reports: Musculoskeletal: Reports: Arthritis, Gout, Osteoarthritis Psychiatric: Reports: ADHD, Anxiety, Depression Endocrine/Metabolic: Reports: Obesity/MBI 30+ Oncologic: Reports: Breast, Cervix, Lung - Caffeine Use Caffeine Use: Reports: Coffee, Energy Drinks, Soda ED ROS GENERAL - Review of Systems Review Of Systems: Comprehensive ROS is negative, except as noted in HPI. (see dictation) ED EXAM, GENERAL - Physical Exam Exam: See Below (see dictation) Course - Vital Signs Last Recorded V/S: Last Vital Signs Temp 96.7 F L 04/24/20 02:01 Pulse 97 04/24/20 02:01 Resp 24 H 04/24/20 02:01 BP 107/64 04/24/20 02:01 Pulse Ox 92 L 04/24/20 02:01 - Orders/Labs/Meds Orders: Active Orders 24 hr Category Date Time Status Heart Tones [ Heart Rate] [RC] Click to Edit Care 04/24/20 02:13 Active RT Aerosol Therapy [RC] ASDIRECTED Care 04/24/20 02:06 Active Meds: Medications Discontinued Medications Generic Name Dose Route Start Last Admin Trade Name Freq PRN Reason Stop Dose Admin Albuterol/Ipratropium 3 ml 04/24/20 02:06 04/24/20 02:35 Duoneb 3.0-0.5 Mg/3 Ml NEB 04/24/20 02:07 3 ml ONETIME ONE Administration Albuterol/Ipratropium Confirm 04/24/20 02:06 04/24/20 02:35 Duoneb 3.0-0.5 Mg/3 Ml Administered 04/24/20 02:07 Not Given Dose 3 ml .ROUTE .STK-MED ONE Prednisone 60 mg 04/24/20 02:10 04/24/20 02:34 Prednisone PO 04/24/20 02:11 60 mg ONETIME ONE Administration - Re-Assessments/Exams Free Text/Narrative Re-Assessment/Exam: 04/24/20 02:51 After breathing treatment and prednisone in the ER, the patient improved and is currently stable for discharge. I performed a repeat exam and did not appreciate new abnormal findings. Patient exhibits normal vital signs and is now clear to auscultation bilaterally with no retractions and respiratory distress. I advised the patient to return to the ER for reevaluation if symptoms worsened, including fever, worsening pain, or any other worrisome symptoms. I instructed the patient to follow up with their PCP within 2-3 days. MEDICAL DECISION MAKING: I reviewed the patients past medical records, lab and radiographic findings. I discussed the case with the patient. My differential diagnosis included: Asthma exacerbation. No suspicion for pneumonia or pulmonary embolism. Her symptoms resolved after breathing treatment and pred nisone, auscultation prior to treatment demonstrated expiratory wheezing bilaterally consistent with her asthma. Departure - Departure Time of Disposition: 02:51 Disposition: Home, Self-Care 01 Condition: Good Clinical Impression: Asthma exacerbation - Discharge Information *PRESCRIPTION DRUG MONITORING PROGRAM REVIEWED*: Not Applicable *COPY OF PRESCRIPTION DRUG MONITORING REPORT IN PATIENT LAZARO: Not Applicable Prescriptions: predniSONE [Prednisone] 50 mg PO DAILY #5 tablet Albuterol [Proventil Neb Soln] 2.5 mg .XX Q6H PRN #30 neb PRN Reason: Dyspnea Instructions: Asthma Attack Referrals: Mg Croft MD [Primary Care Provider] - 3 Days Additional Instructions: The need for follow-up, as well as the timing and circumstances, are variable depending upon the specifics of your emergency department visit. If you don't have a primary care physician on staff, we will provide you with a referral. We always advise you to contact your personal physician following an emergency department visit to inform them of the circumstance of the visit and for follow-up with them and/or the need for any referrals to a consulting specialist. The emergency department will also refer you to a specialist when appropriate. This referral assures that you have the opportunity for follow-up care with a specialist. All of these measure are taken in an effort to provide you with optimal care, which includes your follow-up. Under all circumstances we always encourage you to contact your private physician who remains a resource for coordinating your care. When calling for follow-up care, please make the office aware that this follow-up is from your recent emergency room visit. If for any reason you are refused follow-up, please contact the [facility] Emergency Department at and asked to speak to the emergency department charge nurse. If you do not have a primary care doctor, please follow up with the clinics below within 3-[address] [facility] [address] [place] [address] [facility] [address] [place] [address] Sepsis Event Note (ED) - Focused Exam Vital Signs: Vital Signs Temp Pulse Resp BP Pulse Ox 04/24/20 02:01 96.7 F L 97 24 H 107/64 92 L - My Orders Last 24 Hours: My Active Orders 04/24/20 02:06 RT Aerosol Therapy [RC] ASDIRECTED 04/24/20 02:13 Heart Tones [ Heart Rate] [RC] Click to Edit - Assessment/Plan Last 24 Hours: My Active Orders 04/24/20 02:06 RT Aerosol Therapy [RC] ASDIRECTED 04/24/20 02:13 Heart Tones [ Heart Rate] [RC] Click to Edit
[2020-04-24 03:09] VITALS: PULSE 110
[2020-04-24] MEDS ORDERED: Acetaminophen 325 MG Tab PO STA (03:11)
[2020-04-24 03:40] VITALS: BP 105/54
== END 2020-04-24 03:36 | disposition home or self-care (01) ==
LOC: MW.ED 02:01
DX: O99.512 Diseases of the respiratory system complicating pregnancy, second trimester (principal); J45.901 Unspecified asthma with (acute) exacerbation; O99.212 Obesity complicating pregnancy, second trimester; E66.9 Obesity, unspecified; Z91.09 Other allergy status, other than to drugs and biological substances; Z90.49 Acquired absence of other specified parts of digestive tract
CPT/HCPCS: 99284; A9270; J7620-GY

== ENCOUNTER 2020-06-14 10:23 | Emergency (ER) | payer SELFPAY ==
[2020-06-14] MEDS ORDERED: Sodium Chloride 0.9% 10 ML Syringe FLUSH PRN (10:59)
[2020-06-14] MEDS ORDERED: Sodium Chloride 0.9% 2.5 ML Syringe FLUSH PRN (10:59)
[2020-06-14] MEDS ORDERED: Albuterol/Ipratropium 3.0-0.5 MG/3 ML Neb Soln NEB ONE (11:02)
--- NOTE | 2020-06-14 11:07 | EDM.PDOC ---
ED HPI GENERAL MEDICAL PROBLEM - General Chief Complaint: General Stated Complaint: SOB Time Seen by Provider: 06/14/20 10:24 Source of Information: Reports: Patient History Limitations: Reports: No Limitations - History of Present Illness INITIAL COMMENTS - FREE TEXT/NARRATIVE: HISTORY AND PHYSICAL: History of present illness: Patient is a 20-year-old female who presents to the emergency room today with concern of shortness of breath, and possible worsening asthma exacerbation. Patient states she is approximately 26 weeks has not had any complications during her . Patient states per her baseline she takes montelukast and has an albuterol inhaler as well as albuterol nebulizers. Patient states since midnight last night and this morning she has had to use for nebulizer treatments as she becomes short of breath with short exertions. Patient states when she walked to the bathroom to her bedroom, she felt as if she was having an asthma attack and has had to use her nebulizers frequently. Patient states this is her 4th and has no h/o prior issues during pregnancies. Patient states that 1 week ago she was started on a vitamin and baby aspirin per her doctor's recommendations. She states that she sees Magda ePralta and has followed with her since the beginning of the . Patient states that she has tried multiple vitamins throughout her but has had issues with that causing nausea and vomiting. Patient states that she felt like her asthma was triggered by starting the vitamin and baby aspirin. Patient states she is unsure why she is on the baby aspirin. Patient denies any abdominal pain, cramping, vaginal bleeding, or vaginal discharge. Patient denies fever, chills, chest pain, shortness of breath, or cough. Denies headache, neck stiff ness, change in vision, syncope, or near syncope. Denies nausea, vomiting, abdominal pain, diarrhea, constipation, or dysuria. Has not noted any blood in urine or stool. Patient has been eating and drinking appropriately. Review of systems: As per history of present illness and below otherwise all systems reviewed and negative. Past medical history: As per history of present illness and as reviewed below otherwise noncontributory. Surgical history: As per history of present illness and as reviewed below otherwise noncontributo ry. Social history: See social history for further information Family history: As per history of present illness and as reviewed below otherwise noncontributory. Physical exam: General: Patient is alert, oriented, and in no acute distress. Patient sitting comfortably on exam table. He does have an oxygen 90-94 upon initial exam with mild tachycardia 100s-103s but is breathing comfortably. Vitals otherwise stable. HEENT: Atraumatic, normocephalic, pupils equal and reactive bilaterally, negative for conjunctival pallor or scleral icterus, mucous membranes moist, TMs normal bilaterally, throat clear, neck supple, nontender, trachea midline. No drooling or trismus noted. No meningeal signs. No hot potato voice noted. Lungs: Mild wheezing to auscultation of bilateral lung bases, breath sounds equal bilaterally, chest nontender. Patient is breathing comfortably and speaking complete sentences without breathlessness. No use of a sensory muscle use. No stridor. Heart: S1S2, regular rate and rhythm without overt murmur Abdomen: Soft, nondistended, nontender. Negative for masses or hepatosplenomegaly. Negative for costovertebral tenderness. Pelvis: Stable nontender. Genitourinary: Deferred. Rectal: Deferred. Skin: Intact, warm, dry. No lesions or rashes noted. Extremities: Atraumatic, negative for cords or calf pain. Neurovascular unremarkable. Neuro: Awake, alert, oriented. Cranial nerves II through XII unremarkable. Cerebellum unremarkable. Motor and sensory unremarkable throughout. Exam nonfocal. Notes: FHT at bedside 160s. Patient does have an elevated D-dimer today. All risks versus benefits of ang CT discussed, including risks vs benefits in , with patient and she declines all imaging today and expresses understanding. Upon reevaluation of patient, she states that she has much improvement of her symptoms with therapeutics today in the ED. She does state that she is feels to be on a steroid inhaler but has not been able to afford this. Patient states that she just got insurance this month and plans to pickle pumper this inhaler. Symptoms that would prompt return to the ED thoroughly discussed with patient. Strict return precautions thoroughly discussed. Discussed importance for follow-up with her primary care provider and her [employer]/and was health provider. Voices understanding and is agreeable to plan of care. Denies any further questions or concerns at this time. Diagnostics: EKG, CBC, CMP, UA, Trop, Ddimer, COVID19 (patient declines ang ct) Therapeutics: Duoneb, Prednisone Prescription: Prednisone Impression: Acute asthma exacerbation Dyspnea Elevated D-dimer, unspecified Plan: 1. Take medication as prescribed. Use your at home asthma medication as prescribed to you. 2. Follow-up with your primary care provider and your women's health provider as discussed. Return to the ED as needed and as discussed. Definitive disposition and diagnosis as appropriate pending reevaluation and review of above. generalized Pain Score (Numeric/FACES): 1 - Related Data Allergies Allergy/AdvReac Type Severity Reaction Status Date / Time animal dander Allergy Sneezing Verified 06/14/20 10:39 Home Meds: Home Meds Albuterol [Proventil Neb Soln] 1 ampule INH Q4HR PRN 08/04/19 [History] Montelukast [Singulair] 10 mg PO BEDTIME 30 Days #30 tablet 08/30/19 [Rx] Albuterol Sulfate [Albuterol Sulfate Hfa] 8.5 gm IH Q4HR #1 hfa.aer.ad 04/15/20 [Rx] Aspirin [Katherine Chewable Aspirin] 1 tab .ROUTE ASDIRECTED 06/14/20 [History] No115/Iron/Folic Acid [ 19 Chewable Tablet] 1 each PO ASDIRECTED 06/14/20 [History] predniSONE [Prednisone] 20 mg PO DAILY 5 Days #5 tablet 06/14/20 [Rx] Past Medical History - Past Health History Medical/Surgical History: Denies Medical/Surgical History HEENT History: Reports: Impaired Vision Cardiovascular History: Reports: Other (See Below) Other Cardiovascular History: states "had heart problems at " details unknown by patient Respiratory History: Reports: Asthma Gastrointestinal History: Reports: None Genitourinary History: Reports: UTI, Recurrent [employer] History: Reports: , Spontaneous Musculoskeletal History: Reports: None Neurological History: Reports: Head Trauma Psychiatric History: Reports: Anxiety, Bipolar, Depression Endocrine/Metabolic History: Reports: Obesity/BMI 30+ Hematologic History: Reports: None Immunologic History: Reports: None Oncologic (Cancer) History: Reports: None Dermatologic History: Reports: None - Infectious Disease History Infectious Disease History: Reports: Chicken Pox - Past Surgical History Head Surgeries/Procedures: Reports: None HEENT Surgical History: Reports: Adenoidectomy, Myringotomy w Tube(s), Tonsillectomy Cardiovascular Surgical History: Reports: None Respiratory Surgical History: Reports: None GI Surgical History: Reports: None Female Surgical History: Reports: Section Other Female Surgeries/Procedures: Endocrine Surgical History: Reports: None Neurological Surgical History: Reports: None Musculoskeletal Surgical History: Reports: None Oncologic Surgical History: Reports: None Dermatological Surgical History: Reports: None Social & Family History - Family History Family Medical History: No Pertinent Family History HEENT: Reports: Impaired Vision Cardiac: Reports: Hypertension, [place] Respiratory: Reports: Asthma, Sleep Apnea : Reports: Other (See Below) Other Family History: Mother of patient in current kidney failure. OBGYN: Reports: Musculoskeletal: Reports: Arthritis, Gout, Osteoarthritis Psychiatric: Reports: ADHD, Anxiety, Depression Endocrine/Metabolic: Reports: Obesity/MBI 30+ Oncologic: Reports: Breast, Cervix, Lung - Caffeine Use Caffeine Use: Reports: Coffee, Energy Drinks, Soda ED ROS GENERAL - Review of Systems Review Of Systems: Comprehensive ROS is negative, except as noted in HPI. ED EXAM, GENERAL - Physical Exam Exam: See Below (see dictation) Course - Vital Signs Last Recorded V/S: Last Vital Signs Temp 96.7 F L 06/14/20 10:36 Pulse 104 H 06/14/20 13:52 Resp 18 06/14/20 13:52 BP 119/61 06/14/20 12:54 Pulse Ox 93 L 06/14/20 13:52 - Orders/Labs/Meds Orders: Active Orders 24 hr Category Date Time Status Saline Lock Insert [OM.PC] Stat Oth 06/14/20 10:59 Ordered Labs: Laboratory Tests 06/14/20 06/14/20 06/14/20 Range/Units 11:35 11:35 11:35 WBC 16.07 H (4.0-11.0) K/uL RBC 4.96 (4.30-5.90) M/uL Hgb 11.6 L (12.0-16.0) g/dL Hct 38.1 (36.0-46.0) % MCV 76.8 L (80.0-98.0) fL MCH 23.4 L (27.0-32.0) pg MCHC 30.4 L (31.0-37.0) g/dL RDW Std Deviation 48.1 (28.0-62.0) fl RDW Coeff of Negrita 17 H (11.0-15.0) % Plt Count 243 (150-400) K/uL MPV 11.20 (7.40-12.00) fL Neut % (Auto) 80.6 H (48.0-80.0) % Lymph % (Auto) 8.1 L (16.0-40.0) % Barbour % (Auto) 3.3 (0.0-15.0) % Eos % (Auto) 7.9 H (0.0-7.0) % Baso % (Auto) 0.1 (0.0-1.5) % Neut # (Auto) 13.0 H (1.4-5.7) K/uL Lymph # (Auto) 1.3 (0.6-2.4) K/uL Barbour # (Auto) 0.5 (0.0-0.8) K/uL Eos # (Auto) 1.3 H (0.0-0.7) K/uL Baso # (Auto) 0.0 (0.0-0.1) K/uL Nucleated RBC % 0.0 /100WBC Nucleated RBCs # 0 K/uL D-Dimer, Quantitative 0.73 H (0.0-0.50) mg/L FEU Lactate (0.20-2.00) mmol/L Sodium 139 (136-145) mmol/L Potassium 4.1 (3.5-5.1) mmol/L Chloride 106 (98-107) mmol/L Carbon Dioxide 20.8 L (21.0-32.0) mmol/L BUN 5 L (7.0-18.0) mg/dL Creatinine 0.6 (0.6-1.0) mg/dL Est Cr Clr Drug Dosing 153.70 mL/min Estimated GFR (MDRD) > 60.0 ml/min Glucose 86 (74-106) mg/dL Calcium 9.0 (8.5-10.1) mg/dL Total Bilirubin 0.7 (0.2-1.0) mg/dL AST 15 (15-37) IU/L ALT 14 (14-63) IU/L Alkaline Phosphatase 105 (46-116) U/L Troponin I < 0.050 (0.000-0.056) ng/mL Total Protein 6.7 (6.4-8.2) g/dL Albumin 2.8 L (3.4-5.0) g/dL Globulin 3.9 (2.6-4.0) g/dL Albumin/Globulin Ratio 0.7 L (0.9-1.6) SARS-CoV-2 RNA (DANNY) (NEGATIVE) 06/14/20 06/14/20 Range/Units 12:05 12:18 WBC (4.0-11.0) K/uL RBC (4.30-5.90) M/uL Hgb (12.0-16.0) g/dL Hct (36.0-46.0) % MCV (80.0-98.0) fL MCH (27.0-32.0) pg MCHC (31.0-37.0) g/dL RDW Std Deviation (28.0-62.0) fl RDW Coeff of Negrita (11.0-15.0) % Plt Count (150-400) K/uL MPV (7.40-12.00) fL Neut % (Auto) (48.0-80.0) % Lymph % (Auto) (16.0-40.0) % Barbour % (Auto) (0.0-15.0) % Eos % (Auto) (0.0-7.0) % Baso % (Auto) (0.0-1.5) % Neut # (Auto) (1.4-5.7) K/uL Lymph # (Auto) (0.6-2.4) K/uL Barbour # (Auto) (0.0-0.8) K/uL Eos # (Auto) (0.0-0.7) K/uL Baso # (Auto) (0.0-0.1) K/uL Nucleated RBC % /100WBC Nucleated RBCs # K/uL D-Dimer, Quantitative (0.0-0.50) mg/L FEU Lactate 0.6 (0.20-2.00) mmol/L Sodium (136-145) mmol/L Potassium (3.5-5.1) mmol/L Chloride (98-107) mmol/L Carbon Dioxide (21.0-32.0) mmol/L BUN (7.0-18.0) mg/dL Creatinine (0.6-1.0) mg/dL Est Cr Clr Drug Dosing mL/min Estimated GFR (MDRD) ml/min Glucose (74-106) mg/dL Calcium (8.5-10.1) mg/dL Total Bilirubin (0.2-1.0) mg/dL AST (15-37) IU/L ALT (14-63) IU/L Alkaline Phosphatase (46-116) U/L Troponin I (0.000-0.056) ng/mL Total Protein (6.4-8.2) g/dL Albumin (3.4-5.0) g/dL Globulin (2.6-4.0) g/dL Albumin/Globulin Ratio (0.9-1.6) SARS-CoV-2 RNA (DANNY) NEGATIVE (NEGATIVE) Meds: Medications Discontinued Medications Generic Name Dose Route Start Last Admin Trade Name Freq PRN Reason Stop Dose Admin Albuterol/Ipratropium 3 ml 06/14/20 11:02 06/14/20 11:38 Duoneb 3.0-0.5 Mg/3 Ml NEB 06/14/20 11:03 3 ml ONETIME ONE Administration Prednisone 60 mg 06/14/20 11:10 06/14/20 11:37 Prednisone PO 06/14/20 11:11 60 mg ONETIME ONE Administration Sodium Chloride 10 ml 06/14/20 10:59 06/14/20 11:36 Saline Flush FLUSH 10 ml ASDIRECTED PRN Administration Keep Vein Open Sodium Chloride 2.5 ml 06/14/20 10:59 06/14/20 11:36 Saline Flush FLUSH 2.5 ml ASDIRECTED PRN Administration Keep Vein Open Departure - Departure Time of Disposition: 13:42 Disposition: Home, Self-Care 01 Clinical Impression: Acute asthma, Elevated d-dimer Dyspnea Qualifiers: Dyspnea type: unspecified Qualified Code(s): R06.00 - Dyspnea, unspecified - Discharge Information Prescriptions: predniSONE [Prednisone] 20 mg PO DAILY 5 Days #5 tablet Instructions: Asthma, Adult, [id number], Asthma Attack Prevention, Adult Referrals: Mg Croft MD [Primary Care Provider] - Forms: ED Department Discharge Additional Instructions: The following information is given to patients seen in the emergency department who are being discharged to home. This information is to outline your options for follow-up care. We provide all patients seen in our emergency department with a follow-up referral. The need for follow-up, as well as the timing and circumstances, are variable depending upon the specifics of your emergency department visit. If you don't have a primary care physician on staff, we will provide you with a referral. We always advise you to contact your personal physician following an emergency department visit to inform them of the circumstance of the visit and for follow-up with them and/or the need for any referrals to a consulting specialist. The emergency department will also refer you to a specialist when appropriate. This referral assures that you have the opportunity for follow-up care with a specialist. All of these measure are taken in an effort to provide you with optimal care, which includes your follow-up. Under all circumstances we always encourage you to contact your private physician who remains a resource for coordinating your care. When calling for follow-up care, please make the office aware that this follow-up is from your recent emergency room visit. If for any reason you are refused follow-up, please contact the [facility] Emergency Department at and asked to speak to the emergency department charge nurse. [facility] [address] [place] [address] [place] [address] 1. Take medication as prescribed. Use your at home asthma medication as prescribed to you. 2. Follow-up with your primary care provider and your women's health provider as discussed. Return to the ED as needed and as discussed. Sepsis Event Note (ED) - Evaluation Sepsis Screening Result: No Definite Risk - Focused Exam Vital Signs: Vital Signs Temp Pulse Resp BP Pulse Ox 06/14/20 13:52 104 H 18 93 L 06/14/20 12:54 102 H 20 119/61 93 L 06/14/20 12:16 100 20 115/64 98 06/14/20 10:36 96.7 F L 101 H 20 120/68 93 L - My Orders Last 24 Hours: My Active Orders 06/14/20 10:59 Saline Lock Insert [OM.PC] Stat - Assessment/Plan Last 24 Hours: My Active Orders 06/14/20 10:59 Saline Lock Insert [OM.PC] Stat
[2020-06-14] MEDS ORDERED: predniSONE 20 MG Tab PO ONE (11:10)
[2020-06-14 12:09] LABS: BLOOD UREA NITROGEN,BUN 5 mg/dL (7.0-18.0); CARBON DIOXIDE,CO2 20.8 mmol/L (21.0-32.0); CHLORIDE,CL 106 mmol/L (98-107); GLUCOSE RANDOM 86 mg/dL (74-106); POTASSIUM,K 4.1 mmol/L (3.5-5.1); SODIUM,NA 139 mmol/L (136-145)
[2020-06-14 13:51] VITALS: BP 119/61
[2020-06-14 13:52] VITALS: PULSE 104
--- NOTE | 2020-06-14 20:36 | PCM.SN.2 ---
#1 Interpretation EKG Date: 06/14/20 Time: 11:10 Rhythm: Other (Sinus Tachycardia) [place]: Normal P-Wave: Present QRS: Normal ST-T: Normal QT: Normal Comparison: No Change (01/10/20) EKG Interpretation Comments: Sinus Tachycardia
== END 2020-06-14 13:53 | disposition home or self-care (01) ==
LOC: MW.ED 10:23
DX: J45.901 Unspecified asthma with (acute) exacerbation (principal); R79.1 Abnormal coagulation profile; E66.9 Obesity, unspecified; Z20.828 Contact with and (suspected) exposure to other viral communicable diseases; Z91.09 Other allergy status, other than to drugs and biological substances; Z90.49 Acquired absence of other specified parts of digestive tract
CPT/HCPCS: 36415; 80053; 83605; 84484; 85025; 85379; 87635; 93005; 99285; A9270; 99283; J7620-GY; U0002

== ENCOUNTER 2020-09-09 05:08 | Inpatient (IN) | payer SELFPAY ==
--- OUTSIDE RECORDS SUMMARY | 2020-08-24 21:37 | XMSREPORT ---
:2000 Author Name Christy Linares R.N. Address Unavailable Unavailable , Care Team Providers Name Role Phone Unavailable Unavailable Unavailable Mackenzie Diamond CNM Unavailable Unavailable Magda Bowling CNM Unavailable Unavailable Mg Croft Unavailable Unavailable Unavailable Unavailable Unavailable Reason for Referral For: History of delivery Section Scheduled 09/09/2020 Assessments No Information Problems Allergic rhinitis (477.9) (J30.9) Asthma (493.90) (J45.909) Bipolar depression (296.50) (F31.9) Obesity (278.00) (E66.9) History of delivery (V45.89) (Z98.891) Iron deficiency anemia of (648.20) (O99.019) Uterine size date discrepancy (649.60) (O26.849) Multigravida in third trimester (V22.1) (Z34.83) Need for Tdap vaccination (V06.1) (Z23) Allergies and Adverse Reactions Animal dander - Cats (Allergy) Animal dander - Dogs (Allergy) Medications ProAir HFA 108 (90 Base) MCG/ACT Inhalat ion Aerosol Solution; INHALE 1 PUFF EVERY 4 HOURS NEEDED. , R.N. Start: 22-May-2017 Refills: 0 8.5 GM Inhaler Montelukast Sodium 10 MG Oral Tablet; Take 1 tablet daily , R.N. Start: 17-Aug-2017 Refills: 0 Symbicort 80-4.5 MCG/ACT Inhalation Aerosol; USE DIRECTED . , R.N. Start: 17-Aug-2017 Refills: 0 6.9 GM Inhaler Nystatin [id number] UNIT/GM External Ointmen t; APPLY 2-3 TIMES DAILY TO AFFECTED AREA(S). GINA Diamond Start: 19-Aug-2018 Quantity: 1 15 GM Tube Refills: 1 Plus Iron 29-1 MG Oral Tablet; TAKE 1 TABLET DAILY. GINA Bowling Magda Start: 31-May-2020 Quantity: 90 Refills: 3 Aspirin 81 MG Oral Tablet Chewable; CHEW AND SWALLOW 1 TABLET DAILY. GINA Bowling Magda Start: 31-May-2020 Quantity: 90 Refills: 2 Procedures Request for Surgery Date: 26-Jul-2020 History of Tonsillectomy Status: Complet ed History of Jonancy tooth extraction Statu s: Completed History of Ear surgery Status: Completed Immunizations Fluzone Quadrivalent 0.5 ML Intramuscular Suspension P refilled Syringe On: 19-Apr-2018 Lot #: [id number], SANOFI PASTEUR Boostrix 5-2.5-18.5 Intramuscular Suspension On: 19-Apr-2018 Lot #: [id number], GLAXO DAHL NIXON Tdap On: 28-Jun-2020 Lot #: [id number], GLAXO DAHL NIXON Family History Family history of asthma (V17.5) (Z82.5) Status: Active Family history of seizures (V19.8) (Z84.89) Status: Active Social History - Never smoked tobacco Recorded: Plan of Treatment Hospital Referral Request Appointment; Bernardo Scott M.D. Start: 23-Aug-2020 13:45 Re quest Appointment; Bernardo Scott M.D. Start: 06-Sep-2020 7:30 Requ est Appointment; Bernardo Scott M.D. Start: 17-Sep-2020 13:45 Re quest Planned Goals not documented Results US OB Follow Up Ea Addl Gest Laboratory: [facility] 26-Jul-2020 10:52 US OB Follow Up Ea Addl Gest [facility] [address] [place] [address] DIAGNOSTIC IMAGING DEPAR TMENT Ultrasound Patient Name: ARMANDO HWANG TT Unit Number: [id number] Date of : Ordering Provider: Lauren Rey CNM, NP [place] [facility] [place] Primary Provider: Mg Croft MD Room/Bed: Order P rocedure: [id number] US/OB Follow Up Ea Addl Gest Date of Exam: 07/26/20 Reason for Exam: Uterine size-date discrepancy, unspecified trime ster Order Requisition#: [id number] Acces luis#: [id number] INDICAT ION: Uterine size date discrepancy. TECHNI QUE: Obstetrical ultrasound. COMPARISON: Obstetrical ultrasounds 06/28/2020 and 04/30/2020. FINDINGS: Single live intrauterine is se en with breech presentation. The placenta is anterior without evidence of previa. Amniotic fluid volum e is within normal limits with single deepest pocket of 4.6 cm and TIMMY 10.4 cm. Biparietal diameter of 8 .3 cm gives an estimated gestational age of 33 weeks 2 days. Head circumference of 31.2 cm gives an e stimated gestational age of 34 weeks 6 days. Abdominal circumference of 29.0 cm gives an estima eliza gestational age of 33 weeks 0 days. Femur length of 6.1 cm gives an estimated gestational age of 31 weeks 5 days. Estimated gestational age based on these measurements is 33 weeks 1 day w ith estimated date of delivery of 09/12/2020. Head to abdominal circumference ratio of 1.08 is within no rmal limits. Femur length is proportionate to bipar ietal diameter. Estimated weight is 2060 g which is at the 48th percentile. IMPRESSION: 1. Single live intrauterine with breech presentation. Estimated gestational age is 33 weeks 1 day +/- 3 weeks with estimated date of delivery of 09/12/2020. There has been appropriate interval grow th since the prior studies. 2. Amniotic fluid vol ume within normal limits. 3. Estimated leilani ght is 2060 grams which is at the 48th percentile. Dictated by Kenny Ni MD @ Jul 26 2020 5:30PM Signed by Dr. Kenny Ni @ Jul 26 2020 5:48PM Dictated by: Kenny Ni 07/26/20 at 1748 , 1122 T: , Doc Number: [id number] Copies To: Lauren Rey CNM, TRAIN INSPECTOR; Mg Ken MD Vital Signs 09-Aug-2020 11:08 Systolic 108 mm[Hg] Comments: Location: LUE; Position: Sitting Diastolic 72 mm[Hg] Comments: Location: LUE; Position: Sitting Height 67 in Weight 291.4 lb BMI Calculated 45.64 kg/m2 BSA Calculated 2.37 m2 Temperature 97.3 f Heart Rate 103 /min Respiration 18 /min O2 Saturation 98 % Encounters Appointment; Bernardo Scott M.D. 09-Aug-2020 11:00 Encounter Diagnosis: Problem not documented Appointment; Bernardo Scott M.D. 26-Jul-2020 9:15 Encounter Diagnosis: Problem not documented Appointment; Mackenzie Diamond CNM 30-Apr-2020 11:30 Encounter Diagnosis: Problem not documented Appointment; Mackenzie Diamond CNM 05-Mar-2020 15:00 Encounter Diagnosis: Problem not documented Appointment; Mackenzie Diamond CNM 19-Aug-2018 10:45 Encounter Diagnosis: Problem not documented
--- OUTSIDE RECORDS SUMMARY | 2020-08-24 21:37 | XMSREPORT ---
:2000 Author Organization [facility] Address [address] [place], [place] [id number] [place] [address] Phone Reason For Referral No Reason for Referral was given. History Of Present Illness No HPI available. Assessments No Assessments available Plan of Care Name Dates Details [facility] Referral Request
[2020-09-09] MEDS ORDERED: ceFAZolin 2 GM in Premix Bag 1 BAG IV ONE (06:33)
[2020-09-09] MEDS ORDERED: Citric Acid/Sodium Citrate Solution 30 ML Cup PO ONE (06:33)
[2020-09-09] MEDS ORDERED: Sodium Chloride 0.9% 2.5 ML Syringe FLUSH PRN (06:33)
[2020-09-09] MEDS ORDERED: Sodium Chloride 0.9% 10 ML Syringe FLUSH PRN (06:33)
[2020-09-09] MEDS ORDERED: Sodium Chloride 0.9% 10 ML SDV IV PRN (06:33)
[2020-09-09] MEDS ORDERED: Oxytocin/0.9 % Sodium Chloride 30 UNIT/500 ML BAG IV SCH ×2 (06:45→14:08)
[2020-09-09] MEDS: Lactated Ringers 1,000 ML IV SCH ×3 (06:50→10:11)
--- NOTE | 2020-09-09 06:59 | PCM.PREANE ---
Preanesthetic Assessment - Anesthesia/Transfusion/Family Hx Anesthesia History: Prior Anesthesia Without Reaction Family History of Anesthesia Reaction: No Transfusion History: No Prior Transfusion(s) - Review of Systems General: No Symptoms Pulmonary: No Symptoms Cardiovascular: No Symptoms Gastrointestinal: No Symptoms Neurological: No Symptoms Other: Reports: None - Physical Assessment NPO Status Date: 09/08/20 NPO Status Time: 22:00 Height: 1.73 m Weight: 293 kg ASA Class: 3 Mental Status: Alert & Oriented x3 Airway Class: Mallampati = 2 Dentition: Reports: Normal Dentition Thyro-Mental Finger Breadths: 3 Mouth Opening Finger Breadths: 3 ROM/Head Extension: Full Lungs: Clear to Auscultation, Normal Respiratory Effort Cardiovascular: Regular Rate, Regular Rhythm - Allergies Allergies/Adverse Reactions: Allergies Allergy/AdvReac Type Severity Reaction Status Date / Time animal dander Allergy Shortness Verified 09/02/20 11:17 of Breath - Acknowledgements Anesthesia Type Planned: Spinal (The patient understands and accepts the risks and benefits of spinal anesthesia. All questions answered. Consent signed. ) Pt an Appropriate Candidate for the Planned Anesthesia: Yes Alternatives and Risks of Anesthesia Discussed w Pt/Guardian: Yes Pt/Guardian Understands and Agrees with Anesthesia Plan: Yes PreAnesthesia Questionnaire - Past Health History Medical/Surgical History: Denies Medical/Surgical History HEENT History: Reports: Impaired Vision Cardiovascular History: Reports: Other (See Below) Other Cardiovascular History: states "had heart problems at " details unknown by patient Respiratory History: Reports: Asthma (gotten worse since . Is controlled now with inhaler bid (once in the morning and then in the afternoon). 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 Now she just tolerates it. States that her back pain is worse in the supine position. PREOP PAIN score "4/10".) Neurological History: Reports: Head Trauma Other Neuro History: Rafat in head after fall 05/31/2019 Psychiatric History: Reports: Anxiety, Bipolar, Depression Other Psychiatric History: "bipolar depression" Endocrine/Metabolic History: Reports: Obesity/BMI 30+ (incorrect BMI. height 1.7, weight 127 kg.) Hematologic History: Reports: Anemia Immunologic History: Reports: None Oncologic (Cancer) History: Reports: None Dermatologic History: Reports: None - Infectious Disease History Infectious Disease History: Reports: Chicken Pox, Other (See Below) (COVID NEGATIVE) - Past Surgical History Head Surgeries/Procedures: Reports: None HEENT Surgical History: Reports: Adenoidectomy, Myringotomy w Tube(s), Tonsillectomy Cardiovascular Surgical History: Reports: None Respiratory Surgical History: Reports: None GI Surgical History: Reports: None Female Surgical History: Reports: Section Other Female Surgeries/Procedures: Endocrine Surgical History: Reports: None Neurological Surgical History: Reports: None Musculoskeletal Surgical History: Reports: None Oncologic Surgical History: Reports: None Dermatological Surgical History: Reports: None - SUBSTANCE USE Tobacco Use Status *Q: Never Tobacco User Tobacco Use Within Last Twelve Months: No Second Hand Smoke Exposure: No Days Per Week of Alcohol Use: 0 Recreational Drug Use History: No - HOME MEDS Home Medications: Home Meds Albuterol Sulfate 1 inhalation NEB ASDIRECTED PRN 09/02/20 [History] Albuterol [Take Home: Albuterol 18 GM, 1 INH Pack] 1 - 2 puff INH ASDIRECTED PRN 09/02/20 [History] Fluticasone Propion/Salmeterol [Advair 250-50 Diskus] 1 puff INH BID 09/02/20 [History] Montelukast Sodium 10 mg PO DAILY 09/02/20 [History]
[2020-09-09] MEDS ORDERED: Morphine PF 10 MG/10 ML SDV ONE (07:19)
[2020-09-09] MEDS ORDERED: Oxytocin 10 Units/1 ML SDV ONE (07:24)
[2020-09-09] MEDS ORDERED: Phenylephrine 1% 10 MG/ML SDV ONE (07:24)
[2020-09-09] MEDS ORDERED: Ondansetron 4 MG/2 ML SDV ONE (07:24)
[2020-09-09] MEDS ORDERED: Sodium Chloride 0.9% 20 ML ONE (07:24)
[2020-09-09] MEDS ORDERED: Ketorolac 30 MG/ML SDV ONE (07:24)
[2020-09-09] MEDS ORDERED: ceFAZolin 1 GM Vial ONE (07:24)
[2020-09-09] MEDS ORDERED: Acetaminophen/HYDROcodone 325-5 MG Tab PO PRN (08:37)
[2020-09-09] MEDS ORDERED: Acetaminophen/oxyCODONE 325-5 MG Tab PO PRN ×2 (08:37→13:44)
[2020-09-09] MEDS ORDERED: Naloxone 0.4 MG/ML Syringe IVPUSH PRN (08:37)
--- NOTE | 2020-09-09 09:58 | PCM.POSTAN ---
POST ANESTHESIA ASSESSMENT - MENTAL STATUS Mental Status: Alert - RESPIRATORY Respiratory Status: Respiratory Rate WNL - CARDIOVASCULAR CV Status: Pulse Rate WNL - GASTROINTESTINAL GI Status: No Symptoms - POST OP HYDRATION Hydration Status: Adequate & Stable
[2020-09-09] MEDS: Nalbuphine 10 MG/1 ML Vial IVPUSH PRN ×2 (09:59→19:41)
[2020-09-09] MEDS ORDERED: diphenhydrAMINE 50 MG/ML SDV IVPUSH PRN (13:44)
[2020-09-09] MEDS ORDERED: Ondansetron 4 MG/2 ML SDV IVPUSH PRN (13:44)
[2020-09-09] MEDS ORDERED: Oxytocin 10 Units/1 ML SDV IM PRN (13:44)
[2020-09-09] MEDS ORDERED: Lanolin 100% Cream 7 GM Tube TOP PRN (13:44)
[2020-09-09] MEDS ORDERED: Misoprostol 200 MCG Tab RECTAL PRN (13:44)
[2020-09-09] MEDS ORDERED: Methylergonovine 0.2 MG/1 ML Amp IM PRN (13:44)
[2020-09-09] MEDS ORDERED: Ibuprofen 800 MG Tab PO PRN (13:44)
[2020-09-09] MEDS ORDERED: Bisacodyl 10 MG Supp RECTAL PRN (13:44)
[2020-09-09] MEDS ORDERED: Tranexamic Acid 1,000 MG in Sodium Chloride 0.9% 100 ML IV PRN (13:44)
[2020-09-09] MEDS ORDERED: Lactated Ringers 1,000 ML IV SCH (13:45)
[2020-09-09] MEDS ORDERED: Oxytocin/Lactated Ringers 30 UNIT/500 ML BAG IV SCH (13:45)
[2020-09-09] MEDS: Ketorolac 30 MG/ML SDV IVPUSH SCH ×2 (15:09→21:23)
--- NOTE | 2020-09-09 21:04 | PCM.OPNOTE ---
- General Post-Op/Procedure Note Date of Surgery/Procedure: 09/09/20 Operative Procedure(s): Repeat Lower transverse Findings: Live female delivered at 819am , 9/9 weight 3260g Pre Op Diagnosis: 20yo @ 39w0d for repeat Post-Op Diagnosis: same Anesthesia Technique: Spinal Primary Surgeon: Steffany Regalado Anesthesia Provider: Oneal Haddad Pathology: none Fluid Replacement, Intraop: 1,000 Output, Urine Amount: 100 EBL in mLs: 500 Complications: None Condition: Good Free Text/Narrative:: Intake & Output 09/09/20 09/09/20 09/09/20 06:59 14:59 22:59 Output Total 500 Balance -500
[2020-09-09] MEDS: Docusate Sodium 100 MG Cap PO SCH (21:23)
[2020-09-10] MEDS: Nalbuphine 10 MG/1 ML Vial IVPUSH PRN (00:23)
[2020-09-10] MEDS: Ketorolac 30 MG/ML SDV IVPUSH SCH ×3 (03:28→15:16)
--- NOTE | 2020-09-10 08:05 | PCM48HPAN ---
Post Anesthesia Note - EVALUATION WITHIN 48HRS OF ANESTHETIC Vital Signs in Normal Range: Yes Patient Participated in Evaluation: Yes Respiratory Function Stable: Yes Airway Patent: Yes Cardiovascular Function Stable: Yes Hydration Status Stable: Yes Pain Control Satisfactory: Yes Nausea and Vomiting Control Satisfactory: Yes Mental Status Recovered: Yes Vital Signs: Last Vital Signs Temp 36.2 C 09/10/20 07:11 Pulse 87 09/10/20 04:20 Resp 18 09/10/20 07:11 BP 125/79 09/10/20 07:11 Pulse Ox 95 09/10/20 07:11
--- NOTE | 2020-09-10 08:29 | OR ---
SURGEON: MIA WEBB DATE OF PROCEDURE: 09/09/2020 PREOPERATIVE DIAGNOSIS: A 20-year-old G4, P1-0-2-1 at 39 weeks, desiring repeat section. POSTOPERATIVE DIAGNOSIS: A 20-year-old G4, P1-0-2-1 at 39 weeks, desiring repeat section. PROCEDURE: Repeat low transverse section. IV FLUID: 1000. ESTIMATED BLOOD LOSS: 500. URINE OUTPUT: 100. NOTES AND FINDINGS: A live female delivered at 8:19 a.m. scores 9 and 9. Weight is 3260 g. ANESTHESIA: Spinal. BRIEF HISTORY ABOUT THE PATIENT: She is a 20-year-old G4, P1-0-2-1 at 39, who was scheduled for by [facility] due to coverage. The patient is Dr. Scott's patient. She received care with [facility] by Dr. Scott. She had a low-risk . The patient desired a repeat . The patient was explained risks, benefits, and alternatives, and she wanted to proceed. DESCRIPTION OF PROCEDURE: The patient was taken to the operating room, where spinal anesthesia was performed without difficulty. She was prepared and draped in the dorsal supine position with a leftward tilt. A Pfannenstiel skin incision was made with the scalpel and carried down to the fascia with the Bovie. The fascia was superiorly and inferiorly, and the rectus muscle was in the midline down to the level of pubic symphysis. The peritoneum was entered stepwise and dissected with the aid of the Florentin scissors and the hemostats. Upon entry into the peritoneum, the peritoneum was upwards via manual traction. Lower uterine segment was noted. The Abran retractor was placed to expose the lower uterine segment. Then, the bladder flap was created. Lower uterine incision was made, and was in cephalic presentation. With fundal pressure was delivered without difficulty. The cord was clamped and cut. The infant was handed over to the awaiting nursery nurse. The placenta was delivered by manual massage of the uterine fundus. The uterus was then cleaned with moist laparotomy sponges. The incision was closed in 2 layers, 1st layer with 0 Vicryl, 2nd layer with 0 Monocryl. The gutters were cleaned and the Abran was removed. The incision was then reinspected with retraction by the bladder blade and the retractor. Incision was noted to be hemostatic. The retractors were removed. The midline raphe was closed with 0 Vicryl. Then, the fascia was closed with 0 Vicryl in a continuous fashion. The subcutaneous fat was also approximated with a plain gut. The skin was closed with 3-0 Monocryl on a Vincent needle. All instrument and pad counts were correct x2. The patient was taken to the recovery room in stable condition. DOMENIC MCKEON /[id number] PILO
[2020-09-10] MEDS: Docusate Sodium 100 MG Cap PO SCH ×2 (09:00→21:19)
--- NOTE | 2020-09-10 14:08 | PCM.PNPP ---
- General Info Date of Service: 09/10/20 Admission Dx/Problem (Free Text): 20yo s/p repeat POD1 , denies any complains today Ambulating , voiding , normal lochia Still struggling with Subjective Update: 20yo s/p repeat POD1 , denies any complains today Ambulating , voiding , normal lochia Still struggling with Functional Status: Reports: Pain Controlled, Tolerating Diet, Ambulating, Urinating - Review of Systems General: Reports: No Symptoms HEENT: Reports: No Symptoms Pulmonary: Reports: No Symptoms Cardiovascular: Reports: No Symptoms Gastrointestinal: Reports: No Symptoms Genitourinary: Reports: No Symptoms Musculoskeletal: Reports: No Symptoms Skin: Reports: No Symptoms Neurological: Reports: No Symptoms Psychiatric: Reports: No Symptoms - General Info Date of Service: 09/10/20 - Patient Data Vital Signs - Most Recent: Last Vital Signs Temp 35.8 C L 09/10/20 12:01 Pulse 87 09/10/20 04:20 Resp 17 09/10/20 12:01 BP 118/70 09/10/20 12:01 Pulse Ox 97 09/10/20 12:01 Weight - Most Recent: 293 kg I&O - Last 24 Hours: Intake & Output 09/09/20 09/10/20 09/10/20 22:59 06:59 14:59 Intake Total 1000 Output Total 600 1400 Balance 400 -1400 Lab Results - Last 24 Hours: Laboratory Results - last 24 hr 09/09/20 09/10/20 Range/Units 05:45 05:00 Hgb 8.9 L (12.0-16.0) g/dL Hct 29.6 L (36.0-46.0) % RPR Non-Reac (Non-Reac) - Infant Interaction Support Person: Significant Other - Recovery Exam Fundal Tone: Firm Fundal Level: 1 Fingerbreadths Below Umbilicus Fundal Placement: Midline Lochia Amount: Scant Lochia Color: Rubra/Red Perineum Description: Intact, Minimal Bruising/Swelling Episiotomy/Laceration: Approximated Bladder Status: Voiding - Exam General: Alert HEENT: Pupils Equal Neck: Supple Lungs: Clear to Auscultation Cardiovascular: Regular Rate, Regular Rhythm GI/Abdominal Exam: Normal Bowel Sounds Extremities: Normal Inspection Wound/Incisions: Dressing Dry and Intact Neurological: No New Focal Deficit Psy/Mental Status: Alert - Problem List & Annotations (1) delivery delivered SNOMED Code(s): 860356716 Code(s): O82 - ENCOUNTER FOR DELIVERY WITHOUT INDICATION Status: Acute Current Visit: Yes - Problem List Review Problem List Initiated/Reviewed/Updated: Yes - My Orders Last 24 Hours: My Active Orders 09/09/20 13:44 Patient Status [ADT] Routine Ambulate [RC] PER UNIT ROUTINE Communication Order [RC] PER UNIT ROUTINE Communication Order [RC] PER UNIT ROUTINE Communication Order [RC] Per Unit Routine May Shower [RC] ASDIRECTED Notify Provider Intake and Out [RC] ASDIRECTED Notify Provider Vital Signs [RC] ASDIRECTED RT Incentive Spirometry [RC] Q2HWA Vital Signs [RC] PER UNIT ROUTINE Acetaminophen/oxyCODONE [Percocet 325-5 MG] 1 tab PO Q4H PRN Acetaminophen/oxyCODONE [Percocet 325-5 MG] 2 tab PO Q4H PRN Ibuprofen [Motrin] 800 mg PO Q8H PRN Lanolin [Lansinoh HPA] See Dose Instructions TOP ASDIRECTED PRN Methylergonovine [Methergine] 0.2 mg IM ONETIME PRN Ondansetron [Zofran] 4 mg IVPUSH Q4H PRN Oxytocin [Pitocin] 10 unit IM ASDIRECTED PRN Tranexamic Acid [Cyklokapron] 1,000 mg Sodium Chloride 0.9% [Normal Saline] 100 ml IV ONETIME bisacodyL [Dulcolax] 10 mg RECTAL ONETIME PRN diphenhydrAMINE [Benadryl] 25 mg IVPUSH Q6H PRN miSOPROStoL [Cytotec] 1,000 mcg RECTAL ONETIME PRN Assess Lochia [WOMSER] Per Unit Routine Assess Uterine Involution [WOMSER] Per Unit Routine Breast Pump [WOMSER] Per Unit Routine Peripheral IV Discontinue [OM.PC] Routine Sequential Compression Device [OM.PC] Per Unit Routine Resuscitation Status Routine 09/09/20 13:45 Antiembolic Devices [RC] PER UNIT ROUTINE Lactated Ringers [Ringers, Lactated] 1,000 ml IV ASDIRECTED 09/09/20 14:08 Oxytocin/0.9 % Sodium Chloride [Oxytocin 30 Unit/500 ML-NS] 30 unit in 500 ml IV TITRATE 09/09/20 21:00 Docusate Sodium [Colace] 100 mg PO BID 09/10/20 17:00 Ferrous Sulfate 325 mg PO BIDMEALS - Assessment Assessment:: 20yo s/p repeat POD1 stable , Anemia postop - Plan Plan:: support Routine care Pain control Iron prescribed Incentive spirometry SCD in bed
[2020-09-10] MEDS: Ferrous Sulfate 325 MG Tab PO SCH (17:07)
[2020-09-10] MEDS: Acetaminophen/oxyCODONE 325-5 MG Tab PO PRN ×2 (19:32→23:09)
[2020-09-11] MEDS: Acetaminophen/oxyCODONE 325-5 MG Tab PO PRN ×2 (04:25→08:52)
--- NOTE | 2020-09-11 08:38 | PCM.PNPP ---
- General Info Date of Service: 09/11/20 Functional Status: Reports: Pain Controlled, Tolerating Diet, Ambulating, Urinating - Review of Systems General: Reports: No Symptoms HEENT: Reports: No Symptoms Pulmonary: Reports: No Symptoms Cardiovascular: Reports: No Symptoms Gastrointestinal: Reports: No Symptoms Genitourinary: Reports: No Symptoms Musculoskeletal: Reports: No Symptoms Skin: Reports: No Symptoms Neurological: Reports: No Symptoms Psychiatric: Reports: No Symptoms - Patient Data Vital Signs - Most Recent: Last Vital Signs Temp 35.9 C L 09/11/20 04:20 Pulse 92 09/11/20 04:20 Resp 16 09/11/20 04:20 BP 105/57 L 09/11/20 04:20 Pulse Ox 98 09/11/20 04:20 Weight - Most Recent: 645 lb 15.27 oz Lab Results - Last 24 Hours: Laboratory Results - last 24 hr 09/09/20 Range/Units 05:45 RPR Non-Reac (Non-Reac) Med Orders - Current: Current Medications Bisacodyl (Bisacodyl 10 Mg Supp) 10 mg RECTAL ONETIME PRN PRN Reason: Constipation Diphenhydramine HCl (Diphenhydramine 50 Mg/Ml Sdv) 25 mg IVPUSH Q6H PRN PRN Reason: Itching or Nausea Docusate Sodium (Docusate Sodium 100 Mg Cap) 100 mg PO BID [facility] Last Admin: 09/10/20 21:19 Dose: 100 mg Documented by: Emollient Ointment (Lanolin 100% Cream 7 Gm Tube) 0 gm TOP ASDIRECTED PRN PRN Reason: Sore Nipples Ferrous Sulfate (Ferrous Sulfate 325 Mg Tab) 325 mg PO BIDMEALS [facility] Last Admin: 09/10/20 17:07 Dose: 325 mg Documented by: Oxytocin/Sodium Chloride (Oxytocin 30 Unit/500 Ml-Ns) 30 unit in 500 mls @ 250 mls/hr IV TITRATE [facility] Lactated Ringer's (Ringers, Lactated) 1,000 mls @ 500 mls/hr IV BOLUS [facility] Last Infusion: 09/09/20 10:28 Dose: 125 mls/hr Documented by: Lactated Ringer's (Ringers, Lactated) 1,000 mls @ 125 mls/hr IV ASDIRECTED [facility] Tranexamic Acid 1,000 mg/ (Sodium Chloride) 110 mls @ 660 mls/hr IV ONETIME PRN PRN Reason: Bleeding Oxytocin/Sodium Chloride (Oxytocin 30 Unit/500 Ml-Ns) 30 unit in 500 mls @ 2 mls/hr IV TITRATE ANNMARIE; Protocol Ibuprofen (Ibuprofen 800 Mg Tab) 800 mg PO Q8H PRN PRN Reason: mild pain or fever Methylergonovine Maleate (Methylergonovine 0.2 Mg/1 Ml Amp) 0.2 mg IM ONETIME PRN PRN Reason: Excessive Vaginal Bleeding Misoprostol (Misoprostol 200 Mcg Tab) 1,000 mcg RECTAL ONETIME PRN PRN Reason: excessive bleeding Ondansetron HCl (Ondansetron 4 Mg/2 Ml Sdv) 4 mg IVPUSH Q4H PRN PRN Reason: Nausea/Vomiting Oxycodone/Acetaminophen (Acetaminophen/Oxycodone 325-5 Mg Tab) 1 tab PO Q4H PRN PRN Reason: Pain (moderate 4-6) Last Admin: 09/11/20 04:25 Dose: 1 tab Documented by: Oxycodone/Acetaminophen (Acetaminophen/Oxycodone 325-5 Mg Tab) 2 tab PO Q4H PRN PRN Reason: Pain (moderate 4-6) Oxytocin (Oxytocin 10 Units/1 Ml Sdv) 10 unit IM ASDIRECTED PRN PRN Reason: Excessive Vaginal Bleeding Discontinued Medications Hydrocodone Bitart/Acetaminophen (Acetaminophen/Hydrocodone 325-5 Mg Tab) 2 tab PO Q6H PRN PRN Reason: Pain (moderate 4-6) Cefazolin Sodium (Cefazolin 1 Gm Vial) Confirm Administered Dose 2 gm .ROUTE .STK-MED ONE Stop: 09/09/20 07:25 Citric Acid/Sodium Citrate (Citric Acid/Sodium Citrate Solution 30 Ml Cup) 30 ml PO ONETIME ONE Stop: 09/09/20 06:34 Cefazolin Sodium/Dextrose 2 gm (/ Premix) 50 mls @ 100 mls/hr IV ONETIME ONE Stop: 09/09/20 07:02 Sodium Chloride (Normal Saline) Confirm Administered Dose 20 mls @ as directed .ROUTE .STK-MED ONE Stop: 09/09/20 07:25 Oxytocin/Lactated Ringer's (Pitocin In Lr 30 Units/500 Ml) 30 unit in 500 mls @ 2 mls/hr IV TITRATE ANNMARIE; Protocol Ketorolac Tromethamine (Ketorolac 30 Mg/Ml Sdv) Confirm Administered Dose 30 mg .ROUTE .STK-MED ONE Stop: 09/09/20 07:25 Ketorolac Tromethamine (Ketorolac 30 Mg/Ml Sdv) 30 mg IVPUSH Q6H ANNMARIE Stop: 09/10/20 13:46 Last Admin: 09/10/20 15:16 Dose: 30 mg Documented by: Morphine Sulfate (Morphine Pf 10 Mg/10 Ml Sdv) Confirm Administered Dose 10 mg .ROUTE .STK-MED ONE Stop: 09/09/20 07:20 Nalbuphine HCl (Nalbuphine 10 Mg/1 Ml Vial) 2.5 mg IVPUSH Q3H PRN PRN Reason: Pruritis Stop: 09/10/20 08:37 Last Admin: 09/10/20 00:23 Dose: 2.5 mg Documented by: Naloxone HCl (Naloxone 0.4 Mg/Ml Syringe) 0.1 mg IVPUSH ONETIME PRN PRN Reason: Respiratory Depression Stop: 09/10/20 08:37 Ondansetron HCl (Ondansetron 4 Mg/2 Ml Sdv) Confirm Administered Dose 4 mg .ROUTE .STK-MED ONE Stop: 09/09/20 07:25 Oxytocin (Oxytocin 10 Units/1 Ml Sdv) Confirm Administered Dose 20 unit .ROUTE .STK-MED ONE Stop: 09/09/20 07:25 Phenylephrine HCl (Phenylephrine 1% 10 Mg/Ml Sdv) Confirm Administered Dose 10 mg .ROUTE .STK-MED ONE Stop: 09/09/20 07:25 Sodium Chloride (Sodium Chloride 0.9% 10 Ml Syringe) 10 ml FLUSH ASDIRECTED PRN PRN Reason: Keep Vein Open Sodium Chloride (Sodium Chloride 0.9% 2.5 Ml Syringe) 2.5 ml FLUSH ASDIRECTED PRN PRN Reason: Keep Vein Open Sodium Chloride (Sodium Chloride 0.9% 10 Ml Sdv) 10 ml IV ASDIRECTED PRN PRN Reason: IV Use - Interaction Infant Disposition, : to Nursery Support Person: Significant Other - Recovery Exam Fundal Tone: Firm Fundal Level: 1 Fingerbreadths Below Umbilicus Fundal Placement: Midline Lochia Amount: Scant Lochia Color: Rubra/Red Perineum Description: Intact, Minimal Bruising/Swelling Episiotomy/Laceration: None Bladder Status: Voiding - Exam General: Alert, Oriented, Cooperative, No Acute Distress HEENT: Pupils Equal, Pupils Reactive Neck: Supple, Trachea Midline Lungs: Normal Respiratory Effort GI/Abdominal Exam: Soft, Non-Tender, No Distention Extremities: Normal Inspection, Normal Range of Motion, Non-Tender, No Pedal Edema Skin: Warm, Dry, Intact Wound/Incisions: Healing Well Neurological: No New Focal Deficit Psy/Mental Status: Alert, Normal Affect, Normal Mood - Problem List Review Problem List Initiated/Reviewed/Updated: Yes - My Orders Last 24 Hours: My Active Orders 09/11/20 08:33 Ready for Discharge [RC] PER UNIT ROUTINE - Assessment Assessment:: 20yo POD2 s/p repeat stable , Anemia postop - Plan Plan:: Pain controlled Mild anemia, bleeding currently light. Iron prescribed Incentive spirometry Stool softeners as needed Stable for discharge home. Reviewed postop care. Follow up with in 1 week for incision check.
[2020-09-11] MEDS: Ferrous Sulfate 325 MG Tab PO SCH (08:51)
[2020-09-11] MEDS: Docusate Sodium 100 MG Cap PO SCH (08:51)
[2020-09-11 09:04] VITALS: BP 106/50; PULSE 85
== END 2020-09-11 13:38 | disposition home or self-care (01) | DRG 788 ==
LOC: MW.OB 05:08
PROVIDERS: ADMIT Obstetrics & Gynecology; ATTEND Obstetrics & Gynecology
PROC: 10D00Z1 Extraction of Products of Conception, Low, Open Approach (ICD-10-PCS; principal; 2020-09-09)
DX: O34.211 Maternal care for low transverse scar from previous cesarean delivery (principal); Z37.0 Single live birth; O99.52 Diseases of the respiratory system complicating childbirth; J45.909 Unspecified asthma, uncomplicated; O99.62 Diseases of the digestive system complicating childbirth; K21.9 Gastro-esophageal reflux disease without esophagitis; O99.02 Anemia complicating childbirth; D64.9 Anemia, unspecified; O99.214 Obesity complicating childbirth; E66.9 Obesity, unspecified; Z3A.39 39 weeks gestation of pregnancy; Z91.09 Other allergy status, other than to drugs and biological substances
CPT/HCPCS: 01961; 36415; 51702; 85014; 85018; 85027; 86592; 86850; 86900; 86901; A9270-GY; J0690; J1885; J2270; J2300; J2370; J2405; J2590; J7120

== ENCOUNTER 2020-10-21 06:52 | Emergency (ER) | payer BC ==
[2020-10-21] MEDS ORDERED: Albuterol/Ipratropium 3.0-0.5 MG/3 ML Neb Soln ONE (06:56)
[2020-10-21] MEDS ORDERED: Albuterol/Ipratropium 3.0-0.5 MG/3 ML Neb Soln NEB ONE ×3 (07:07→07:13)
[2020-10-21] MEDS ORDERED: predniSONE 20 MG Tab PO ONE (07:14)
--- NOTE | 2020-10-21 08:14 | CR ---
INDICATION: Short of breath. TECHNIQUE: Chest 1 view. COMPARISON: 27 August 2019 FINDINGS: Cardiovascular and mediastinum: Heart size and vasculature are normal in caliber and appearance. Mediastinum is within normal limits. Lungs and pleural space: Lungs are clear. No sign of infiltrate or mass. No sign of pleural effusion. No pneumothorax. Bones and soft tissues: No significant findings. IMPRESSION: Unremarkable chest. Dictated by Raj Malik MD @ 10/21/2020 8:13:[address] Raj Malik @ Oct 21 2020 8:13AM
--- NOTE | 2020-10-21 08:50 | EDM.PDOC ---
ED HPI GENERAL MEDICAL PROBLEM - General Chief Complaint: Respiratory Problem Stated Complaint: ASTHMA ATTACK Time Seen by Provider: 10/21/20 07:09 - History of Present Illness INITIAL COMMENTS - FREE TEXT/NARRATIVE: CHIEF COMPLAINT(S): Shortness of breath HISTORY OF PRESENT ILLNESS: This is a 20-year-old woman with a past medical history of asthma who comes to the emergency department with a chief complaint of shortness of breath. The patient states that starting yesterday she started to experience shortness of breath. She states that she ran out of her inhaler yesterday and is not able to treat her asthma. She denies any cough, runny nose, or congestion. She denies any fever or chills. She states that she has not yet had her prescriptions filled because she is moving within the town and is not set up an appointment. She states that she takes Singulair, albuterol, and Advair. She denies any chest pain, lower extremity edema, recent travel, recent surgery, prior history of DVT or PE. She denies any sick contacts. She denies any loss of taste or smell. She denies any Covid contacts. REVIEW OF SYSTEMS: Constitutional: Denies fever, chills. Eyes: Denies eye pain Ears, Nose, Mouth, & Throat: Denies earache Cardiovascular: Denies chest pain Respiratory: Positive for shortness of breath Gastrointestinal: Denies Nausea, vomiting, diarrhea, hematochezia. Genitourinary: Denies hematuria Skin:Denies a rash MSK: Denies joint pain Neurological: Denies blurred vision Psychiatric: Denies depression PAST MEDICAL HISTORY: As per history of present illness and as reviewed below otherwise noncontributory. SURGICAL HISTORY: As per history of present illness and as reviewed below otherwise noncontributory. SOCIAL HISTORY: As per history of present illness and as reviewed below otherwise noncontributory. FAMILY HISTORY: As per history of present illness and as reviewed below otherwise noncontributory. EXAMINATION OF ORGAN SYSTEMS/BODY AREAS: Constitutional: Blood pressure is 125/52, heart rate 129, respiratory rate 24 with an oxygen saturation of 92% on room air. Temperature 35.9 temporally General: Young woman who appears to be in a mild amount of respiratory distress Psychiatric: Appropriate mood and affect. Eyes: No scleral icterus or conjunctival erythema ENMT: Moist mucous membranes. No pharyngeal erythema Cardiovascular: Tachycardic but regular no gallops, murmurs, or rubs. Bilateral upper extremity pulses symmetric and intact. No peripheral edema. No JVD. Respiratory: Bilateral inspiratory and expiratory wheezing with prolonged expiratory phase. Patient is speaking in 3-5 word sentences. Gastrointestinal: Soft, non-tender, non-distended. Normoactive bowel sounds Genitourinary: No suprapubic tenderness Musculoskeletal: Normal range of motion. Skin: No lesions or abrasions. Neurological: Alert, GCS 15 MEDICAL DECISION MAKING AND COURSE IN THE ED WITH INTERPRETATION/REVIEW OF DIAGNOSTIC STUDIES: This is a 20-year-old woman with a past medical history of a sthma who comes to the emergency department with bilateral wheezing who is hypoxic and tachycardic and tachypneic. We will provide the patient with DuoNeb treatment and prednisone by mouth. Will obtain a chest x-ray. Will provide 3 DuoNeb treatments and then reevaluate. I do not believe any other labs or imaging are indicated. After initial DuoNeb treatment the patient still had wheezing and was borderline hypoxic. We will reevaluate after additional DuoNeb treatments. The radiological images were viewed by myself along with reading the report from the radiologist. Chest x-ray does not reveal an acute cardiopulmonary process. After 2 additional DuoNeb treatments the patient's oxygen saturation improved to 99% on room air and she was no longer tachypneic. The patient did have faint mild expiratory and inspiratory wheezing however was now able to hold a conversation. The patient was still tachycardic however significantly improved from arrival. At this time I did discuss with her that I did provide her with her prescriptions and that I would send her home with prednisone for the next 5 days. She is to return for any new or worsening symptoms. She was amenable to discharge at this time and had no further questions DISPOSITION: The patient was discharged home in stable condition. The patient will follow up with primary care physician within 1 week CONDITION: Fair PROCEDURES: None FINAL IMPRESSION(S)/DIAGNOSES: 1. Acute asthma exacerbation Alfonso Mcrae M.D. - Related Data Allergies Allergy/AdvReac Type Severity Reaction Status Date / Time animal dander Allergy Shortness Verified 10/21/20 07:01 of Breath Home Meds: Home Meds Albuterol Sulfate 1 inhalation NEB ASDIRECTED PRN 09/02/20 [History] Albuterol [Take Home: Albuterol 18 GM, 1 INH Pack] 1 - 2 puff INH ASDIRECTED PRN 09/02/20 [History] Fluticasone Propion/Salmeterol [Advair 250-50 Diskus] 1 puff INH BID 09/02/20 [History] Montelukast Sodium 10 mg PO DAILY 09/02/20 [History] Acetaminophen/oxyCODONE [Percocet 325-5 MG] 1 - 2 tab PO Q4H PRN 5 Days #20 tablet 09/10/20 [Rx] Ibuprofen [Motrin] 800 mg PO Q8H PRN 5 Days #20 tablet 09/10/20 [Rx] Ferrous Sulfate 325 mg PO BID #90 tablet 09/11/20 [Rx] Albuterol Sulfate [Albuterol Sulfate HFA] 8.5 gm INH Q4H PRN #1 inhaler 10/21/20 [Rx] Albuterol [Proventil Neb Soln] 2.5 mg NEB Q4HRRT PRN #60 cup 10/21/20 [Rx] Fluticasone Propion/Salmeterol [Advair 250-50 Diskus] 1 each IH BID #1 disk.w.dev 10/21/20 [Rx] Montelukast Sodium [Singulair] 10 mg PO DAILY #30 tablet 10/21/20 [Rx] predniSONE [Prednisone] 50 mg PO DAILY #5 tablet 10/21/20 [Rx] Past Medical History - Past Health History Medical/Surgical History: Denies Medical/Surgical History HEENT History: Reports: None Cardiovascular History: Reports: Other (See Below) Other Cardiovascular History: 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" Respiratory History: Reports: Asthma Gastrointestinal History: Reports: GERD Genitourinary History: Reports: None 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: 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: , 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 Musculoskeletal History: Reports: Back Pain, Chronic Neurological History: Reports: None Other Neuro History: [place] in head after fall 05/31/2019 Psychiatric History: Reports: Anxiety, Depression, OCD, PTSD Other Psychiatric History: "bipolar depression" Endocrine/Metabolic History: Reports: Obesity/BMI 30+ Hematologic History: Reports: Anemia Immunologic History: Reports: None Oncologic (Cancer) History: Reports: None Dermatologic History: Reports: None - Infectious Disease History Infectious Disease History: Reports: Chicken Pox, Other (See Below) - Past Surgical History Head Surgeries/Procedures: Reports: None HEENT Surgical History: Reports: Adenoidectomy, Myringotomy w Tube(s), Ton sillectomy Cardiovascular Surgical History: Reports: None Respiratory Surgical History: Reports: None GI Surgical History: Reports: None Female Surgical History: Reports: Section Endocrine Surgical History: Reports: None Neurological Surgical History: Reports: None Musculoskeletal Surgical History: Reports: None Oncologic Surgical History: Reports: None Dermatological Surgical History: Reports: None Social & Family History - Family History Family Medical History: No Pertinent Family History HEENT: Reports: Impaired Vision Cardiac: Reports: Hypertension, DC Respiratory: Reports: Asthma, Sleep Apnea : Reports: Other (See Below) Other Family History: Mother of patient in current kidney failure. OBGYN: Reports: Musculoskeletal: Reports: Arthritis, Gout, Osteoarthritis Psychiatric: Reports: ADHD, Anxiety, Depression Endocrine/Metabolic: Reports: Obesity/MBI 30+ Oncologic: Reports: Breast, Cervix, Lung - Caffeine Use Caffeine Use: Reports: None - Recreational Drug Use Recreational Drug Use: No ED ROS GENERAL - Review of Systems Review Of Systems: See Below ED EXAM, GENERAL - Physical Exam Exam: See Below Course - Vital Signs Last Recorded V/S: Last Vital Signs Temp 36.2 C 10/21/20 09:01 Pulse 103 H 10/21/20 09:01 Resp 14 10/21/20 09:01 BP 116/68 10/21/20 09:01 Pulse Ox 99 10/21/20 09:01 - Orders/Labs/Meds Meds: Medications Discontinued Medications Generic Name Dose Route Start Last Admin Trade Name Jitendra PRN Reason Stop Dose Admin Albuterol/Ipratropium Confirm 10/21/20 06:56 10/21/20 07:06 Albuterol/Ipratropium 3.0-0.5 Mg/3 Ml Neb Soln Administered 10/21/20 06:57 Not Given Dose 3 ml .ROUTE .STK-MED ONE Albuterol/Ipratropium 3 ml 10/21/20 07:07 10/21/20 07:23 Albuterol/Ipratropium 3.0-0.5 Mg/3 Ml Neb Soln NEB 10/21/20 07:08 3 ml ONETIME ONE Administration Albuterol/Ipratropium 3 ml 10/21/20 07:13 10/21/20 07:23 Albuterol/Ipratropium 3.0-0.5 Mg/3 Ml Neb Soln NEB 10/21/20 07:14 3 ml ONETIME ONE Administration Albuterol/Ipratropium 3 ml 10/21/20 07:13 10/21/20 07:24 Albuterol/Ipratropium 3.0-0.5 Mg/3 Ml Neb Soln NEB 10/21/20 07:14 3 ml ONETIME ONE Administration Prednisone 60 mg 10/21/20 07:14 10/21/20 07:24 Prednisone 20 Mg Tab PO 10/21/20 07:15 60 mg ONETIME ONE Administration Departure - Departure Time of Disposition: 08:49 Disposition: Home, Self-Care 01 Condition: Fair Clinical Impression: Exacerbation of asthma - Discharge Information *PRESCRIPTION DRUG MONITORING PROGRAM REVIEWED*: No *COPY OF PRESCRIPTION DRUG MONITORING REPORT IN PATIENT LAZARO: No Prescriptions: Fluticasone Propion/Salmeterol [Advair 250-50 Diskus] 1 each IH BID #1 disk.w.dev Albuterol Sulfate [Albuterol Sulfate HFA] 8.5 gm INH Q4H PRN #1 inhaler PRN Reason: Wheezing predniSONE [Prednisone] 50 mg PO DAILY #5 tablet Albuterol [Proventil Neb Soln] 2.5 mg NEB Q4HRRT PRN #60 cup PRN Reason: Wheezing Montelukast Sodium [Singulair] 10 mg PO DAILY #30 tablet Instructions: Asthma, Adult, [id number], Asthma Attack Prevention, Adult Referrals: Mg Croft MD [Primary Care Provider] - Forms: ED Department Discharge Additional Instructions: You evaluate today on an emergent basis. At this time we did treat you for an asthma exacerbation. Your oxygen saturation was borderline when you came in at 92% and improved. I do recommend that she continue with p.o. hydration. I did send your baseline prescriptions to the pharmacy. I would also like you to take prednisone daily for the next 5 days starting tomorrow. If you have any worsening of your symptoms I would like you to return to the emergency department. Please follow-up with primary care physician within 2 to 3 days [facility] [address] [place] [id number] [address] [id number] The patient is informed of any results of their evaluation and diagnostic workup and all questions are answered. They are given discharge instructions and return precautions. The patient is stable for discharge. The patient states they understand and agree with the plan and that they will return if their symptoms get worse or if they have any new concerns. The following information is given to patients seen in the emergency department who are being discharged to home. This information is to outline your options for follow-up care. We provide all patients seen in our emergency department with a follow-up referral. The need for follow-up, as well as the timing and circumstances, are variable depending upon the specifics of your emergency department visit. If you don't have a primary care physician on staff, we will provide you with a referral. We always advise you to contact your personal physician following an emergency department visit to inform them of the circumstance of the visit and for follow-up with them and/or the need for any referrals to a consulting specialist. The emergency department will also refer you to a specialist when appropriate. This referral assures that you have the opportunity for follow-up care with a specialist. All of these measure are taken in an effort to provide you with optimal care, which includes your follow-up. Under all circumstances we always encourage you to contact your private physician who remains a resource for coordinating your care. When calling for follow-up care, please make the office aware that this follow-up is from your recent emergency room visit. If for any reason you are refused follow-up, please contact the [facility] Emergency Department at and asked to speak to the emergency department charge nurse. Sepsis Event Note (ED) - Evaluation Sepsis Screening Result: No Definite Risk
[2020-10-21 09:02] VITALS: BP 116/68; PULSE 103
== END 2020-10-21 09:02 | disposition home or self-care (01) ==
LOC: MW.ED 06:52
DX: J45.901 Unspecified asthma with (acute) exacerbation (principal); E66.9 Obesity, unspecified; Z68.41 Body mass index [BMI] 40.0-44.9, adult; Z91.09 Other allergy status, other than to drugs and biological substances
CPT/HCPCS: 71045; 99285; A9270; 99284; J7620-GY

== ENCOUNTER 2021-10-24 16:09 | Emergency (ER) | payer BC ==
[2021-10-24 17:17] VITALS: BP 129/82; PULSE 99
== END 2021-10-24 17:17 | disposition home or self-care (01) ==
LOC: MW.ED 16:09
DX: O9A.23 Injury, poisoning and certain other consequences of external causes complicating the puerperium (principal); S30.0XXA Contusion of lower back and pelvis, initial encounter; K21.9 Gastro-esophageal reflux disease without esophagitis; Z91.09 Other allergy status, other than to drugs and biological substances; Z3A.01 Less than 8 weeks gestation of pregnancy; W10.8XXA Fall (on) (from) other stairs and steps, initial encounter
CPT/HCPCS: 99283

== ENCOUNTER 2021-10-28 11:05 | Emergency (ER) | payer BC ==
[2021-10-28] MEDS ORDERED: predniSONE 10 MG Tab PO ONE (11:23)
[2021-10-28] MEDS ORDERED: Albuterol/Ipratropium 3.0-0.5 MG/3 ML Neb Soln NEB ONE ×2 (11:26)
[2021-10-28 13:11] VITALS: BP 127/90; PULSE 100
== END 2021-10-28 13:12 | disposition home or self-care (01) ==
LOC: MW.ED 11:05
DX: J45.901 Unspecified asthma with (acute) exacerbation (principal); E66.9 Obesity, unspecified; Z68.36 Body mass index [BMI] 36.0-36.9, adult; Z91.018 Allergy to other foods; Z79.899 Other long term (current) drug therapy
CPT/HCPCS: 99284; A9270; J7620-GY

== ENCOUNTER 2022-02-04 22:54 | Emergency (ER) | payer BC ==
[2022-02-04] MEDS ORDERED: Dexamethasone 10 MG/ML SDV PO ONE (23:05)
[2022-02-04] MEDS ORDERED: Albuterol/Ipratropium 3.0-0.5 MG/3 ML Neb Soln NEB ONE (23:05)
[2022-02-04] MEDS ORDERED: Albuterol 8 GM Inhaler INH ONE (23:10)
[2022-02-05 00:28] VITALS: BP 136/76; PULSE 109
== END 2022-02-05 00:27 | disposition home or self-care (01) ==
LOC: MW.ED 22:54
DX: O99.513 Diseases of the respiratory system complicating pregnancy, third trimester (principal); J45.901 Unspecified asthma with (acute) exacerbation; Z3A.30 30 weeks gestation of pregnancy; Z91.09 Other allergy status, other than to drugs and biological substances
CPT/HCPCS: 99284; A9270; J8540; 99283; J7620-GY

== ENCOUNTER 2023-06-01 01:07 | Emergency (ER) | payer BC ==
[2023-06-01 03:55] VITALS: BP 136/77; PULSE 79
== END 2023-06-01 03:55 | disposition home or self-care (01) ==
LOC: MW.ED 01:07
DX: M25.572 Pain in left ankle and joints of left foot (principal); J45.909 Unspecified asthma, uncomplicated; Z79.899 Other long term (current) drug therapy; Z91.048 Other nonmedicinal substance allergy status
CPT/HCPCS: 29515; 73610-26-LT; 73610-LT; 73620-26-LT; 73620-LT; 99282; 99283

== ENCOUNTER 2024-07-02 18:04 | Inpatient (IN) | payer SELFPAY ==
[2024-07-02 19:00] LABS: BASOPHILS ABSOLUTE AUTO 0.09 K/uL (0.00-0.20); BASOPHILS PERCENT AUTO 0.6 % (0.0-1.0); EOSINOPHILS ABSOLUTE AUTO 1.26 K/uL (0.00-0.45); EOSINOPHILS PERCENT AUTO 8.1 % (0.0-6.0); HEMATOCRIT 42.3 % (37.0-47.0); HEMOGLOBIN 13.2 g/dL (12.0-16.0); IMMATURE GRAN ABSOLUTE AUTO 0.05 K/uL (0.00-0.05); IMMATURE GRAN PERCENT AUTO 0.3 % (0.0-0.4); LYMPHOCYTES PERCENT AUTO 10.9 % (24.0-44.0); MEAN CORPUSCULAR HGB CONC 31.2 g/dL (32.0-36.0); MEAN PLATELET VOLUME 10.4 fL (9.4-12.3); MONOCYTES PERCENT AUTO 4.5 % (0.0-8.0); NEUTROPHILS ABSOLUTE AUTO 11.82 K/uL (1.80-7.70); NEUTROPHILS PERCENT AUTO 75.6 % (41.0-71.0); PLATELET COUNT,PLT 324 K/uL (150-400); RED BLOOD CELL COUNT 5.49 M/uL (4.10-5.30); WHITE BLOOD CELL COUNT,WBC 15.62 K/uL (3.9-11.3)
[2024-07-02 19:28] LABS: LACTIC ACID 0.8 mmol/L (0.4-2.0)
[2024-07-02 19:37] LABS: ALBUMIN 3.9 g/dL (3.4-5.0); CALCIUM 9.4 mg/dL (8.5-10.1); CREATININE 0.8 mg/dL (0.6-1.0); EST CRCL DRUG DOSING (CG) 111.37 mL/min; POTASSIUM,K 4.5 mmol/L (3.5-5.1); PROTEIN TOTAL,TP 7.7 g/dL (6.4-8.2)
[2024-07-02] MEDS: Sodium Chloride 0.9% 1,000 ML IV STA ×2 (19:40→19:41)
[2024-07-02] MEDS: cefTRIAXone 2 GM in Sodium Chloride 0.9% 50 ML IV STA (19:41)
[2024-07-02] MEDS: methylPREDNISolone Sodium Succinate 125 MG/2 ML SDV IVPUSH STA (19:43)
[2024-07-02] MEDS: Albuterol 0.083% 2.5 MG/3 ML Neb Soln NEB STA (20:16)
[2024-07-02] MEDS: Albuterol/Ipratropium 3.0-0.5 MG/3 ML Neb Soln NEB STA (20:16)
[2024-07-02] MEDS: Azithromycin 500 MG in Sodium Chloride 0.9% 250 ML IV STA (21:29)
[2024-07-02] MEDS ORDERED: Melatonin 3 MG Tab PO PRN (21:32)
[2024-07-02] MEDS ORDERED: Polyethylene Glycol 3350 Powder 17 GM Packet PO PRN (21:32)
[2024-07-02] MEDS ORDERED: Acetaminophen 325 MG Tab PO PRN (21:32)
[2024-07-02] MEDS ORDERED: Albuterol 0.083% 2.5 MG/3 ML Neb Soln NEB PRN (21:32)
[2024-07-02] MEDS ORDERED: Acetaminophen 650 MG Supp RECTAL PRN (21:32)
[2024-07-02] MEDS ORDERED: Ondansetron 4 MG/2 ML SDV IVPUSH PRN (21:32)
[2024-07-02] MEDS ORDERED: Azithromycin 500 MG in Sodium Chloride 0.9% 250 ML IV SCH (21:45)
[2024-07-02] MEDS ORDERED: Pantoprazole 40 MG in Sodium Chloride 0.9% 10 ML IVPUSH SCH (21:45)
[2024-07-02] MEDS: Magnesium Sulfate/Water Premix 2 GM in Premix Bag 1 BAG IV ONE (23:00)
[2024-07-02] MEDS: Pantoprazole 40 MG in Sodium Chloride 0.9% 10 ML IVPUSH SCH (23:02)
[2024-07-02] MEDS: Albuterol/Ipratropium 3.0-0.5 MG/3 ML Neb Soln NEB SCH (23:02)
[2024-07-02] MEDS: Enoxaparin 40 MG/0.4 ML Syringe SUBCUT SCH (23:03)
[2024-07-03] MEDS: Iopamidol 755 MG/ML 500 ML Multipack Bottle IVPUSH ONE (02:17)
[2024-07-03] MEDS: Sodium Chloride 0.9% 1,000 ML IV SCH (02:32)
[2024-07-03 05:49] LABS: BASOPHILS ABSOLUTE AUTO 0.02 K/uL (0.00-0.20); BASOPHILS PERCENT AUTO 0.2 % (0.0-1.0); HEMATOCRIT 39.6 % (37.0-47.0); IMMATURE GRAN ABSOLUTE AUTO 0.05 K/uL (0.00-0.05); IMMATURE GRAN PERCENT AUTO 0.4 % (0.0-0.4); LYMPHOCYTES ABSOLUTE AUTO 0.65 K/uL (1.00-4.80); LYMPHOCYTES PERCENT AUTO 5.3 % (24.0-44.0); MEAN CORPUSCULAR HEMOGLOBIN 23.6 pg (28.0-32.0); MEAN CORPUSCULAR HGB CONC 30.3 g/dL (32.0-36.0); MEAN CORPUSCULAR VOLUME 77.8 fL (83.0-99.0); MEAN PLATELET VOLUME 10.9 fL (9.4-12.3); MONOCYTES ABSOLUTE AUTO 0.18 K/uL (0.00-0.80); MONOCYTES PERCENT AUTO 1.5 % (0.0-8.0); NEUTROPHILS ABSOLUTE AUTO 11.38 K/uL (1.80-7.70); NEUTROPHILS PERCENT AUTO 92.6 % (41.0-71.0); PLATELET COUNT,PLT 275 K/uL (150-400); RED BLOOD CELL COUNT 5.09 M/uL (4.10-5.30); WHITE BLOOD CELL COUNT,WBC 12.28 K/uL (3.9-11.3)
[2024-07-03 06:04] LABS: CALCIUM 8.9 mg/dL (8.5-10.1); CARBON DIOXIDE,CO2 22.5 mmol/L (21.0-32.0); CREATININE 0.8 mg/dL (0.6-1.0); EST CRCL DRUG DOSING (CG) 111.37 mL/min; MAGNESIUM 2.1 mg/dL (1.8-2.4); POTASSIUM,K 4.3 mmol/L (3.5-5.1)
[2024-07-03] MEDS: predniSONE 20 MG Tab PO SCH (07:45)
[2024-07-03] MEDS: Formoterol/Mometasone 200-5 MCG 8.8 GM Inhaler INH SCH ×2 (09:31→20:49)
[2024-07-03] MEDS ORDERED: Glucagon,Human Recombinant 1 MG Vial IM PRN (09:48)
[2024-07-03] MEDS ORDERED: 50% Dextrose in Water 50 ML Syringe IVPUSH PRN (09:48)
[2024-07-03 10:28] LABS: HEMOGLOBIN A1C 5.4 %
[2024-07-03] MEDS: Insulin Aspart 100 Units/ML 3 ML Pen SUBCUT SCH (11:26)
[2024-07-03] MEDS: cefTRIAXone 1 GM in Sodium Chloride 0.9% 50 ML IV SCH (20:37)
[2024-07-03] MEDS: Montelukast 10 MG Tab PO SCH (20:48)
[2024-07-03] MEDS: Azithromycin 500 MG in Sodium Chloride 0.9% 250 ML IV SCH (22:05)
[2024-07-04 05:07] LABS: BORDETELLA PARAPERT IS1001 Not Detected (Not Detected)
[2024-07-04 08:02] LABS: BASOPHILS ABSOLUTE AUTO 0.06 K/uL (0.00-0.20); BASOPHILS PERCENT AUTO 0.4 % (0.0-1.0); EOSINOPHILS PERCENT AUTO 1.8 % (0.0-6.0); HEMATOCRIT 36.9 % (37.0-47.0); HEMOGLOBIN 11.3 g/dL (12.0-16.0); IMMATURE GRAN ABSOLUTE AUTO 0.07 K/uL (0.00-0.05); IMMATURE GRAN PERCENT AUTO 0.4 % (0.0-0.4); LYMPHOCYTES ABSOLUTE AUTO 3.01 K/uL (1.00-4.80); LYMPHOCYTES PERCENT AUTO 17.8 % (24.0-44.0); MEAN CORPUSCULAR HEMOGLOBIN 23.8 pg (28.0-32.0); MEAN CORPUSCULAR HGB CONC 30.6 g/dL (32.0-36.0); MEAN CORPUSCULAR VOLUME 77.7 fL (83.0-99.0); MEAN PLATELET VOLUME 10.9 fL (9.4-12.3); MONOCYTES ABSOLUTE AUTO 0.68 K/uL (0.00-0.80); NEUTROPHILS PERCENT AUTO 75.6 % (41.0-71.0); PLATELET COUNT,PLT 286 K/uL (150-400); RED BLOOD CELL COUNT 4.75 M/uL (4.10-5.30); WHITE BLOOD CELL COUNT,WBC 16.92 K/uL (3.9-11.3)
[2024-07-04 08:17] LABS: ALBUMIN 3.3 g/dL (3.4-5.0); BILIRUBIN TOTAL 0.5 mg/dL (0.2-1.0); CALCIUM 8.7 mg/dL (8.5-10.1); CARBON DIOXIDE,CO2 26.8 mmol/L (21.0-32.0); CREATININE 0.9 mg/dL (0.6-1.0); EST CRCL DRUG DOSING (CG) 98.99 mL/min; MAGNESIUM 1.8 mg/dL (1.8-2.4); POTASSIUM,K 4.1 mmol/L (3.5-5.1); PROTEIN TOTAL,TP 6.7 g/dL (6.4-8.2)
[2024-07-04 11:31] VITALS: BP 139/84; PULSE 88
== END 2024-07-04 11:38 | disposition home or self-care (01) | DRG 193 ==
LOC: MW.ED 18:04 → MW.MS 21:30 → OBSVTOIN 07-03 09:47 → MW.MS 07-03 10:40
PROVIDERS: ADMIT Family Medicine; ATTEND Family Medicine
DX: J18.9 Pneumonia, unspecified organism (principal); J96.01 Acute respiratory failure with hypoxia; J45.901 Unspecified asthma with (acute) exacerbation; F12.90 Cannabis use, unspecified, uncomplicated; Z91.09 Other allergy status, other than to drugs and biological substances; Z79.51 Long term (current) use of inhaled steroids; Z79.899 Other long term (current) drug therapy; Z90.89 Acquired absence of other organs; Z98.891 History of uterine scar from previous surgery; Z98.890 Other specified postprocedural states; Z91.199 Patient's noncompliance with other medical treatment and regimen due to unspecified reason
CPT/HCPCS: 36415; 71045; 71045-26; 80048; 80053; 82947; 83036; 83605; 83735; 84484; 84703; 85025; 85379; 87040; 87428-QW; 87486; 87581; 87633; 93005; 94640; 94664; 99222; 99232; 99239; A9270-GY; J0456; J0696; J1815-GY; J2470; J2919; J3475; J3490; J7030; J7050; J7620-GY

== ENCOUNTER 2025-02-01 14:43 | Inpatient (IN) | payer BC ==
[2025-02-01] MEDS ORDERED: Magnesium Sulfate 2 GM/50 mL 2 GM in Premix Bag 1 BAG IV SCH (15:00)
[2025-02-01] MEDS: methylPREDNISolone Sodium Succinate 125 MG/2 ML SDV IVPUSH ONE (15:06)
[2025-02-01 15:07] LABS: BASOPHILS ABSOLUTE AUTO 0.06 K/uL (0.00-0.20); BASOPHILS PERCENT AUTO 0.4 % (0.0-1.0); EOSINOPHILS ABSOLUTE AUTO 1.78 K/uL (0.00-0.45); EOSINOPHILS PERCENT AUTO 12.3 % (0.0-6.0); IMMATURE GRAN ABSOLUTE AUTO 0.05 K/uL (0.00-0.05); IMMATURE GRAN PERCENT AUTO 0.3 % (0.0-0.4); LYMPHOCYTES ABSOLUTE AUTO 1.83 K/uL (1.00-4.80); LYMPHOCYTES PERCENT AUTO 12.6 % (24.0-44.0); MEAN PLATELET VOLUME 10.7 fL (9.4-12.3); MONOCYTES ABSOLUTE AUTO 0.64 K/uL (0.00-0.80); MONOCYTES PERCENT AUTO 4.4 % (0.0-8.0); NEUTROPHILS ABSOLUTE AUTO 10.16 K/uL (1.80-7.70); NEUTROPHILS PERCENT AUTO 70.0 % (41.0-71.0); NRBC ABSOLUTE 0.00 K/uL (0.00-0.02); NRBC PERCENT 0.0 /100WBC (0.0-0.2); PLATELET COUNT,PLT 293 K/uL (150-400); RED BLOOD CELL COUNT 5.26 M/uL (4.10-5.30); WHITE BLOOD CELL COUNT,WBC 14.52 K/uL (3.9-11.3)
[2025-02-01] MEDS: Magnesium Sulfate 2 GM/50 mL 2 GM in Premix Bag 1 BAG IV ONE (15:07)
[2025-02-01 15:30] LABS: A/G RATIO 1.0 (0.9-1.6); ALANINE AMINOTRANSFERASE,ALT 28 IU/L (14-63); ASPARTATE AMNIOTRANSFERASE,AST 18 IU/L (15-37); BILIRUBIN TOTAL 1.2 mg/dL (0.2-1.0); BLOOD UREA NITROGEN,BUN 8 mg/dL (7.0-18.0); CARBON DIOXIDE,CO2 29.2 mmol/L (21.0-32.0); CHLORIDE,CL 104 mmol/L (98-107); CREATININE 0.9 mg/dL (0.6-1.0); GLUCOSE RANDOM 89 mg/dL (74-106); POTASSIUM,K 4.3 mmol/L (3.5-5.1); PROTEIN TOTAL,TP 7.1 g/dL (6.4-8.2); SODIUM,NA 139 mmol/L (136-145)
[2025-02-01 15:32] LABS: ESTIMATED GFR 90 mL/min (>60)
[2025-02-01 15:33] LABS: LACTIC ACID 0.6 mmol/L (0.4-2.0)
[2025-02-01] MEDS: cefTRIAXone 2 GM in Water For Injection, Sterile 20 ML IVPUSH ONE (16:06)
[2025-02-01] MEDS ORDERED: Sodium Chloride 0.9% 2.5 ML Syringe FLUSH PRN (16:56)
[2025-02-01] MEDS ORDERED: Albuterol 0.083% 2.5 MG/3 ML Neb Soln NEB PRN (16:56)
[2025-02-01] MEDS ORDERED: Ondansetron 4 MG Tab.DIS PO PRN (16:56)
[2025-02-01] MEDS ORDERED: Sodium Chloride 0.9% 10 ML Syringe FLUSH PRN (16:56)
[2025-02-01] MEDS: cefTRIAXone 1 GM in Water For Injection, Sterile 10 ML IVPUSH SCH (19:18)
[2025-02-02 06:25] LABS: BASOPHILS ABSOLUTE AUTO 0.02 K/uL (0.00-0.20); BASOPHILS PERCENT AUTO 0.1 % (0.0-1.0); EOSINOPHILS ABSOLUTE AUTO 0.01 K/uL (0.00-0.45); EOSINOPHILS PERCENT AUTO 0.1 % (0.0-6.0); IMMATURE GRAN ABSOLUTE AUTO 0.07 K/uL (0.00-0.05); IMMATURE GRAN PERCENT AUTO 0.4 % (0.0-0.4); LYMPHOCYTES ABSOLUTE AUTO 0.95 K/uL (1.00-4.80); LYMPHOCYTES PERCENT AUTO 5.5 % (24.0-44.0); MEAN PLATELET VOLUME 10.6 fL (9.4-12.3); MONOCYTES ABSOLUTE AUTO 0.50 K/uL (0.00-0.80); MONOCYTES PERCENT AUTO 2.9 % (0.0-8.0); NEUTROPHILS ABSOLUTE AUTO 15.57 K/uL (1.80-7.70); NEUTROPHILS PERCENT AUTO 91.0 % (41.0-71.0); NRBC ABSOLUTE 0.00 K/uL (0.00-0.02); NRBC PERCENT 0.0 /100WBC (0.0-0.2); PLATELET COUNT,PLT 317 K/uL (150-400); RED BLOOD CELL COUNT 5.08 M/uL (4.10-5.30); WHITE BLOOD CELL COUNT,WBC 17.12 K/uL (3.9-11.3)
[2025-02-02 07:02] LABS: A/G RATIO 0.9 (0.9-1.6); ALANINE AMINOTRANSFERASE,ALT 24.0 IU/L (14-63); ASPARTATE AMNIOTRANSFERASE,AST 15.0 IU/L (15-37); BILIRUBIN TOTAL 0.6 mg/dL (0.2-1.0); BLOOD UREA NITROGEN,BUN 8.0 mg/dL (7.0-18.0); CARBON DIOXIDE,CO2 24.2 mmol/L (21.0-32.0); CHLORIDE,CL 107.0 mmol/L (98-107); CREATININE 0.8 mg/dL (0.6-1.0); EST CRCL DRUG DOSING (CG) 111.37 mL/min; GLUCOSE RANDOM 134.0 mg/dL (74-106); POTASSIUM,K 4.5 mmol/L (3.5-5.1); PROTEIN TOTAL,TP 7.2 g/dL (6.4-8.2); SODIUM,NA 141.0 mmol/L (136-145)
[2025-02-02 07:03] LABS: ESTIMATED GFR 104.0 mL/min (>60)
[2025-02-02] MEDS: cefTRIAXone 1 GM in Water For Injection, Sterile 10 ML IVPUSH SCH (16:09)
[2025-02-02] MEDS: VANCOmycin 2 GM/400 ML 2 GM in Premix Bag 1 BAG IV ONE (17:56)
[2025-02-02] MEDS: methylPREDNISolone Sodium Succinate 40 MG/1 ML SDV IVPUSH SCH (20:13)
[2025-02-02] MEDS: Budesonide 0.5 MG/2 ML Neb Susp NEB SCH (20:56)
[2025-02-03] MEDS: VANCOmycin 1.75 GM/350 ML 1.75 GM in Premix Bag 1 BAG IV SCH (03:59)
[2025-02-03 05:07] LABS: BORDETELLA PARAPERT IS1001 Not Detected (Not Detected)
[2025-02-03 06:09] LABS: BASOPHILS ABSOLUTE AUTO 0.02 K/uL (0.00-0.20); BASOPHILS PERCENT AUTO 0.1 % (0.0-1.0); EOSINOPHILS ABSOLUTE AUTO 0.00 K/uL (0.00-0.45); EOSINOPHILS PERCENT AUTO 0.0 % (0.0-6.0); IMMATURE GRAN ABSOLUTE AUTO 0.13 K/uL (0.00-0.05); IMMATURE GRAN PERCENT AUTO 0.6 % (0.0-0.4); LYMPHOCYTES ABSOLUTE AUTO 1.39 K/uL (1.00-4.80); LYMPHOCYTES PERCENT AUTO 6.3 % (24.0-44.0); MEAN PLATELET VOLUME 11.4 fL (9.4-12.3); MONOCYTES ABSOLUTE AUTO 0.63 K/uL (0.00-0.80); MONOCYTES PERCENT AUTO 2.9 % (0.0-8.0); NEUTROPHILS ABSOLUTE AUTO 19.87 K/uL (1.80-7.70); NEUTROPHILS PERCENT AUTO 90.1 % (41.0-71.0); NRBC ABSOLUTE 0.00 K/uL (0.00-0.02); NRBC PERCENT 0.0 /100WBC (0.0-0.2); PLATELET COUNT,PLT 280 K/uL (150-400); RED BLOOD CELL COUNT 4.72 M/uL (4.10-5.30); WHITE BLOOD CELL COUNT,WBC 22.04 K/uL (3.9-11.3)
[2025-02-03 06:38] LABS: A/G RATIO 1.0 (0.9-1.6); ALANINE AMINOTRANSFERASE,ALT 20.0 IU/L (14-63); ASPARTATE AMNIOTRANSFERASE,AST 2.0 IU/L (15-37); BILIRUBIN TOTAL 0.3 mg/dL (0.2-1.0); BLOOD UREA NITROGEN,BUN 6.0 mg/dL (7.0-18.0); CARBON DIOXIDE,CO2 23.7 mmol/L (21.0-32.0); CHLORIDE,CL 108.0 mmol/L (98-107); CREATININE 0.8 mg/dL (0.6-1.0); EST CRCL DRUG DOSING (CG) 111.37 mL/min; GLUCOSE RANDOM 135.0 mg/dL (74-106); POTASSIUM,K 4.7 mmol/L (3.5-5.1); PROTEIN TOTAL,TP 6.4 g/dL (6.4-8.2); SODIUM,NA 140.0 mmol/L (136-145)
[2025-02-03 06:39] LABS: ESTIMATED GFR 104.0 mL/min (>60)
[2025-02-03 18:36] VITALS: BP 127/70; PULSE 98
== END 2025-02-03 18:00 | disposition home or self-care (01) | DRG 139 ==
LOC: MW.ED 14:43 → MW.MS 16:32
PROVIDERS: ADMIT Internal Medicine; ATTEND Internal Medicine
DX: J18.9 Pneumonia, unspecified organism (principal); J96.01 Acute respiratory failure with hypoxia; E86.0 Dehydration; J45.41 Moderate persistent asthma with (acute) exacerbation; Z88.8 Allergy status to other drugs, medicaments and biological substances; Z79.899 Other long term (current) drug therapy; Z98.890 Other specified postprocedural states; Z90.49 Acquired absence of other specified parts of digestive tract; Z98.51 Tubal ligation status; Z98.891 History of uterine scar from previous surgery
CPT/HCPCS: 36415; 71046; 71046-26; 80053; 80202; 83605; 83690; 83735; 85025; 87040; 87428-QW; 87486; 87581; 87633; 87641; 87899; 94640; 96361; 96365; 96375; 99285; 99285-25; A9270-GY; J0456; J0696; J1650; J2919; J3375; J3475; J7030; J7050

== ENCOUNTER 2025-02-23 08:21 | Observation (INO) | payer BC ==
[2025-02-23] MEDS ORDERED: Sodium Chloride 0.9% 2.5 ML Syringe FLUSH PRN ×2 (09:01→13:00)
[2025-02-23] MEDS ORDERED: Sodium Chloride 0.9% 10 ML Syringe FLUSH PRN ×2 (09:01→13:00)
[2025-02-23] MEDS: Magnesium Sulfate 2 GM/50 mL 2 GM in Premix Bag 1 BAG IV ONE (09:22)
[2025-02-23] MEDS: methylPREDNISolone Sodium Succinate 125 MG/2 ML SDV IVPUSH ONE (09:22)
[2025-02-23 09:39] LABS: MEAN PLATELET VOLUME 10.8 fL (9.4-12.3); NRBC ABSOLUTE 0.00 K/uL (0.00-0.02); NRBC PERCENT 0.0 /100WBC (0.0-0.2); PLATELET COUNT,PLT 375 K/uL (150-400); RED BLOOD CELL COUNT 5.48 M/uL (4.10-5.30); WHITE BLOOD CELL COUNT,WBC 17.91 K/uL (3.9-11.3)
[2025-02-23] MEDS: cefTRIAXone 2 GM in Water For Injection, Sterile 20 ML IVPUSH ONE (10:07)
[2025-02-23 10:11] LABS: A/G RATIO 1.0 (0.9-1.6); ALANINE AMINOTRANSFERASE,ALT 27 IU/L (14-63); ASPARTATE AMNIOTRANSFERASE,AST 20 IU/L (15-37); BILIRUBIN TOTAL 0.6 mg/dL (0.2-1.0); BLOOD UREA NITROGEN,BUN 10 mg/dL (7.0-18.0); CARBON DIOXIDE,CO2 26.3 mmol/L (21.0-32.0); CHLORIDE,CL 107 mmol/L (98-107); CREATININE 0.9 mg/dL (0.6-1.0); EST CRCL DRUG DOSING (CG) 98.99 mL/min; GLUCOSE RANDOM 106 mg/dL (74-106); POTASSIUM,K 4.2 mmol/L (3.5-5.1); PRO B-TYPE NATRIUR PEPT,BNPPRO 170 pg/mL (0-125); PROTEIN TOTAL,TP 7.4 g/dL (6.4-8.2); SODIUM,NA 142 mmol/L (136-145)
[2025-02-23 10:21] LABS: EOSINOPHILS ABSOLUTE MAN 1.97 K/uL (0.00-0.45); EOSINOPHILS PERCENT MAN 11 % (0-6); ESTIMATED GFR 90 mL/min (>60); HCG QUANTITATIVE < 1.0 mIU/mL; LYMPHOCYTES ABSOLUTE MAN 2.69 K/uL (1.00-4.80); LYMPHOCYTES PERCENT MAN 15 % (24-44); MONOCYTES ABSOLUTE MAN 0.72 K/uL (0.00-0.80); MONOCYTES PERCENT MAN 4 % (0-8); SEG NEUTROPHILS ABSOLUTE MAN 12.54 K/uL (1.80-7.70); SEG NEUTROPHILS PERCENT MAN 70 % (41-71)
[2025-02-23] MEDS: Iopamidol 755 Mg/ML 100 ML Bottle IVPUSH STA (10:57)
[2025-02-23 11:15] LABS: LACTIC ACID 0.8 mmol/L (0.4-2.0)
[2025-02-23] MEDS ORDERED: Albuterol 0.083% 2.5 MG/3 ML Neb Soln NEB PRN (13:00)
[2025-02-23] MEDS ORDERED: Ondansetron 4 MG/2 ML SDV IVPUSH PRN (13:00)
[2025-02-23] MEDS ORDERED: Codeine/guaiFENesin 10-100 MG/5 ML Syrup 5 ML Cup PO PRN (16:32)
[2025-02-23] MEDS: methylPREDNISolone Sodium Succinate 40 MG/1 ML SDV IVPUSH SCH (19:26)
[2025-02-23] MEDS: Formoterol/Mometasone 200-5 MCG 8.8 GM Inhaler INH SCH (20:28)
[2025-02-24 07:17] LABS: BASOPHILS ABSOLUTE AUTO 0.02 K/uL (0.00-0.20); BASOPHILS PERCENT AUTO 0.1 % (0.0-1.0); EOSINOPHILS ABSOLUTE AUTO 0.01 K/uL (0.00-0.45); EOSINOPHILS PERCENT AUTO 0.1 % (0.0-6.0); IMMATURE GRAN ABSOLUTE AUTO 0.10 K/uL (0.00-0.05); IMMATURE GRAN PERCENT AUTO 0.6 % (0.0-0.4); LYMPHOCYTES ABSOLUTE AUTO 0.99 K/uL (1.00-4.80); LYMPHOCYTES PERCENT AUTO 5.6 % (24.0-44.0); MEAN PLATELET VOLUME 10.8 fL (9.4-12.3); MONOCYTES ABSOLUTE AUTO 0.35 K/uL (0.00-0.80); MONOCYTES PERCENT AUTO 2.0 % (0.0-8.0); NEUTROPHILS ABSOLUTE AUTO 16.29 K/uL (1.80-7.70); NEUTROPHILS PERCENT AUTO 91.6 % (41.0-71.0); NRBC ABSOLUTE 0.00 K/uL (0.00-0.02); NRBC PERCENT 0.0 /100WBC (0.0-0.2); PLATELET COUNT,PLT 286 K/uL (150-400); RED BLOOD CELL COUNT 5.09 M/uL (4.10-5.30); WHITE BLOOD CELL COUNT,WBC 17.76 K/uL (3.9-11.3)
[2025-02-24 07:42] LABS: BLOOD UREA NITROGEN,BUN 10.0 mg/dL (7.0-18.0); CARBON DIOXIDE,CO2 21.8 mmol/L (21.0-32.0); CHLORIDE,CL 106.0 mmol/L (98-107); CREATININE 0.7 mg/dL (0.6-1.0); EST CRCL DRUG DOSING (CG) 127.28 mL/min; GLUCOSE RANDOM 127.0 mg/dL (74-106); POTASSIUM,K 4.3 mmol/L (3.5-5.1); SODIUM,NA 143.0 mmol/L (136-145)
[2025-02-24 07:45] LABS: ESTIMATED GFR 122.0 mL/min (>60)
[2025-02-24 07:53] VITALS: BP 116/65; PULSE 76
[2025-02-24] MEDS: cefTRIAXone 1 GM in Water For Injection, Sterile 10 ML IVPUSH SCH (07:53)
[2025-02-25 05:07] LABS: BORDETELLA PARAPERT IS1001 Not Detected (Not Detected)
== END 2025-02-24 11:35 | disposition home or self-care (01) ==
LOC: MW.ED 08:21 → MW.MS 12:38
PROVIDERS: ADMIT Internal Medicine; ATTEND Internal Medicine
DX: J96.01 Acute respiratory failure with hypoxia (principal); J45.901 Unspecified asthma with (acute) exacerbation; J12.9 Viral pneumonia, unspecified; E66.9 Obesity, unspecified; I10 Essential (primary) hypertension; F41.9 Anxiety disorder, unspecified; F32.A Depression, unspecified; Z91.09 Other allergy status, other than to drugs and biological substances; Z79.51 Long term (current) use of inhaled steroids; Z79.899 Other long term (current) drug therapy
CPT/HCPCS: 36415; 71046; 71275; 80048; 80053; 83605; 83735; 83880; 84702; 85025; 87428; 87486; 87581; 87633; 93005; 94640; A9270; J0456; J0696; J2919; J3475; J7030; J7050; J7620; Q0144; Q9967; 99222; 99238; A4216